=== PATIENT | female | born 1930 | race Caucasian/White ===

== ENCOUNTER → 2021-01-01 | Outpatient (REF) | payer MEDICARE, OTHER | LOC: M SHH 16:14 | PROVIDERS: ATTEND Family Medicine | DX: R30.0 Dysuria (principal); R35.0 Frequency of micturition ==

== ENCOUNTER 2021-02-01 09:44 | Inpatient (IN) | payer MEDICARE, OTHER ==
[~2021-02-01] VITALS: Ht 165.1 cm; Wt 72.4 kg
--- NOTE | 2021-02-01 11:06 | REP ---
INDICATION: fall/trauma. COMPARISON: 02/18/2018. TECHNIQUE: AP view pelvis, AP and frogleg left hip. FINDINGS: There is a mildly displaced fracture of the left femoral neck. There is no other evidence of acute fracture or dislocation. Moderate degenerative changes are seen at each hip joint, with moderate bilateral joint space narrowing and subchondral sclerosis. There is mild acetabular spurring. There are degenerative changes of the visualized lower lumbar spine. IMPRESSION: Mildly displaced fracture left femoral neck. <Electronically signed by Patrick Levy > 02/01/21 110
--- NOTE | 2021-02-01 11:07 | REP ---
INDICATION: fall COMPARISON: None. TECHNIQUE: AP and lateral. FINDINGS: There is a mildly displaced left femoral neck fracture. There is no dislocation. IMPRESSION: Mildly displaced left femoral neck fracture. <Electronically signed by Patrick Levy > 02/01/21 1108
--- NOTE | 2021-02-01 11:11 | REP ---
INDICATION: fall. COMPARISON: 05/17/2020 the latest prior TECHNIQUE: Portable FINDINGS: The technique utilized in obtaining the radiograph has magnified the cardiac silhouette and accentuated the interstitial markings. The right CP angle has not been included on the radiograph. Without exception lung briggs are unchanged. Once again, there is a 1 cm size nodule in the right upper lobe status quo. No acute patchy parenchymal opacities or pleural effusions have developed. The cardiomediastinal silhouette is stable. There is persistent right hilar fullness. The heart is not enlarged. There is no significant change in appearance of the osseous structures. IMPRESSION: 1. Persistent right middle lobe nodule as described above concerning for neoplasm. Contrast-enhanced CT examination of the chest is recommended. 2. Possible right hilar adenopathy as described above. 3. Other findings and limitations as described above. <Electronically signed by Jeff Alexandra > 02/01/21 1109
--- NOTE | 2021-02-01 11:12 | REP ---
INDICATION: fall COMPARISON: None. TECHNIQUE: Four views right elbow. FINDINGS: There is no evidence of acute fracture, dislocation, or intrinsic bone disease.There is significant soft tissue swelling over the olecranon. IMPRESSION: No fracture or dislocation. Significant soft tissue swelling over the olecranon. <Electronically signed by Patrick Levy > 02/01/21 2404
--- OUTSIDE RECORDS SUMMARY | 2021-02-01 11:40 | CCD | Continuity of Care Document ---
Author Author Lorena HERNANDEZ D.O. Organization Unknown Address [address] [address] Phone [phone] Problems Active Problems Provider Date Hypothyroidism Onset: 04/19/2001 Hyperlipidemia Onset: 04/19/2001 Female climacteric state Orlando Hernandez D.O., FAAFP Onset: 04/19/2001 Allergic rhinitis Orlando Hernandez D.O., FAAFP Onset: 05/2002 Diverticula Colon Orlando Hernandez D.O., FORTUNATOFP Onset: 05/2002 Benign essential hypertension Orlando Hernandez D.O., FAAFP O nset: 07/10/2008 Gastroesophageal reflux disease Orlando Hernandez D.O., FAAFP Onset: 07/10/2008 Depressive disorder Orlando Hernandez D.O., FAAFP Onset: 06/13 Allergic rhinitis Orlando Hernandez D.O., FAAFP Onset: 08/11 Chronic obstructive lung disease Perez Bonner RPA Onse t: 06/22/2018 Paroxysmal atrial fibrillation Orlando Hernandez D.O., FAAFP Onset: 01/18/2019 Social History Type Date Description Comments Sex Unknown Cigarette Use Current cigarette smoker: 1/2 pa ck a day since age 21, quit and restarted often. Tobacco Use Start: Unknown Current Cigarette Smoker 4 Cigar ettes per day Smoking Status Reviewed: 10/22/20 Current Cigarette Smoker 4 Ci garettes per day ETOH Use Consumes 2 glasses of wine per w [facility] Tobacco Use Start: Unknown Patient is a current smoker, smo kes some days Recreational Drug Use Never Used Drugs Exercise Type/Frequency Does aerobics daily Seat Belt/Car Seat always Allergies and adverse reactions Active Allergies Criticality Reaction | Severity Comments Date Flagyl Unable to assess criticality 11/01/1998 Cefdinir Unable to assess criticality fidencio st discomort /gi no problem with amox 12/28/2012 Medications Active Medications SIG Qnty Indications Ordering Provide r Date Bactrim DS 800-160mg Tablets 1 by mouth twice a day for 10 days 20tabs Orlando Hernandez D.O., F AAFP 01/21/2021 Cyclobenzaprine HCL 5mg Tablets 1 tab by mouth at bedtime 30tabs Orlando Hernandez D.O., FAAFP Albuterol Sulfate (2 .5mg/3ML) 0.083% Nebulizer 1 vial via nebulizer every 4 hours as needed 75ml J44 .1 Orlando Hernandez D.O., FAAFP 09/03/2020 R06.2 Nebulizer Device medication compressor use as directed j 44.9 1units Orlando Hernandez D.O., FA [facility] 09/03/2020 Nebulizer Kit/Tubing/Mouthpiece K it for use with nebulizer as directed J44.1 1units J44.1 Orlando Hernandez D.O., FAAFP 09/03/2020 R06.2 Extension Tubing/Connector Misc Spacer- Use With Albuterol Inhaler 1units Orlando Hernandez D.O. , FAAFP 09/03/2020 Leslee Covid-19 Vaccine 0.5ml Vonda pension done Orlando Hernandez D.O., FAAFP Loratadine 10mg Tablets 1 by mouth every night at bedtime 90tabs Orlando Hernandez D.O., FAAFP Prevnar 13 Suspension as directed 1dose Orlando Hernandez D.O., FAAFP 01/18/2019 Azelastine HCL (Nasal) 0.1% Soluti on 2 sprays internasally twice a day 30ml Orlando Hernandez D.O., FAAFP 07/02/2018 Ventolin HFA 108(90Base) mcg/Act A erosol 2 puffs inhaled four times a day as needed 8gm Orlando Hernandez D.O., [facility] 07/16/2017 Montelukast Sodium 10mg Tablets take 1 tablet by mouth daily 90tabs Renetta Yolanda [facility] 07/2016 Levothyroxine Sodium 88mcg Tablets take 1 tablet by mouth daily 90tabs Renetta Yolanda [facility] Pravastatin Sodium 40mg Tablets take 1 tablet by mouth daily 90tabs Yolanda Jackson [facility] Sertraline HCL 25mg Tablets Take 1 Tablet By Mouth Daily 90tabs Orlando Hernandez D.O., [facility] Lisinopril 5mg Tablets take one-half (1/2) tablet daily 45tabs [facility]anda [facility] 9 Multi Vitamin Daily Tablets 1 by mouth every day Unknown Vitamin D3 High Potency 1000Unit C apsules 2 by mouth every day OTC Unknown Calcium Citrate + D3 430-617mb-Vonp Tablets 1 by mouth twice a day Unknown Cardizem CD 180mg Caps ER 24HR 1 by mouth every day 90caps Renetta Yolanda Tirso [facility] 0 Eliquis 5mg Tablets 1 by mouth twice a day 180tabs Yolanda Jackson [facility] 0 Pantoprazole Sodium 40mg Tablets D R 1 by mouth every day 90tabs Renetta Yolanda Tirso [facility] 0 History Medications Amoxicillin 875mg Tablets 1 tab by mouth twice a day for 7 days 14tabs Orlando Hernandez D.O., [facility] 01/03/2021 - 01/21/2021 Prednisone 20mg Tablets 2 tab by mouth daily for 5 days with food then one x 4 days then d/c 14tabs Orlando Hernandez D.O., [facility] 09/03/2020 - 11/09/2020 Prednisone 20mg Tablets 2 tab by mouth daily for 5 days with food 10tabs Yolanda Jackson FNP- C 07/30/2020 - 08/07/2020 Medications Administered in Office Medication SIG Qnty Indications Ordering Provider Date Injection (SC)/(Im) Injection Orlando Hernandez D.O., [facility] 09/03/2020 Injection (SC)/(Im) Injection Rounds, Yolanda Chahal, [facility] 05/18/2020 Injection (SC)/(Im) Injection Rounds, Yolanda Chahal, [facility] 05/18/2020 Injection (SC)/(Im) Injection Rounds, Yolanda Chahal, [facility] 05/17/2020 Injection (SC)/(Im) Injection Rounds, Yolanda Chahal, [facility] 05/17/2020 Injection (SC)/(Im) Injection Orlando Hernandez D.O., [facility] 01/06/2019 Injection (SC)/(Im) Injection Florentin Murphy, RPA 09/08/2014 Injection (SC)/(Im) Injection Orlando Hernandez D.O., [facility] 09/07/2014 Injection (SC)/(Im) Injection Neda Aldana D., [facility] 09/06/2014 Injection (SC)/(Im) Injection [facility] Schedule 02/06/2012 Injection (SC)/(Im) Injection Florentin Murphy, RPA 02/05/2012 Injection (SC)/(Im) Injection Florentin Murphy, RPA 02/04/2012 Injection (SC)/(Im) Injection Orlando Hernandez D.O., [facility] 01/30/2011 Injection (SC)/(Im) Injection Florentin Murphy, RPA 01/29/2011 Injection (SC)/(Im) Injection Orlando Hernandez D.O., [facility] 01/28/2011 Injection Subcutaneous Or Intramuscular Injection Emanuel Camacho M.D. 2007 Injection Subcutaneous Or Intramuscular Injection Orlando Hernandez D.O., [facility] 03/16/2008 Injection Subcutaneous Or Intramuscular Injection Florentin Murphy, RPA 03/15 Injection Subcutaneous Or Intramuscular Injection Florentin Murphy, RPA 02/28 Immunizations CPT Code Status Date Vaccine Lot # 74903 Given 01/04/2020 Influenza Virus Vaccine, Quadrivalent, Slit Virus, Im Use 3Y & Up [id number] 87489 Given 01/06/2019 Influenza Virus Vaccine, Quadrivalent, Slit Virus, Im Use 3Y & Up [id number] 49602 Given 02/18/2018 Influenza Virus Vaccine, Quadrivalent, Slit Virus, Im Use 3Y & Up [id number] 24332 Given 04/23/2017 Influenza Virus Vaccine, Quadrivalent, Slit Virus, Im Use 3Y & Up [id number] 39140 Given 02/29/2016 Influenza Virus Vaccine, Quadrivalent, Slit Virus, Im Use 3Y & Up [id number] 98927 Given 03/26/2015 Influenza Vaccin e (Fluzone) 3Yrs Of Age Or Older Medicare Plans [id number] Q2037 Given 12/30/2013 Influenza Vaccin e (Fluvirin) 3Yrs Of Age Or Older Medicare Plans [id number] 74484 Given 02/04/2013 Pneumococcal Immunization [id number] 38496 Given 12/28/2012 Influenza Vaccin e (Fluzone) 3Yrs Of Age Or Older Medicare Plans 39050 Given 12/28/2012 Influenza Virus Vac. Split Virus Individuals 3 Years And Above [id number] 93041 Given 02/04/2012 Zoster (Shingles) Vaccine 21207 Given 12/29/2011 Influenza Vaccin e (Fluzone) 3Yrs Of Age Or Older Medicare Plans 40501 Given 12/29/2011 Influenza Virus Vac. Split Virus Individuals 3 Years And Above [id number] 60304 Given 02/19/2011 Influenza Vaccin e (Fluzone) 3Yrs Of Age Or Older Medicare Plans 08443 Given 02/19/2011 Influenza Virus Vac. Split Virus Individuals 3 Years And Above [id number] 10358 Given 02/11/2010 Influenza Virus Vac. Split Virus Individuals 3 Years And Above 52755 Given 01/08/2009 Influenza Virus Vac. Split Virus Individuals 3 Years And Above [id number] 77352 Given 02/02/2008 Influenza Virus Vac. Split Virus Individuals 3 Years And Above [id number] 51126 Given 03/03/2007 Pneumococcal Immunization [id number] 64080 Given 02/18/2007 Influenza Virus Vac. Split Virus Individuals 3 Years And Above [id number] 72092 Given 02/25/2006 Influenza Virus Vac. Split Virus Individuals 3 Years And Above [id number] 37549 Given 02/21/2005 Influenza Virus Vac. Split Virus Individuals 3 Years And Above 12976 Given 01/23/2003 Influenza Virus Vac. Split Virus Individuals 3 Years And Above 48734 Given 01/27/2002 Pneumococcal Immunization 55483 Given 01/27/2002 Influenza Virus Vac. Whole V irus 79862 Given 01/27/2002 Influenza Virus Vac. Split Virus Individuals 3 Years And Above 58321 Given 01/21/2001 Influenza Immunization 37852 Given 02/13/2000 Influenza Immunization 97007 Given 02/13/1999 Influenza Immunization 23428 Given 02/21/1998 Influenza Immunization 54834 Given 02/10/1997 Pneumococcal Immunization 22310 Given 02/10/1997 Influenza Immunization Vital Signs Date Vital Result Comment 11/09/2020 1:38pm BP Systolic 128 mmHg BP Diastolic 72 mmHg Body Temperature 97.2 F Heart Rate 80 /min Respiratory Rate 16 /min Height 64.50 inches 5'4.50" Weight 171.00 lb [facility] Body Weight 120 lb BMI (Body Mass Index) 28.9 kg/m2 O2 % BldC Oximetry 96 % 10/22/2020 11:40am BP Systolic 126 mmHg BP Diastolic 86 mmHg Body Temperature 97.2 F Heart Rate 88 /min Respiratory Rate 16 /min Height 64.50 inches 5'4.50" Weight 168.00 lb [facility] Body Weight 120 lb BMI (Body Mass Index) 28.4 kg/m2 O2 % BldC Oximetry 96 % Results Test Acquired Date Facility Test Result H/L Range Note Urine Culture, Routine 01/18/2021 [facility] [place] Urine Culture, Routine Final report Abnormal 1, 2 Result 1 Escherichia coli Abnormal 3 Antimicrobial Susceptibility See Comment: 4 U/A DIP 01/18/2021 [facility] Color yellow QUAL Clarity cloudy QUAL Glucose-Ua Negative g/dL Negative Bilirubin,Urine Negative QUAL Negative Ketone Negative mg/dL Negative Specific [place] 1.025 # 1.000 - 1.030 Blood - Ua Trace-intact QUAL Abnormal Negative pH 6.5 # 5.0 - 8.0 Protein Negative mg/dL Negative Urobilinogen 0.2 NA 0.2 - 1.0 Nitrite Positive QUAL Abnormal Negative Leukocyte Trace QUAL Abnormal Negative RBC-Ua 1-4/HPF # Abnormal 0 - 3 Epithelial Cells - Ua 3-8/HPF QUAL Bacteria - Ua many QUAL Abnormal Negative WBC-Ua 10-20/HPF #/HPF Abnormal 0 - 5 Comment UCS SENT OUT NA High Renal Epithelial Cells RARE QUAL Abnormal Negative Urine Culture 01/01/2021 [facility] (Mariana anaya) [phone] Urine Culture FULL REPORT IN L <SEE NOTE> Normal 5 CBC 11/09/2020 [facility]house WBC 11.4 10E3/uL High 4.1 - 10.9 6 RBC 4.27 10E6/uL 4.20 - 6.30 HGB 13.8 g/dL 12.0 - 18.0 HCT 40.9 % 37.0 - 51.0 MCV 95.8 fL 80.0 - 97.0 MCH 32.3 pg High 26.0 - 32.0 MCHC 33.7 g/dL 31.0 - 36.0 PLT 287 10E3/uL 140 - 440 RDW-CV 14.3 % 11.5 - 14.5 Lym% 18.3 % 10.0 - 58.5 Neut% 73.3 % 37.0 - 92.0 MXD% 8.4 % 0.1 - 24.0 Lym# 2.1 10E3/uL 0.6 - 4.1 Neut# 8.3 % High 2.0 - 7.8 MXD# 1.0 10E3/uL 0.0 - 1.8 MPV 9.4 fL 9.0 - 13.0 CMP 11/09/2020 [facility] Glu 91 mg/dL 70 - 110 BUN 19 mg/dL 8 - 23 Creat 0.9 mg/dL 0.5 - 1.0 BUN/Creatinine Ratio 20.5 CALC Na 138 mmol/L 136 - 145 K 4.6 mmol/L 3.5 - 5.1 CL 100.3 mmol/L 98.0 - 107.0 Co2 21.5 mmol/L Low 22.0 - 29.0 CA 9.8 mg/dL 8.6 - 10.2 TP 6.6 g/dL 6.6 - 8.7 Alb 4.4 g/dL 3.4 - 4.8 A/G Ratio 2.0 CALC Globulin 2.2 CALC Alp 75.8 U/L 35 - 129 Alt (SGPT) 16 U/L 0 - 41 Ast (Sgot) 17 U/L 0 - 40 Tbili 0.40 mg/dL 0.0 - 1.2 Osmolality-Calculated 277.3 CALC Anion Gap 21 mmol/L eGFR 66 # Calc 7 eGFR Non-Afr. Australian 57 # Calc 8 Lipid Panel 11/09/2020 [facility] Chol 198 mg/dL 0 - 200 Trig 222 mg/dL High 40 - 200 HDL 62 mg/dL 45 - 65 LDL_C 92 Calc 75 - 129 Cho/HDL Ratio 3.2 CALC Laboratory test finding 11/09/2020 [facility] CK 43 U/L 26 - 192 Laboratory test finding 11/09/2020 [facility] T4, Free 1.58 ng/dL High 0.75 - 1.54 TSH 1.136 ulU/mL 0.60 - 4.8 CBC 09/03/2020 [facility]house WBC 8.0 10E3/uL 4.1 - 10.9 9 RBC 4.29 10E6/uL 4.20 - 6.30 HGB 13.7 g/dL 12.0 - 18.0 HCT 41.6 % 37.0 - 51.0 MCV 97.0 fL 80.0 - 97.0 MCH 31.9 pg 26.0 - 32.0 MCHC 32.9 g/dL 31.0 - 36.0 PLT 418 10E3/uL 140 - 440 RDW-CV 12.7 % 11.5 - 14.5 Lym% 20.6 % 10.0 - 58.5 Neut% 69.6 % 37.0 - 92.0 MXD% 9.8 % 0.1 - 24.0 Lym# 1.6 10E3/uL 0.6 - 4.1 Neut# 5.6 % 2.0 - 7.8 MXD# 0.8 10E3/uL 0.0 - 1.8 MPV 9.1 fL 9.0 - 13.0 1 SRC:<Blank> 2 Source of Specimen: <Blank> 3 Escherichia coli Source of Specimen: <Blank> Cefazolin <=4 ug/mL Cefazolin with an TANYA <=16 predicts susceptibility to the oral agents cefaclor, cefdinir, cefpodoxime, cefprozil, cefuroxime, cephalexin, and loracarbef when used for therapy of uncomplicated urinary tract infections due to E. coli, Klebsiella pneumoniae, and Proteus mirabilis. Greater than 100,000 colony forming units per mL 4 Source of Specimen: <Blank> S = Susceptible; I = Intermediate; R = Resistant P = Positive; N = Negative MICS are expressed in micrograms per mL Antibiotic RSLT#1 RSLT#2 RSLT#3 RSLT#4 Amoxicillin/Clavulanic Acid S Ampicillin R Cefepime S Ceftriaxone S Cefuroxime S Ciprofloxacin S Ertapenem S Gentamicin S Imipenem S Levofloxacin S Meropenem S Nitrofurantoin S Piperacillin/Tazobactam S Tetracycline S Tobramycin S Trimethoprim/Sulfa R 5 FULL REPORT IN LAB NOTES (eC W and [facility]). ORGANISM 1: STAPHYLOCOCCUS EPIDERMIDIS COLONY COUNT >100,000 ORGANISM 1: STAPHYLOCOCCUS EPIDERMIDIS STAPHYLOCOCCUS EPIDERMIDIS: REACTION ICR (INDUCIBLE CC RESISTANCE) IV ICR TEST RESULT TETRACYCLINE PO 250 mg qid <=1 S PENICILLIN G IV 1 mu q6H >=0.5 R PENICILLIN G IV 1 mu q6h >=0.5 R PENICILLIN G PO 250mg q6h fasting >=0.5 R TRIMETHOPRIM/SULFAMETHOXAZOLE IV 160mg TMP & 800mg SMXq6h >=320 R TRIMETHOPRIM/SULFAMETHOXAZOLE PO Bactrim DS Bid >=320 R ERYTHROMYCIN IV 500mg q6h >=8 R ERYTHROMYCIN PO 500mg q6h >=8 R GENTAMICIN IV 80mg q8h <=0.5 S CLINDAMYCIN IV 600mg q6h 0.25 R CLINDAMYCIN PO 150mg q6h 0.25 R NITROFURANTOIN PO 100mg BID <=16 S OXACILLIN IV 500mg q6h <=0.25 S VANCOMYCIN IV 500mg q8h 2 S LINEZOLID (ZYVOX) IV 600MG Q12HR 1 S LINEZOLID (ZYVOX) PO 600MG Q12HR 1 S An isolate with a (+) POSITIVE ICR test is considered CLINDAMYCIN RESISTANT; however, clindamycin may still be effective in some patients. An isolate with a (-) NEGATIVE ICR test is considered CLIDAMYCIN SENSITIVE. Oxacillin result predicts susceptibility to all penicillinase-stable penicillins (Nafcillin, Dicloxacilin), Cephalosporins, Carbapenems, Amoxicillin/Clavulanate & Ampicillin/Sulbactam per CSLI standards. 6 NORMAL RANGES Age WBC RBC HGB HCT MCV PLT Adult M 4.1-10.9 4.20-6.30 12.0-18.0 37.0-51.0 80-97 140-440 Adult F 4.1-10.9 4.04-5.48 12.0-18.0 37.0-51.0 80-97 140-440 0 -1 Yr 5.0-20.0 3.9-5.9 15-18 MV: 44 MV: 91 MV: 277 2-9 Yr. 6.0-17.0 3.8-5.4 11-13 MV: 37 MV: 78 MV: 300 10 Yrs. 5.0-13.0 3.8-5.4 12-15 MV: 39 MV: 80 MV: 250 NOTE: * FOR ADULT BLACK MALES AND FEMALES, NORMAL WBC IS 2.9-7.7 K/ML * FOR ADULT BLACK MALES AND FEMALES, NORMAL RBC,HGB, AND HCT IS 5% LESS SOURCE FOR DATA: [employer] 1800 OPERATION MANUAL( AUTOMATED BLOOD COUNTS AND DIFF.) APPENDIX B-3 CHRONIC KIDNEY DISEASE STAGING PER NKF: MALE GFR INTERPRETATION: 20-49 YRS: >60 mL/min Normal 50-59 YRS: >56 mL/min Normal 60-69 YRS: >49 mL/min Normal 70-79 YRS: >42 mL/min Normal 80 and above >35 mL/min Normal FEMALE GRF INTERPRETATION: 20-39 YRS: >60 mL/min Normal 40-49 YRS: >58 mL/min Normal 50-59 YRS: >51 mL/min Normal 60-69 YRS: >45 mL/min Normal 70-79 YRS: >39 mL/min Normal 80 and above >32 mL/min NormalCLASSIFICATION CHOLESTEROL FOR ADULTS CHILDREN/ADOLESCENTS* DESIRABLE: <200 MG/DL <170 MG/DL BORDER-LINE HIGH RISK: 200-239 MG/DL 170-199 MG/DL HIGH RISK: >240 MG/DL >200 MG/DL CLASS. FOR PRIMARY LDL CHOL PREVENTION: LDL CHOL-CHILD/ADOLESCENTS* DESIRABLE: <130 MG/DL <110 MG/DL BORDERLINE-HIGH RISK: 130-159 MG/DL 110-129 MG/DL HIGH RISK: >160 MG/DL >130 MG/DL *CHILDREN AND ADOLESCENTS REPRESENTS INDIVIDUALA AGED 2-19 YEARS EXCLUSIVE. 7 CKD-EPI 8 CKD-EPI 9 NORMAL RANGES Age WBC RBC HGB HCT MCV PLT Adult M 4.1-10.9 4.20-6.30 12.0-18.0 37.0-51.0 80-97 140-440 Adult F 4.1-10.9 4.04-5.48 12.0-18.0 37.0-51.0 80-97 140-440 0 -1 Yr 5.0-20.0 3.9-5.9 15-18 MV: 44 MV: 91 MV: 277 2-9 Yr. 6.0-17.0 3.8-5.4 11-13 MV: 37 MV: 78 MV: 300 10 Yrs. 5.0-13.0 3.8-5.4 12-15 MV: 39 MV: 80 MV: 250 NOTE: * FOR ADULT BLACK MALES AND FEMALES, NORMAL WBC IS 2.9-7.7 K/ML * FOR ADULT BLACK MALES AND FEMALES, NORMAL RBC,HGB, AND HCT IS 5% LESS SOURCE FOR DATA: [employer] 1800 OPERATION MANUAL( AUTOMATED BLOOD COUNTS AND DIFF.) APPENDIX B-3 Procedures Date Code Description Status 11/09/2020 08651 Office/Outpatient Established Mo d MDM 30-39 Min Completed 10/22/2020 53666 Office/Outpatient Established Lo w MDM 20-29 Min Completed 09/03/2020 46612 Office/Outpatient Established Mo d MDM 30-39 Min Completed 09/03/2020 55983 Injection (SC)/(Im) Completed 09/03/2020 60285 Aerosol Treatment Airway Inhalat ion Treatment Completed 08/07/2020 59751 Office/Outpatient Established Mo d MDM 30-39 Min Completed 07/30/2020 37922 Office/Outpatient Established Mo d MDM 30-39 Min Completed Medical Devices Description No Information Available Encounters Type Date Location Provider Dx Diagnosis Office Visit 11/09/2020 1:40p [place] [facility] Rounds, [facility] Jade I48.0 Paroxysmal atrial fibrillation J30.9 Allergic rhinitis, unspecifi ed K21.9 Gastro-esophageal reflux dis ease without esophagitis E03.9 Hypothyroidism, unspecified M54.32 Sciatica, left side J44.1 Chronic obstructive pulmonar y disease w (acute) exacerbation Office Visit 10/22/2020 11:30a [place] [facility] Orlando Hernandez D.O ., FAAFP M54.32 Sciatica, left side M54.32 Sciatica, left side Office Visit 09/03/2020 10:30a [place] [facility] Orlando Hernandez D.O ., FAAFP J44.1 Chronic obstructive pulmonary disease w (acute) exacerbation R06.2 Wheezing Office Visit 08/07/2020 1:15p [place] [facility] Orlando Hernandez D.O ., FAAFP I48.0 Paroxysmal atrial fibrillation J44.1 Chronic obstructive pulmonar y disease w (acute) exacerbation J30.9 Allergic rhinitis, unspecifi ed K21.9 Gastro-esophageal reflux dis ease without esophagitis E03.9 Hypothyroidism, unspecified Office Visit 07/30/2020 1:40p [place] [facility] RoundsYolanda FNP-BC J44.1 Chronic obstructive pulmonary disease w (acute) exacerbation J30.9 Allergic rhinitis, unspecifi ed Assessments Date Code Description Provider 01/18/2021 R35.0 Frequency of micturition Orlando Hernandez D.O., [facility] 11/09/2020 I48.0 Paroxysmal atrial fibrillation R Yolanda garcia, [facility] 11/09/2020 J30.9 Allergic rhinitis, unspecified R Yolanda garcia, [facility] 11/09/2020 K21.9 Gastro-esophageal reflux disease without esophagitis Yolanda Jackson, [facility] 11/09/2020 E03.9 Hypothyroidism, unspecified Roun bethYolanda, [facility] 11/09/2020 M54.32 Sciatica, left side Yolanda Jackson, [facility] 11/09/2020 J44.1 Chronic obstructive pulmonary disease with (acute) exacerbation Yolanda Jackson, [facility] 10/22/2020 M54.32 Sciatica, left side Orlando gill D.O., [facility] 10/22/2020 M54.32 Sciatica Orlando Hernandez D.O., [facility] 09/03/2020 J44.1 Chronic obstructive pulmonary disease with (acute) exacerbation Orlando Hernandez D.O., [facility] 09/03/2020 R06.2 Wheezing Orlando Hernandez D.O., [facility] 08/07/2020 I48.0 Paroxysmal atrial fibrillation K alisha Hernandez D.O., [facility] 08/07/2020 J44.1 Chronic obstructive pulmonary disease with (acute) exacerbation Orlando Hernandez D.O., [facility] 08/07/2020 J30.9 Allergic rhinitis, unspecified K alisha Hernandez D.O., [facility] 08/07/2020 K21.9 Gastro-esophageal reflux disease without esophagitis Orlando Hernandez D.O., [facility] 08/07/2020 E03.9 Hypothyroidism, unspecified Isai Hernandez D.O., [facility] 07/30/2020 J44.1 Chronic obstructive pulmonary disease with (acute) exacerbation Yolanda Jackson [facility] 07/30/2020 J30.9 Allergic rhinitis, unspecified R Yolanda garcia, [employer]- Plan of Treatment Future Appointment(s):* 02/27/2021 1:45 pm - Orlando Hernandez D.O., FAAFP at [facility] Functional Status Description No Information Available Mental Status Description No Information Available Referrals Refer to Reason for Referral Status Appt Date Bandar Farrell M.D. low back pain with radiculo nikita x several weeks please eval and tx Sent [facility] [place] [address] [phone]
--- OUTSIDE RECORDS SUMMARY | 2021-02-01 11:41 | CCD | Continuity of Care Document ---
Author Author Lorena HERNANDEZ D.O. Organization Unknown Address [address] [address] Phone [phone] Problems Active Problems Provider Date Hypothyroidism Onset: [...] Consumes 2 glasses of wine per w emmonak Tobacco Use Start: Unknown Patient is a current smoker, smo kes some days Recreational Drug Use Never Used Drugs Exercise Type/Frequency Does aerobics daily Seat Belt/Car Seat always Allergies, Adverse Reactions, Alerts Active Allergies Criticality Reaction | Severity Comments Date Flagyl Unable to assess criticality 11/01/1998 Cefdinir Unable to assess criticality fidencio st discomort /gi no problem with amox 12/28/2012 Medications Active Medications SIG Qnty Indications Ordering Provide r Date Cyclobenzaprine HCL 5mg Tablets 1 tab by mouth at bedtime 30tabs Orlando Hernandez D.O., FAAFP Albuterol Sulfate (2 .5mg/3ML) 0.083% Nebulizer 1 vial via nebulizer every 4 hours as needed 75ml J44 .1 Orlando Hernandez D.O., FAAFP 09/03/2020 R06.2 Nebulizer Device medication compressor use as directed j 44.9 1units Orlando Hernandez D.O., FA [facility] 09/03/2020 Nebulizer Kit/Tubing/Mouthpiece K it for use [...] day as needed 8gm Orlando Hernandez D.O., FAAFP 07/16/2017 Montelukast Sodium 10mg Tablets take 1 tablet by mouth daily 90tabs Yolanda Jackson [facility] 07/2016 Levothyroxine Sodium 88mcg Tablets take 1 tablet by mouth daily 90tabs Renetta Yolanda Chahal [facility] Pravastatin Sodium 40mg Tablets take 1 tablet by mouth daily 90tabs Renetta Yolanda Chahal [facility] Sertraline HCL 25mg Tablets Take 1 Tablet By Mouth Daily 90tabs Orlando Hernandez D.O., [facility] Lisinopril 5mg Tablets take one-half (1/2) tablet daily 45tabs Renetta Yolanda Chahal [facility] 9 Multi Vitamin Daily Tablets 1 by mouth every day Unknown Vitamin D3 High Potency 1000Unit C apsules 2 by mouth every day OTC Unknown Calcium Citrate + D3 [id number] Tablets 1 by mouth twice a day Unknown Cardizem CD 180mg Caps ER 24HR 1 by mouth every day 90caps Renetta Yolanda Tirso [facility] 0 Eliquis 5mg Tablets 1 by mouth twice a day 180tabs Renetta Yolanda Chahal [facility] 0 Pantoprazole Sodium 40mg Tablets D R 1 by mouth every day 90tabs Renetta Yolanda Chahal [facility] 0 History Medications Prednisone 20mg Tablets 2 tab by mouth daily for 5 days with food then one x 4 days then d/c 14tabs Orlando Hernandez D.O., [facility] 09/03/2020 - 11/09/2020 Prednisone 20mg Tablets 2 tab by mouth daily for 5 days with food 10tabs Renetta Yolanda CHAO Chahal C 07/30/2020 - 08/07/2020 Medications Administered in Office Medication SIG Qnty Indications Ordering Provider Date Injection (SC)/(Im) Injection Orlando Hernandez D.O., [facility] 09/03/2020 Injection (SC)/(Im) Injection Yolanda Jackson [facility] 05/18/2020 Injection (SC)/(Im) Injection Yolanda Jackson [facility] 05/18/2020 Injection (SC)/(Im) Injection Ferny Jacksone Tirso [facility] 05/17/2020 Injection (SC)/(Im) Injection Renetta Yolanda Tirso [facility] 05/17/2020 Injection (SC)/(Im) Injection Orlando Hernandez D.O., [facility] 01/06/2019 Injection (SC)/(Im) Injection Florentin Murphy, RPA 09/08/2014 Injection (SC)/(Im) [facility] 09/07/[facility] Injection (SC)/(Im) Injection Neda Aldana D., [facility] 09/06/2014 Injection (SC)/(Im) Injection Nurses Schedule 02/06/2012 Injection (SC)/(Im) Injection Florentin Murphy, RPA 02/05/2012 Injection (SC)/(Im) Injection Florentin Mruphy, RPA 02/04/2012 Injection (SC)/(Im) Injection Orlando Hernandez D.O., FAAFP 01/30/2011 Injection (SC)/(Im) Injection Florentin Murphy, RPA 01/29/2011 Injection (SC)/(Im) Injection Orlando Hernandez D.O., FAAFP 01/28/2011 Injection Subcutaneous Or Intramuscular Injection Emanuel Camacho M.D. 2007 Injection Subcutaneous Or Intramuscular Injection [facility] 03/16/2008 Injection Subcutaneous Or Intramuscular Injection Florentin Murphy, RPA 03/15 Injection Subcutaneous Or Intramuscular Injection Florentin Murphy, RPA 02/28 Immunizations CPT Code Status Date Vaccine Lot # [id number] Given 01/04/2020 Influenza Virus Vaccine, Quadrivalent, Slit Virus, Im Use 3Y & Up [id number] 22302 Given 01/06/2019 Influenza Virus Vaccine, Quadrivalent, Slit Virus, Im Use 3Y & Up [id number] 58412 Given 02/18/2018 Influenza Virus Vaccine, Quadrivalent, Slit Virus, Im Use 3Y & Up [id number] 50923 Given 04/23/2017 Influenza Virus Vaccine, Quadrivalent, Slit Virus, Im Use 3Y & Up [id number] 69339 Given 02/29/2016 Influenza Virus Vaccine, Quadrivalent, Slit Virus, Im Use 3Y & Up [id number] 44373 Given 03/26/2015 Influenza Vaccin e (Fluzone) 3Yrs Of Age Or Older Medicare Plans [id number] Q2037 Given 12/30/2013 Influenza Vaccin e (Fluvirin) 3Yrs Of Age Or Older Medicare Plans [id number] 64382 Given 02/04/2013 Pneumococcal Immunization J0 00101 61986 Given 12/28/2012 Influenza Vaccin e (Fluzone) 3Yrs Of Age Or Older Medicare Plans 01669 Given 12/28/2012 Influenza Virus Vac. Split Virus Individuals 3 Years And Above [id number] 55602 Given 02/04/2012 Zoster (Shingles) Vaccine 07584 Given 12/29/2011 Influenza Vaccin e (Fluzone) 3Yrs Of Age Or Older Medicare Plans 25578 Given 12/29/2011 Influenza Virus Vac. Split Virus Individuals 3 Years And Above [id number] 39042 Given 02/19/2011 Influenza Vaccin e (Fluzone) 3Yrs Of Age Or Older Medicare Plans 31326 Given 02/19/2011 Influenza Virus Vac. Split Virus Individuals 3 Years And Above [id number] 40169 Given 02/11/2010 Influenza Virus Vac. Split Virus Individuals 3 Years And Above 07514 Given 01/08/2009 Influenza Virus Vac. Split Virus Individuals 3 Years And Above [id number] 54656 Given 02/02/2008 Influenza Virus Vac. Split Virus Individuals 3 Years And Above [id number] 87275 Given 03/03/2007 Pneumococcal Immunization 09 [id number] 92716 Given 02/18/2007 Influenza Virus Vac. Split Virus Individuals 3 Years And Above [id number] 75822 Given 02/25/2006 Influenza Virus Vac. Split Virus Individuals 3 Years And Above [id number] 01610 Given 02/21/2005 Influenza Virus Vac. Split Virus Individuals 3 Years And Above 74680 Given 01/23/2003 Influenza Virus Vac. Split Virus Individuals 3 Years And Above 55709 Given 01/27/2002 Pneumococcal Immunization 29265 Given 01/27/2002 Influenza Virus Vac. Whole V irus 98609 Given 01/27/2002 Influenza Virus Vac. Split Virus Individuals 3 Years And Above 02024 Given 01/21/2001 Influenza Immunization 35346 Given 02/13/2000 Influenza Immunization 54081 Given 02/13/1999 Influenza Immunization 27502 Given 02/21/1998 Influenza Immunization 77389 Given 02/10/1997 Pneumococcal Immunization 06561 Given 02/10/1997 Influenza Immunization Vital Signs Date Vital Result Comment 11/09/2020 1:38pm BP Systolic 128 mmHg BP Diastolic 72 mmHg Body Temperature 97.2 F Heart Rate 80 /min Respiratory Rate 16 /min Height 64.50 inches 5'4.50" Weight 171.00 lb [place] Body Weight 120 lb BMI (Body Mass Index) 28.9 kg/m2 O2 % BldC Oximetry 96 % 10/22/2020 11:40am BP Systolic 126 mmHg BP Diastolic 86 mmHg Body Temperature 97.2 F Heart Rate 88 /min Respiratory Rate 16 /min Height 64.50 inches 5'4.50" Weight 168.00 lb [place] Body Weight 120 lb BMI (Body Mass Index) 28.4 kg/m2 O2 % BldC Oximetry 96 % Results Test Acquired Date Facility Test Result H/L Range Note Urine Culture 01/01/2021 [facility]) [phone] Urine Culture FULL REPORT IN L <SEE NOTE> Normal 1 CBC 11/09/2020 [facility]/Inhouse WBC 11.4 10E3/uL High 4.1 - 10.9 2 RBC 4.27 10E6/uL 4.20 - 6.30 HGB [...] Gap 21 mmol/L eGFR 66 # Calc 3 eGFR Non-Afr. Pakistani 57 # Calc 4 Lipid Panel 11/09/2020 [facility]Inhouse Chol 198 mg/dL [...] FPA/Inhouse WBC 8.0 10E3/uL 4.1 - 10.9 5 RBC 4.29 10E6/uL 4.20 - 6.30 HGB [...] MPV 9.1 fL 9.0 - 13.0 1 FULL REPORT IN LAB NOTES (eC W [...] Carbapenems, Amoxicillin/Clavulanate & Ampicillin/Sulbactam per [facility] standards. 2 NORMAL RANGES Age WBC RBC HGB HCT [...] HCT IS 5% LESS SOURCE FOR DATA: [employer] 1800 OPERATION MANUAL( AUTOMATED BLOOD COUNTS AND [...] ADOLESCENTS REPRESENTS INDIVIDUALA AGED 2-19 YEARS EXCLUSIVE. 3 CKD-EPI 4 CKD-EPI 5 NORMAL RANGES Age WBC RBC HGB HCT [...] HCT IS 5% LESS SOURCE FOR DATA: [employer] 1800 OPERATION MANUAL( AUTOMATED BLOOD COUNTS AND DIFF.) APPENDIX B-3 Procedures Date Code Description Status 11/09/2020 95886 Office/Outpatient Established Mo d MDM 30-39 Min Completed 10/22/2020 15213 Office/Outpatient Established Lo w MDM 20-29 Min Completed 09/03/2020 26049 Office/Outpatient Established Mo d MDM 30-39 Min Completed 09/03/2020 73865 Injection (SC)/(Im) Completed 09/03/2020 21469 Aerosol Treatment Airway Inhalat ion Treatment Completed 08/07/2020 66253 Office/Outpatient Established Mo d MDM 30-39 Min Completed 07/30/2020 73431 Office/Outpatient Established Mo d MDM 30-39 Min Completed 07/09/2020 16375 Office/Outpatient Established Mo d MDM 30-39 Min Completed Medical Devices Description No Information Available Encounters Type Date Location Provider Dx Diagnosis Office Visit 11/09/2020 1:40p [place] [facility] RoundsYolanda FNP-BC I48.0 Paroxysmal atrial fibrillation J30.9 Allergic rhinitis, unspecifi ed K21.9 Gastro-esophageal reflux dis ease without esophagitis E03.9 Hypothyroidism, unspecified M54.32 Sciatica, left side J44.1 Chronic obstructive pulmonar y disease w (acute) exacerbation Office Visit 10/22/2020 11:30a [place] [facility] Nickolas Perez.Rajendra ., FAAFP M54.32 Sciatica, left side M54.32 Sciatica, left side Office Visit 09/03/2020 10:30a [place] [facility] Orlando Hernandez D.O ., FAAFP J44.1 Chronic obstructive pulmonary disease w (acute) exacerbation R06.2 Wheezing Office Visit 08/07/2020 1:15p [place] [facility] Orlando Hernandez D.O ., FAAFP I48.0 Paroxysmal atrial fibrillation J44.1 Chronic obstructive pulmonar y disease w (acute) exacerbation J30.9 Allergic rhinitis, unspecifi ed K21.9 Gastro-esophageal reflux dis ease without esophagitis E03.9 Hypothyroidism, unspecified Office Visit 07/30/2020 1:40p [place] [facility] RoundsYolanda FNP-BC J44.1 Chronic obstructive pulmonary disease w (acute) exacerbation J30.9 Allergic rhinitis, unspecifi ed Office Visit 07/09/2020 3:45p [facility] [facility] Perfecto Perez[facility] J44.1 Chronic obstructive pulmonary disease w (acute) exacerbation J30.9 Allergic rhinitis, unspecifi ed I48.0 Paroxysmal atrial fibrillati on K21.9 Gastro-esophageal reflux dis ease without esophagitis Assessments Date Code Description Provider 11/09/2020 I48.0 Paroxysmal atrial fibrillation Yolanda Jara, [facility] 11/09/2020 J30.9 Allergic rhinitis, unspecified R Yolanda garcia, [facility] 11/09/2020 K21.9 Gastro-esophageal reflux disease without esophagitis Yolanda Jackson, [facility] 11/09/2020 E03.9 Hypothyroidism, unspecified Pia camposoYlanda, [facility] 11/09/2020 M54.32 Sciatica, left side Yolanda Jackson [facility] 11/09/2020 J44.1 Chronic obstructive pulmonary disease with (acute) exacerbation Yolanda Jackson [facility] 10/22/2020 M54.32 Sciatica, left side Orlando gill D.O., [facility] 10/22/2020 M54.32 Sciatica Orlando Hernandez D.O., [facility] 09/03/2020 J44.1 Chronic obstructive pulmonary disease with (acute) exacerbation Orlando Hernandez D.O., [facility] 09/03/2020 R06.2 Wheezing Orlando Hernandez D.O., FAA 08/07/2020 I48.0 Paroxysmal atrial fibrillation K alisha Hernandez D.O., FAAFP 08/07/2020 J44.1 Chronic obstructive pulmonary disease with (acute) exacerbation Orlando Hernandez D.O., [facility] 08/07/2020 J30.9 Allergic rhinitis, unspecified K alisha Hernandez D.O., FAAFP 08/07/2020 K21.9 Gastro-esophageal reflux disease without esophagitis Orlando Hernandez D.O., FAAFP 08/07/2020 E03.9 Hypothyroidism, unspecified Isai Hernandez D.O., FAAFP 07/30/2020 J44.1 Chronic obstructive pulmonary disease with (acute) exacerbation Yolanda Jackson, [facility] 07/30/2020 J30.9 Allergic rhinitis, unspecified R Yolanda garcia, [facility] 07/09/2020 J44.1 Chronic obstructive pulmonary disease with (acute) exacerbation Orlando Hernandez D.O., [facility] 07/09/2020 J30.9 Allergic rhinitis, unspecified K alisha Hernandez D.O., [facility] 07/09/2020 I48.0 Paroxysmal atrial fibrillation K alisha Hernandez D.O., [facility] 07/09/2020 K21.9 Gastro-esophageal reflux disease without esophagitis Orlando Hernandez D.O., FAAFP Plan of Treatment Future Appointment(s):* 02/27/2021 1:45 pm - Orlando Hernandez D.O., FAAFP at [facility] Functional Status Description No Information Available Mental Status Description No Information Available Referrals Refer to Reason for Referral Status Appt Date Bandar Farrell M.D. low back pain with radiculo nikita x several weeks please benjamin and clay Sent [facility] [address] [place] [address] [phone]
--- OUTSIDE RECORDS SUMMARY | 2021-02-01 11:41 | CCD | Continuity of Care Document ---
Author Author Lorena FRIEDMAN P.T. Organization Unknown Address [address] [place] [address] Phone [phone] Care Team Providers Care Cmo & President Name Role Phone BraydenMoisesOrlando DO AUTM [phone] Problems Description No Information Available Social History Type Date Description Comments Sex Unknown ETOH Use Denies alcohol use Tobacco Use Start: Unknown Patient is a current smoker, smo kes every day Allergies, Adverse Reactions, Alerts Description No Known Drug Allergies Medications Active Medications SIG Qnty Indications Ordering Provide r Date Medrol 4mg Tablets dose malcom, take as directed on sheet 1tabs M51.36 Michoacano Owen MD 11/26/2020 Cyclobenzaprine HCL 5mg Tablets Orlando Owen, Doxycycline Monohydrate 100mg Caps ules Take 1 Capsule By Mouth Twice Daily For 10 Days Unknown Doxycycline Hyclate 100mg Capsules Tiffany Han PA-C Doxycycline Hyclate 100mg Tablets Orlando Owen, Prednisone 10mg Tablets Orlando Owen, Azelastine HCL (Nasal) 0.1% Solution Orlando Owen, DO Amoxicillin 875mg Tablets Yolanda Jackson FNP-BC Benzonatate 100mg Capsules Unknown Azithromycin 250mg Tablets Unknown Methylprednisolone 4mg TBPK Take as Directed Unknown Leslee Covid-19 Vaccine 0.5ml Vonda Anson Ellsworth MD Loratadine 10mg Tablets Orlando Owen, Albuterol Sulfate (2 .5mg/3ML) 0.083% Nebulizer [facility], Pravastatin Sodium 40mg Tablets [facility], Prednisone 20mg Tablets [facility], Pantoprazole Sodium 40mg Tablets DR Renetta Yolanda Chahal, [facility] Montelukast Sodium 10mg Tablets Renetta Yolanda Chahal, [facility] Lisinopril 5mg Tablets Renetta Yolanda Chahal, [facility] Levothyroxine Sodium 88mcg Tablets Yolanda Jackson, [facility] Eliquis 5mg Tablets Renetta Yolanda Chahal, [facility] Cartia XT 180mg Caps ER 24HR [facility] Sertraline HCL 25mg Tablets [facility], Albuterol Sulfate HFA 108(90Base) mcg/Act Aerosol [facility], History Medications Gabapentin 100mg Capsules 1 po at bedtime for 1 week, then increase to 1 tab po bid for 2nd week, then increase to 1 tab po tid for 3rd week 90caps M51.36 Michoacano Owen MD - 12/25/2020 Immunizations Description No Information Available Vital Signs Description No Information Available Results Description No Information Available Procedures Date Code Description Status 12/19/2020 90297 Manual Therapy Each 15 Minutes C ompleted 12/19/2020 32786 Therapeutic Procedure, Each 15 M inutes Completed 12/14/2020 22270 Therapeutic Procedure, Each 15 M inutes Completed 12/11/2020 03077 Therapeutic Procedure, Each 15 M inutes Completed 12/05/2020 72320 Physical Therapy Eval - Low Comp lexity Completed 11/26/2020 88616 Office/Outpatient New Moderate M DM 45-59 Minutes Completed 11/26/2020 74116 X-Ray Spine Lumbosacral Complete Inc Bending Views Min Of 6 Completed Medical Devices Description No Information Available Encounters Type Date Location Provider Dx Diagnosis Office Visit 11/26/2020 9:30a Danilo Quijano, P.A. M54.31 Sciatica, right side M51.36 Other intervertebral disc de generation, lumbar region M16.11 Unilateral primary osteoarth ritis, right hip Assessments Date Code Description Provider 12/19/2020 M54.31 Sciatica, right side Neeraj Joe letciia P.T. 12/19/2020 M51.36 Other intervertebral disc degene ration, lumbar region Neeraj Jerry Friedman P.T. 12/19/2020 M16.11 Unilateral primary osteoarthriti s, right hip Neeraj MejiaAdeel Friedman P.T. 12/14/2020 M54.31 Sciatica, right side Mayi Shayleeclaudy Thapa, [employer] 12/14/2020 M51.36 Other intervertebral disc degene ration, lumbar region Mayi Shayleeclaudy Thapa, [employer] 12/14/2020 M16.11 Unilateral primary osteoarthriti s, right hip Mayi Shayleeclaudy Thapa, [employer] 12/11/2020 M54.31 Sciatica, right side Danamarie O rtolano, [employer] 12/11/2020 M51.36 Other intervertebral disc degene ration, lumbar region Danamarie Ortolano, [employer] 12/11/2020 M16.11 Unilateral primary osteoarthriti s, right hip Danamarie Ortolano, [employer] 12/05/2020 M54.31 Sciatica, right side Neeraj Joe leticia P.T. 12/05/2020 M51.36 Other intervertebral disc degene ration, lumbar region Neerajbrian Friedman P.T. 12/05/2020 M16.11 Unilateral primary osteoarthriti s, right hip Neeraj Friedman P.T. 11/26/2020 M54.31 Sciatica, right side Florentin Quijano, P.A. 11/26/2020 M51.36 Other intervertebral disc degene ration, lumbar region Florentin Quijano, Nicole.A. 11/26/2020 M16.11 Unilateral primary osteoarthriti s, right hip Florentin Quijano, P.A. Plan of Treatment No Information Available Functional Status Description No Information Available Mental Status Description No Information Available Referrals Refer to Dr Reason for Referral Status Appt Date Florentin Quijano, PA Physical Therapy Back/R Hip per medicare no auth req based on medical necessity, [facility] and unlimited visits, ref 9875, patient is going to [facility] passed to pt dept Created [address] [place] [address] [phone] Florentin Quijano PA Physical Therapy Back/R Hip per medicare no auth req based on medical necessity, [facility] no [facility] req and unlimited visits, ref 9875, patient is going to [facility] passed to pt dept sw Created [address] [place] [id number] [phone]
--- OUTSIDE RECORDS SUMMARY | 2021-02-01 11:41 | CCD | Continuity of Care Document ---
Author Author Lorena FRIEDMAN P.T. Organization Unknown Address [address] [place] [address] Phone [phone] Care Team Providers Care Marine Photographer Name Role Phone BraydenMoisesOrlando DO AUTM [phone] Problems Description No Information Available Social History [...] Owen, Albuterol Sulfate (2 .5mg/3ML) 0.083% Nebulizer [facility], Pravastatin Sodium 40mg Tablets [facility], Prednisone 20mg Tablets [facility], Pantoprazole Sodium 40mg Tablets DR Renetta Yolanda Chahal, [facility] Montelukast Sodium 10mg Tablets Renetta Yolanda Chahal, [facility] Lisinopril 5mg Tablets Renetta Yolanda Chahal, [facility] Levothyroxine Sodium 88mcg Tablets Yolanda Jackson, [facility] Eliquis 5mg Tablets Renetta Yolanda Chahal, [facility] Cartia XT 180mg Caps ER 24HR [facility] Sertraline HCL 25mg Tablets [facility] Center[facility], Albuterol Sulfate HFA 108(90Base) mcg/Act Aerosol [facility] Center[facility], History Medications Gabapentin 100mg Capsules 1 po at bedtime for 1 week, then increase to 1 tab po bid for 2nd week, then increase to 1 tab po tid for 3rd week 90caps M51.36 Michoacano Owen MD - 12/25/2020 Immunizations Description No Information Available Vital Signs Description No Information Available Results Description No Information Available Procedures Date Code Description Status 12/19/2020 02640 Manual Therapy Each 15 Minutes C ompleted 12/19/2020 39616 Therapeutic Procedure, Each 15 M inutes Completed 12/14/2020 80264 Therapeutic Procedure, Each 15 M inutes Completed 12/11/2020 04832 Therapeutic Procedure, Each 15 M inutes Completed 12/05/2020 15354 Physical Therapy Eval - Low Comp lexity Completed 11/26/2020 63076 Office/Outpatient New Moderate M DM 45-59 Minutes Completed 11/26/2020 96808 X-Ray Spine Lumbosacral Complete Inc Bending Views Min Of 6 Completed Medical Devices Description No Information Available Encounters Type Date Location Provider Dx Diagnosis Office Visit 11/26/2020 9:30a Danilo Quijano, P.A. M54.31 Sciatica, right side M51.36 Other intervertebral disc de generation, lumbar region M16.11 Unilateral primary osteoarth ritis, right hip Assessments Date Code Description Provider 12/19/2020 M54.31 Sciatica, right side Neeraj Joe leticia P.T. 12/19/2020 M51.36 Other intervertebral disc degene ration, lumbar region Neeraj Jerry Friedman P.T. 12/19/2020 M16.11 Unilateral primary osteoarthriti s, right hip Neeraj MejiaAdeel Friedman P.T. 12/14/2020 M54.31 Sciatica, right side Mayi Shayleeclaudy Thapa, [employer] 12/14/2020 M51.36 Other intervertebral disc degene ration, lumbar region Mayi Shayleeclaudy Thapa, [employer] 12/14/2020 M16.11 Unilateral primary osteoarthriti s, right hip Mayi Shayleeclaudy Thapa, [employer] 12/11/2020 M54.31 Sciatica, right side Danamarie O rtolano, [employer] 12/11/2020 M51.36 Other intervertebral disc degene ration, lumbar region Danamarie Ortolano, [employer] 12/11/2020 M16.11 Unilateral primary osteoarthriti s, right hip Danamarie Ortolano, [employer] 12/05/2020 M54.31 Sciatica, right side Neeraj Joe [...] on medical necessity, per catalina dong at [facility] no auth req and unlimited visits, ref [id number], patient is going to [facility] passed to pt dept Created [address] [place] [address] [phone] Florentin Quijano PA Physical Therapy Back/R Hip per medicare no auth req based on medical necessity, per catalina dong at [facility] no auth req and unlimited visits, ref [id number], patient is going to [facility] passed to pt dept sw Created [address] [place] [address] [phone]
--- OUTSIDE RECORDS SUMMARY | 2021-02-01 11:41 | CCD | Continuity of Care Document ---
Author Author Lorena LOPEZ [facility] Organization Unknown Address [address] [place] [address] Phone [phone] Care Team Providers Care Front Office Secretary Name Role Phone Orlando Owen DO AUTM [phone] Problems Description No Information Available Social History Type Date Description Comments Sex Unknown ETOH Use Denies alcohol use Tobacco Use Start: Unknown Patient is a current smoker, smo kes every day Allergies, Adverse Reactions, Alerts Description No Known Drug Allergies Medications Active Medications SIG Qnty Indications Ordering Provide r Date Gabapentin 100mg Capsules 1 po at bedtime for 1 week, then increase to 1 tab po bid for 2nd week, then increase to 1 tab po tid for 3rd week 90caps M51.36 [place] Owen MD Medrol 4mg Tablets dose malcom, take as directed on sheet 1tabs M51.36 [place] Owen MD 11/26/2020 Doxycycline Monohydrate 100mg Caps ules Take 1 Capsule By Mouth Twice Daily For 10 Days Unknown Doxycycline Hyclate 100mg Capsules Tiffany Han PA-C Doxycycline Hyclate 100mg Tablets Orlando Owen, Prednisone 10mg Tablets Orlando Owen, DO Azelastine HCL (Nasal) 0.1% Solution Orlando Owen, DO Amoxicillin 875mg Tablets Yolanda Jackson FNP-BC Benzonatate 100mg Capsules Unknown Azithromycin 250mg Tablets Unknown Methylprednisolone 4mg TBPK Take as Directed Unknown Leslee Covid-19 Vaccine 0.5ml Anson Batista MD Loratadine 10mg Tablets [facility], [facility], Albuterol Sulfate (2 .5mg/3ML) 0.083% Nebulizer [facility], Pravastatin Sodium 40mg Tablets [facility], [facility], Prednisone 20mg Tablets [facility], [facility], Pantoprazole Sodium 40mg Tablets DR Yolanda Jackson, [facility] Montelukast Sodium 10mg Tablets Yolanda Jackson, [facility] Lisinopril 5mg Tablets Yolanda Jackson, [facility] Levothyroxine Sodium 88mcg Tablets Yolanda Jackson, [facility] Eliquis 5mg Tablets Yolanda Jackson, [facility] Cartia XT 180mg Caps ER 24HR Yolanda Jackson, [facility] Sertraline HCL 25mg Tablets [facility], Albuterol Sulfate HFA 108(90Base) mcg/Act Aerosol [facility], Cyclobenzaprine HCL 5mg Tablets [facility], [facility], Immunizations Description No Information Available Vital Signs Description No Information Available Results Description No Information Available Procedures Date Code Description Status 12/11/2020 43158 Therapeutic Procedure, Each 15 M inutes Completed 12/05/2020 38075 Physical Therapy Eval - Low Comp lexity Completed 11/26/2020 31680 Office/Outpatient New Moderate M DM 45-59 Minutes Completed 11/26/2020 63956 X-Ray Spine Lumbosacral Complete Inc Bending Views Min Of 6 Completed Medical Devices Description No Information Available Encounters Type Date Location Provider Dx Diagnosis Office Visit 11/26/2020 9:30a Danilo Quijano, P.A. M54.31 Sciatica, right side M51.36 Other intervertebral disc de generation, lumbar region M16.11 Unilateral primary osteoarth ritis, right hip Assessments Date Code Description Provider 12/11/2020 M54.31 Sciatica, right side Danamarie O rtolano, FULL TIME STAFF INTERPRETER 12/11/2020 M51.36 Other intervertebral disc degene ration, lumbar region Danamarie Ortolano, FULL TIME STAFF INTERPRETER 12/11/2020 M16.11 Unilateral primary osteoarthriti s, right hip Danamarie Ortolano, F[employer] TIME STAFF INTERPRETER 12/05/2020 M54.31 Sciatica, right side Neeraj kelly P.T. 12/05/2020 M51.36 Other intervertebral disc degene ration, lumbar region Neeraj Friedman P.T. 12/05/2020 M16.11 Unilateral primary osteoarthriti s, right hip Neeraj Friedman P.T. 11/26/2020 M54.31 Sciatica, right side Florentin Quijano, P.A. 11/26/2020 M51.36 Other intervertebral disc degene ration, lumbar region Florentin Quijano, P.A. 11/26/2020 M16.11 Unilateral primary osteoarthriti s, right hip Florentin Quijano, P.A. Plan of Treatment Future Appointment(s):* 12/19/2020 1:30 pm - Neeraj Friedman P.T. at Physical Therapy Functional Status Description No Information Available Mental Status Description No Information Available Referrals Refer to Dr Reason for Referral Status Appt Date Florentin Quijano, PA Physical Therapy Back/R Hip per medicare no auth req based on medical necessity, per catalina dong at [facility] no auth req and unlimited visits, ref 9875, patient is going to [facility] passed to pt dept Created [facility] [place] [address] [phone] Florentin Quijano, PA Physical Therapy Back/R Hip per medicare no auth req based on medical necessity, per catalina dong at [facility] no auth req and unlimited visits, ref 9875, patient is going to [facility] passed to pt dept Created [facility] [address] [address] [phone]
--- OUTSIDE RECORDS SUMMARY | 2021-02-01 11:41 | CCD | Continuity of Care Document ---
Author Author Lorena QUIJANO P.A. Organization Unknown Address [address] [place] [address] Phone [phone] Care Team Providers Care [employer] Flatbed Driver Name Role Phone BraydenMoisesOrlando DO AUTM [phone] Problems Description No Information Available Social History [...] Owen, DO Amoxicillin 875mg Tablets Yolanda Jackson FNP-RICKY Benzonatate 100mg Capsules Unknown Azithromycin 250mg Tablets Unknown Methylprednisolone 4mg TBPK Take as Directed Unknown Leslee Covid-19 Vaccine 0.5ml Vonda Anson Ellsworth MD Loratadine 10mg Tablets [facility] [place], Albuterol Sulfate (2 .5mg/3ML) 0.083% Nebulizer [facility] [place], Pravastatin Sodium 40mg Tablets [facility], Prednisone 20mg Tablets [facility], Pantoprazole Sodium 40mg Tablets DR Yolanda Jackson, [facility] Montelukast Sodium 10mg Tablets Yolanda Jackson, [facility] Lisinopril 5mg Tablets Yolanda Jackson, [facility] Levothyroxine Sodium 88mcg Tablets Yolanda Jackson, [facility] Eliquis 5mg Tablets Yolanda Jackson [facility] Cartia XT 180mg Caps ER 24HR Yolanda Jackson [facility] Sertraline HCL 25mg Tablets [facility], Albuterol Sulfate HFA 108(90Base) mcg/Act Aerosol [facility] [place], Cyclobenzaprine HCL 5mg Tablets [facility], Immunizations Description No Information Available Vital Signs Description No Information Available Results Description No Information Available Procedures Date Code Description Status 11/26/2020 15624 Office/Outpatient New Moderate M DM 45-59 Minutes Completed 11/26/2020 61242 X-Ray Spine Lumbosacral Complete Inc Bending Views Min Of 6 Completed Medical Devices Description No Information Available Encounters Type Date Location Provider Dx Diagnosis Office Visit 11/26/2020 9:30a [place] Florentin Quijano, P.A. M54.31 Sciatica, right side M51.36 Other intervertebral disc de generation, lumbar region M16.11 Unilateral primary osteoarth ritis, right hip Assessments Date Code Description Provider 11/26/2020 M54.31 Sciatica, right side Florentin Quijano, P.A. 11/26/2020 M51.36 Other intervertebral disc degene ration, lumbar region Cuate Lozada 11/26/2020 M16.11 Unilateral primary osteoarthriti s, right hip Cuate Lozada Plan of Treatment Future Appointment(s):* 12/05/2020 2:00 pm - Neeraj Friedman P.T. at Physical Therapy 11/26/2020 - Cuate Lozada* M54.31 Sciatica, right side * M51.36 Other intervertebral disc degeneration, lumbar region* New Medication: * Medrol 4 mg - dose malcom, take as directed on sheet * Gabapentin 100 mg - 1 po at bedtime for 1 week, then increase to 1 tab po bid for 2nd week, then increase to 1 tab po tid for 3rd week * Follow up:* 4-6 week back/rt hip recheck w/MKM * M16.11 Unilateral primary osteoarthritis, right hip Functional Status Description No Information Available Mental Status Description No Information Available Referrals Description No Information Available
--- OUTSIDE RECORDS SUMMARY | 2021-02-01 11:41 | CCD | Continuity of Care Document ---
Author Author Lorena VAZ P.T. Organization Unknown Address [address] [place] [address] Phone [phone] Care Team Providers Care Radiation Protection Engineer Name Role Phone BraydenMoisesOrlando DO AUTM [phone] Problems Description No Information Available Social History [...] Tablets Orlando Owen, Prednisone 10mg Tablets Orlando Owen DO Azelastine HCL (Nasal) 0.1% Solution Orlando Owen, DO Amoxicillin 875mg Tablets Yolanda Jackson FNP-RICKY Benzonatate 100mg Capsules Unknown Azithromycin 250mg Tablets Unknown Methylprednisolone 4mg TBPK Take as Directed Unknown Leslee Covid-19 Vaccine 0.5ml Anson Batista MD Loratadine 10mg Tablets [facility], Albuterol Sulfate (2 .5mg/3ML) 0.083% Nebulizer [facility] [place], Pravastatin Sodium 40mg Tablets [facility], Prednisone 20mg Tablets [facility], Pantoprazole Sodium 40mg Tablets DR Yolanda Jackson, [facility] Montelukast Sodium 10mg Tablets Yolanda Jackson, [facility] Lisinopril 5mg Tablets Yolanda Jackson, [facility] Levothyroxine Sodium 88mcg Tablets Yolanda Jackson, [facility] Eliquis 5mg Tablets Yolanda Jackson, [facility] Cartia XT 180mg Caps ER 24HR Yolanda Jackson, [facility] Sertraline HCL 25mg Tablets [facility], Albuterol Sulfate HFA 108(90Base) mcg/Act Aerosol [facility], Cyclobenzaprine HCL 5mg Tablets [facility], Immunizations Description No Information Available Vital Signs Description No Information Available Results Description No Information Available Procedures Date Code Description Status 11/26/2020 29711 Office/Outpatient New Moderate M DM 45-59 Minutes Completed 11/26/2020 81927 X-Ray Spine Lumbosacral Complete Inc Bending Views Min Of 6 Completed Medical Devices Description No Information Available Encounters Type Date Location Provider Dx Diagnosis Office Visit 11/26/2020 9:30a [place] Florentin Quijano, P.A. M54.31 Sciatica, right side M51.36 Other intervertebral disc de generation, lumbar region M16.11 Unilateral primary osteoarth ritis, right hip Assessments Date Code Description Provider 11/26/2020 M54.31 Sciatica, right side Florentin Quijano, P.AAdeel 11/26/2020 M51.36 Other intervertebral disc degene ration, lumbar region Florentin Quijano, P.A. 11/26/2020 M16.11 Unilateral primary osteoarthriti s, right hip Cuate Lozada Plan of Treatment Future Appointment(s):* 12/14/2020 2:30 pm - Mayi Thapa, PROFESSOR OF PHYSICS at Physical Therapy * 12/11/2020 2:00 pm - Sheri Landa PTA at Physical Therapy Functional Status Description No Information Available Mental Status Description No Information Available Referrals Refer to Dr Reason for Referral Status Appt Date Florentin Quijano PA Physical Therapy Back/R Hip per medicare no auth req based on medical necessity, per catalina dong at [facility] no auth req and unlimited visits, ref 9875, patient is going to [facility] passed to pt dept sw Created [address] [place] [address] [phone] Florentin Quijano PA Physical Therapy Back/R Hip per medicare no auth req based on medical necessity, per catalina dong at [facility] no auth req and unlimited visits, ref 9875, patient is going to [facility] passed to pt dept sw Created [address] [place] [address] [phone]
--- OUTSIDE RECORDS SUMMARY | 2021-02-01 11:41 | CCD | Continuity of Care Document ---
Author Author Lorena VAZ P.T. Organization Unknown Address [address] [place] [address] Phone [phone] Care Team Providers Care Plastic Surgery Nurse Name Role Phone BraydenMoisesOrlando DO AUTM [phone] Problems Description No Information Available Social History [...] 0.5ml Anson Batista MD Loratadine 10mg Tablets [facility], Albuterol Sulfate (2 .5mg/3ML) 0.083% Nebulizer Replaced By [facility], Pravastatin Sodium 40mg Tablets [facility], Prednisone 20mg Tablets [facility], Pantoprazole Sodium 40mg Tablets DR Yolanda Jackson, [facility] Montelukast Sodium 10mg Tablets Yolanda Jackson, [facility] Lisinopril 5mg Tablets Yolanda Jackson, [facility] Levothyroxine Sodium 88mcg Tablets Yolanda Jackson, [facility] Eliquis 5mg Tablets Yolanda Jackson, [facility] Cartia XT 180mg Caps ER 24HR Yolanda Jackson, [facility] Sertraline HCL 25mg Tablets [facility], Albuterol Sulfate HFA 108(90Base) mcg/Act Aerosol [facility], Cyclobenzaprine HCL 5mg Tablets [facility], Immunizations Description No Information Available Vital Signs Description No Information Available Results Description No Information Available Procedures Date Code Description Status 11/26/2020 51745 Office/Outpatient New Moderate M DM 45-59 Minutes Completed 11/26/2020 44682 X-Ray Spine Lumbosacral Complete Inc Bending Views Min Of 6 Completed Medical Devices Description No Information Available Encounters Type Date Location Provider Dx Diagnosis Office Visit 11/26/2020 9:30a [employer] Florentin Quijano, P.A. M54.31 Sciatica, right side [...] Appointment(s):* 12/14/2020 2:30 pm - Mayi Thapa, [employer]ACH[employer] at Physical Therapy * 12/11/2020 2:00 pm - Sheri Landa PTA at Physical Therapy Functional Status Description No Information Available Mental Status Description No Information Available Referrals Refer to Dr Reason for Referral Status Appt Date Florentin Quijano PA Physical Therapy Back/R Hip per medicare no auth req based on medical necessity, per catalina dong at [facility] no auth req and unlimited visits, ref 9875, patient is going to [facility] passed to pt dept sw Created [address] [place] [phone] Florentin Quijano PA Physical Therapy Back/R Hip per medicare no auth req based on medical necessity, per catalina dong at [facility] no auth req and unlimited visits, ref 9875, patient is going to [facility] passed to pt dept sw Created [address] [place] [address] [phone]
--- OUTSIDE RECORDS SUMMARY | 2021-02-01 11:41 | CCD | Continuity of Care Document ---
Author Lorena Amos [facility] Organization Unknown Address [address] [place] [address] Phone [phone] Problems Active Problems Provider Date Hypothyroidism Onset: 04/19/2001 Hyperlipidemia Onset: 04/19/2001 Female climacteric state Orlando Owen D.O., FAAFP Onset: 04/19/2001 Allergic rhinitis Orlando Owen D.O., FAAFP Onset: 05/2002 Diverticula Colon Orlando Owen D.O., FAAFP Onset: 05/2002 Benign essential hypertension Orlando Owen D.O. FAAFP O nset: 07/10/2008 Gastroesophageal reflux disease Orlando Owen D.O., FAAFP Onset: 07/10/2008 Depressive disorder Orlando Owen D.O., FAAFP Onset: 06/13 Allergic rhinitis Orlando Owen D.O., FAAFP Onset: 08/11 Chronic obstructive lung disease Perez Bonenr RPA Onse t: 06/22/2018 Paroxysmal atrial fibrillation Orlando Owen D.O., FAAFP Onset: 01/18/2019 Social History Type Date Description Comments Sex Unknown Cigarette Use Current cigarette smoker: 1/2 pa ck a day since age 21, quit and restarted often. Tobacco Use Start: Unknown Current Cigarette Smoker 4 Cigar ettes per day Smoking Status Reviewed: 10/22/20 Current Cigarette Smoker 4 Ci garettes per day ETOH Use Consumes 2 glasses of wine per w seminole Tobacco Use Start: Unknown Patient is a current smoker, smo kes some days Recreational Drug Use Never Used Drugs Exercise Type/Frequency Does aerobics daily Seat Belt/Car Seat always Allergies, Adverse Reactions, Alerts Active Allergies Reaction Severity Comments Date Flagyl 11/01/1998 Cefdinir chest discomort /gi no pro blem with amox 12/28/2012 Medications Active Medications SIG Qnty Indications Ordering Provide r Date Cyclobenzaprine HCL 5mg Tablets 1 tab by mouth at bedtime 30tabs Orlando Owen D.O., FAAFP Albuterol Sulfate (2 .5mg/3ML) 0.083% Nebulizer 1 vial via nebulizer every 4 hours as needed 75ml J44 .1 Orlando Owen D.O., FAAFP 09/03/2020 R06.2 Nebulizer Device medication compressor use as directed j 44.9 1units Orlando Owen D.O., FA [facility] 09/03/2020 Nebulizer Kit/Tubing/Mouthpiece K it for use with nebulizer as directed J44.1 1units J44.1 Orlando Owen D.O., [facility] 09/03/2020 R06.2 Extension Tubing/Connector Misc Spacer- Use With Albuterol Inhaler 1units Orlando Owen D.O. , FAAFP 09/03/2020 Leslee Covid-19 Vaccine 0.5ml Vonda pension done Orlando Owen D.O., FAAFP Loratadine 10mg Tablets 1 by mouth every night at bedtime 90tabs Orlando Owen D.O., FAAFP Prevnar 13 Suspension as directed 1dose Orlando Owen D.O., FAAFP 01/18/2019 Azelastine HCL (Nasal) 0.1% Soluti on 2 sprays internasally twice a day 30ml Orlando Owen D.O., FAAFP 07/02/2018 Ventolin HFA 108(90Base) mcg/Act A erosol 2 puffs inhaled four times a day as needed 8gm Orlando Owen D.O., FAAFP 07/16/2017 Montelukast Sodium 10mg Tablets take 1 tablet by mouth daily 90tabs Yolanda Jackson FNP-RICKY 07/2016 Levothyroxine Sodium 88mcg Tablets take 1 tablet by mouth daily 90tabs Renetta Yolanda Chahal [facility] Pravastatin Sodium 40mg Tablets take 1 tablet by mouth daily 90tabs Yolanda Jackson [facility] Sertraline HCL 25mg Tablets Take 1 Tablet By Mouth Daily 90tabs Orlando Owen D.O., [facility] Lisinopril 5mg Tablets take one-half (1/2) tablet daily 45tabs Yolanda Jackson [facility] 9 Multi Vitamin Daily Tablets 1 by mouth every day Unknown Vitamin D3 High Potency 1000Unit C apsules 2 by mouth every day OTC Unknown Calcium Citrate + D3 [id number] Tablets 1 by mouth twice a day Unknown Cardizem CD 180mg Caps ER 24HR 1 by mouth every day 90caps Yolanda Jackson [facility] 0 Eliquis 5mg Tablets 1 by mouth twice a day 180tabs Yolanda Jackson [facility] 0 Pantoprazole Sodium 40mg Tablets D R 1 by mouth every day 90tabs Yolanda Jackson [facility] 0 History Medications Prednisone 20mg Tablets 2 tab by mouth daily for 5 days with food then one x 4 days then d/c 14tabs Orlando Owen D.O., [facility] 09/03/2020 - 11/09/2020 Prednisone 20mg Tablets 2 tab by mouth daily for 5 days with food 10tabs Yolanda Jackson FNP- C 07/30/2020 - 08/07/2020 Medications Administered in Office Medication SIG Qnty Indications Ordering Provider Date Injection (SC)/(Im) Injection Orlando Owen D.O., [facility] 09/03/2020 Injection (SC)/(Im) Injection Yolanda Jackson [facility] 05/18/2020 Injection (SC)/(Im) Injection Yolanda Jackson [facility] 05/18/2020 Injection (SC)/(Im) Injection Yolanda Jackson [facility] 05/17/2020 Injection (SC)/(Im) Injection Renetta Yolanda Tirso, [facility] 05/17/2020 Injection (SC)/(Im) Injection Orlando Owen D.O., [facility] 01/06/2019 Injection (SC)/(Im) Injection Florentin Murphy, MARGUERITE 09/08/2014 Injection (SC)/(Im) Injection Orlando Owen D.O., FAAFP 09/07/2014 Injection (SC)/(Im) Injection Neda Aldana D., [facility] 09/06/2014 Injection (SC)/(Im) Injection Nurses Colt 02/06/2012 Injection (SC)/(Im) Injection Florentin Murphy, RPA 02/05/2012 Injection (SC)/(Im) Injection Florentin Murphy, RPA 02/04/2012 Injection (SC)/(Im) Injection Orlando Owen D.O., FAAFP 01/30/2011 Injection (SC)/(Im) Injection Florentin Murphy, RPA 01/29/2011 Injection (SC)/(Im) Injection Orlando Owen D.O., FAAFP 01/28/2011 Injection Subcutaneous Or Intramuscular Injection Emanuel Camacho M.D. 2007 Injection Subcutaneous Or Intramuscular Injection Orlando Owen D.O., FAAFP 03/16/2008 Injection Subcutaneous Or Intramuscular Injection Florentin Murphy, RPA 03/15 Injection Subcutaneous Or Intramuscular Injection Florentin Murphy, RPA 02/28 Immunizations CPT Code Status Date Vaccine Lot # 46613 Given 01/04/2020 Influenza Virus Vaccine, Quadrivalent, Slit Virus, Im Use 3Y & Up [id number] 41796 Given 01/06/2019 Influenza Virus Vaccine, Quadrivalent, Slit Virus, Im Use 3Y & Up [id number] 58754 Given 02/18/2018 Influenza Virus Vaccine, Quadrivalent, Slit Virus, Im Use 3Y & Up [id number] 56639 Given 04/23/2017 Influenza Virus Vaccine, Quadrivalent, Slit Virus, Im Use 3Y & Up [id number] 97416 Given 02/29/2016 Influenza Virus Vaccine, Quadrivalent, Slit Virus, Im Use 3Y & Up [id number] 34145 Given 03/26/2015 Influenza Vaccin e (Fluzone) 3Yrs Of Age Or Older Medicare Plans [id number] Q2037 Given 12/30/2013 Influenza Vaccin e (Fluvirin) 3Yrs Of Age Or Older Medicare Plans [id number] 35443 Given 02/04/2013 Pneumococcal Immunization [id number] 00418 Given 12/28/2012 Influenza Vaccin e (Fluzone) 3Yrs Of Age Or Older Medicare Plans 67868 Given 12/28/2012 Influenza Virus Vac. Split Virus Individuals 3 Years And Above [id number] 80045 Given 02/04/2012 Zoster (Shingles) Vaccine 37746 Given 12/29/2011 Influenza Vaccin e (Fluzone) 3Yrs Of Age Or Older Medicare Plans 76178 Given 12/29/2011 Influenza Virus Vac. Split Virus Individuals 3 Years And Above [id number] 52117 Given 02/19/2011 Influenza Vaccin e (Fluzone) 3Yrs Of Age Or Older Medicare Plans 08527 Given 02/19/2011 Influenza Virus Vac. Split Virus Individuals 3 Years And Above [id number] 55240 Given 02/11/2010 Influenza Virus Vac. Split Virus Individuals 3 Years And Above 64436 Given 01/08/2009 Influenza Virus Vac. Split Virus Individuals 3 Years And Above [id number] 24661 Given 02/02/2008 Influenza Virus Vac. Split Virus Individuals 3 Years And Above [id number] 91136 Given 03/03/2007 Pneumococcal Immunization [id number] 55079 Given 02/18/2007 Influenza Virus Vac. Split Virus Individuals 3 Years And Above [id number] 57508 Given 02/25/2006 Influenza Virus Vac. Split Virus Individuals 3 Years And Above 62786 26667 Given 02/21/2005 Influenza Virus Vac. Split Virus Individuals 3 Years And Above 96028 Given 01/23/2003 Influenza Virus Vac. Split Virus Individuals 3 Years And Above 61068 Given 01/27/2002 Pneumococcal Immunization 00177 Given 01/27/2002 Influenza Virus Vac. Whole V irus 14997 Given 01/27/2002 Influenza Virus Vac. Split Virus Individuals 3 Years And Above 92357 Given 01/21/2001 Influenza Immunization 07878 Given 02/13/2000 Influenza Immunization 12209 Given 02/13/1999 Influenza Immunization 42418 Given 02/21/1998 Influenza Immunization 44437 Given 02/10/1997 Pneumococcal Immunization 11358 Given 02/10/1997 Influenza Immunization Vital Signs Date Vital Result Comment 11/09/2020 1:38pm BP Systolic 128 mmHg BP Diastolic 72 mmHg Body Temperature 97.2 F Heart Rate 80 /min Respiratory Rate 16 /min Height 64.50 inches 5'4.50" Weight 171.00 lb [place] Body Weight 120 lb BMI (Body Mass Index) 28.9 kg/m2 O2 % BldC Oximetry 96 % 10/22/2020 11:40am BP Systolic 126 mmHg BP Diastolic 86 mmHg Body Temperature 97.2 F Heart Rate 88 /min Respiratory Rate 16 /min Height 64.50 inches 5'4.50" Weight 168.00 lb [place] Body Weight 120 lb BMI (Body Mass Index) 28.4 kg/m2 O2 % BldC Oximetry 96 % Results Test Acquired Date Facility Test Result H/L Range Note CBC 11/09/2020 [facility] WBC 11.4 10E3/uL High 4.1 - 10.9 1 RBC 4.27 10E6/uL 4.20 - 6.30 HGB [...] Gap 21 mmol/L eGFR 66 # Calc 2 eGFR Non-Afr. Filipino 57 # Calc 3 Lipid Panel 11/09/2020 [facility] Chol 198 mg/dL [...] [facility] WBC 8.0 10E3/uL 4.1 - 10.9 4 RBC 4.29 10E6/uL 4.20 - 6.30 HGB [...] 1.8 MPV 9.1 fL 9.0 - 13.0 [facility] [place] [address] [phone] Protime 15.3 seconds 11.0 - 15.5 Inr 1.15 0.93 - 1.23 PTT 35.4 seconds 24.8 - 36.7 5 Laboratory test finding 06/25/2020 [facility] [place] [address] [phone] Lipase Serum 42 U/L 13 - 60 CBC W/Automated Diff 06/25/2020 [facility] [place] [address] [phone] CBC W/Automated Diff (SEE NOTE) 6 WBC 10.7 10^3/uL 4.2 - 11.0 RBC 4.47 10^6/uL 4.20 - 5.40 Hemoglobin 14.6 g/dL 12.0 - 16.0 Hematocrit 43.6 % 37.0 - 47.0 MCV 97.5 fL 81.0 - 101 MCH 32.7 pg 27.0 - 34.0 MCHC 33.5 g/dL 31.0 - 36.0 RDW 13.7 % 11.5 - 14.5 Platelets 347 10^3/uL 150 - 450 MPV 10.2 fL 7.4 - 10.4 Neut 62.7 % 37.0 - 80.0 Lymph 26.1 % 25.0 - 40.0 [place] 9.4 % High 3.0 - 8.0 Eos 0.8 % 0.0 - 7.0 Baso 0.7 % 0.0 - 2.5 %Ig 0.3 % High 0.0 - 0.0 %NRBC 0.0 % 0.0 - 0.0 #Neut 6.71 10^3/uL 2.00 - 6.90 #Lymph 2.80 10^3/uL 0.60 - 3.40 #Bartow 1.01 10^3/uL High 0.00 - 0.90 #Eos 0.09 10^3/uL 0.00 - 0.70 #Baso 0.08 10^3/uL 0.00 - 0.20 #Ig 0.03 10^3/uL 0.00 - 0.10 #NRBC 0.00 10^3/uL 0.00 - 0.00 Manual Diff SEE BELOW Segs 61 % 37 - 80 %Lymph 29 % 25 - 40 %Bartow 10 % High 3 - 8 RBC Morph NOT INDICATED Laboratory test finding 06/25/2020 [place] [address] [phone] Troponin T <0.01 NG/ML 0.00 - 0.10 7 Comprehensive Metabolic Panel 06/25/2020 [place] [address] [phone] Comprehensive Metabo (SEE NOTE) 8 Sodium 140 mEq/L 134 - 153 Potassium 4.4 mEq/L 3.6 - 5.0 Chloride 101 mEq/L 98 - 107 Co2 30 mEq/L 22 - 30 Glucose 97 mg/dL 70 - 99 BUN 19 mg/dL 7 - 21 Creatinine 1.0 mg/dL 0.7 - 1.5 BUN/Creat 19 8 - 27 Total Protein 6.9 g/dL 6.3 - 8.2 Albumin 4.6 g/dL 3.9 - 5.0 Globulin 2.3 GM/DL Low 2.4 - 3.2 A/G Ratio 2.0 0.8 - 2.0 Calcium 10.0 mg/dL 8.4 - 10.2 Total Bili <0.7 mg/dL 0.2 - 1.3 Alkaline Phos 70 U/L 38 - 126 Sgot/Ast 19 U/L 5 - 40 SGPT/Alt 12 U/L 7 - 56 Anion Gap 9.0 mmol/L 8.0 - 16.0 Age 89 yrs Non-Aa GFR 56 mL/min Afr Amer GFR >60 9 Laboratory test finding 06/25/2020 [place] [address] [phone] TSH Highly Sensitive 1.63 uIU/mL 0.47 - 5.0 1 Pro-BNP 416 pg/mL 0 - 450 1 NORMAL RANGES Age WBC RBC HGB HCT [...] HCT IS 5% LESS SOURCE FOR DATA: Verimed 1800 OPERATION MANUAL( AUTOMATED BLOOD COUNTS AND [...] ADOLESCENTS REPRESENTS INDIVIDUALA AGED 2-19 YEARS EXCLUSIVE. 2 CKD-EPI 3 CKD-EPI 4 NORMAL RANGES Age WBC RBC HGB HCT [...] AUTOMATED BLOOD COUNTS AND DIFF.) APPENDIX B-3 5 \\BLDo\\INR INTERPRETATION\\BLD x\\ Therapeutic range for Coumadin and related oral anticoagulants. -International Normalized Ratio (INR): 2 .0 - 3.0 for Venous Thrombosis, Pulmonary Embolus, Tissue heart valves, Acute WI Atrial Fibrillation, Valvular heart disease and recurrent Systemic Embolism. -International Normalized Ratio (INR): 2 .5 - 3.5 for Mechanical Prosthetic valve. 6 COMPLETE BLOOD COUNT 7 TROPONIN T 0.1 ng/ml Recommended as the clinical th reshold value for Troponin T. 8 COMPREHENSIVE METABOLIC PANE L 9 Male GFR Interprentation 20-49 yrs >60 mL/min Normal 50-59 yrs >56 mL/min Normal 60-69 yrs >49 mL/min Normal 70-79yrs >42 mL/min Normal 80 and above >35 mL/min Normal Female GFR Interpretation 20-39 yrs >60 mL/min Normal 40-49 yrs >58 mL/min Normal 50-59 yrs >51 mL/min Normal 60-69 yrs >45 mL/min Normal 70-79 yrs >39 mL/min Normal 80 and above >32 mL/min Normal Procedures Date Code Description Status 11/09/2020 27796 Office/Outpatient Established Mo d MDM 30-39 Min Completed 10/22/2020 75142 Office/Outpatient Established Lo w MDM 20-29 Min Completed 09/03/2020 65972 Office/Outpatient Established Mo d MDM 30-39 Min Completed 09/03/2020 14980 Injection (SC)/(Im) Completed 09/03/2020 38566 Aerosol Treatment Airway Inhalat ion Treatment Completed 08/07/2020 06239 Office/Outpatient Established Mo d MDM 30-39 Min Completed 07/30/2020 67930 Office/Outpatient Established Mo d MDM 30-39 Min Completed 07/09/2020 68054 Office/Outpatient Established Mo d MDM 30-39 Min Completed 06/25/2020 15217 Office/Outpatient Established Mo d MDM 30-39 Min Completed 06/25/2020 51358 Electrocardiogram Complete Compl eted 06/01/2020 54750 Office/Outpatient Established Mo d MDM 30-39 Min Completed Medical Devices Description No Information Available Encounters Type Date Location Provider Dx Diagnosis Office Visit 11/09/2020 1:40p [place] [facility], Yolanda Chahal, TRAFFIC OPERATOR-BC I48.0 Paroxysmal atrial fibrillation J30.9 Allergic rhinitis, unspecifi ed K21.9 Gastro-esophageal reflux dis ease without esophagitis E03.9 Hypothyroidism, unspecified M54.32 Sciatica, left side J44.1 Chronic obstructive pulmonar y disease w (acute) exacerbation Office Visit 10/22/2020 11:30a [place] [facility] Nickolas Perez.Rajendra ., FAAFP M54.32 Sciatica, left side M54.32 Sciatica, left side Office Visit 09/03/2020 10:30a [place] [facility] Orlando Owen D.O ., FAAFP J44.1 Chronic obstructive pulmonary disease w (acute) exacerbation R06.2 Wheezing Office Visit 08/07/2020 1:15p [place] [facility] Orlando Owen D.O ., FAAFP I48.0 Paroxysmal atrial fibrillation J44.1 Chronic obstructive pulmonar y disease w (acute) exacerbation J30.9 Allergic rhinitis, unspecifi ed K21.9 Gastro-esophageal reflux dis ease without esophagitis E03.9 Hypothyroidism, unspecified Office Visit 07/30/2020 1:40p [place] [facility] Rounds, MOSES Jade J44.1 Chronic obstructive pulmonary disease w (acute) exacerbation J30.9 Allergic rhinitis, unspecifi ed Office Visit 07/09/2020 3:45p [place] [facility] Orlando Owen D.O ., FAAFP J44.1 Chronic obstructive pulmonary disease w (acute) exacerbation J30.9 Allergic rhinitis, unspecifi ed I48.0 Paroxysmal atrial fibrillati on K21.9 Gastro-esophageal reflux dis ease without esophagitis Office Visit 06/25/2020 1:30p [place] [facility] RoundsYolanda FNP-BC I48.92 Unspecified atrial flutter R05 Cough R06.02 Shortness of breath K21.9 Gastro-esophageal reflux dis ease without esophagitis Office Visit 06/01/2020 12:15p [place] [facility] RoundsYolanda FNP-B C J44.1 Chronic obstructive pulmonary disease w (acute) exacerbation R06.02 Shortness of breath R05 Cough Assessments Date Code Description Provider 11/09/2020 I48.0 Paroxysmal atrial fibrillation Yolanda Jara FNP-BC 11/09/2020 J30.9 Allergic rhinitis, unspecified R oundYolanda contreras, [facility] 11/09/2020 K21.9 Gastro-esophageal reflux disease without esophagitis Yolanda Jackson, [facility] 11/09/2020 E03.9 Hypothyroidism, unspecified Roun bethYolanda, [facility] 11/09/2020 M54.32 Sciatica, left side Yolanda Jackson, [facility] 11/09/2020 J44.1 Chronic obstructive pulmonary disease with (acute) exacerbation Yolanda Jackson, [facility] 10/22/2020 M54.32 Sciatica, left side Orlando gill D.O., [facility] 10/22/2020 M54.32 Sciatica Orlando Owen D.O., [facility] 09/03/2020 J44.1 Chronic obstructive pulmonary disease with (acute) exacerbation Orlando Owen D.O., [facility] 09/03/2020 R06.2 Wheezing Orlando Owen D.O., [facility] 08/07/2020 I48.0 Paroxysmal atrial fibrillation K alisha Owen D.O., [facility] 08/07/2020 J44.1 Chronic obstructive pulmonary disease with (acute) exacerbation Orlando Owen D.O., [facility] 08/07/2020 J30.9 Allergic rhinitis, unspecified K alisha Owen D.O., [facility] 08/07/2020 K21.9 Gastro-esophageal reflux disease without esophagitis Orlando Owen D.O., [facility] 08/07/2020 E03.9 Hypothyroidism, unspecified Nickolas Bedolla.OAdeel, [facility] 07/30/2020 J44.1 Chronic obstructive pulmonary disease with (acute) exacerbation Yolanda Jackson, [facility] 07/30/2020 J30.9 Allergic rhinitis, unspecified R oundYolanda contreras, [facility] 07/09/2020 J44.1 Chronic obstructive pulmonary disease with (acute) exacerbation Orlando Owen D.O., [facility] 07/09/2020 J30.9 Allergic rhinitis, unspecified K alisha Owen D.O., [facility] 07/09/2020 I48.0 Paroxysmal atrial fibrillation Jovi Owen D.O., [facility] 07/09/2020 K21.9 Gastro-esophageal reflux disease without esophagitis Orlando Owen D.O., [facility] 06/25/2020 I48.92 Unspecified atrial flutter Round ben Yolanda M, [facility] 06/25/2020 R05 Cough Rounds Yolanda M, [facility] 06/25/2020 R06.02 Shortness of breath Renetta Yolanda M, [facility] 06/25/2020 K21.9 Gastro-esophageal reflux disease without esophagitis Renetta Yolanda M, [facility] 06/01/2020 J44.1 Chronic obstructive pulmonary disease with (acute) exacerbation Renetta Yolanda M, [facility] 06/01/2020 R06.02 Shortness of breath Renetta Yolanda M, [facility] 06/01/2020 R05 Cough Rounds Yolanda M, [facility] Plan of Treatment No Information Available Functional Status Description No Information Available Mental Status Description No Information Available Referrals Refer to Reason for Referral Status Appt Date Bandar Farrell M.D. low back pain with radiculo nikita x several weeks please benjamin and clay Sent [facility] [place] [address] [phone]
--- OUTSIDE RECORDS SUMMARY | 2021-02-01 11:41 | CCD | Continuity of Care Document ---
Author Author Lorena FRIEDMAN P.T. Organization Unknown Address [address] [place] [address] Phone [phone] Care Team Providers Care Slip Cover Seamstress Name Role Phone BraydenMoisesOrlando DO AUTM [phone] Problems Description No Information Available Social History [...] as directed on sheet 1tabs M51.36 [place]ano Oewn MD 11/26/2020 Doxycycline Monohydrate 100mg Caps ules [...] 0.5ml Anson Batista MD Loratadine 10mg Tablets [facility] Albuterol Sulfate (2 .5mg/3ML) 0.083% Nebulizer [facility], Pravastatin Sodium 40mg Tablets [facility] [place], Prednisone 20mg Tablets [facility], Pantoprazole Sodium 40mg Tablets DR Yolanda Jackson, [facility] Montelukast Sodium 10mg Tablets Yolanda Jackson, [facility] Lisinopril 5mg Tablets Yolanda Jackson, [facility] Levothyroxine Sodium 88mcg Tablets Yolanda Jackson, [facility] Eliquis 5mg Tablets Yolanda Jackson, [facility] Cartia XT 180mg Caps ER 24HR Yolanda Jackson , [facility] Sertraline HCL 25mg Tablets [facility] [place], Albuterol Sulfate HFA 108(90Base) mcg/Act Aerosol [facility] [place], Cyclobenzaprine HCL 5mg Tablets [facility], Immunizations Description No Information Available Vital Signs Description No Information Available Results Description No Information Available Procedures Date Code Description Status 12/19/2020 23652 Manual Therapy Each 15 Minutes C ompleted 12/19/2020 36053 Therapeutic Procedure, Each 15 M inutes Completed 12/14/2020 15263 Therapeutic Procedure, Each 15 M inutes Completed 12/11/2020 87268 Therapeutic Procedure, Each 15 M inutes Completed 12/05/2020 70684 Physical Therapy Eval - Low Comp lexity Completed 11/26/2020 79809 Office/Outpatient New Moderate M DM 45-59 Minutes Completed 11/26/2020 92368 X-Ray Spine Lumbosacral Complete Inc Bending Views Min Of 6 Completed Medical Devices Description No Information Available Encounters Type Date Location Provider Dx Diagnosis Office Visit 11/26/2020 9:30a [place] Quijano, P.AAdeel M54.31 Sciatica, right side M51.36 Other intervertebral disc de generation, lumbar region M16.11 Unilateral primary osteoarth ritis, right hip Assessments Date Code Description Provider 12/14/2020 M54.31 Sciatica, right side Mayi Thapa, [employer] 12/14/2020 M51.36 Other intervertebral disc degene ration, lumbar region Mayi Thapa, [employer] CLERK 12/14/2020 M16.11 Unilateral primary osteoarthriti s, right hip Mayi Thapa, [employer] 12/11/2020 M54.31 Sciatica, right side Danamarie O rtolano, [employer] CLERK 12/11/2020 M51.36 Other intervertebral disc degene ration, lumbar region Danamarie Ortolano, [employer] CLERK 12/11/2020 M16.11 Unilateral primary osteoarthriti s, right hip Danamarie Ortolano, [employer] CLERK 12/05/2020 M54.31 Sciatica, right side Neeraj kelly P.T. 12/05/2020 M51.36 Other intervertebral disc degene ration, lumbar region Neeraj Friedman P.T. 12/05/2020 M16.11 Unilateral primary osteoarthriti s, right hip Neeraj Friedman P.T. 11/26/2020 M54.31 Sciatica, right side Verena Lozada. 11/26/2020 M51.36 Other intervertebral disc degene ration, lumbar region Cuate Lozada 11/26/2020 M16.11 Unilateral primary osteoarthriti s, right hip Florentin Quijano, P.A. Plan of Treatment Future Appointment(s):* 12/28/2020 2:00 pm - Danamarie Ortolano, [employer] GOODS CLERK at Physical Therapy * 12/26/2020 2:00 pm - Danamarie Ortolano, [employer] CLERK at Physical Therapy Functional Status Description No Information Available Mental Status Description No Information Available Referrals Refer to Dr Reason for Referral Status Appt Date Florentin Quijano PA Physical Therapy Back/R Hip per medicare no auth req based on medical necessity, per catalina dong at [facility] no auth req and unlimited visits, ref [id number], patient is going to [facility] passed to pt dept sw Created [address] [place] [address] [address] [place] [id number] [phone] Florentin Quijnao PA Physical Therapy Back/R Hip per medicare no auth req based on medical necessity, per catalina dong at [facility] no auth req and unlimited visits, ref [id number], patient is going to [facility] passed to pt dept sw Created [address] [place] [address] [address] [place] [id number] [phone]
--- OUTSIDE RECORDS SUMMARY | 2021-02-01 11:41 | CCD | Continuity of Care Document ---
Author Author Lorena THAPA [facility] Organization Unknown Address [address] [place] [id number] Phone [phone] Care Team Providers Care J2Ee Application Developer Name Role Phone BraydenMoisesOrlando DO AUTM [phone] Problems Description No Information Available Social History [...] 0.5ml Anson Batista MD Loratadine 10mg Tablets Orlando Owen DO Albuterol Sulfate (2 .5mg/3ML) 0.083% Nebulizer [facility] Pravastatin Sodium 40mg Tablets [facility], Prednisone 20mg Tablets [facility] Center[facility]ises[facility], Pantoprazole Sodium 40mg Tablets DR Yolanda Jackson [facility] Montelukast Sodium 10mg Tablets Yolanda Jackson, [facility] Lisinopril 5mg Tablets Yolanda Jackson, [facility] Levothyroxine Sodium 88mcg Tablets Yolanda Jackson, [facility] Eliquis 5mg Tablets Yolanda Jackson, [facility] Cartia XT 180mg Caps ER 24HR Yolanda Jackson, [facility] Sertraline HCL 25mg Tablets [facility] Center[facility], Albuterol Sulfate HFA 108(90Base) mcg/Act Aerosol [facility], History Medications Gabapentin 100mg Capsules 1 po at bedtime for 1 week, then increase to 1 tab po bid for 2nd week, then increase to 1 tab po tid for 3rd week 90caps M51.36 [place]oacano Owen MD - 12/25/2020 Immunizations Description No Information Available Vital Signs Description No Information Available Results Description No Information Available Procedures Date Code Description Status 12/19/2020 39054 Manual Therapy Each 15 Minutes C ompleted 12/19/2020 35098 Therapeutic Procedure, Each 15 M inutes Completed 12/14/2020 78452 Therapeutic Procedure, Each 15 M inutes Completed 12/11/2020 49472 Therapeutic Procedure, Each 15 M inutes Completed 12/05/2020 44070 Physical Therapy Eval - Low Comp lexity Completed 11/26/2020 79239 Office/Outpatient New Moderate M DM 45-59 Minutes Completed 11/26/2020 67487 X-Ray Spine Lumbosacral Complete Inc Bending Views Min Of 6 Completed Medical Devices Description No Information Available Encounters Type Date Location Provider Dx Diagnosis Office Visit 11/26/2020 9:30a Danilo Quijano, P.A. M54.31 Sciatica, right side M51.36 Other intervertebral disc de generation, lumbar region M16.11 Unilateral primary osteoarth ritis, right hip Assessments Date Code Description Provider 12/19/2020 M54.31 Sciatica, right side Neeraj Jerry kelly P.T. 12/19/2020 M51.36 Other intervertebral disc degene ration, lumbar region Neeraj Jerry Friedman P.T. 12/19/2020 M16.11 Unilateral primary osteoarthriti s, right hip Neeraj Jerry Friedman P.T. 12/14/2020 M54.31 Sciatica, right side Mayi Shayleeclaudy Thapa, COMPRESSOR OPERATOR ADJUSTER 12/14/2020 M51.36 Other intervertebral disc degene ration, lumbar region Mayi Shayleeclaudy Thapa, COMPRESSOR OPERATOR ADJUSTER 12/14/2020 M16.11 Unilateral primary osteoarthriti s, right hip Mayi Shayleeclaudy Thapa, COMPRESSOR OPERATOR ADJUSTER 12/11/2020 M54.31 Sciatica, right side Danamarie O rtolano, COMPRESSOR OPERATOR ADJUSTER 12/11/2020 M51.36 Other intervertebral disc degene ration, lumbar region Danamarie Ortolano, COMPRESSOR OPERATOR ADJUSTER 12/11/2020 M16.11 Unilateral primary osteoarthriti s, right hip Danamarie Ortolano, COMPRESSOR OPERATOR ADJUSTER 12/05/2020 M54.31 Sciatica, right side Neeraj Jerry kelly P.T. 12/05/2020 M51.36 Other intervertebral disc degene ration, lumbar region Neeraj Friedman P.T. 12/05/2020 M16.11 Unilateral primary osteoarthriti s, right hip Neeraj Friedman P.T. 11/26/2020 M54.31 Sciatica, right side Florentin Quijano, Nicole.A. 11/26/2020 M51.36 Other intervertebral disc degene ration, lumbar region Cuate Lozada 11/26/2020 M16.11 Unilateral primary osteoarthriti s, right hip Nicole Lozada.Nuha Plan of Treatment No Information Available Functional Status Description No Information Available Mental Status Description No Information Available Referrals Refer to Dr Reason for Referral Status Appt Date Mcelheran, Florentin K, PA Physical Therapy Back/R Hip per medicare no auth req based on medical necessity, per catalina dong at [facility] no auth req and unlimited visits, ref [id number], patient is going to [facility] passed to pt dept Created [address] [place] [phone] Florentin Quijano PA Physical Therapy Back/R Hip per medicare no auth req based on medical necessity, per catalina dong at [facility] no auth req and unlimited visits, ref [id number], patient is going to [facility] passed to pt dept Created [address] [place] [phone]
--- OUTSIDE RECORDS SUMMARY | 2021-02-01 11:41 | CCD | Continuity of Care Document ---
Author Author Lorena PEDRAZA [facility] Organization Unknown Address [address] [address] Phone [phone] Care Team Providers Care Freight And Passenger Agent Name Role Phone BraydenMoisesOrlando DO AUTM [phone] Problems Description No Information Available Social History [...] Orlando Owen, Azelastine HCL (Nasal) 0.1% Solution Orlanod Owen, DO Amoxicillin 875mg Tablets Yolanda Jackson FNP-BC Benzonatate 100mg Capsules Unknown Azithromycin 250mg Tablets Unknown Methylprednisolone 4mg TBPK Take as Directed Unknown Leslee Covid-19 Vaccine 0.5ml Vonda Anson Ellsworth MD Loratadine 10mg Tablets Orlando Owen, Albuterol Sulfate (2 .5mg/3ML) 0.083% Nebulizer [facility], Pravastatin Sodium 40mg Tablets [facility], Prednisone 20mg Tablets [facility], Pantoprazole Sodium 40mg Tablets DR Renetta Yolanda Chahal, [facility] Montelukast Sodium 10mg Tablets Renetta Yolanda Chahal, [facility] Lisinopril 5mg Tablets Renetta Yolanda Chahal, [facility] Levothyroxine Sodium 88mcg Tablets Yolanda Jackson, [facility] Eliquis 5mg Tablets Renetta Yolanda Chahal, [facility] Cartia XT 180mg Caps ER 24HR [facility] Sertraline HCL 25mg Tablets [facility], Albuterol Sulfate HFA 108(90Base) mcg/Act Aerosol [facility], History Medications Gabapentin 100mg Capsules 1 po at bedtime for 1 week, then increase to 1 tab po bid for 2nd week, then increase to 1 tab po tid for 3rd week 90caps M51.36 [place]oacano Owen MD - 12/25/2020 Immunizations Description No Information Available Vital Signs Description No Information Available Results Description No Information Available Procedures Date Code Description Status 12/19/2020 83330 Manual Therapy Each 15 Minutes C ompleted 12/19/2020 68785 Therapeutic Procedure, Each 15 M inutes Completed 12/14/2020 72765 Therapeutic Procedure, Each 15 M inutes Completed 12/11/2020 49099 Therapeutic Procedure, Each 15 M inutes Completed 12/05/2020 60221 Physical Therapy Eval - Low Comp lexity Completed 11/26/2020 34222 Office/Outpatient New Moderate M DM 45-59 Minutes Completed 11/26/2020 39456 X-Ray Spine Lumbosacral Complete Inc Bending Views [...] M54.31 Sciatica, right side Mayi Shayleeclaudy Thapa, MIXING PLANT OPERATOR 12/14/2020 M51.36 Other intervertebral disc degene ration, lumbar region Mayi Shayleeclaudy Thapa, MIXING PLANT OPERATOR 12/14/2020 M16.11 Unilateral primary osteoarthriti s, right hip Mayi Shayleeclaudy Thapa, MIXING PLANT OPERATOR 12/11/2020 M54.31 Sciatica, right side Danamarie O rtolano, MIXING PLANT OPERATOR 12/11/2020 M51.36 Other intervertebral disc degene ration, lumbar region Danamarie Ortolano, MIXING PLANT OPERATOR 12/11/2020 M16.11 Unilateral primary osteoarthriti s, right hip Danamarie Ortolano, MIXING PLANT OPERATOR 12/05/2020 M54.31 Sciatica, right side Neeraj Joe [...] necessity, per catalina dong at [facility] no auth req and unlimited visits, ref 9875, patient is going to [facility] passed to pt dept Created [address] [place] [phone] Florentin Quijano PA Physical Therapy Back/R Hip per medicare no auth req based on medical necessity, per catalina dong at [facility] no auth req and unlimited visits, ref [id number], patient is going to [facility] passed to pt dept sw Created [address] [place] [phone]
--- OUTSIDE RECORDS SUMMARY | 2021-02-01 11:42 | CCD | Continuity of Care Document ---
Author Lorena Amos [facility] Organization Unknown Address [address] [facility] [place] [address] Phone [phone] Problems Active Problems Provider Date Hypothyroidism Onset: 04/19/2001 Hyperlipidemia Onset: 04/19/2001 Female climacteric state Orlando Owen D.O., FAAFP Onset: 04/19/2001 Allergic rhinitis Orlando Owen D.O., FAAFP Onset: 05/2002 Diverticula Colon Orlando Owen D.O., FAAFP Onset: 05/2002 Benign essential hypertension Orlando Owen D.O., FAAFP O nset: 07/10/2008 Gastroesophageal reflux [...] Consumes 2 glasses of wine per w [id number] Tobacco Use Start: Unknown Patient is a [...] Tablets 1 tab by mouth at bedtime 14tabs Orlando Owen D.O., FAAFP Albuterol Sulfate (2 .5mg/3ML) 0.083% Nebulizer 1 vial via nebulizer every 4 hours as needed 75ml J44 .1 Orlando Owen D.O., FAAFP 09/03/2020 R06.2 Nebulizer Device medication compressor use as directed j 44.9 1units Orlando Owen D.O., FA [facility] 09/03/2020 Nebulizer Kit/Tubing/Mouthpiece K it for use with nebulizer as directed J44.1 1units J44.1 Orlando Owen D.O., [facility] 09/03/2020 R06.2 Extension Tubing/Connector Misc Spacer- Use [...] by mouth daily 90tabs Renetta Yolanda Chahal [facility] Pravastatin Sodium 40mg Tablets take 1 tablet by mouth daily 90tabs Renetta Yolanda Chahal [facility] Sertraline HCL 25mg Tablets Take 1 Tablet By Mouth Daily 90tabs Orlando Owen D.O., [facility] Lisinopril 5mg Tablets take one-half (1/2) tablet daily 45tabs Renetta Yolanda Chahal [facility] 9 Multi Vitamin Daily Tablets 1 by mouth every day Unknown Vitamin D3 High Potency 1000Unit C apsules 2 by mouth every day OTC Unknown Calcium Citrate + D3 [id number] Tablets 1 by mouth twice a day Unknown Cardizem CD 180mg Caps ER 24HR 1 by mouth every day 90caps Renetta Yolanda Tirso [facility] 0 Eliquis 5mg Tablets 1 by mouth twice a day 180tabs Renetta Yolanda Chahal [facility] 0 Pantoprazole Sodium 40mg Tablets D R 1 by mouth every day 90tabs Renetta Yolanda Chahal [facility] 0 History Medications Prednisone 20mg Tablets 2 tab by mouth daily for 5 days with food then one x 4 days then d/c 14tabs Orlando Owen D.O., [facility] 09/03/2020 - 11/09/2020 Prednisone 20mg Tablets 2 tab by mouth daily for 5 days with food 10tabs Renetta Yolanda SOLOMON Chahal 07/30/2020 - 08/07/2020 Prednisone 20mg Tablets 2 tab by mouth daily for 5 days with food 10tabs Yolanda Jackson FNP-B C 05/18/2020 - 05/23/2020 Amoxicillin 875mg Tablets 1 tab by mouth twice a day for 10 days (has taken with no problems) 20tabs Renetta Yolanda Tirso [facility] 05/18/2020 - 05/28/2020 Medications Administered in Office Medication SIG Qnty Indications Ordering Provider Date Injection (SC)/(Im) Injection Orlando Owen D.O., [facility] 09/03/2020 Injection (SC)/(Im) Injection Rounds, Yolanda Chahal, [facility] 05/18/2020 Injection (SC)/(Im) Injection Rounds, Yolanda Chahal, [facility] 05/18/2020 Injection (SC)/(Im) Injection Rounds, Yolanda Chahal, [facility] 05/17/2020 Injection (SC)/(Im) Injection Rounds, Yolanda Chahal, [facility] 05/17/2020 Injection (SC)/(Im) Injection Orlando Owen D.O., [facility] 01/06/2019 Injection (SC)/(Im) Injection Florentin Murphy, RPA 09/08/2014 Injection (SC)/(Im) Injection Orlando Owen D.O., [facility] 09/07/2014 Injection (SC)/(Im) Injection Neda Aldana D., [facility] 09/06/2014 Injection (SC)/(Im) Injection [facility] Schedule 02/06/2012 Injection (SC)/(Im) Injection Florentin Murphy, RPA 02/05/2012 Injection (SC)/(Im) Injection Florentin Murphy, RPA 02/04/2012 Injection (SC)/(Im) [facility] 01/30/2011 Injection (SC)/(Im) Injection Florentin Murphy, RPA 01/29/2011 Injection (SC)/(Im) Injection Orlando Owen D.O., [facility] 01/28/2011 Injection Subcutaneous Or Intramuscular Injection Emanuel Camacho M.D. 2007 Injection Subcutaneous Or Intramuscular Injection [facility] 03/16/2008 Injection Subcutaneous Or Intramuscular Injection Florentin Murphy, RPA 03/15 Injection Subcutaneous Or Intramuscular Injection Florentin Murphy, RPA 02/28 Immunizations CPT Code Status Date Vaccine Lot # 75019 Given 01/04/2020 Influenza Virus Vaccine, Quadrivalent, Slit Virus, Im Use 3Y & Up [id number] 23755 Given 01/06/2019 Influenza Virus Vaccine, Quadrivalent, Slit Virus, Im Use 3Y & Up [id number] 09012 Given 02/18/2018 Influenza Virus Vaccine, Quadrivalent, Slit Virus, Im Use 3Y & Up [id number] 77070 Given 04/23/2017 Influenza Virus Vaccine, Quadrivalent, Slit Virus, Im Use 3Y & Up [id number] 72778 Given 02/29/2016 Influenza Virus Vaccine, Quadrivalent, Slit Virus, Im Use 3Y & Up [id number] 63864 Given 03/26/2015 Influenza Vaccin e (Fluzone) 3Yrs Of Age Or Older Medicare Plans [id number] Q2037 Given 12/30/2013 Influenza Vaccin e (Fluvirin) 3Yrs Of Age Or Older Medicare Plans [id number] 76695 Given 02/04/2013 Pneumococcal Immunization [id number] 54207 Given 12/28/2012 Influenza Vaccin e (Fluzone) 3Yrs Of Age Or Older Medicare Plans 24721 Given 12/28/2012 Influenza Virus Vac. Split Virus Individuals 3 Years And Above [id number] 37024 Given 02/04/2012 Zoster (Shingles) Vaccine 68706 Given 12/29/2011 Influenza Vaccin e (Fluzone) 3Yrs Of Age Or Older Medicare Plans 45443 Given 12/29/2011 Influenza Virus Vac. Split Virus Individuals 3 Years And Above [id number] 61671 Given 02/19/2011 Influenza Vaccin e (Fluzone) 3Yrs Of Age Or Older Medicare Plans 08265 Given 02/19/2011 Influenza Virus Vac. Split Virus Individuals 3 Years And Above [id number] 31196 Given 02/11/2010 Influenza Virus Vac. Split Virus Individuals 3 Years And Above 76857 Given 01/08/2009 Influenza Virus Vac. Split Virus Individuals 3 Years And Above [id number] 87901 Given 02/02/2008 Influenza Virus Vac. Split Virus Individuals 3 Years And Above [id number] 17820 Given 03/03/2007 Pneumococcal Immunization [id number] 72885 Given 02/18/2007 Influenza Virus Vac. Split Virus Individuals 3 Years And Above [id number] 34651 Given 02/25/2006 Influenza Virus Vac. Split Virus Individuals 3 Years And Above [id number] 63365 Given 02/21/2005 Influenza Virus Vac. Split Virus Individuals 3 Years And Above 48070 Given 01/23/2003 Influenza Virus Vac. Split Virus Individuals 3 Years And Above 77963 Given 01/27/2002 Pneumococcal Immunization 19877 Given 01/27/2002 Influenza Virus Vac. Whole V irus 52478 Given 01/27/2002 Influenza Virus Vac. Split Virus Individuals 3 Years And Above 25190 Given 01/21/2001 Influenza Immunization 90050 Given 02/13/2000 Influenza Immunization 08616 Given 02/13/1999 Influenza Immunization 94443 Given 02/21/1998 Influenza Immunization 34324 Given 02/10/1997 Pneumococcal Immunization 11420 Given 02/10/1997 Influenza Immunization Vital Signs Date Vital Result Comment 11/09/2020 1:38pm BP Systolic 128 mmHg BP Diastolic 72 mmHg Body Temperature 97.2 F Heart Rate 80 /min Respiratory Rate 16 /min Height 64.50 inches 5'4.50" Weight 171.00 lb [place] Body Weight 120 lb BMI (Body Mass Index) 28.9 kg/m2 O2 % BldC Oximetry 96 % 10/22/2020 11:40am BP Systolic 126 mmHg BP Diastolic 86 mmHg Body Temperature 97.2 F Heart Rate 88 /min Respiratory Rate 16 /min Height 64.50 inches 5'4.50" Weight 168.00 lb [place] Body Weight 120 lb BMI (Body Mass Index) 28.4 kg/m2 O2 % BldC Oximetry 96 % Results Test Acquired Date Facility Test Result H/L Range Note CBC 09/03/2020 [facility] WBC 8.0 10E3/uL 4.1 - 10.9 1 RBC 4.29 10E6/uL 4.20 - 6.30 HGB [...] 9.1 fL 9.0 - 13.0 [facility] [place] [address] [phone] Protime 15.3 seconds 11.0 - 15.5 Inr 1.15 0.93 - 1.23 PTT 35.4 seconds 24.8 - 36.7 2 Laboratory test finding 06/25/2020 [facility] [place] [id number] [phone] Lipase Serum 42 U/L 13 - 60 CBC W/Automated Diff 06/25/2020 [facility] [place] [address] [phone] CBC W/Automated Diff (SEE NOTE) 3 WBC 10.7 10^3/uL 4.2 - 11.0 RBC [...] 80.0 Lymph 26.1 % 25.0 - 40.0 [place] 9.4 % High 3.0 - 8.0 Eos 0.8 % 0.0 - 7.0 Baso 0.7 % 0.0 - 2.5 %Ig 0.3 % High 0.0 - 0.0 %NRBC 0.0 % 0.0 - 0.0 #Neut 6.71 10^3/uL 2.00 - 6.90 #Lymph 2.80 10^3/uL 0.60 - 3.40 #[place] 1.01 10^3/uL High 0.00 - 0.90 #Eos 0.09 10^3/uL 0.00 - 0.70 #Baso 0.08 10^3/uL 0.00 - 0.20 #Ig 0.03 10^3/uL 0.00 - 0.10 #NRBC 0.00 10^3/uL 0.00 - 0.00 Manual Diff SEE BELOW Segs 61 % 37 - 80 %Lymph 29 % 25 - 40 %[place] 10 % High 3 - 8 RBC Morph NOT INDICATED Laboratory test finding 06/25/2020 [place] [address] [phone] Troponin T <0.01 NG/ML 0.00 - 0.10 4 Comprehensive Metabolic Panel 06/25/2020 [place] [address] [phone] Comprehensive Metabo (SEE NOTE) 5 Sodium 140 mEq/L 134 - 153 Potassium [...] GFR 56 mL/min Afr Amer GFR >60 6 Laboratory test finding 06/25/2020 [place] [address] [phone] TSH Highly Sensitive 1.63 uIU/mL 0.47 - 5.0 1 Pro-BNP 416 pg/mL 0 - 450 CBC 05/17/2020 [facility] WBC 10.6 10E3/uL 4.1 - 10.9 7 RBC 4.44 10E6/uL 4.20 - 6.30 HGB 14.4 g/dL 12.0 - 18.0 HCT 42.9 % 37.0 - 51.0 MCV 96.6 fL 80.0 - 97.0 MCH 32.4 pg High 26.0 - 32.0 MCHC 33.6 g/dL 31.0 - 36.0 PLT 279 10E3/uL 140 - 440 RDW-CV 13.9 % 11.5 - 14.5 Lym% 22.8 % 10.0 - 58.5 Neut% 69.7 % 37.0 - 92.0 MXD% 7.5 % 0.1 - 24.0 Lym# 2.4 10E3/uL 0.6 - 4.1 Neut# 7.4 % 2.0 - 7.8 MXD# 0.8 10E3/uL 0.0 - 1.8 MPV 10.4 fL 9.0 - 13.0 CMP 05/17/2020 [facility] Glu 110 mg/dL 70 - 110 BUN 18 mg/dL 8 - 23 Creat 1.1 mg/dL High 0.5 - 1.0 BUN/Creatinine Ratio 16.9 Calc Na 137 mmol/L 136 - 145 K 4.7 mmol/L 3.5 - 5.1 CL 99.9 mmol/L 98.0 - 107.0 Co2 24.6 mmol/L 22.0 - 29.0 CA 9.5 mg/dL 8.6 - 10.2 TP 6.7 g/dL 6.6 - 8.7 Alb 4.5 g/dL 3.4 - 4.8 A/G Ratio 2.1 Calc Globulin 2.2 Calc Alp 70.3 U/L 35 - 129 Alt (SGPT) 14 U/L 0 - 41 Ast (Sgot) 18 U/L 0 - 40 Tbili 0.75 mg/dL 0.0 - 1.2 Osmolality-Calculated 276.9 Calc Anion Gap 17 mmol/L eGFR 52 # Calc 8 eGFR Non-Afr. Dominican 44 # Calc 9 1 NORMAL RANGES Age WBC RBC HGB [...] HCT IS 5% LESS SOURCE FOR DATA: [employer] DYN 1800 OPERATION MANUAL( AUTOMATED BLOOD COUNTS AND DIFF.) APPENDIX B-3 2 \\BLDo\\INR INTERPRETATION\\BLD x\\ Therapeutic range for Coumadin and related oral anticoagulants. -International Normalized Ratio (INR): 2 .0 - 3.0 for Venous Thrombosis, Pulmonary Embolus, Tissue heart valves, Acute ID Atrial Fibrillation, Valvular heart disease and recurrent Systemic Embolism. -International Normalized Ratio (INR): 2 .5 - 3.5 for Mechanical Prosthetic valve. 3 COMPLETE BLOOD COUNT 4 TROPONIN T 0.1 ng/ml Recommended as the clinical th reshold value for Troponin T. 5 COMPREHENSIVE METABOLIC PANE L 6 Male GFR Interprentation 20-49 yrs >60 mL/min Normal 50-59 yrs >56 mL/min Normal 60-69 yrs >49 mL/min Normal 70-79yrs >42 mL/min Normal 80 and above >35 mL/min Normal Female GFR Interpretation 20-39 yrs >60 mL/min Normal 40-49 yrs >58 mL/min Normal 50-59 yrs >51 mL/min Normal 60-69 yrs >45 mL/min Normal 70-79 yrs >39 mL/min Normal 80 and above >32 mL/min Normal 7 NORMAL RANGES Age WBC RBC HGB HCT [...] HCT IS 5% LESS SOURCE FOR DATA: [email or web address] 1800 OPERATION MANUAL( AUTOMATED BLOOD COUNTS AND [...] Normal 80 and above >32 mL/min Normal 8 CKD-EPI 9 CKD-EPI Procedures Date Code Description Status 11/09/2020 94663 Office/Outpatient Established Mo d MDM 30-39 Min Completed 10/22/2020 95462 Office/Outpatient Established Lo w MDM 20-29 Min Completed 09/03/2020 14067 Office/Outpatient Established Mo d MDM 30-39 Min Completed 09/03/2020 69067 Injection (SC)/(Im) Completed 09/03/2020 45076 Aerosol Treatment Airway Inhalat ion Treatment Completed 08/07/2020 59441 Office/Outpatient Established Mo d MDM 30-39 Min Completed 07/30/2020 12785 Office/Outpatient Established Mo d MDM 30-39 Min Completed 07/09/2020 96320 Office/Outpatient Established Mo d MDM 30-39 Min Completed 06/25/2020 77787 Office/Outpatient Established Mo d MDM 30-39 Min Completed 06/25/2020 70935 Electrocardiogram Complete Compl eted 06/01/2020 22745 Office/Outpatient Established Mo d MDM 30-39 Min Completed 05/18/2020 29314 Office/Outpatient Established Mo d MDM 30-39 Min Completed 05/18/2020 73405 Injection (SC)/(Im) Completed 05/18/2020 49857 Injection (SC)/(Im) Completed 05/17/2020 47552 Office/Outpatient Established Mo d MDM 30-39 Min Completed 05/17/2020 00729 Injection (SC)/(Im) Completed 05/17/2020 32835 Injection (SC)/(Im) Completed Medical Devices Description No Information Available Encounters Type Date Location Provider Dx Diagnosis Office Visit 11/09/2020 1:40p [place] [facility] Rounds, Yolanda Chahal [employer] ANALYST CONSULTANT-BC I48.0 Paroxysmal atrial fibrillation J30.9 Allergic rhinitis, unspecifi ed K21.9 Gastro-esophageal reflux dis ease without esophagitis E03.9 Hypothyroidism, unspecified M54.32 Sciatica, left side J44.1 Chronic obstructive pulmonar y disease w (acute) exacerbation Office Visit 10/22/2020 11:30a [place] [facility] Orlando Owen D.O ., FAAFP M54.32 Sciatica, left side M54.32 Sciatica, left side Office Visit 09/03/2020 10:30a [place] [facility] Nickolas Perez.Rajendra ., FAAFP J44.1 Chronic obstructive pulmonary disease w (acute) exacerbation R06.2 Wheezing Office Visit 08/07/2020 1:15p [place] [facility] Nickolas Perez.Rajendra ., FAAFP I48.0 Paroxysmal atrial fibrillation J44.1 Chronic obstructive pulmonar y disease w (acute) exacerbation J30.9 Allergic rhinitis, unspecifi ed K21.9 Gastro-esophageal reflux dis ease without esophagitis E03.9 Hypothyroidism, unspecified Office Visit 07/30/2020 1:40p [place] [facility] RoundsYolanda FNP-BC J44.1 Chronic obstructive pulmonary disease w (acute) exacerbation J30.9 Allergic rhinitis, unspecifi ed Office Visit 07/09/2020 3:45p [place] [facility] Orlando Owen D.O ., FAAFP J44.1 Chronic obstructive pulmonary disease w (acute) exacerbation J30.9 Allergic rhinitis, unspecifi ed I48.0 Paroxysmal atrial fibrillati on K21.9 Gastro-esophageal reflux dis ease without esophagitis Office Visit 06/25/2020 1:30p [place] [facility] RoundsYolanda FNP-BC I48.92 Unspecified atrial flutter R05 Cough R06.02 Shortness of breath K21.9 Gastro-esophageal reflux dis ease without esophagitis Office Visit 06/01/2020 12:15p [place] [facility] RoundsYolanda FNP-B C J44.1 Chronic obstructive pulmonary disease w (acute) exacerbation R06.02 Shortness of breath R05 Cough Office Visit 05/18/2020 11:30a [place] [facility] RoundsYolanda FNP-B C R05 Cough R06.02 Shortness of breath J44.1 Chronic obstructive pulmonar y disease w (acute) exacerbation Office Visit 05/17/2020 11:30a [place] [facility] RoundsYolanda [facility] C R05 Cough R06.02 Shortness of breath J44.1 Chronic obstructive pulmonar y disease w (acute) exacerbation Assessments Date Code Description Provider 11/09/2020 I48.0 Paroxysmal atrial fibrillation Yolanda Jara, [facility] 11/09/2020 J30.9 Allergic rhinitis, unspecified R Yolanda garcia, [facility] 11/09/2020 K21.9 Gastro-esophageal reflux disease without esophagitis Yolanda Jackson, [facility] 11/09/2020 E03.9 Hypothyroidism, unspecified Pia camposYolanda, [facility] 11/09/2020 M54.32 Sciatica, left side Yolanda Jackson [facility] 11/09/2020 J44.1 Chronic obstructive pulmonary disease with (acute) exacerbation Yolanda Jackson [facility] 10/22/2020 M54.32 Sciatica, left side Orlando gill D.O., [facility] 10/22/2020 M54.32 Sciatica Orlando Owen D.O., [facility] 09/03/2020 J44.1 Chronic obstructive pulmonary disease with (acute) exacerbation Orlando Owen D.O., [facility] 09/03/2020 R06.2 Wheezing Orlando Owen D.O., [facility] 08/07/2020 I48.0 Paroxysmal atrial fibrillation K alisha Owen D.O., [facility] 08/07/2020 J44.1 Chronic obstructive pulmonary disease with (acute) exacerbation Orlando Owen D.O., [facility] 08/07/2020 J30.9 Allergic rhinitis, unspecified K alisha Owen D.O., [facility] 08/07/2020 K21.9 Gastro-esophageal reflux disease without esophagitis Orlando Owen D.O., [facility] 08/07/2020 E03.9 Hypothyroidism, unspecified Isai Owen D.O., [facility] 07/30/2020 J44.1 Chronic obstructive pulmonary disease with (acute) exacerbation Yolanda Jackson [facility] 07/30/2020 J30.9 Allergic rhinitis, unspecified R ounds, Yolanda Chahal, [facility] 07/09/2020 J44.1 Chronic obstructive pulmonary disease with (acute) exacerbation Orlando Owen D.O., [facility] 07/09/2020 J30.9 Allergic rhinitis, unspecified K alisha Owen D.O., [facility] 07/09/2020 I48.0 Paroxysmal atrial fibrillation K alisha Owen D.O., [facility] 07/09/2020 K21.9 Gastro-esophageal reflux disease without esophagitis Orlando Owen D.O., [facility] 06/25/2020 I48.92 Unspecified atrial flutter Round s Yolanda Chahal, [facility] 06/25/2020 R05 Cough Rounds, Yolanda Chahal [facility] 06/25/2020 R06.02 Shortness of breath Rounds Yolanda Chahal [facility] 06/25/2020 K21.9 Gastro-esophageal reflux disease without esophagitis RenettaYolanda [facility] 06/01/2020 J44.1 Chronic obstructive pulmonary disease with (acute) exacerbation Rounds, Yolanda Chahal [facility] 06/01/2020 R06.02 Shortness of breath Rounds, Yolanda Chahal [facility] 06/01/2020 R05 Cough Rounds, Yolanda Chahal [facility] 05/18/2020 R05 Cough Rounds, Yolanda Chahal [facility] 05/18/2020 R06.02 Shortness of breath Rounds, Yolanda Chahal [facility] 05/18/2020 J44.1 Chronic obstructive pulmonary disease with (acute) exacerbation Rounds, Yolanda Chahal [facility] 05/17/2020 R05 Cough Rounds, Yolanda Chahal [facility] 05/17/2020 R06.02 Shortness of breath Rounds, Yolanda Chahal [facility] 05/17/2020 J44.1 Chronic obstructive pulmonary disease with (acute) exacerbation Rounds, Yolanda Chahal [facility] Plan of Treatment No Information Available Functional Status Description No Information Available Mental Status Description No Information Available Referrals Refer to Dr Reason for Referral Status Appt Date [place] [facility] [place] pulmonary nodule ?increa sed in size previous patient Sent [facility] [place], [place] [address] [phone]
--- OUTSIDE RECORDS SUMMARY | 2021-02-01 11:42 | CCD | Continuity of Care Document ---
Author Lorena Amos [facility] Organization Unknown Address [address] [facility] [place] [address] Phone [phone] Problems Active Problems Provider Date Hypothyroidism Onset: [...] Consumes 2 glasses of wine per w [place] Tobacco Use Start: Unknown Patient is a [...] j 44.9 1units Orlando Owen D.O., FA [facility] 09/03/2020 Nebulizer Kit/Tubing/Mouthpiece K it for use with nebulizer as directed J44.1 1units J44.1 Orlando Owen D.O., [facility] 09/03/2020 R06.2 Extension Tubing/Connector Misc Spacer- Use [...] by mouth daily 90tabs Renetta Yolanda Chahal [facility] Pravastatin Sodium 40mg Tablets take 1 tablet by mouth daily 90tabs Yolanda Jackson [facility] Sertraline HCL 25mg Tablets Take 1 Tablet By Mouth Daily 90tabs Orlando Owen D.O., [facility] Lisinopril 5mg Tablets take one-half (1/2) tablet daily 45tabs Yolanda Jackson [facility] 9 Multi Vitamin Daily Tablets 1 by mouth every day Unknown Vitamin D3 High Potency 1000Unit C apsules 2 by mouth every day OTC Unknown Calcium Citrate + D3 [id number]-[id number] Tablets 1 by mouth twice a day Unknown Cardizem CD 180mg Caps ER 24HR 1 by mouth every day 90caps Yolanda Jcakson [facility] 0 Eliquis 5mg Tablets 1 by mouth twice a day 180tabs Yolanda Jackson [facility] 0 Pantoprazole Sodium 40mg Tablets D R 1 by mouth every day 90tabs Yolanda Jackson [facility] 0 History Medications Prednisone 20mg Tablets 2 tab by mouth daily for 5 days with food then one x 4 days then d/c 14tabs Orlando Owen D.O., [facility] 09/03/2020 - 11/09/2020 Prednisone 20mg Tablets 2 tab by mouth daily for 5 days with food 10tabs Yolanda Jackson FNP- C 07/30/2020 - 08/07/2020 Medications Administered in Office Medication SIG Qnty Indications Ordering Provider Date Injection (SC)/(Im) Injection Orlando Owen D.O., [facility] 09/03/2020 Injection (SC)/(Im) Injection Yolanda Jackson [facility] 05/18/2020 Injection (SC)/(Im) Injection Yolanda Jackson [facility] 05/18/2020 Injection (SC)/(Im) Injection Yolanda Jackson [facility] 05/17/2020 Injection (SC)/(Im) Injection Renetta Yolanda Tirso, [facility] 05/17/2020 Injection (SC)/(Im) Injection Orlando Owen D.O., [facility] 01/06/2019 Injection (SC)/(Im) Injection Florentin Murphy, [facility] 09/08/2014 Injection (SC)/(Im) Injection Orlando Owen D.O., [facility] 09/07/2014 Injection (SC)/(Im) Injection Neda Aldana D., [facility] 09/06/2014 Injection (SC)/(Im) Injection Nurses Colt [...] CPT Code Status Date Vaccine Lot # [id number] Given 01/04/2020 Influenza Virus Vaccine, Quadrivalent, Slit Virus, Im Use 3Y & Up [id number] 06722 Given 01/06/2019 Influenza Virus Vaccine, Quadrivalent, Slit Virus, Im Use 3Y & Up [id number] 77984 Given 02/18/2018 Influenza Virus Vaccine, Quadrivalent, Slit Virus, Im Use 3Y & Up [id number] 39906 Given 04/23/2017 Influenza Virus Vaccine, Quadrivalent, Slit Virus, Im Use 3Y & Up [id number] 17488 Given 02/29/2016 Influenza Virus Vaccine, Quadrivalent, Slit Virus, Im Use 3Y & Up [id number] 85744 Given 03/26/2015 Influenza Vaccin e (Fluzone) 3Yrs Of Age Or Older Medicare Plans [id number] Q2037 Given 12/30/2013 Influenza Vaccin e (Fluvirin) 3Yrs Of Age Or Older Medicare Plans [id number] 65351 Given 02/04/2013 Pneumococcal Immunization [id number] 40862 Given 12/28/2012 Influenza Vaccin e (Fluzone) 3Yrs Of Age Or Older Medicare Plans 56666 Given 12/28/2012 Influenza Virus Vac. Split Virus Individuals 3 Years And Above [id number] 47466 Given 02/04/2012 Zoster (Shingles) Vaccine 13323 Given 12/29/2011 Influenza Vaccin e (Fluzone) 3Yrs Of Age Or Older Medicare Plans 62126 Given 12/29/2011 Influenza Virus Vac. Split Virus Individuals 3 Years And Above [id number] 69634 Given 02/19/2011 Influenza Vaccin e (Fluzone) 3Yrs Of Age Or Older Medicare Plans 65114 Given 02/19/2011 Influenza Virus Vac. Split Virus Individuals 3 Years And Above [id number] 00138 Given 02/11/2010 Influenza Virus Vac. Split Virus Individuals 3 Years And Above 53374 Given 01/08/2009 Influenza Virus Vac. Split Virus Individuals 3 Years And Above [id number] 87807 Given 02/02/2008 Influenza Virus Vac. Split Virus Individuals 3 Years And Above [id number] 83782 Given 03/03/2007 Pneumococcal Immunization [id number] 46478 Given 02/18/2007 Influenza Virus Vac. Split Virus Individuals 3 Years And Above [id number] 02972 Given 02/25/2006 Influenza Virus Vac. Split Virus Individuals 3 Years And Above [id number] 56863 Given 02/21/2005 Influenza Virus Vac. Split Virus Individuals 3 Years And Above 69732 Given 01/23/2003 Influenza Virus Vac. Split Virus Individuals 3 Years And Above 11452 Given 01/27/2002 Pneumococcal Immunization 19122 Given 01/27/2002 Influenza Virus Vac. Whole V irus 68255 Given 01/27/2002 Influenza Virus Vac. Split Virus Individuals 3 Years And Above 35654 Given 01/21/2001 Influenza Immunization 14388 Given 02/13/2000 Influenza Immunization 42870 Given 02/13/1999 Influenza Immunization 26208 Given 02/21/1998 Influenza Immunization 71537 Given 02/10/1997 Pneumococcal Immunization 79959 Given 02/10/1997 Influenza Immunization Vital Signs Date Vital Result Comment 11/09/2020 1:38pm BP Systolic 128 mmHg BP Diastolic 72 mmHg Body Temperature 97.2 F Heart Rate 80 /min Respiratory Rate 16 /min Height 64.50 inches 5'4.50" Weight 171.00 lb [address] Body Weight 120 lb BMI (Body Mass Index) 28.9 kg/m2 O2 % BldC Oximetry 96 % 10/22/2020 11:40am BP Systolic 126 mmHg BP Diastolic 86 mmHg Body Temperature 97.2 F Heart Rate 88 /min Respiratory Rate 16 /min Height 64.50 inches 5'4.50" Weight 168.[address] Body Weight 120 lb BMI (Body Mass [...] eGFR 66 # Calc 2 eGFR Non-Afr. Tajik 57 # Calc 3 Lipid Panel 11/09/2020 [...] 9.1 fL 9.0 - 13.0 [facility]PTT [facility] [place] [address] [phone] Protime 15.3 seconds 11.0 - 15.5 Inr 1.15 0.93 - 1.23 PTT 35.4 seconds 24.8 - 36.7 5 Laboratory test finding 06/25/2020 [facility] [place] [address] [phone] Lipase Serum 42 U/L 13 - 60 CBC W/Automated Diff 06/25/2020 [facility] [place] [address] [phone] CBC W/Automated Diff (SEE NOTE) 6 WBC [...] 80.0 Lymph 26.1 % 25.0 - 40.0 [place] 9.4 % High 3.0 - 8.0 Eos 0.8 % 0.0 - 7.0 Baso 0.7 % 0.0 - 2.5 %Ig 0.3 % High 0.0 - 0.0 %NRBC 0.0 % 0.0 - 0.0 #Neut 6.71 10^3/uL 2.00 - 6.90 #Lymph 2.80 10^3/uL 0.60 - 3.40 #[place] 1.01 10^3/uL High 0.00 - 0.90 #Eos 0.09 10^3/uL 0.00 - 0.70 #Baso 0.08 10^3/uL 0.00 - 0.20 #Ig 0.03 10^3/uL 0.00 - 0.10 #NRBC 0.00 10^3/uL 0.00 - 0.00 Manual Diff SEE BELOW Segs 61 % 37 - 80 %Lymph 29 % 25 - 40 %[place] 10 % High 3 - 8 RBC Morph NOT INDICATED Laboratory test finding 06/25/2020 [place] [address] [phone] Troponin T <0.01 NG/ML 0.00 - 0.10 7 Comprehensive Metabolic Panel 06/25/2020 [place] [address] [phone] Comprehensive Metabo (SEE NOTE) 8 Sodium 140 [...] GFR >60 9 Laboratory test finding 06/25/2020 [place] [address] [phone] TSH Highly Sensitive 1.63 uIU/mL 0.47 - [...] HCT IS 5% LESS SOURCE FOR DATA: [employer] 1800 OPERATION MANUAL( AUTOMATED BLOOD COUNTS AND [...] Thrombosis, Pulmonary Embolus, Tissue heart valves, Acute ME Atrial Fibrillation, Valvular heart disease and recurrent [...] Normal Procedures Date Code Description Status 11/09/2020 61300 Office/Outpatient Established Mo d MDM 30-39 Min Completed 10/22/2020 77680 Office/Outpatient Established Lo w MDM 20-29 Min Completed 09/03/2020 16858 Office/Outpatient Established Mo d MDM 30-39 Min Completed 09/03/2020 43762 Injection (SC)/(Im) Completed 09/03/2020 63414 Aerosol Treatment Airway Inhalat ion Treatment Completed 08/07/2020 40033 Office/Outpatient Established Mo d MDM 30-39 Min Completed 07/30/2020 43723 Office/Outpatient Established Mo d MDM 30-39 Min Completed 07/09/2020 40915 Office/Outpatient Established Mo d MDM 30-39 Min Completed 06/25/2020 51952 Office/Outpatient Established Mo d MDM 30-39 Min Completed 06/25/2020 41576 Electrocardiogram Complete Compl eted 06/01/2020 43390 Office/Outpatient Established Mo d MDM 30-39 Min Completed Medical Devices Description No Information Available Encounters Type Date Location Provider Dx Diagnosis Office Visit 11/09/2020 1:40p [facility], Yolanda Chahal, [employer] MANAGER-BC I48.0 Paroxysmal atrial fibrillation J30.9 Allergic rhinitis, unspecifi ed K21.9 Gastro-esophageal reflux dis ease without esophagitis E03.9 Hypothyroidism, unspecified M54.32 Sciatica, left side J44.1 Chronic obstructive pulmonar y disease w (acute) exacerbation Office Visit 10/22/2020 11:30a [facility] Nickolas Perez.Rajendra ., FAAFP M54.32 Sciatica, left side M54.32 Sciatica, left side Office Visit 09/03/2020 10:30a [facility] Orlando Owen D.O ., FAAFP J44.1 Chronic obstructive pulmonary disease w (acute) exacerbation R06.2 Wheezing Office Visit 08/07/2020 1:15p [facility] Orlando Owen D.O ., FAAFP I48.0 Paroxysmal atrial fibrillation J44.1 Chronic obstructive pulmonar y disease w (acute) exacerbation J30.9 Allergic rhinitis, unspecifi ed K21.9 Gastro-esophageal reflux dis ease without esophagitis E03.9 Hypothyroidism, unspecified Office Visit 07/30/2020 1:40p [facility] Rounds, MOSES Jade J44.1 Chronic obstructive pulmonary disease w (acute) exacerbation J30.9 Allergic rhinitis, unspecifi ed Office Visit 07/09/2020 3:45p [facility] Orlando Owen D.O ., FAAFP J44.1 Chronic obstructive pulmonary disease w (acute) exacerbation J30.9 Allergic rhinitis, unspecifi ed I48.0 Paroxysmal atrial fibrillati on K21.9 Gastro-esophageal reflux dis ease without esophagitis Office Visit 06/25/2020 1:30p [facility] RoundsYolanda FNP-BC I48.92 Unspecified atrial flutter R05 Cough R06.02 Shortness of breath K21.9 Gastro-esophageal reflux dis ease without esophagitis Office Visit 06/01/2020 12:15p [place] [facility] RoundsYolanda FNP-B C J44.1 Chronic obstructive pulmonary disease w (acute) exacerbation R06.02 Shortness of breath R05 Cough Assessments Date Code Description Provider 11/09/2020 I48.0 Paroxysmal atrial fibrillation Yolanda Jara FNP-BC 11/09/2020 J30.9 Allergic rhinitis, unspecified R oundYolanda contreras, [facility] 11/09/2020 K21.9 Gastro-esophageal reflux disease without esophagitis Yolanda Jackson, [facility] 11/09/2020 E03.9 Hypothyroidism, unspecified Roun bethYolanda, [facility] 11/09/2020 M54.32 Sciatica, left side Yolanda Jackson, [facility] 11/09/2020 J44.1 Chronic obstructive pulmonary disease with (acute) exacerbation Yolanda Jackson, [facility] 10/22/2020 M54.32 Sciatica, left side Orlando gill D.O., [facility] 10/22/2020 M54.32 Sciatica Orlando Owen D.O., [facility] 09/03/2020 J44.1 Chronic obstructive pulmonary disease with (acute) exacerbation Orlando Owen D.O., [facility] 09/03/2020 R06.2 Wheezing Orlando Owen D.O., [facility] 08/07/2020 I48.0 Paroxysmal atrial fibrillation K alisha Owen D.O., [facility] 08/07/2020 J44.1 Chronic obstructive pulmonary disease with (acute) exacerbation Orlando Owen D.O., [facility] 08/07/2020 J30.9 Allergic rhinitis, unspecified K alisha Owen D.O., [facility] 08/07/2020 K21.9 Gastro-esophageal reflux disease without esophagitis Orlando Owen D.O., [facility] 08/07/2020 E03.9 Hypothyroidism, unspecified Nickolas Bedolla.OAdeel, [facility] 07/30/2020 J44.1 Chronic obstructive pulmonary disease with (acute) exacerbation Yolanda Jackson, [facility] 07/30/2020 J30.9 Allergic rhinitis, unspecified R oundYolanda contreras, [facility] 07/09/2020 J44.1 Chronic obstructive pulmonary disease with (acute) exacerbation Orlando Owen D.O., [facility] 07/09/2020 J30.9 Allergic rhinitis, unspecified K alisha Owen D.O., [facility] 07/09/2020 I48.0 Paroxysmal atrial fibrillation Jovi Owen D.O., [facility] 07/09/2020 K21.9 Gastro-esophageal reflux disease without esophagitis Orlando Owen D.O., [facility] 06/25/2020 I48.92 Unspecified atrial flutter Yolanda Munoz [facility] 06/25/2020 R05 Cough Yolanda Jackson [facility] 06/25/2020 R06.02 Shortness of breath Yolanda Jackson [facility] 06/25/2020 K21.9 Gastro-esophageal reflux disease without esophagitis Yolanda Jackson [facility] 06/01/2020 J44.1 Chronic obstructive pulmonary disease with (acute) exacerbation Yolanda Jackson [facility] 06/01/2020 R06.02 Shortness of breath Yolanda Jackson [facility] 06/01/2020 R05 Cough Yolanda Jackson [facility] Plan of Treatment No Information Available Functional Status Description No Information Available Mental Status Description No Information Available Referrals Description No Information Available
--- OUTSIDE RECORDS SUMMARY | 2021-02-01 11:43 | CCD ---
Author Author [facility] Organization [facility] Address Unknown Phone Unavailable Care Team Providers Care Inbound Call Center Representative Name Role Phone MCELHERAN, NUPUR PA Unavailable Unavailable MCELHERAN, NUPUR PA Unavailable Unavailable MCELHERAN, NUPUR PA Unavailable Unavailable MCELHERAN, NUPUR PA Unavailable Unavailable MCELHERAN, NUPUR PA Unavailable Unavailable MCELHERAN, NUPUR PA Unavailable Unavailable MCELHERAN, NUPUR PA Unavailable Unavailable MCELHERAN, NUPUR PA Unavailable Unavailable MCELHERAN, NUPUR PA Unavailable Unavailable MCELHERAN, NUPUR PA Unavailable Unavailable MCELHERAN, NUPUR PA Unavailable Unavailable MCELHERAN, NUPUR PA Unavailable Unavailable MCELHERAN, NUPUR PA Unavailable Unavailable MCELHERAN, NUPUR PA Unavailable Unavailable MCELHERAN, NUPUR PA Unavailable Unavailable MCELHERAN, NUPUR PA Unavailable Unavailable MCELHERAN, NUPUR PA Unavailable Unavailable MCELHERAN, NUPUR PA Unavailable Unavailable MCELHERAN, NUPUR PA Unavailable Unavailable MCELHERAN, NUPUR PA Unavailable Unavailable MCELHERAN, NUPUR PA Unavailable Unavailable MCELHERAN, NUPUR PA Unavailable Unavailable MCELHERAN, NUPUR PA Unavailable Unavailable MCELHERAN, NUPUR PA Unavailable Unavailable MCELHERAN, NUPUR PA Unavailable Unavailable MCELHERAN, NUPUR PA Unavailable Unavailable MCELHERAN, NUPUR PA Unavailable Unavailable MCELHERAN, NUPUR PA Unavailable Unavailable MCELHERAN, NUPUR PA Unavailable Unavailable Romeo Huerta MD Unavailable Unavailable Romeo Huerta MD Unavailable Unavailable Romeo Huerta MD Unavailable Unavailable Romeo Huerta MD Unavailable Unavailable Huerta, Romeo DIAZ Unavailable Unavailable Huerta, Romeo DIAZ Unavailable Unavailable Rounds, M AUGUSTINE DIRECTOR OF ACCOUNTS RECEIVABLE Unavailable Unavailable Rounds, M AUGUSTINE DIRECTOR OF ACCOUNTS RECEIVABLE Unavailable Unavailable Rounds, M AUGUSTINE DIRECTOR OF ACCOUNTS RECEIVABLE Unavailable Unavailable Rounds, M AUGUSTINE DIRECTOR OF ACCOUNTS RECEIVABLE Unavailable Unavailable Rounds, M AUGUSTINE DIRECTOR OF ACCOUNTS RECEIVABLE Unavailable Unavailable Rounds, M AUGUSTINE DIRECTOR OF ACCOUNTS RECEIVABLE Unavailable Unavailable Rounds, M AUGUSTINE DIRECTOR OF ACCOUNTS RECEIVABLE Unavailable Unavailable Rounds, M AUGUSTINE DIRECTOR OF ACCOUNTS RECEIVABLE Unavailable Unavailable Rounds, M AUGUSTINE DIRECTOR OF ACCOUNTS RECEIVABLE Unavailable Unavailable Rounds, M AUGUSTINE DIRECTOR OF ACCOUNTS RECEIVABLE Unavailable Unavailable Rounds, M AUGUSTINE DIRECTOR OF ACCOUNTS RECEIVABLE Unavailable Unavailable Rounds, M AUGUSTINE DIRECTOR OF ACCOUNTS RECEIVABLE Unavailable Unavailable Rounds, M AUGUSTINE DIRECTOR OF ACCOUNTS RECEIVABLE Unavailable Unavailable Rounds, M AUGUSTINE DIRECTOR OF ACCOUNTS RECEIVABLE Unavailable Unavailable Rounds, M AUGUSTINE DIRECTOR OF ACCOUNTS RECEIVABLE Unavailable Unavailable Rounds, M AUGUSTINE DIRECTOR OF ACCOUNTS RECEIVABLE Unavailable Unavailable Rounds, M AUGUSTINE DIRECTOR OF ACCOUNTS RECEIVABLE Unavailable Unavailable Rounds, M AUGUSTINE DIRECTOR OF ACCOUNTS RECEIVABLE Unavailable Unavailable Rounds, M AUGUSTINE DIRECTOR OF ACCOUNTS RECEIVABLE Unavailable Unavailable Rounds, M AUGUSTINE DIRECTOR OF ACCOUNTS RECEIVABLE Unavailable Unavailable Rounds, M AUGUSTINE DIRECTOR OF ACCOUNTS RECEIVABLE Unavailable Unavailable Rounds, M AUGUSTINE DIRECTOR OF ACCOUNTS RECEIVABLE Unavailable Unavailable Rounds, M AUGUSTINE DIRECTOR OF ACCOUNTS RECEIVABLE Unavailable Unavailable Rounds, M AUGUSTINE DIRECTOR OF ACCOUNTS RECEIVABLE Unavailable Unavailable Rounds, M AUGUSTINE DIRECTOR OF ACCOUNTS RECEIVABLE Unavailable Unavailable Rounds, M AUGUSTINE DIRECTOR OF ACCOUNTS RECEIVABLE Unavailable Unavailable Rounds, M AUGUSTINE DIRECTOR OF ACCOUNTS RECEIVABLE Unavailable Unavailable Rounds, M AUGUSTINE DIRECTOR OF ACCOUNTS RECEIVABLE Unavailable Unavailable Rounds, M AUGUSTINE DIRECTOR OF ACCOUNTS RECEIVABLE Unavailable Unavailable Rounds, M AUGUSTINE DIRECTOR OF ACCOUNTS RECEIVABLE Unavailable Unavailable Rounds, M AUGUSTINE DIRECTOR OF ACCOUNTS RECEIVABLE Unavailable Unavailable Rounds, M AUGUSTINE DIRECTOR OF ACCOUNTS RECEIVABLE Unavailable Unavailable Rounds, M AUGUSTINE DIRECTOR OF ACCOUNTS RECEIVABLE Unavailable Unavailable Rounds, M AUGUSTINE DIRECTOR OF ACCOUNTS RECEIVABLE Unavailable Unavailable Rounds, M AUGUSTINE DIRECTOR OF ACCOUNTS RECEIVABLE Unavailable Unavailable Rounds, M AUGUSTINE DIRECTOR OF ACCOUNTS RECEIVABLE Unavailable Unavailable Rounds, M AUGUSTINE DIRECTOR OF ACCOUNTS RECEIVABLE Unavailable Unavailable Rounds, M AUGUSTINE DIRECTOR OF ACCOUNTS RECEIVABLE Unavailable Unavailable Rounds, M AUGUSTINE DIRECTOR OF ACCOUNTS RECEIVABLE Unavailable Unavailable Rounds, M AUGUSTINE DIRECTOR OF ACCOUNTS RECEIVABLE Unavailable Unavailable Rounds, M AUGUSTINE DIRECTOR OF ACCOUNTS RECEIVABLE Unavailable Unavailable Rounds, M AUGUSTINE DIRECTOR OF ACCOUNTS RECEIVABLE Unavailable Unavailable Rounds, M AUGUSTINE DIRECTOR OF ACCOUNTS RECEIVABLE Unavailable Unavailable Rounds, M AUGUSTINE DIRECTOR OF ACCOUNTS RECEIVABLE Unavailable Unavailable Rounds, M AUGUSTINE DIRECTOR OF ACCOUNTS RECEIVABLE Unavailable Unavailable Rounds, M AUGUSTINE DIRECTOR OF ACCOUNTS RECEIVABLE Unavailable Unavailable Rounds, M AUGUSTINE DIRECTOR OF ACCOUNTS RECEIVABLE Unavailable Unavailable Rounds, M AUGUSTINE DIRECTOR OF ACCOUNTS RECEIVABLE Unavailable Unavailable Rounds, M AUGUSTINE DIRECTOR OF ACCOUNTS RECEIVABLE Unavailable Unavailable Rounds, M AUGUSTINE DIRECTOR OF ACCOUNTS RECEIVABLE Unavailable Unavailable Rounds, M AUGUSTINE DIRECTOR OF ACCOUNTS RECEIVABLE Unavailable Unavailable Rounds, M AUGUSTINE DIRECTOR OF ACCOUNTS RECEIVABLE Unavailable Unavailable Rounds, M AUGUSTINE DIRECTOR OF ACCOUNTS RECEIVABLE Unavailable Unavailable Rounds, M AUGUSTINE DIRECTOR OF ACCOUNTS RECEIVABLE Unavailable Unavailable Rounds, M AUGUSTINE DIRECTOR OF ACCOUNTS RECEIVABLE Unavailable Unavailable Rounds, M AUGUSTINE DIRECTOR OF ACCOUNTS RECEIVABLE Unavailable Unavailable Rounds, M AUGUSTINE DIRECTOR OF ACCOUNTS RECEIVABLE Unavailable Unavailable Rounds, M AUGUSTINE DIRECTOR OF ACCOUNTS RECEIVABLE Unavailable Unavailable Rounds, M AUGUSTINE DIRECTOR OF ACCOUNTS RECEIVABLE Unavailable Unavailable Rounds, M AUGUSTINE DIRECTOR OF ACCOUNTS RECEIVABLE Unavailable Unavailable Rounds, M AUGUSTINE DIRECTOR OF ACCOUNTS RECEIVABLE Unavailable Unavailable Rounds, M AUGUSTINE DIRECTOR OF ACCOUNTS RECEIVABLE Unavailable Unavailable Rounds, M AUGUSTINE DIRECTOR OF ACCOUNTS RECEIVABLE Unavailable Unavailable TURRIN, CHAPINCITO Unavailable Unavailable TURRIN, CHAPINCITO Unavailable Unavailable TURRIN, CHAPINCITO Unavailable Unavailable TURRIN, CHAPINCITO Unavailable Unavailable Fish, J Orlando Unavailable Unavailable Fish, J Orlando Unavailable Unavailable Fish, J [place] Unavailable Unavailable Fish, J [place] Unavailable Unavailable Fish, J [place] Unavailable Unavailable Fish, J [place] Unavailable Unavailable Fish, J [place] Unavailable Unavailable Fish, J [place] Unavailable Unavailable Fish, J [place] Unavailable Unavailable Fish, J [place] Unavailable Unavailable Fish, J [place] Unavailable Unavailable Fish, J [place] Unavailable Unavailable Fish, J [place] Unavailable Unavailable Fish, J [place] Unavailable Unavailable Fish, J [place] Unavailable Unavailable Fish, J [place] Unavailable Unavailable Fish, J [place] Unavailable Unavailable Fish, J [place] Unavailable Unavailable Fish, J [place] Unavailable Unavailable Fish, J [place] Unavailable Unavailable Fish, J [place] Unavailable Unavailable Fish, J [place] Unavailable Unavailable Fish, J [place] Unavailable Unavailable Fish, J [place] Unavailable Unavailable Fish, J Orlando Unavailable Unavailable Fish, J Orlando Unavailable Unavailable Fish, J [place] Unavailable Unavailable Fish, J Orlando Unavailable Unavailable Fish, J [place] Unavailable Unavailable Fish, J Orlando Unavailable Unavailable Fish, J Orlando Unavailable Unavailable Fish, J Orlando Unavailable Unavailable Fish, J Orlando Unavailable Unavailable Fish, J Orlando Unavailable Unavailable Fish, J Orlando Unavailable Unavailable Fish, J Orlando Unavailable Unavailable Fish, J [place] Unavailable Unavailable Fish, J [place] Unavailable Unavailable Fish, J [place] Unavailable Unavailable Fish, J [place] Unavailable Unavailable Fish, J Orlando Unavailable Unavailable Fish, J [place] Unavailable Unavailable Fish, J [place] Unavailable Unavailable Fish, J [place] Unavailable Unavailable Fish, J Orlando Unavailable Unavailable Fish, J Orlando Unavailable Unavailable Fish, J Orlando Unavailable Unavailable Fish, J Orlando Unavailable Unavailable Fish, J Orlando Unavailable Unavailable Fish, J Orlando Unavailable Unavailable Fish, J Orlando Unavailable Unavailable Fish, J Orlando Unavailable Unavailable Fish, J Orlando Unavailable Unavailable Fish, J Orlando Unavailable Unavailable Fish, J Orlando Unavailable Unavailable Fish, J Orlando Unavailable Unavailable Fish, J Orlando Unavailable Unavailable Fish, J Orlando Unavailable Unavailable Fish, J Orlando Unavailable Unavailable Fish, J Orlando Unavailable Unavailable Fish, J Orlando Unavailable Unavailable Fish, J Orlando Unavailable Unavailable Fish, J Orlando Unavailable Unavailable Fish, J Orlando Unavailable Unavailable Fish, J Orlando Unavailable Unavailable Fish, J Orlando Unavailable Unavailable Fish, J Orlando Unavailable Unavailable Fish, J Orlando Unavailable Unavailable Fish, J Orlando Unavailable Unavailable Fish, J Orlando Unavailable Unavailable Fish, J Orlando Unavailable Unavailable Fish, J Orlando Unavailable Unavailable Fish, J Orlando Unavailable Unavailable Fish, J Orlando Unavailable Unavailable Fish, J Orlando Unavailable Unavailable Fish, J Orlando Unavailable Unavailable Fish, J Orlando Unavailable Unavailable Fish, J Orlando Unavailable Unavailable Fish, J Orlando Unavailable Unavailable Fish, J Orlando Unavailable Unavailable Fish, J Orlando Unavailable Unavailable Fish, J Orlando Unavailable Unavailable Fish, J Orlando Unavailable Unavailable Fish, J Orlando Unavailable Unavailable Fish, J Orlando Unavailable Unavailable Fish, J Orlando Unavailable Unavailable Fish, J Orlando Unavailable Unavailable Fish, J Orlando Unavailable Unavailable Fish, J Orlnado Unavailable Unavailable Fish, J Orlando Unavailable Unavailable Fish, J Orlando Unavailable Unavailable Fish, J Orlando Unavailable Unavailable Fish, J Orlando Unavailable Unavailable Fish, J [place] Unavailable Unavailable Fish, J Orlando Unavailable Unavailable Fish, J Orlando Unavailable Unavailable Fish, J Orlando Unavailable Unavailable Fish, J Orlando Unavailable Unavailable Fish, J Orlando Unavailable Unavailable Fish, J Orlando Unavailable Unavailable Fish, J Orlando Unavailable Unavailable Fish, J Orlando Unavailable Unavailable Fish, J Orlando Unavailable Unavailable Fish, J Orlando Unavailable Unavailable Fish, J Orlando Unavailable Unavailable Fish, J Orlando Unavailable Unavailable Fish, J Orlando Unavailable Unavailable Fish, J Orlando Unavailable Unavailable Fish, J Orlando Unavailable Unavailable Fish, J [place] Unavailable Unavailable Fish, J Orlando Unavailable Unavailable Fish, J Orlando Unavailable Unavailable Fish, J Orlando Unavailable Unavailable Fish, J Orlando Unavailable Unavailable Fish, J Orlando Unavailable Unavailable Fish, J Orlando Unavailable Unavailable Fish, J Orlando Unavailable Unavailable Fish, J Orlando Unavailable Unavailable Fish, J Orlando Unavailable Unavailable Fish, J Orlando Unavailable Unavailable Fish, J Orlando Unavailable Unavailable Fish, J Orlando Unavailable Unavailable Fish, J Orlando Unavailable Unavailable Fish, J Orlando Unavailable Unavailable Fish, J Orlando Unavailable Unavailable Fish, J Orlando Unavailable Unavailable Fish, J Orlando Unavailable Unavailable Fish, J Orlando Unavailable Unavailable Fish, J Orlando Unavailable Unavailable Fish, J Orlando Unavailable Unavailable Fish, J Orlando Unavailable Unavailable Fish, J Orlando Unavailable Unavailable Fish, J Orlando Unavailable Unavailable Fish, J Orlando Unavailable Unavailable Fish, J Orlando Unavailable Unavailable Fish, J Orlando Unavailable Unavailable Fish, J Orlando Unavailable Unavailable Fish, J Orlando Unavailable Unavailable Fish, J Orlando Unavailable Unavailable Fish, J Orlando Unavailable Unavailable Fish, J Orlando Unavailable Unavailable Fish, J Orlando Unavailable Unavailable Fish, J Orlando Unavailable Unavailable Fish, J Orlando Unavailable Unavailable Fish, J Orlando Unavailable Unavailable Fish, J Orlando Unavailable Unavailable Fish, J Orlando Unavailable Unavailable Fish, J Orlando Unavailable Unavailable Fish, J Orlando Unavailable Unavailable Fish, J Orlando Unavailable Unavailable Fish, J Orlando Unavailable Unavailable Fish, J Orlando Unavailable Unavailable Fish, J Orlando Unavailable Unavailable Fish, J Orlando Unavailable Unavailable Fish, J Orlando Unavailable Unavailable Fish, J Orlando Unavailable Unavailable Fish, J Orlando Unavailable Unavailable Fish, J Orlando Unavailable Unavailable Fish, J Orlando Unavailable Unavailable Fish, J Orlando Unavailable Unavailable Fish, J Orlando Unavailable Unavailable Fish, J Orlando Unavailable Unavailable Fish, J Orlando Unavailable Unavailable Fish, J Orlando Unavailable Unavailable Fish, J Orlando Unavailable Unavailable Fish, J Orlando Unavailable Unavailable Fish, J Orlando Unavailable Unavailable Fish, J Orlando Unavailable Unavailable Re-disclosure Warning The records that you are about to access may contain information from federally-assisted alcohol or drug abuse programs. If such information is present, then the following federally mandated warning applies: This information has been disclosed to you from records protected by federal confidentiality rules (42 CFR part 2). The federal rules prohibit you from making any further disclosure of this information unless further disclosure is expressly permitted by the written consent of the person to whom it pertains or as otherwise permitted by 42 CFR part 2. A general authorization for the release of medical or other information is NOT sufficient for this purpose. The Federal rules restrict any use of the information to criminally investigate or prosecute any alcohol or drug abuse patient.The records that you are about to access may contain highly sensitive health information, the redisclosure of which is protected by Article 27-F of the [facility] Public Health law. If you continue you may have access to information: Regarding HIV / AIDS; Provided by facilities licensed or operated by the [facility] Office of Mental Health; or Provided by the [facility] Office for People With Developmental Disabilities. If such information is present, then the following [facility] mandated warning applies: This information has been disclosed to you from confidential records which are protected by state law. State law prohibits you from making any further disclosure of this information without the specific written consent of the person to whom it pertains, or as otherwise permitted by law. Any unauthorized further disclosure in violation of state law may result in a fine or longterm sentence or both. A general authorization for the release of medical or other information is NOT sufficient authorization for further disc losure. Allergies and Adverse Reactions Type Description Substance Reaction Status Data Source(s ) Drug allergy unknow antibiotic unknow antibiotic [facility] Encounters Encounter Providers Location Date Indications Data Source(s ) Emergency Attender: Romeo Huerta MDConsultant: Orlando Owen 11/27/2020 11:58:00 AM EDT - 11/27/2020 01:15:00 PM EDT [facility] Patient discharged. Outpatient Attender: NUPUR YANES Physical Therapy 11/26/2020 09:30:00 AM EDT [facility] Attender: AUGUSTINE Jackson NP [place] [facility] 11/09/2020 0 1:40:00 PM EDT [facility] ([facility] Outpatient Attender: Orlando Owen [place] [facility] 10/22/2020 11:30:0 0 AM EDT [facility] ([facility] Outpatient Attender: Orlando Owen [place] [facility] 09/03/2020 10:30:0 0 AM EDT [facility] ([facility] Outpatient Attender: Orlando [facility] 08/07/2020 01:15:0 0 PM EDT [facility] ([facility] Outpatient Attender: AUGUSTINE Jackson NP [place] [facility] 07/30/2020 0 1:40:00 PM EDT [facility] ([facility] Outpatient Attender: Orlando Owen [place] [facility] 07/09/2020 03:45:0 0 PM EDT [facility] ([facility] Emergency Attender: CHAPINCITO POLOConsultant: Orlando [facility] 06/25/2020 02:39:00 PM EDT - 06/25/2020 04:21:[address] [facility] Patient discharged. Outpatient Attender: AUGUSTINE Jackson NP [place] [facility] 06/25/2020 0 1:30:00 PM EDT [facility] ([facility] Outpatient Attender: AUGUSTINE Jackson [facility] 06/01/2020 1 1:15:00 AM EST [facility] ([facility] Outpatient Attender: AUGUSTINE Jackson NP [place] [facility] 05/18/2020 1 0:30:00 AM EST [facility] ([facility] ) Outpatient Attender: AUGUSTINE Jackson NP [place] [facility] 05/17/2020 1 0:30:00 AM EST [facility] ([facility] ) Outpatient Attender: Orlando Owen [place] [facility] 05/02/2020 12:15:0 0 PM EST [facility] ([facility] Outpatient Attender: AUGUSTINE Jackson NP [place] [facility] 01/23/2020 0 4:00:00 PM EDT [facility] ([facility] ) Outpatient Attender: Orlando Owen [place] [facility] 01/04/2020 01:15:0 0 PM EDT [facility] ([facility] Immunizations Vaccine Date Status Description Data Source(s) COVID-19 VACCINE Leslee 07/12/2020 12:00:00 AM EDT completed [facility] Vaccine Series Complete: YESThis Data wa s Submitted to [facility] [employer]. New in 2012. IIV4 01/04/2020 01:41:00 PM EDT completed [facility] ([facility] Medications Medication Brand Name Start Date Product Form Dose Route Admi nistrative Instructions Pharmacy Instructions Status Indications Reaction Description Data Source(s) Sulfamethoxazole 800 MG / Trimethoprim 160 MG Oral Tablet [B actrim] Bactrim DS 01/21/2021 12:00:00 AM EDT ORAL active [facility] ([facility] Amoxicillin 875 MG Oral Tablet Amoxicillin 01/03/2021 12:00:00 AM EDT ORAL completed [facility] ([facility] gabapentin 100 MG Oral Capsule Gabapentin 11/26/2020 12:00:00 AM EDT ORAL completed [facility] ([facility]) Methylprednisolone 4 MG Oral Tablet [Medrol] Medrol 12:00:00 AM EDT active [facility] ( [facility]) Cyclobenzaprine hydrochloride 5 MG Oral Tablet Cyclobenzapri ne HCL 10/22/2020 12:00:00 AM EDT ORAL active M [facility] ([facility] Prednisone 20 MG Oral Tablet Prednisone 09/03/2020 12:00:00 AM EDT ORAL completed [facility] ([facility] Albuterol 0.83 MG/ML Inhalant Solution Albuterol Sulfate 0 09/03/2020 12:00:00 AM EDT active [facility] ([facility] Nebulizer Kit/Tubing/Mouthpiece 09/03/2020 12:00:00 AM EDT active [facility] ([facility] Nebulizer 09/03/2020 12:00:00 AM EDT active [facility] ([facility] Extension Tubing/Connector 09/03/2020 12:00:00 AM EDT active [facility] ([facility] Injection (SC)/(Im) 09/03/2020 12:00:00 AM EDT completed [facility] ([facility] Medication administered onsite Leslee Covid-19 Vaccine Leslee Covid-19 Vaccine 08/07/2020 12:00: 00 AM EDT active [facility] ([facility] Prednisone 20 MG Oral Tablet Prednisone 07/30/2020 12:00:00 AM EDT ORAL completed [facility] ([facility] Loratadine 10 MG Oral Tablet Loratadine 07/30/2020 12:00:00 AM EDT ORAL active [facility] ([facility] Injection (SC)/(Im) 05/18/2020 12:00:00 AM EST completed [facility] ([facility] Medication administered onsite Injection (SC)/(Im) 05/18/2020 12:00:00 AM EST completed [facility] ([facility] Medication administered onsite Prednisone 20 MG Oral Tablet Prednisone 05/18/2020 12:00:00 AM EST ORAL completed [facility] ([facility] Amoxicillin 875 MG Oral Tablet Amoxicillin 05/18/2020 12:00:00 AM EST ORAL completed [facility] ([facility] Injection (SC)/(Im) 05/17/2020 12:00:00 AM EST completed [facility] ([facility] Medication administered onsite Injection (SC)/(Im) 05/17/2020 12:00:00 AM EST completed [facility] ([facility] Medication administered onsite Prednisone 10 MG Oral Tablet Prednisone 05/02/2020 12:00:00 AM EST ORAL completed [facility] ([facility] doxycycline hyclate 100 MG Oral Tablet Doxycycline Hyclate 0 05/02/2020 12:00:00 AM EST ORAL completed [facility] ([facility] Doxycycline Monohydrate 100 MG Oral Capsule Doxycycline Grimes hydrate 01/23/2020 12:00:00 AM EDT completed [facility] ([facility] Prednisone 20 MG Oral Tablet Prednisone 01/23/2020 12:00:00 AM EDT ORAL completed [facility] ([facility] Insurance Providers Payer name Policy type / Coverage type Policy ID Covered democrat ID Covered democrat's relationship to nunez Policy N[place]z Plan Information MEDICARE [id number] MEDICARE A [id number] Self [id number] AETNA H [id number] Spouse [id number] AETNA U [id number] Self [id number] AETNA U [id number] Self [id number] [employer] U [id number] Self [id number] AETNA -O/P [id number] 01 [id number] MEDICARE PART A -I/P [id number] 18 [id number] MEDICARE PART A -I/P [id number] 18 [id number] AETNA -O [id number] 01 [id number] AETNA [place] HEALTHCARE O [id number] P [id number] MEDICARE C [id number] S [id number] B MEDICARE -O/P [id number] 18 [id number] MEDICARE PART B-O/P [id number] 18 [id number] [employer] HE[employer] [id number] SP [id number] MEDICARE P [id number] S [id number] [employer] HE[employer] -O/P [id number] 18 [id number] MEDICARE PART A -O/P [id number] 18 [id number] C[employer] O [id number] S [id number] MEDICARE C [id number] S [id number] [employer] -O/P [id number] Problems, Conditions, and Diagnoses Code Display Name Description Problem Type Effective Dates Data Source(s) [id number] Bathroom of unspecified non- institutional (private) residence as the place of occurrence of the external cause Bathroom of unspecified non- institutional (private) residence as the place of occurrence of the external cause Diagnosis 11/27/2020 11:58:00 AM [facility] [id number] Fall on same level from slip ping, tripping and stumbling with subsequent striking against other object, initial encounter Fall on same level from slipping, tripping and stumbling with subsequent striking against other object, initial encounter Diagnosis 11/27/2020 11:58:00 AM [facility] 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 E039 Hypothyroidism, unspecified Hypothyroidism, unspecifie d Diagnosis [facility] Chronic obstructive pulmonary disease, u nspecified Chronic obstructive pulmonary disease, unspecified Diagnosis 11/27/2020 11:58:00 AM EDT [facility] I10 Essential (primary) hypertension Essential (primary) h ypertension Diagnosis 11/27/2020 11:58:[address] [facility] [id number] Contusion of scalp, initial encounter Co ntusion of scalp, initial encounter Diagnosis 11/27/2020 [facility]:58[facility] [id number] Unspecified injury of head, initial enco unter Unspecified injury of head, initial encounter Diagnosis 11/27/2020 11:58:00 AM [place] [facility] [id number] Other termite treater helper (current) drug therapy O ther termite treater helper (current) drug therapy Diagnosis 06/25/2020 02:39:00 PM [facility] [id number] Nicotine dependence, unspecified, uncomp licated Nicotine dependence, unspecified, uncomplicated Diagnosis 06/[facility] Pure hypercholesterolemia, unspecified P ure hypercholesterolemia, unspecified Diagnosis 06/25/2020 02:39:00 PM [facility] J209 Acute bronchitis, unspecified Acute bronchitis, unspec ified Diagnosis 06/25/2020 02:39:00 PM [facility] J440 Chronic obstructive pulmonar y disease with (acute) lower respiratory infection Chronic obstructive pulmonary disease wi th (acute) lower respiratory infection Diagnosis 06/25/2020 02:39:00 PM [facility] I4820 Chronic atrial fibrillation, unspecified Chronic atrial fibrillation, unspecified Diagnosis 06/25/2020 02:39:00 PM [facility] R002 Palpitations Palpitations Diagnosis 06/25/2020 02:39:00 P M [facility] Surgeries/Procedures Procedure Description Date Indications Data Source(s) THERAPEUTIC PX 1/> AREAS EACH 15 MIN EXERCISES 12:00:00 AM EDT [facility] ([facility]) MANUAL THERAPY TQS 1/> REGIONS EACH 15 MINUTES 12:00:00 AM EDT [facility] ([facility]) THERAPEUTIC PX 1/> AREAS EACH 15 MIN EXERCISES 12:00:00 AM EDT [facility] ([facility] THERAPEUTIC PX 1/> AREAS EACH 15 MIN EXERCISES 12:00:00 AM EDT [facility] ([facility] Physical Therapy Eval - Low Complexity 12/05/2020 12:0 0:00 AM EDT [facility] ([facility] X-Ray Spine Lumbosacral Complete Inc Bending Views Min Of 6 11/26/2020 12:00:00 AM EDT [facility] ([facility]) OFFICE OUTPATIENT NEW 45 MINUTES 11/26/2020 12:00:00 A M EDT [facility] ([facility]) OFFICE OUTPATIENT VISIT 25 MINUTES 11/09/2020 12:00:00 AM EDT [facility] ([facility] OFFICE OUTPATIENT VISIT 15 MINUTES 10/22/2020 12:00:00 AM EDT [facility] ([facility] OFFICE OUTPATIENT VISIT 25 MINUTES 10/22/2020 12:00:00 AM EDT [facility] ([facility] Aerosol Treatment Airway Inhalation Treatment 09/04/19 12:00:00 AM EDT [facility] ([facility] Injection (SC)/(Im) 09/03/2020 12:00:00 AM EDT [facility] ([facility] OFFICE OUTPATIENT VISIT 25 MINUTES 09/03/2020 12:00:00 AM EDT [facility] ([facility] OFFICE OUTPATIENT VISIT 25 MINUTES 08/07/2020 12:00:00 AM EDT [facility] ([facility] OFFICE OUTPATIENT VISIT 25 MINUTES 07/30/2020 12:00:00 AM EDT [facility] ([facility] OFFICE OUTPATIENT VISIT 25 MINUTES 07/09/2020 12:00:00 AM EDT [facility] ([facility] Electrocardiogram Complete 06/25/2020 12:00:00 AM EDT [facility] ([facility] OFFICE OUTPATIENT VISIT 25 MINUTES 06/25/2020 12:00:00 AM EDT [facility] OFFICE OUTPATIENT VISIT 25 MINUTES 06/01/2020 12:00:00 AM EST [facility] ( [facility] Injection (SC)/(Im) 05/18/2020 12:00:00 AM EST [facility] ( [facility] Injection (SC)/(Im) 05/18/2020 12:00:00 AM EST [facility] ( [facility] OFFICE OUTPATIENT VISIT 25 MINUTES 05/18/2020 12:00:00 AM EST [facility] ( [facility] Injection (SC)/(Im) 05/17/2020 12:00:00 AM EST [facility] ( [facility] Injection (SC)/(Im) 05/17/2020 12:00:00 AM EST [facility] ([facility] OFFICE OUTPATIENT VISIT 25 MINUTES 05/17/2020 12:00:00 AM EST [facility] ( [facility] OFFICE OUTPATIENT VISIT 25 MINUTES 05/02/2020 12:00:00 AM EST [facility] ([facility] Results ID Date Data Source [id number] 01/18/2021 11:21:00 AM EDT [facility] ([facility] Name Value Range Interpretation Code Description Data Susan rce(s) Supporting Document(s) Urine Culture, Routine Laboratory test result Ab normal (applies to non-numeric results) [facility] ([facility] ) SRC:<Blank> Antimicrobial Susceptibility Laboratory test result [facility] ([facility] SRC:<Blank> Bacteria identified in Urine by Culture Laboratory test result Abnormal (applies to non-numeric results) [facility] SRC:<Blank> ID Date Data Source [id number] 01/18/2021 11:08:00 AM EDT [facility] Name Value Range Interpretation Code Description Data Susan rce(s) Supporting Document(s) Clarity Laboratory test result [facility] ([facility] Color Laboratory test result [facility] ([facility] Glucose-Ua Laboratory test result ME D[facility] ([facility] Bilirubin,Urine Laboratory test result [facility] ([facility] Ketone Laboratory test result [facility] ([facility] Creatine kinase [Enzymatic activity/volume] in Serum or Plas ma 1.025 # 1.000-1.030 [facility] Blood - Ua Laboratory test result Abnormal (applies to non -numeric results) [facility] ([facility] pH 6.5 # 5.0-8.0 [facility] Protein Laboratory test result [facility] ([facility] Urobilinogen 0.2 NA 0.2-1.0 [facility] Nitrite Laboratory test result Abnormal (applies to non -numeric results) [facility] ([facility] Leukocyte Laboratory test result Abnormal (applies to non -numeric results) [facility] ([facility] RBC-Ua Laboratory test result 0-3 Abnormal (applies to non -numeric results) [facility] ([facility] Epithelial Cells - Ua Laboratory test result [facility] ([facility] Bacteria - Ua Laboratory test result Abnormal (applies to non-numeric results) [facility] ([facility] ) Comment Laboratory test result Above high normal [facility] ([facility] WBC-Ua Laboratory test result 0-5 Abnormal (applies to non -numeric results) [facility] ([facility] Renal Epithelial Cells Laboratory test result Ab normal (applies to non-numeric results) [facility] ([facility] ) ID Date Data Source [id number] 01/01/2021 02:06:00 PM EDT [facility] Name Value Range Interpretation Code Description Data Susan rce(s) Supporting Document(s) Urine Culture Laboratory test result Normal (applies t o non-numeric results) [facility] ([facility] <content>FULL REPORT IN LAB NOTES ([facility] a nd [facility]).</content>
<content></content>
<content>ORGANISM 1: STAPHYLOCOCCUS EPIDERMIDIS</content>
<content></content>
<content>COLONY COUNT >100,000</content>
<content></content>
<content></content>
<content> ORGANISM 1: STAPHYLOCOCCUS EPIDERMIDIS</content>
<content></content>
<content>STAPHYLOCOCCUS EPIDERMIDIS: REACTION</content>
<content>ICR (INDUCIBLE CC RESISTANCE) IV ICR TEST RESULT</content>
<content>TETRACYCLINE PO 250 mg qid <=1 S</content>
<content>PENICILLIN G IV 1 mu q6H >=0.5 R</content>
<content>PENICILLIN G IV 1 mu q6h >=0.5 R</content>
<content>PENICILLIN G PO 250mg q6h fasting >=0.5 R</content>
<content>TRIMETHOPRIM/SULFAMETHOXAZOLE IV 160mg TMP & 800mg SMXq6h >=320 R</content>
<content>TRIMETHOPRIM/SULFAMETHOXAZOLE PO Bactrim DS Bid >=320 R</content>
<content>ERYTHROMYCIN IV 500mg q6h >=8 R</content>
<content>ERYTHROMYCIN PO 500mg q6h >=8 R</content>
<content>GENTAMICIN IV 80mg q8h <=0.5 S</content>
<content>CLINDAMYCIN IV 600mg q6h 0.25 R</content>
<content>CLINDAMYCIN PO 150mg q6h 0.25 R</content>
<content>NITROFURANTOIN PO 100mg BID <=16 S</content>
<content> OXACILLIN IV 500mg q6h <=0.25 S</content>
<content>VANCOMYCIN IV 500mg q8h 2 S</content>
<content>LINEZOLID (ZYVOX) IV 600MG Q12HR 1 S</content>
<content>LINEZOLID (ZYVOX) PO 600MG Q12HR 1 S</content>
<content>An isolate with a (+) POSITIVE ICR test is considered</content>
<content>CLINDAMYCIN RESISTANT; however, clindamycin may still</content>
<content>be effective in some patients.</content>
<content>An isolate with a (-) NEGATIVE ICR test is considered</content>
<content>CLIDAMYCIN SENSITIVE.</content>
<content>Oxacillin result predicts susceptibility to all penicillinase-stable</content>
<content>penicillins (Nafcillin, Dicloxacilin), Cephalosporins, Carbapenems,</content>
<content>Amoxicillin/Clavulanate & Ampicillin/Sulbactam per [employer]I standards.</content>
<content></content> ID Date Data Source [id number] 11/27/2020 11:58:[address] [facility] [address] [facility] Emergency Department [address] [place] [address] Phone #: ext- [phone] 11/27/2020 11:58 Patient: KILO FUENTES Sex: F : 1930 Age: 89yWEIGHT:75.6 kg HEIGHT:65 inches BMI:27.8ALLERGIES: Grass Mix Pollens Allergen ExtCHIEF COMPLAINT: headDIAGNOSIS: Contusion, Injury of headLAB ORDERSOrder Description Priority Entered Acknowledged InitialedDIAGNOSTIC STUDY ORDERSOrder Description Priority Entered Acknowledged InitialedCT Head W/O Cont STAT 12:24 11/27/2020 12:30 Hardy(Oxygen?(No)) Romeo Huerta ; Marci ABRAHAM Reason for Study: Head InjuryCT Spine Cervical STAT 12:24 11/27/2020 12:30 TerryW/O Cont Romeo Huerta RN(Oxygen?(No)) Reason for Study: Trauma/InjuryMEDICATION/IV/DRIP/FLUID ORDERSOrder Description Priority Entered Acknowledged InitialedGENERAL ORDERSOrder Description Priority Entered Acknowledged Initialed[Electronically signed by Romeo Huerta (14:14 11/27/2020)][Electronically signed by Hardy Covarrubias RN (19:11/27/2020)][Electronically locked by Hardy Covarrubias RN (:11/27/2020)] Name Value Range Interpretation Code Description Data Susan rce(s) Supporting Document(s) ID Date Data Source [id number] 11/27/2020 11:58:[address] [facility] [address] [facility] Emergency Department [address] [place] [address] Phone #: ext- [phone] 11/27/2020 11:58 [id number] : 1930 Age: 89yWeight: 75.6 kgHeight/Length: 65 in.BMI: 27.8ALLERGIES: Grass Mix Pollens Allergen ExtThe patient's Home Medications are listed below:CONTINUE TAKING THE FOLLOWING MEDICATIONS: Azelastine HCl Nasal, 2x a day Calcium Citrate Oral, 2x a day Cyclobenzaprine HCl Oral dilTIAZem HCl Oral 180 mg, daily Eliquis Oral (5 mg), 2x a day Gabapentin Oral Levothyroxine Sodium Oral 88 mcg, daily Lisinopril Oral (2.5 mg), daily Loratadine Oral 10 mg, daily methylPREDNISolone Oral Montelukast Sodium Oral Pantoprazole Sodium Oral 40 mg, daily Pravastatin Sodium Oral (40 mg), daily Sertraline HCl Oral 25 mg, daily Ventolin HFA Inhalation [address] [facility] Emergency Department [address] [place] [address] Phone #: ext- [phone] 11/27/2020 11:58 Patient: KILO FUENTES Sex: F : 1930 Age: 89y Vitamin D Oral 1000mg, daily Womens 50+ Multi Vitamin/Min OralThe source(s) of the original Home Medication information:Not obtained.The following Medications were given to the patient in the Emergency Department:None.The following Medications were prescribed to the patient:None. Name Value Range Interpretation Code Description Data Susan rce(s) Supporting Document(s) ID Date Data Source [id number] 11/27/2020 11:58:00 AM EDT [place] [address] [facility] Emergency Department [address] [place] [address] Phone #: ext- [phone] 11/27/2020 11:58 Patient: KILO FUENTES Sex: F : 1930 Age: 89yWeight: 75.6 kgHeight/Length: 65 inBMI: 27.8ALLERGIES: Grass Mix Pollens Allergen ExtDate/Time Medication Administered Medication Ordered Name Value Range Interpretation Code Description Data Susan rce(s) Supporting Document(s) ID Date Data Source [id number] 11/27/2020 11:58:[address] [facility] [address] [facility] Emergency Department [address] [place] [address] Phone #: ext- [phone] 11/27/2020 11:58 Patient: KILO FUENTES Sex: F : 1930 Age: 89yMinor closed head injury. No loss of consciousness. No cerebellar contusion. No brainstem contusion.Single contusion to the scalp.INSTRUCTIONSWarnings: HEAD INJURY PRECAUTIONS: An observer must check on the patient frequently for the next24 hours to confirm that the patient responds as expected, is not confused, has no new weakness ornumbness, and has no other problems.GENERAL WARNINGS: Return or contact your physician immediately if your condition worsens orchanges unexpectedly, if not improving as expected, or if other problems arise.Your Current Medications: Your current home medications have been reviewed.CONTINUE TAKING THE FOLLOWING MEDICATIONS:Azelastine HCl Nasal : 2x a day.Calcium Citrate Oral : 2x a day.Cyclobenzaprine HCl Oral.dilTIAZem HCl Oral : 180 mg daily.Eliquis Oral : Tablet 5 mg, 2x a day.Gabapentin Oral.Levothyroxine Sodium Oral : 88 mcg daily.Lisinopril Oral : T ablet 2.5 mg, daily.Loratadine Oral : 10 mg daily.methylPREDNISolone Oral.Montelukast Sodium Oral.Pantoprazole Sodium Oral : 40 mg daily.Pravastatin Sodium Oral : Tablet 40 mg, daily.Sertraline HCl Oral : 25 mg daily.Ventolin HFA Inhalation.Vitamin D Oral : 1000mg daily.Womens 50+ Multi Vitamin/Min Oral.Understanding of the discharge instructions verbalized by patient.Follow-up with: Orlando Owen, , , [address] [place], [address] Follow up in three days as needed. Call for an appointment. ADDITIONAL INFORMATION [address] [facility] Emergency Department [address] [place] [address] Phone #: ext- [phone] 11/27/2020 11:58 [id number] Sex[facility] : 1930 Age: 89yHead Injury (Adult)You have a head injury. It does not appear serious at this time. But symptoms of a more seriousproblem, such as a mild brain injury (concussion) or bruising or bleeding in the brain, may appearlater. For this reason, you or someone caring for you will need to watch for the symptoms listedbelow. Once you're home, also be sure to follow any care instructions you're given.Home careWatch for the following symptomsSeek emergency medical care if you have any of these symptoms over the next hours to days: Headache Nausea or vomiting Dizziness Sensitivity to light or noise Unusual sleepiness or grogginess Trouble falling asleep Personality changes Vision changes [address] [facility] Emergency Department [address] [place] [address] Phone #: ext [phone] 11/27/2020 11:58 Patient: KILO FUENTES Sex: F : 1930 Age: 89y Memory loss Confusion Trouble walking or clumsiness Loss of consciousness (even for a short time) Inability to be awakened Stiff neck Weakness or numbness in any part of the body SeizuresGeneral care If you were prescribed medicines for pain, use them as directed. Note: Don't take other medicines for pain without talking to your provider first. To help reduce swelling and pain, apply a cold source to the injured area for up to 20 minutes at a time. Do this as often as directed. Use a cold pack or bag of ice wrapped in a thin towel. Never apply a cold source directly to the skin. If you have cuts or scrapes as a result of your head injury, care for them as directed. For the next 24 hours (or longer, if instructed): o Don't drink alcohol or use sedatives or other medicines that make you sleepy. o Don't drive or operate machinery. o Don't do anything strenuous, such as heavy lifting or straining. o Limit tasks that require concentration. This includes reading, using a smartphone or computer, watching TV, and playing video games. o Don't return to sports or other activities that could result in another head injury.Follow-up careFollow up with your healthcare provider, or as directed. If imaging tests were done, they will bereviewed by a doctor. You will be told the results and any new findings that may affect your care.When to seek medical advice [address] [facility] Emergency Department [address] [place] [address] Phone #: ext- [phone] 11/27/2020 11:58 [id number] Sex: F : 1930 Age: 89yCall your healthcare provider right away if any of these occur: Pain doesn't get better or worsens New or increased swelling or bruising Fever of 100.4F (38C) or higher, or as directed by your provider Increased redness, warmth, drainage, or bleeding from the injured area Fluid drainage or bleeding from the nose or ears Any depression or bony abnormality in the injured area Persistent confusion or lethargy Bruising behind the ears or bruising around the eyes [employer] [address] [place] [address]. All rights reserved. This information is not intended as asubstitute for professional medical care. Always follow your healthcare professional's instructions. You have been given the following additional information: Head Injury (Adult)(Electronically signed by Romeo Huerta 11/27/2020 14:14) Name Value Range Interpretation Code Description Data Susan rce(s) Supporting Document(s) ID Date Data Source [id number] 11/27/2020 11:58:[address] [facility] 1 Clinical Report - Nurses [facility] Emergency Department [address] [place] [address] Phone #: ext- [phone] 11/27/2020 11:58 Patient: KILO FUENTES Sex: F : 1930 Age: 89yTRIAGEArrived by private vehicle. Historian: patient and family. Accompanied by family.Triage time: 12:10 11/27/2020. Acuity: LEVEL 2.Chief Complaint: INJURY TO HEAD and (Pt was backing up in tub when she slipped and hit back of headon tub. Denies LOC, currently taking eliquis. No obvious wound to area. Pt denies anydizziness/lightheadedness. Daughter reports pt fell asleep in WR and had a jerking motion.).Alert. No acute distress.Occurred 10:00 11/27/2020. No loss of consciousness. No headache or neck pain. Fell:Pre- hospital notification of patient arrival was not received.Treatment AUTOMATION MECHANIC:None. --12:29 11/27/20 Sabiha Cota R.N.12:10 11/27/20. BP: 129/65. MAP: 86. HR: 92. R R: 18. O2 saturation: 97% on room air. Temp: 97.1 F.Pain level now: 0/10. --12:29 11/27/20 Sabiha Cota R.N.Weight: 75.6 kg. Height/Length: 65 inches. BMI: 27.8. --12:27 11/27/20 Sabiha Coat R.N.MedicationsEliquis Oral (Tablet 5 mg), 2x a day. --12:14 8/July, R.N. Pantoprazole Sodium Oral 40 mg, daily. --12:14 11/27/20July, R.N. Cyclobenzaprine HCl Oral. dilTIAZem HCl Oral 180 mg, daily. --12:15 11/27/20July, R.N. Ventolin HFA Inhalation. --12:16 11/27/20July, R.N. Womens 50+ Multi Vitamin/Min Oral. --12:16 11/27/20July, R.N. Calcium Citrate Oral, 2x a day. --12:16 11/27/20July, R.N. Vitamin D Oral 1000mg, daily. --12:17 11/27/20July, R.N. Azelastine HCl Nasal, 2x a day. --12:18 11/27/20July, R.N. Loratadine Oral 10 mg, daily. --12:18 11/27/20July, R.N. Montelukast Sodium Oral. --12:18 11/27/20July, R.N. Lisinopril Oral (Tablet 2.5 mg), daily. --12:18 11/27/20July, R.N. Sertraline HCl Oral 25 mg, daily. --12:19 11/11, R.N. Levothyroxine Sodium Oral 88 mcg, daily. --12:11/27/20July, R.N. Pravastatin Sodium Oral (Tablet 40 mg), daily. --12:19 11/27/20July, R.N. methylPREDNISolone Oral. --12:21 11/27/20July, R.N. Gabapentin Oral. --12:22 11/27/20July, R.N. 2 Clinical Report - Nurses [facility] Emergency Department [address] [place] [address] Phone #: ext- [phone] 11/27/2020 11:58 Patient: KILO FUENTES Sex: F : 1930 Age: 89y Allergies Grass Mix Pollens Allergen Ext. --12:14 11/27/20 Sabiha Cota R.N. ADDITIONAL SURGERIES: Bladder Suspension. --12:22 11/27/20 Sabiha Cota R.N. History PAST MEDICAL HX: Hypertension. SOCIAL HX: Light tobacco smoker (cigarette)- less than 1/2 a pack per day. No alcohol use or drug use. She was offered HIV testing but declined and hepatitis C testing but declin ed. She has not traveled outside the [place] Infectious disease exposure: No infectious disease exposure. SELF HARM ASSESSMENT: Self harm assessment was performed. The patient answered "no" to the question(s) "Have you recently felt down, depressed, or hopeless?" and "Have you recently had thoughts about harming or killing others?". ABUSE ASSESSMENT: Abuse assessment. No suspicion of abuse. No report of abuse. NUTRITIONAL RISK ASSESSMENT: The nutritional risk assessment revealed no deficiencies. LEARNING NEEDS ASSESSMENT: The learning needs assessment revealed no barriers. FALL RISK ASSESSMENT: Fall risk assessment completed. Risk factors identified include patient age greater than 65 years. Fall interventions initiated. Side rails up x2. Family at bedside. Call light in reach of patient. FUNCTIONAL ASSESSMENT: Functional assessment performed: uses walker and cane; wears glasses. SKIN INTEGRITY ASSESSMENT: Skin integrity risk assessment was performed. Risk factors identified include restricted mobility. --12:29 11/27/20 Sabiha Cota R.N. FAMILY HX: (non-contributory). --12:33 11/27/20 Romeo Huerta. Interventions Identification band on patient. Advanced care plan discussed with patient and family. Patient has advanced directive. Provided by patient and patient's family. --12:29 11/27/20 Sabiha Cota R.N.PHYSICAL [id number] 11/27/20. Ambulatory to room.GENERAL / NEURO / PSYCH: Alert. Oriented X 4. Appears in no acute distress.HEENT: Head non-tender. Pupils equal, round and reactive to light. Mouth within normal limits uponinspection. Voice within normal limits. No swelling of head.RESPIRATORY: Respirations not labored. 3 Clinical Report - Nurses [facility] Emergency Department [address] [place] [address] Phone #: ext- [phone] 11/27/2020 11:58 Patient: KILO FUENTES Sex: F : 1930 Age: 89y CVS: Capillary refill less than 2 seconds. BACK: No neck or back tenderness. ROM normal to the neck and back. SKIN: Skin is warm and dry. --12:35 11/27/20 Hardy Covarrubias RN.NURSING PROGRESS NOTESPatient gowned. Two pat ient identifiers checked. Call light placed in reach. Side rails up x 2. Bedplaced in lowest position. Brakes of bed on. Patient ready for evaluation- ED physician notified. --12: Hardy Covarrubias RN Patient transported to CT by stretcher with mask and geotechnical laboratory technician. (1235). --12:35 11/27/20 Hardy Covarrubias RN Patient transported to CT by wheelchair with mask and geotechnical laboratory technician. (1235). --12:37 11/27/20 Hardy Covarrubias RN Correction --12:37 11/27/20 Hardy Covarrubias RN Patient transported to CT by stretcher with mask and geotechnical laboratory technician. (1235). --12:37 11/27/20 Hardy Covarrubias RN Patient returned from CT by stretcher with mask and geotechnical laboratory technician. (1250). --13:21 11/27/20 Hardy Covarrubias RN.DISPOSITION / DISCHARGE 13:11/27/20. Departure time: 13:11/27/2020. Condition at departure: unchanged. No learning barriers present. Discharge instructions provided and reviewed with the patient and family. Reviewed medication(s) (no changes). Reviewed rest instructions. Reviewed referrals. Provided to follow-up provider. Patient and family verbalized understanding. Written instructions provided in Guamanian. The patient was discharged by the physician. She was discharged home and accompanied by family. She left in a wheelchair and via private vehicle. Family member driving. --13:22 11/27/20 Hardy Covarrubias RN 13:10 11/27/20. BP: 152/74. MAP: 100. HR: 96. RR: 18. O2 saturation: 96% on room air. Pain level now: 0/10. --13:22 11/27/20 Hardy Covarrubias RN.Locked/Released at 11/27/2020 19:22 by Hardy Covarrubias RN Name Value Range Interpretation Code Description Data Susan rce(s) Supporting Document(s) ID Date Data Source [id number] 11/27/2020 11:58:[address] [facility] 1 Clinical Report - Physicians/Mid Levels [facility] Emergency Department [address] [place] [address] Phone #: ext- [phone] 11/27/2020 11:58 Patient: KILO FUENTES Sex: F : 1930 Age: 89y Time Seen: 12:20 11/27/2020. Arrived- By private vehicle. Historian- patient.HISTORY OF PRESENT ILLNESS Chief Complaint: FALL: Location of injuries- head. The injury occurred just prior to arrival. Occurred at home. ( Slipped in shower on wet floor in [facility]. struck back of head). Fell: No fainting episodes. The patient denies pain. The patient sustained a blow to the head. No loss of consciousness. Not dazed. (No headache or neck pain or numbness. However she is on Eliquis so her daughter wanted her evaluated).REVIEW OF SYSTEMSNo numbness, dizziness, loss of vision, hearing loss or chest pain. No difficulty breathing, nausea,abdominal pain, laceration or fever. No vomiting. She has no pain on weight bearing. All other systemsreviewed and are negative.PAST HISTORYSee nurses notes. Hypertension. Tetanus immunization status is up-to-date. Problems: COPD - Chronic Obstructive Pulmonary Disease. Depression. Degenerative Joint Disease. Atrial Fibrillation. Hypothyroidism. Gastroesophageal Reflux Disease. Hypercholesterolemia. Hypertension. Additional Surgeries: Bladder Suspension. Thyroidectomy. Medications: Gabapentin Oral. methylPREDNISolone Oral. 2 Clinical Report - Physicians/Mid Levels [facility] Emergency Department [address] [place] [address] Phone #: ext- [phone] 11/27/2020 11:58 ----- Patient: KILO FUENTES Sex: F : 1930 Age: 89y Pravastatin Sodium Oral (Tablet 40 mg), daily. Levothyroxine Sodium Oral 88 mcg, daily. Sertraline HCl Oral 25 mg, daily. Lisinopril Oral (Tablet 2.5 mg), daily. Montelukast Sodium Oral. Loratadine Oral 10 mg, daily. Azelastine HCl Nasal, 2x a day. Vitamin D Oral 1000mg, daily. Calcium Citrate Oral, 2x a day. Womens 50+ Multi Vitamin/Min Oral. Ventolin HFA Inhalation. Cyclobenzaprine HCl Oral. dilTIAZem HCl Oral 180 mg, daily. Pantoprazole Sodium Oral 40 mg, daily. Eliquis Oral (Tablet 5 mg), 2x a day. Allergies: Grass Mix Pollens Allergen Ext.SOCIAL HISTORYCurrent every day smoker.FAMILY HISTORY(non- contributory).ADDITIONAL NOTESThe nursing notes have been reviewed.PHYSICAL EXAMVital Signs: 11/27/2020 12:10 BP: 129/65. MAP: 86. HR: 92. RR: 18. O2 satur ation: 97% on room air.Temp: 97.1 F. Pain level now: 0/10.Appearance: Alert. Oriented X3. No acute distress.Head: Head non-tender. No swelling of head.Eyes: Pupils equal, round and reactive to light. EOM intact.ENT: No dental injury. Pharynx normal.Neck: Painless ROM. Non-tender.CVS: Heart sounds normal. Pulses normal.Respiratory: Decreased breath sounds. Painless inspiration. Chest nontender.Abdomen: No visible injury. Soft and nontender. Bowel sounds normal. No organomegaly.Back: No tenderness. ROM normal.Skin: Skin intact. Skin warm and dry. Normal skin color.Extremities: Normal inspection. Pelvis stable. Extremities atraumatic.Neuro: Oriented X 3. No motor deficit. No sensory deficit. Reflexes normal. Reflex exam: right biceps2+, left biceps 2+, right brachioradialis 2+ and left brachioradialis 2+. 3 Clinical Report - Physicians/Mid Levels [facility] Emergency Department [address] [place] [address] Phone #: ext- [phone] 11/27/2020 11:58 Patient: KILO FUENTES Sex: F : 1930 Age: 89yLABS, X-RAYS, AND EKGCT Head: No hemorrhage and no intracranial mass. The study was independently viewed by me.Laboratory Tests: CT Head W/O Cont: (JOVI: 11/27/2020 12:24) ( MsgRcvd 11/27/2020 13:04) In Progress Exam [place] HEAD [place] [address] PHONE: [phone] FAX: [phone] Name .................. : GINA Mejia Acct Number.................. : [id number] ROOM. ................. : MR Number ................... : [id number] Stay type ............. : E/R Discharge Date......... ... : Admit Date ......... : 11/27/20 Admit Phys .................... : RENEA Joe Date of ....... : 1930 Family Phys ................... : MARY GILLESPIE Phone .................. : [phone] Age ................................ : 89 Film# .................. .:[id number] Sex ................................. : F Unsigned transcriptions are preliminary reports and do not represent a medical or legal document CT HEAD W/O CONTRAST [id number] COMPLETE:11/27/20 12:24 [id number] Reason(s): Head Injury CT BRAIN WITHOUT IV CONTRAST INDICATION: Head injury COMPARISON: 01/06/2019 CONTRAST: None One or more of the [facility] dose reduction techniques were utilized in effectively lowering the radiation dose for this examination: Automated Exposure Control, Adjustment of the mA and/or kV according to patient size, or Iterative Reconstruction. FINDINGS: Ventricles and sulci moderately enlarged similar to previous. Moderate to severe white matter hypoattenuation is again noted slightly more pronounced than prior most likely progressive chronic ischemic small vessel change. No extra-axial collection or intracranial hemorrhage. No indication of acute or prior ischemic CVA. No mass or mass effect. Calvarium and skull base are within normal limits. To the extent included sinuses are clear. No orbital traumatic abnormality is identified. IMPRESSION: Age compatible atrophy and chronic ischemic small vessel change. No acute intracranial traumatic abnormality. Electronically Reviewed and Signed By Page 1 of 2 4 Clinical Report - Physicians/Mid Levels [facility] Emergency Department [address] [place] [address] Phone #: ext- [phone] 11/27/2020 11:58 Patient: KILO FUENTES Sex: F : 1930 Age: 89[place] [address] PHONE: [phone] FAX: [phone] Name .................. : GINA Mejia Acct Number.................. : [id number] ROOM. ................. : MR Number ................... : [id number] Stay type ............. : E/R Discharge Date......... ... : Admit Date ......... : 11/27/20 Admit Phys .................... : RENEA Joe Date of ....... : 1930 Family Phys ................... : MARY GILLESPIE Phone .................. : [phone] Age ................................ : 89 Film# .................. .:[id number] Sex ................................. : F Unsigned tra nscriptions are preliminary reports and do not represent a medical or legal document CT HEAD W/O CONTRAST 54050 COMPLETE:11/27/20 12:24 [id number] Reason(s): Head Injury DCTNAME , SIGNDATE, SCB Transcribe Initials: SSR, Transcribe Date: 11/27/20 13:01, Dictation Date: <<REPDIST>> Page2 of 2CT Spine Cervical W/O Cont: (JOVI: 11/27/2020 12:24) ( MsgRcvd 11/27/2020 13:07) In Progress Exam CT CERV SPINE W/O [facility] [address] [place] [address] PHONE: [phone] FAX: [phone] Name .................. : GINA BOATENG Roberto Acct Number.................. : [id number] ROOM. ................. : VT- 08 MR Number ................... : [id number] Stay type ............. : E/R Discharge Date......... ... : Admit Date ......... : 11/27/20 Admit Phys .................... : RENEA Joe Date of ....... : 1930 Family Phys ................... : MARY GILLESPIE Phone .................. : [phone] Age ................................ : 89 Film# .................. .:[id number] Sex ........... ...................... : F Unsigned transcriptions are preliminary reports and do not represent a medical or legal document CT CERV SPINE W/O GEMINI 00245 COMPLETE:11/27/20 12:24 [id number] Reason(s): Trauma/Injury CT CERVICAL SPINE WITHOUT IV CONTRAST INDICATION: Trauma/injury COMPARISON: None. Correlation with CT neck 09/07/2015 CONTRAST: None PROCEDURE: The patient is scanned axially from C1 to the upper thoracic spine. 5 Clinical Report - Physicians/Mid Levels [facility] Emergency Department [address] [place] [address] Phone #: ext- [phone] 11/27/2020 11:58 Patient: KILO FUENTES Sex: F : 1930 Age: 89y Multiplanar reconstructions are performed. One or more of the following dose reduction techniques were utilized in effectively lowering the radiation dose for this examination: Automated Exposure Control, Adjustment of the mA and/or kV according to patient size, or Iterative reconstruction. FINDINGS: Dens intact. C1-C2 relationship is maintained. Mild disc space narrowing C2-3 slightly worse than prior. There is minimal new calcification along the posterior spinous process intraligamentous space. Moderate to severe disc space narrowing C3-4, C4-5, C5-6, C6-7. Slight progression at C3-4 otherwise similar. Multilevel aguz-he-bsqngavg neural foraminal narrowing. Bilateral degenerative facet arthropathy more pronounced on the left than right particularly through the mid cervical spine. No acute fracture. IMPRESSION: The level degenerative change with some interval progression. No acute bony traumatic abnormality. Electronically Reviewed and Signed By Page 1 of [address] [place] [address] PHONE: [phone] FAX: [phone] Name .................. : GINA Mejia Acct Number.................. : [id number] ROOM. ................. : VT- MR Number ................... : [id number] Stay type ............. : E/R Discharge Date......... ... : Admit Date ......... : 11/27/20 Admit Phys .................... : RENEA Joe Date of ....... : 1930 Family Phys ................... : MARY GILLESPIE Phone .................. : [phone] Age ............. ................... : 89 Film# .................. .:[id number] Sex ................................. : F Unsigned transcriptions are preliminary reports and do not represent a medical or legal document CT CERV SPINE W/O CONTRAS [id number] COMPLETE:11/27/20 12:24 [id number] Reason(s): Trauma/Injury DCTNAME , SIGNDATE, SCB Transcribe Initials: SSR, Transcribe Date: 11/27/20 13:06, Dictation Date: <<REPDIST>> Page 2 of 2. 6 Clinical Report - Physicians/Mid Levels [facility] Emergency Department [address] [place] [address] Phone #: ext- [phone] 11/27/2020 11:58 Patient: KILO FUENTES [facility]#: [id number] Sex: F : 1930 Age: 89yPROGRESS AND PROCEDURESCourse of Care: 12:34 11/27/20. GCS of 15. No radicular pain. Denies any headache. No reproduciblethoracic or lumbar bony tenderness. Disposition: Discharged. Condition: stable.CLINICAL IMPRESSION Minor closed head injury. No loss of consciousness. No cerebellar contusion. No brainstem contusion. Single contusion to the scalp.INSTRUCTIONS Warnings: HEAD INJURY PRECAUTIONS: An observer must check on the patient frequently for the next 24 hours to confirm that the patient responds as expected, is not confused, has no new weakness or numbness, and has no other problems. GENERAL WARNINGS: Return or contact your physician immediately if your condition worsens or changes unexpectedly, if not improving as expected, or if other problems arise. Your Current Medications: Your current home medications have been reviewed. CONTINUE TAKING THE FOLLOWING MEDICATIONS: Azelastine HCl Nasal : 2x a day. Calcium Citrate Oral : 2x a day. Cyclobenzaprine HCl Oral. dilTIAZem HCl Oral : 180 mg daily. Eliquis Oral : Tablet 5 mg, 2x a day. Gabapentin Oral. Levothyroxine Sodium Oral : 88 mcg daily. Lisinopril Oral : Tablet 2.5 mg, daily. Loratadine Oral : 10 mg daily. methylPREDNISolone Oral. Montelukast Sodium Oral. Pantoprazole Sodium Oral : 40 mg daily. Pravastatin Sodium Oral : Tablet 40 mg, daily. Sertraline HCl Oral : 25 mg daily. Ventolin HFA Inhalation. Vitamin D Oral : 1000mg daily. Womens 50+ Multi Vitamin/Min Oral. Understanding of the discharge instructions verbalized by patient. Follow-up with: Orlando Owen, , , [address] [place], [address] 7 Clinical Report - Physicians/Mid Levels [facility] Emergency Department [address] [place] [address] Phone #: ext- [phone] 11/27/2020 11:58 Patient: KILO FUENTES Sex: F : 1930 Age: 89y Follow up in three days as needed. Call for an appointment.(Electronically signed by Romeo Huerta 11/27/2020 14:14) Name Value Range Interpretation Code Description Data Susan rce(s) Supporting Document(s) ID Date Data Source [id number] 11/27/2020 07:20:00 [place] [address] PHONE: [phone] FAX: [phone] Name .................. : GINA Mejia Acct Number.................. : [id number] ROOM. ................. : VT-08 MR Number ................... : [id number] Stay type ............. : E/R Discharge Date......... ... : Admit Date ......... : 11/11 10/[birth year] Admit Phys .................... : RENEA Joe Date of ....... : 1930 Family Phys ................... : MARY GILLESPIE Phone .................. : [phone] Age ................................ : 89 Film# .................. .:[id number] Sex ................................. : F Unsigned transcriptions are preliminary reports and do not represent a medical or legal document CT CERV SPINE W/O GEMINI 21947 COMPLETE:11/27/20 12:24 [id number] Reason(s): Trauma/Injury CT CERVICAL SPINE WITHOUT IV CONTRAST INDICATION: Trauma/injury COMPARISON: None. Correlation with CT neck 09/07/2015 CONTRAST: None PROCEDURE: The patient is scanned axially from C1 to the upper thoracic spine. Multiplanar reconstructions are performed. One or more of the following dose reduction techniques were utilized in effectively lowering the radiation dose for this examination: Autom ated Exposure Control, Adjustment of the mA and/or kV according to patient size, or Iterative reconstruction. FINDINGS: Dens intact. C1-C2 relationship is maintained. Mild disc space narrowing C2-3 slightly worse than prior. There is minimal new calcification along the posterior spinous process intraligamentous space. Moderate to severe disc space narrowing C3-4, C4-5, C5-6, C6-7. Slight progression at C3-4 otherwise similar. Multilevel kjwa-hq-aqyyzkyw neural foraminal narrowing. Bilateral degenerative facet arthropathy more pronounced on the left than right particularly through the mid cervical spine. No acute fracture. IMPRESSION: Multi level degenerative change with some interval progression. No acute bony traumatic abnormality. Electronically Reviewed and Signed By Page 1 of 2 [place] [address] PHONE: [phone] FAX: [phone] Name .................. : GINA Mejia Acct Number.................. : [id number] ROOM. ................. : VT-08 Number ................... : [id number] Stay type ............. : E/R Discharge Date......... ... : Admit Date ......... : 11/27/20 Admit Phys .................... : RENEA Joe Date of ....... : 1930 Family Phys ................... : MARY GILLESPIE Phone .................. : [phone] Age ................................ : 89 Film# .................. .:[id number] Sex ................................. : F Unsigned transcriptions are preliminary reports and do not represent a medical or legal document CT CERV SPINE W/O CONTRAS [id number] COMPLETE:11/27/20 12:24 [id number] Reason(s): Trauma/Injury Shadi Guzman MD , 11/27/20 19:20, SCB Transcribe Initials: SSR, Transcribe Date: 11/27/20 13:06, Dictation Date: Copy for: MARY DOWNEY via fax Copy for: EMERGENCY DEPT via modem Copy for: 710 MED REC DISCHARGED Page 2 of 2 Name Value Range Interpretation Code Description Data Susan rce(s) Supporting Document(s) ID Date Data Source [id number] 11/27/2020 07:17:00 PM EDT [facility] [address] [place] [address] PHONE: [phone] FAX: [phone] Name .................. : GINA Mejia Acct Number.................. : [id number] ROOM. ................. : VT-08 MR Number ................... : [id number] Stay type ............. : E/R Discharge Date......... ... : Admit Date ......... : 0 11/27/20 Admit Phys .................... : RENEA Joe Date of ....... : 1930 Family Phys ................... : MARY GILLESPIE Phone .................. : [phone] Age ................................ : 89 Film# .................. .:[id number] Sex ................................. : F Unsigned transcriptions are preliminary reports and do not represent a medical or legal document CT HEAD W/O CONTRAST 73196 COMPLETE:11/27/20 12:24 [id number] Reason(s): Head Injury CT BRAIN WITHOUT IV CONTRAST INDICATION: Head injury COMPARISON: 01/06/2019 CONTRAST: None One or more of the following dose reduction techniques were utilized in effectively lowering the radiation dose for this examination: Automated Exposure Control, Adjustment of the mA and/or kV according to patient size, or Iterative Reconstruction. FINDINGS: Ventricles and sulci moderately enlarged similar to previous. Moderate to severe white matter hypoattenuation is again noted slightly more pronounced than prior most likely progressive chronic ischemic small vessel change. No extra-axial collection or intracranial hemorrhage. No indication of acute or prior ischemic CVA. No mass or mass effect. Calvarium and skull base are within normal limits. To the extent included sinuses are clear. No orbital traumatic abnormality is identified. IMPRESSION: Age compatible atrophy and chronic ischemic small vessel change. No acute intracranial traumatic abnormality. Electronically Reviewed and Signed By Page 1 of 2 [facility] [address] [place] [address] PHONE: [phone] FAX: [phone] Name .................. : GINA Mejia Acct Number.................. : [id number] ROOM. ................. : VT-08 MR Number ................... : [id number] Stay type ............. : E/R Discharge Date......... ... : Admit Date ......... : 11/27/20 Adm it Phys .................... : RENEA Joe Date of ....... : 1930 Family Phys ................... : MARY VICKRADHA Phone .................. : [phone] Age ................................ : 89 Film# .................. .:[id number] Sex ................................. : F Unsigned transcriptions are preliminary reports and do not represent a medical or legal document CT HEAD W/O CONTRAST [id number] COMPLETE:11/27/20 12:24 [id number] Reason(s): Head Injury Shadi moore MD , 11/27/20 19:17, SCB Transcribe Initials: SSR, Transcribe Date: 11/27/20 13:01, Dictation Date: Copy for: MARY DOWNEY via fax Copy for: EMERGENCY DEPT via modem Copy for: 710 MED REC DISCHARGED Page 2 of 2 Name Value Range Interpretation Code Description Data Susan rce(s) Supporting Document(s) ID Date Data Source [id number] 11/09/2020 02:21:00 PM EDT [facility] ([facility] Name Value Range Interpretation Code Description Data Susan rce(s) Supporting Document(s) Thyroxine (T4) free [Mass/volume] in Serum or Plasma 1.58 ng/dL 0.75-1.54 Above high normal [facility] ([facility] ) Thyrotropin [Units/volume] in Serum or Plasma 1.136 ulU/mL 0.60-4.8 [facility] ([facility] ID Date Data Source [id number] 11/09/2020 02:21:00 PM EDT [facility] ([facility] Name Value Range Interpretation Code Description Data Susan rce(s) Supporting Document(s) Creatine kinase [Enzymatic activity/volume] in Serum or Plasma 43 U /L 26-192 [facility] ([facility] NORMAL RANGES Age WBC RBC HGB HCT [...] HCT IS 5% LESS SOURCE FOR DATA: [employer] 1800 OPERATION MANUAL( AUTOMATED BLOOD COUNTS AND [...] ADOLESCENTS REPRESENTS INDIVIDUALA AGED 2-19 YEARS EXCLUSIVE. ID Date Data Source [id number] 11/09/2020 02:21:00 PM EDT [facility] ([facility] Name Value Range Interpretation Code Description Data Susan rce(s) Supporting Document(s) Cholesterol in HDL [Mass/volume] in Serum or Plasma 62 mg/dL 45-65 [facility] ([facility] NORMAL RANGES Age WBC RBC HGB HCT [...] HCT IS 5% LESS SOURCE FOR DATA: [employer] 1800 OPERATION MANUAL( AUTOMATED BLOOD COUNTS AND [...] DESIRABLE: <130 MG/DL <110 MG/DL BORDERLINE-HIGH RISK: 130- 159 MG/DL 110-129 MG/DL HIGH RISK: >160 MG/DL >130 MG/DL *CHILDREN AND ADOLESCENTS REPRESENTS INDIVIDUALA AGED 2-19 YEARS EXCLUSIVE. Chol 198 mg/dL 0-200 [facility] NORMAL RANGES Age WBC RBC HGB HCT [...] HCT IS 5% LESS SOURCE FOR DATA: [employer] DYN 1800 OPERATION MANUAL( AUTOMATED BLOOD COUNTS [...] DESIRABLE: <130 MG/DL <110 MG/DL BORDERLINE-HIGH RISK: 130- 159 MG/DL 110-129 MG/DL HIGH RISK: >160 MG/DL >130 MG/DL *CHILDREN AND ADOLESCENTS REPRESENTS INDIVIDUALA AGED 2-19 YEARS EXCLUSIVE. Trig 222 mg/dL 40-200 Above high normal [facility] ([facility] NORMAL RANGES Age WBC RBC HGB HCT [...] HCT IS 5% LESS SOURCE FOR DATA: [employer] 1800 OPERATION MANUAL( AUTOMATED BLOOD COUNTS AND [...] DESIRABLE: <130 MG/DL <110 MG/DL BORDERLINE-HIGH RISK: 130- 159 MG/DL 110-129 MG/DL HIGH RISK: >160 MG/DL >130 MG/DL *CHILDREN AND ADOLESCENTS REPRESENTS INDIVIDUALA AGED 2-19 YEARS EXCLUSIVE. LDL_C 92 Calc 75-129 [facility] ([facility] NORMAL RANGES Age WBC RBC HGB HCT [...] HCT IS 5% LESS SOURCE FOR DATA: [employer] 1800 OPERATION MANUAL( AUTOMATED BLOOD COUNTS AND [...] DESIRABLE: <130 MG/DL <110 MG/DL BORDERLINE-HIGH RISK: 130- 159 MG/DL 110-129 MG/DL HIGH RISK: >160 MG/DL >130 MG/DL *CHILDREN AND ADOLESCENTS REPRESENTS INDIVIDUALA AGED 2-19 YEARS EXCLUSIVE. Cho/HDL Ratio 3.2 CALC [employer] ([facility] NORMAL RANGES Age WBC RBC HGB HCT [...] HCT IS 5% LESS SOURCE FOR DATA: [employer] 1800 OPERATION MANUAL( AUTOMATED BLOOD COUNTS AND [...] DESIRABLE: <130 MG/DL <110 MG/DL BORDERLINE-HIGH RISK: 130- 159 MG/DL 110-129 MG/DL HIGH RISK: >160 MG/DL >130 MG/DL *CHILDREN AND ADOLESCENTS REPRESENTS INDIVIDUALA AGED 2-19 YEARS EXCLUSIVE. ID Date Data Source [id number] 11/09/2020 02:21:00 PM EDT [facility] ([facility] Name Value Range Interpretation Code Description Data Susan rce(s) Supporting Document(s) BUN 19 mg/dL 8-23 [facility] ([facility] NORMAL RANGES Age WBC RBC HGB HCT [...] HCT IS 5% LESS SOURCE FOR DATA: [employer] 1800 OPERATION MANUAL( AUTOMATED BLOOD COUNTS AND [...] DESIRABLE: <130 MG/DL <110 MG/DL BORDERLINE-HIGH RISK: 130- 159 MG/DL 110-129 MG/DL HIGH RISK: >160 MG/DL >130 MG/DL *CHILDREN AND ADOLESCENTS REPRESENTS INDIVIDUALA AGED 2-19 YEARS EXCLUSIVE. Glu 91 mg/dL 70-110 [facility] NORMAL RANGES Age WBC RBC HGB HCT [...] HCT IS 5% LESS SOURCE FOR DATA: [employer] 1800 OPERATION MANUAL( AUTOMATED BLOOD COUNTS AND [...] DESIRABLE: <130 MG/DL <110 MG/DL BORDERLINE-HIGH RISK: 130- 159 MG/DL 110-129 MG/DL HIGH RISK: >160 MG/DL >130 MG/DL *CHILDREN AND ADOLESCENTS REPRESENTS INDIVIDUALA AGED 2-19 YEARS EXCLUSIVE. Na 138 mmol/L 136-145 [facility] ([facility] NORMAL RANGES Age WBC RBC HGB HCT [...] HCT IS 5% LESS SOURCE FOR DATA: [employer] 1800 OPERATION MANUAL( AUTOMATED BLOOD COUNTS AND [...] DESIRABLE: <130 MG/DL <110 MG/DL BORDERLINE-HIGH RISK: 130- 159 MG/DL 110-129 MG/DL HIGH RISK: >160 MG/DL >130 MG/DL *CHILDREN AND ADOLESCENTS REPRESENTS INDIVIDUALA AGED 2-19 YEARS EXCLUSIVE. BUN/Creatinine Ratio 20.5 CALC [facility] ([facility] NORMAL RANGES Age WBC RBC HGB HCT [...] HCT IS 5% LESS SOURCE FOR DATA: [employer] 1800 OPERATION MANUAL( AUTOMATED BLOOD COUNTS AND [...] DESIRABLE: <130 MG/DL <110 MG/DL BORDERLINE-HIGH RISK: 130- 159 MG/DL 110-129 MG/DL HIGH RISK: >160 MG/DL >130 MG/DL *CHILDREN AND ADOLESCENTS REPRESENTS INDIVIDUALA AGED 2-19 YEARS EXCLUSIVE. Creat 0.9 mg/dL 0.5-1.0 [facility] ([facility] NORMAL RANGES Age WBC RBC HGB HCT [...] HCT IS 5% LESS SOURCE FOR DATA: [employer] 1800 OPERATION MANUAL( AUTOMATED BLOOD COUNTS AND [...] DESIRABLE: <130 MG/DL <110 MG/DL BORDERLINE-HIGH RISK: 130- 159 MG/DL 110-129 MG/DL HIGH RISK: >160 MG/DL >130 MG/DL *CHILDREN AND ADOLESCENTS REPRESENTS INDIVIDUALA AGED 2-19 YEARS EXCLUSIVE. K 4.6 mmol/L 3.5-5.1 [facility] ([facility] NORMAL RANGES Age WBC RBC HGB HCT [...] HCT IS 5% LESS SOURCE FOR DATA: [employer] 1800 OPERATION MANUAL( AUTOMATED BLOOD COUNTS AND [...] DESIRABLE: <130 MG/DL <110 MG/DL BORDERLINE-HIGH RISK: 130- 159 MG/DL 110-129 MG/DL HIGH RISK: >160 MG/DL >130 MG/DL *CHILDREN AND ADOLESCENTS REPRESENTS INDIVIDUALA AGED 2-19 YEARS EXCLUSIVE. CL 100.3 mmol/L 98.0-107.0 [facility] ([facility] NORMAL RANGES Age WBC RBC HGB HCT [...] HCT IS 5% LESS SOURCE FOR DATA: [employer] 1800 OPERATION MANUAL( AUTOMATED BLOOD COUNTS AND [...] DESIRABLE: <130 MG/DL <110 MG/DL BORDERLINE-HIGH RISK: 130- 159 MG/DL 110-129 MG/DL HIGH RISK: >160 MG/DL >130 MG/DL *CHILDREN AND ADOLESCENTS REPRESENTS INDIVIDUALA AGED 2-19 YEARS EXCLUSIVE. Co2 21.5 mmol/L 22.0-29.0 Below low normal [facility] ([facility] NORMAL RANGES Age WBC RBC HGB HCT [...] DESIRABLE: <130 MG/DL <110 MG/DL BORDERLINE-HIGH RISK: 130- 159 MG/DL 110-129 MG/DL HIGH RISK: >160 MG/DL >130 MG/DL *CHILDREN AND ADOLESCENTS REPRESENTS INDIVIDUALA AGED 2-19 YEARS EXCLUSIVE. TP 6.6 g/dL 6.6-8.7 [facility] ([facility] NORMAL RANGES Age WBC RBC HGB HCT [...] HCT IS 5% LESS SOURCE FOR DATA: [employer] 1800 OPERATION MANUAL( AUTOMATED BLOOD COUNTS AND [...] DESIRABLE: <130 MG/DL <110 MG/DL BORDERLINE-HIGH RISK: 130- 159 MG/DL 110-129 MG/DL HIGH RISK: >160 MG/DL >130 MG/DL *CHILDREN AND ADOLESCENTS REPRESENTS INDIVIDUALA AGED 2-19 YEARS EXCLUSIVE. CA 9.8 mg/dL 8.6-10.2 [facility] ([facility] NORMAL RANGES Age WBC RBC HGB HCT [...] HCT IS 5% LESS SOURCE FOR DATA: [employer] 1800 OPERATION MANUAL( AUTOMATED BLOOD COUNTS AND [...] DESIRABLE: <130 MG/DL <110 MG/DL BORDERLINE-HIGH RISK: 130- 159 MG/DL 110-129 MG/DL HIGH RISK: >160 MG/DL >130 MG/DL *CHILDREN AND ADOLESCENTS REPRESENTS INDIVIDUALA AGED 2-19 YEARS EXCLUSIVE. Alb 4.4 g/dL 3.4-4.8 [facility] ([facility] NORMAL RANGES Age WBC RBC HGB HCT [...] HCT IS 5% LESS SOURCE FOR DATA: [employer] DYN 1800 OPERATION MANUAL( AUTOMATED BLOOD COUNTS [...] DESIRABLE: <130 MG/DL <110 MG/DL BORDERLINE-HIGH RISK: 130- 159 MG/DL 110-129 MG/DL HIGH RISK: >160 MG/DL >130 MG/DL *CHILDREN AND ADOLESCENTS REPRESENTS INDIVIDUALA AGED 2-19 YEARS EXCLUSIVE. Globulin 2.2 CALC [facility] ([facility] NORMAL RANGES Age WBC RBC HGB HCT [...] HCT IS 5% LESS SOURCE FOR DATA: [employer] 1800 OPERATION MANUAL( AUTOMATED BLOOD COUNTS AND [...] DESIRABLE: <130 MG/DL <110 MG/DL BORDERLINE-HIGH RISK: 130- 159 MG/DL 110-129 MG/DL HIGH RISK: >160 MG/DL >130 MG/DL *CHILDREN AND ADOLESCENTS REPRESENTS INDIVIDUALA AGED 2-19 YEARS EXCLUSIVE. A/G Ratio 2.0 CALC [facility] ([facility] NORMAL RANGES Age WBC RBC HGB HCT [...] HCT IS 5% LESS SOURCE FOR DATA: [employer] 1800 OPERATION MANUAL( AUTOMATED BLOOD COUNTS AND [...] DESIRABLE: <130 MG/DL <110 MG/DL BORDERLINE-HIGH RISK: 130- 159 MG/DL 110-129 MG/DL HIGH RISK: >160 MG/DL >130 MG/DL *CHILDREN AND ADOLESCENTS REPRESENTS INDIVIDUALA AGED 2-19 YEARS EXCLUSIVE. Alt (SGPT) 16 U/L 0-41 [facility] NORMAL RANGES Age WBC RBC HGB HCT [...] HCT IS 5% LESS SOURCE FOR DATA: [employer] 1800 OPERATION MANUAL( AUTOMATED BLOOD COUNTS AND [...] DESIRABLE: <130 MG/DL <110 MG/DL BORDERLINE-HIGH RISK: 130- 159 MG/DL 110-129 MG/DL HIGH RISK: >160 MG/DL >130 MG/DL *CHILDREN AND ADOLESCENTS REPRESENTS INDIVIDUALA AGED 2-19 YEARS EXCLUSIVE. Alp 75.8 U/L 35-129 [facility] ([facility] NORMAL RANGES Age WBC RBC HGB HCT [...] HCT IS 5% LESS SOURCE FOR DATA: [employer] 1800 OPERATION MANUAL( AUTOMATED BLOOD COUNTS AND [...] DESIRABLE: <130 MG/DL <110 MG/DL BORDERLINE-HIGH RISK: 130- 159 MG/DL 110-129 MG/DL HIGH RISK: >160 MG/DL >130 MG/DL *CHILDREN AND ADOLESCENTS REPRESENTS INDIVIDUALA AGED 2-19 YEARS EXCLUSIVE. Ast (Sgot) 17 U/L 0-40 [facility] ([facility] NORMAL RANGES Age WBC RBC HGB HCT [...] HCT IS 5% LESS SOURCE FOR DATA: [employer] 1800 OPERATION MANUAL( AUTOMATED BLOOD COUNTS AND [...] DESIRABLE: <130 MG/DL <110 MG/DL BORDERLINE-HIGH RISK: 130- 159 MG/DL 110-129 MG/DL HIGH RISK: >160 MG/DL >130 MG/DL *CHILDREN AND ADOLESCENTS REPRESENTS INDIVIDUALA AGED 2-19 YEARS EXCLUSIVE. Anion Gap 21 mmol/L [facility] NORMAL RANGES Age WBC RBC HGB HCT [...] HCT IS 5% LESS SOURCE FOR DATA: [employer] 1800 OPERATION MANUAL( AUTOMATED BLOOD COUNTS AND [...] DESIRABLE: <130 MG/DL <110 MG/DL BORDERLINE-HIGH RISK: 130- 159 MG/DL 110-129 MG/DL HIGH RISK: >160 MG/DL >130 MG/DL *CHILDREN AND ADOLESCENTS REPRESENTS INDIVIDUALA AGED 2-19 YEARS EXCLUSIVE. Tbili 0.40 mg/dL 0.0-1.2 [facility] ([facility] NORMAL RANGES Age WBC RBC HGB HCT [...] HCT IS 5% LESS SOURCE FOR DATA: [employer] 1800 OPERATION MANUAL( AUTOMATED BLOOD COUNTS AND [...] DESIRABLE: <130 MG/DL <110 MG/DL BORDERLINE-HIGH RISK: 130- 159 MG/DL 110-129 MG/DL HIGH RISK: >160 MG/DL >130 MG/DL *CHILDREN AND ADOLESCENTS REPRESENTS INDIVIDUALA AGED 2-19 YEARS EXCLUSIVE. Osmolality-Calculated 277.3 [facility]C [facility] ([facility] NORMAL RANGES Age WBC RBC HGB HCT [...] HCT IS 5% LESS SOURCE FOR DATA: [employer] 1800 OPERATION MANUAL( AUTOMATED BLOOD COUNTS AND [...] DESIRABLE: <130 MG/DL <110 MG/DL BORDERLINE-HIGH RISK: 130- 159 MG/DL 110-129 MG/DL HIGH RISK: >160 MG/DL >130 MG/DL *CHILDREN AND ADOLESCENTS REPRESENTS INDIVIDUALA AGED 2-19 YEARS EXCLUSIVE. eGFR 66 # [facility] ( [facility] NORMAL RANGES Age WBC RBC HGB HCT [...] HCT IS 5% LESS SOURCE FOR DATA: [employer] 1800 OPERATION MANUAL( AUTOMATED BLOOD COUNTS AND [...] DESIRABLE: <130 MG/DL <110 MG/DL BORDERLINE-HIGH RISK: 130- 159 MG/DL 110-129 MG/DL HIGH RISK: >160 MG/DL >130 MG/DL *CHILDREN AND ADOLESCENTS REPRESENTS INDIVIDUALA AGED 2-19 YEARS EXCLUSIVE. eGFR Non-Afr. Tongan 57 # [facility] ([facility] NORMAL RANGES Age WBC RBC HGB HCT [...] HCT IS 5% LESS SOURCE FOR DATA: [employer] DYN 1800 OPERATION MANUAL( AUTOMATED BLOOD COUNTS [...] DESIRABLE: <130 MG/DL <110 MG/DL BORDERLINE-HIGH RISK: 130- 159 MG/DL 110-129 MG/DL HIGH RISK: >160 MG/DL >130 MG/DL *CHILDREN AND ADOLESCENTS REPRESENTS INDIVIDUALA AGED 2-19 YEARS EXCLUSIVE. ID Date Data Source [id number] 11/09/2020 02:21:00 PM EDT [facility] ([facility] Name Value Range Interpretation Code Description Data Susan rce(s) Supporting Document(s) WBC 11.4 10E3/uL 4.1-10.9 Above high normal KAYLA Castillo ([facility] NORMAL RANGES Age WBC RBC HGB HCT [...] HCT IS 5% LESS SOURCE FOR DATA: [employer] 1800 OPERATION MANUAL( AUTOMATED BLOOD COUNTS AND [...] DESIRABLE: <130 MG/DL <110 MG/DL BORDERLINE-HIGH RISK: 130- 159 MG/DL 110-129 MG/DL HIGH RISK: >160 MG/DL >130 MG/DL *CHILDREN AND ADOLESCENTS REPRESENTS INDIVIDUALA AGED 2-19 YEARS EXCLUSIVE. HGB 13.8 g/dL 12.0-18.0 [facility] ([facility] NORMAL RANGES Age WBC RBC HGB HCT [...] HCT IS 5% LESS SOURCE FOR DATA: [employer] 1800 OPERATION MANUAL( AUTOMATED BLOOD COUNTS AND [...] DESIRABLE: <130 MG/DL <110 MG/DL BORDERLINE-HIGH RISK: 130- 159 MG/DL 110-129 MG/DL HIGH RISK: >160 MG/DL >130 MG/DL *CHILDREN AND ADOLESCENTS REPRESENTS INDIVIDUALA AGED 2-19 YEARS EXCLUSIVE. RBC 4.27 10E6/uL 4.20-6.30 [facility] ([facility] NORMAL RANGES Age WBC RBC HGB HCT [...] HCT IS 5% LESS SOURCE FOR DATA: [employer] 1800 OPERATION MANUAL( AUTOMATED BLOOD COUNTS AND [...] DESIRABLE: <130 MG/DL <110 MG/DL BORDERLINE-HIGH RISK: 130- 159 MG/DL 110-129 MG/DL HIGH RISK: >160 MG/DL >130 MG/DL *CHILDREN AND ADOLESCENTS REPRESENTS INDIVIDUALA AGED 2-19 YEARS EXCLUSIVE. HCT 40.9 % 37.0-51.0 [facility] ([facility] NORMAL RANGES Age WBC RBC HGB HCT [...] HCT IS 5% LESS SOURCE FOR DATA: [employer] DYN 1800 OPERATION MANUAL( AUTOMATED BLOOD COUNTS [...] DESIRABLE: <130 MG/DL <110 MG/DL BORDERLINE-HIGH RISK: 130- 159 MG/DL 110-129 MG/DL HIGH RISK: >160 MG/DL >130 MG/DL *CHILDREN AND ADOLESCENTS REPRESENTS INDIVIDUALA AGED 2-19 YEARS EXCLUSIVE. MCV 95.8 fL 80.0-97.0 [facility] ([facility] NORMAL RANGES Age WBC RBC HGB HCT [...] HCT IS 5% LESS SOURCE FOR DATA: [employer] 1800 OPERATION MANUAL( AUTOMATED BLOOD COUNTS AND [...] DESIRABLE: <130 MG/DL <110 MG/DL BORDERLINE-HIGH RISK: 130- 159 MG/DL 110-129 MG/DL HIGH RISK: >160 MG/DL >130 MG/DL *CHILDREN AND ADOLESCENTS REPRESENTS INDIVIDUALA AGED 2-19 YEARS EXCLUSIVE. MCHC 33.7 g/dL 31.0-36.0 [facility] ([facility] NORMAL RANGES Age WBC RBC HGB HCT [...] HCT IS 5% LESS SOURCE FOR DATA: [employer] 1800 OPERATION MANUAL( AUTOMATED BLOOD COUNTS AND [...] DESIRABLE: <130 MG/DL <110 MG/DL BORDERLINE-HIGH RISK: 130- 159 MG/DL 110-129 MG/DL HIGH RISK: >160 MG/DL >130 MG/DL *CHILDREN AND ADOLESCENTS REPRESENTS INDIVIDUALA AGED 2-19 YEARS EXCLUSIVE. MCH 32.3 pg 26.0-32.0 Above high normal [facility] ([facility] NORMAL RANGES Age WBC RBC HGB HCT [...] HCT IS 5% LESS SOURCE FOR DATA: [employer] DYN 1800 OPERATION MANUAL( AUTOMATED BLOOD COUNTS [...] DESIRABLE: <130 MG/DL <110 MG/DL BORDERLINE-HIGH RISK: 130- 159 MG/DL 110-129 MG/DL HIGH RISK: >160 MG/DL >130 MG/DL *CHILDREN AND ADOLESCENTS REPRESENTS INDIVIDUALA AGED 2-19 YEARS EXCLUSIVE. Lym% 18.3 % 10.0-58.5 [facility] ([facility] NORMAL RANGES Age WBC RBC HGB HCT [...] HCT IS 5% LESS SOURCE FOR DATA: [employer] 1800 OPERATION MANUAL( AUTOMATED BLOOD COUNTS AND [...] DESIRABLE: <130 MG/DL <110 MG/DL BORDERLINE-HIGH RISK: 130- 159 MG/DL 110-129 MG/DL HIGH RISK: >160 MG/DL >130 MG/DL *CHILDREN AND ADOLESCENTS REPRESENTS INDIVIDUALA AGED 2-19 YEARS EXCLUSIVE. RDW-CV 14.3 % 11.5-14.5 [facility] NORMAL RANGES Age WBC RBC HGB HCT [...] HCT IS 5% LESS SOURCE FOR DATA: [employer] 1800 OPERATION MANUAL( AUTOMATED BLOOD COUNTS AND [...] DESIRABLE: <130 MG/DL <110 MG/DL BORDERLINE-HIGH RISK: 130- 159 MG/DL 110-129 MG/DL HIGH RISK: >160 MG/DL >130 MG/DL *CHILDREN AND ADOLESCENTS REPRESENTS INDIVIDUALA AGED 2-19 YEARS EXCLUSIVE. PLT 287 10E3/uL 140-440 [facility] ([facility] NORMAL RANGES Age WBC RBC HGB HCT [...] HCT IS 5% LESS SOURCE FOR DATA: [employer] 1800 OPERATION MANUAL( AUTOMATED BLOOD COUNTS AND [...] DESIRABLE: <130 MG/DL <110 MG/DL BORDERLINE-HIGH RISK: 130- 159 MG/DL 110-129 MG/DL HIGH RISK: >160 MG/DL >130 MG/DL *CHILDREN AND ADOLESCENTS REPRESENTS INDIVIDUALA AGED 2-19 YEARS EXCLUSIVE. MXD% 8.4 % 0.1-24.0 [facility] ([facility] NORMAL RANGES Age WBC RBC HGB HCT [...] HCT IS 5% LESS SOURCE FOR DATA: [employer] 1800 OPERATION MANUAL( AUTOMATED BLOOD COUNTS AND [...] DESIRABLE: <130 MG/DL <110 MG/DL BORDERLINE-HIGH RISK: 130- 159 MG/DL 110-129 MG/DL HIGH RISK: >160 MG/DL >130 MG/DL *CHILDREN AND ADOLESCENTS REPRESENTS INDIVIDUALA AGED 2-19 YEARS EXCLUSIVE. Neut% 73.3 % 37.0-92.0 [facility] ([facility] NORMAL RANGES Age WBC RBC HGB HCT [...] HCT IS 5% LESS SOURCE FOR DATA: [employer] 1800 OPERATION MANUAL( AUTOMATED BLOOD COUNTS AND [...] DESIRABLE: <130 MG/DL <110 MG/DL BORDERLINE-HIGH RISK: 130- 159 MG/DL 110-129 MG/DL HIGH RISK: >160 MG/DL >130 MG/DL *CHILDREN AND ADOLESCENTS REPRESENTS INDIVIDUALA AGED 2-19 YEARS EXCLUSIVE. Lym# 2.1 10E3/uL 0.6-4.1 [facility] ([facility] NORMAL RANGES Age WBC RBC HGB HCT [...] HCT IS 5% LESS SOURCE FOR DATA: [employer] 1800 OPERATION MANUAL( AUTOMATED BLOOD COUNTS AND [...] DESIRABLE: <130 MG/DL <110 MG/DL BORDERLINE-HIGH RISK: 130- 159 MG/DL 110-129 MG/DL HIGH RISK: >160 MG/DL >130 MG/DL *CHILDREN AND ADOLESCENTS REPRESENTS INDIVIDUALA AGED 2-19 YEARS EXCLUSIVE. Neut# 8.3 % 2.0-7.8 Above high normal [facility] ([facility] NORMAL RANGES Age WBC RBC HGB HCT [...] HCT IS 5% LESS SOURCE FOR DATA: [employer] 1800 OPERATION MANUAL( AUTOMATED BLOOD COUNTS AND [...] DESIRABLE: <130 MG/DL <110 MG/DL BORDERLINE-HIGH RISK: 130- 159 MG/DL 110-129 MG/DL HIGH RISK: >160 MG/DL >130 MG/DL *CHILDREN AND ADOLESCENTS REPRESENTS INDIVIDUALA AGED 2-19 YEARS EXCLUSIVE. MXD# 1.0 10E3/uL 0.0-1.8 [facility] ([facility] NORMAL RANGES Age WBC RBC HGB HCT [...] HCT IS 5% LESS SOURCE FOR DATA: [employer] 1800 OPERATION MANUAL( AUTOMATED BLOOD COUNTS AND [...] DESIRABLE: <130 MG/DL <110 MG/DL BORDERLINE-HIGH RISK: 130- 159 MG/DL 110-129 MG/DL HIGH RISK: >160 MG/DL >130 MG/DL *CHILDREN AND ADOLESCENTS REPRESENTS INDIVIDUALA AGED 2-19 YEARS EXCLUSIVE. MPV 9.4 fL 9.0-13.0 [facility] ([facility] NORMAL RANGES Age WBC RBC HGB HCT [...] HCT IS 5% LESS SOURCE FOR DATA: [employer] 1800 OPERATION MANUAL( AUTOMATED BLOOD COUNTS AND [...] DESIRABLE: <130 MG/DL <110 MG/DL BORDERLINE-HIGH RISK: 130- 159 MG/DL 110-129 MG/DL HIGH RISK: >160 MG/DL >130 MG/DL *CHILDREN AND ADOLESCENTS REPRESENTS INDIVIDUALA AGED 2-19 YEARS EXCLUSIVE. ID Date Data Source [id number] 09/03/2020 10:35:00 AM EDT [facility] ([facility] Name Value Range Interpretation Code Description Data Susan rce(s) Supporting Document(s) RBC 4.29 10E6/uL 4.20-6.30 [facility] ([facility] NORMAL RANGES Age WBC RBC HGB HCT [...] HCT IS 5% LESS SOURCE FOR DATA: [employer] 1800 OPERATION MANUAL( AUTOMATED BLOOD COUNTS AND DIFF.) APPENDIX B-3 WBC 8.0 10E3/uL 4.1-10.9 [facility] ([facility] NORMAL RANGES Age WBC RBC HGB HCT [...] AUTOMATED BLOOD COUNTS AND DIFF.) APPENDIX B-3 HGB 13.7 g/dL 12.0-18.0 [facility] ([facility] NORMAL RANGES Age WBC RBC HGB HCT MCV PLT Adult M 4.1-10.9 4.20-6.30 12.0-18.0 37.0-51.0 80 140-440 Adult F 4.1-10.9 4.04-5.48 12.0-18.0 37.0-51.0 80 140-440 0 -1 Yr 5.0-20.0 3.9-5.9 15-18 [...] HCT IS 5% LESS SOURCE FOR DATA: [employer] 1800 OPERATION MANUAL( AUTOMATED BLOOD COUNTS AND DIFF.) APPENDIX B-3 MCV 97.0 fL 80.0-97.0 [facility] NORMAL RANGES Age WBC RBC HGB HCT MCV PLT Adult M 4.1-10.9 4.20-6.30 12.0-18.0 37.0-51.0 80 140-440 Adult F 4.1-10.9 4.04-5.48 12.0-18.0 37.0-51.0 80 140-440 0 -1 Yr 5.0-20.0 3.9-5.9 15-18 [...] HCT IS 5% LESS SOURCE FOR DATA: [employer] 1800 OPERATION MANUAL( AUTOMATED BLOOD COUNTS AND DIFF.) APPENDIX B-3 HCT 41.6 % 37.0-51.0 [facility] NORMAL RANGES Age WBC RBC HGB HCT [...] AUTOMATED BLOOD COUNTS AND DIFF.) APPENDIX B-3 MCH 31.9 pg 26.0-32.0 [facility] ([facility] NORMAL RANGES Age WBC RBC HGB HCT [...] AUTOMATED BLOOD COUNTS AND DIFF.) APPENDIX B-3 PLT 418 10E3/uL 140-440 [facility] ([facility] NORMAL RANGES Age WBC RBC HGB HCT [...] HCT IS 5% LESS SOURCE FOR DATA: [employer] 1800 OPERATION MANUAL( AUTOMATED BLOOD COUNTS AND DIFF.) APPENDIX B-3 MCHC 32.9 g/dL 31.0-36.0 [facility] NORMAL RANGES Age WBC RBC HGB HCT [...] HCT IS 5% LESS SOURCE FOR DATA: [employer] 1800 OPERATION MANUAL( AUTOMATED BLOOD COUNTS AND DIFF.) APPENDIX B-3 RDW-CV 12.7 % 11.5-14.5 [facility] NORMAL RANGES Age WBC RBC HGB HCT MCV PLT Adult M 4.1-10.9 4.20-6.30 12.0-18.0 37.0-51.0 80- 140-440 Adult F 4.1-10.9 4.04-5.48 12.0-18.0 37.0-51.0 [...] HCT IS 5% LESS SOURCE FOR DATA: [employer] 1800 OPERATION MANUAL( AUTOMATED BLOOD COUNTS AND DIFF.) APPENDIX B-3 Neut% 69.6 % 37.0-92.0 [facility] NORMAL RANGES Age WBC RBC HGB HCT MCV PLT Adult M 4.1-10.9 4.20-6.30 12.0-18.0 37.0-51.0 80-97 140-440 Adult F 4.1-10.9 4.04-5.48 12.0-18.0 37.0-51.0 80 140-440 0 -1 Yr 5.0-20.0 3.9-5.9 15-18 [...] HCT IS 5% LESS SOURCE FOR DATA: [employer] 1800 OPERATION MANUAL( AUTOMATED BLOOD COUNTS AND DIFF.) APPENDIX B-3 Lym% 20.6 % 10.0-58.5 [facility] NORMAL RANGES Age WBC RBC HGB HCT MCV PLT Adult M 4.1-10.9 4.20-6.30 12.0-18.0 37.0-51.0 80- 140-440 Adult F 4.1-10.9 4.04-5.48 12.0-18.0 37.0-51.0 80- 140-440 0 -1 Yr 5.0-20.0 3.9-5.9 15-18 [...] HCT IS 5% LESS SOURCE FOR DATA: [employer]YN 1800 OPERATION MANUAL( AUTOMATED BLOOD COUNTS AND DIFF.) APPENDIX B-3 MXD% 9.8 % 0.1-24.0 [facility] ([facility] NORMAL RANGES Age WBC RBC HGB HCT [...] HCT IS 5% LESS SOURCE FOR DATA: [employer] 1800 OPERATION MANUAL( AUTOMATED BLOOD COUNTS AND DIFF.) APPENDIX B-3 Lym# 1.6 10E3/uL 0.6-4.1 [facility] ([facility] NORMAL RANGES Age WBC RBC HGB HCT [...] HCT IS 5% LESS SOURCE FOR DATA: [employer] 1800 OPERATION MANUAL( AUTOMATED BLOOD COUNTS AND DIFF.) APPENDIX B-3 MPV 9.1 fL 9.0-13.0 [facility] ([facility] NORMAL RANGES Age WBC RBC HGB HCT [...] HCT IS 5% LESS SOURCE FOR DATA: [employer] 1800 OPERATION MANUAL( AUTOMATED BLOOD COUNTS AND DIFF.) APPENDIX B-3 Neut# 5.6 % 2.0-7.8 [facility] ([facility] NORMAL RANGES Age WBC RBC HGB HCT MCV PLT Adult M 4.1-10.9 4.20-6.30 12.0-18.0 37.0-51.0 80-97 140-440 Adult F 4.1-10.9 4.04-5.48 12.0-18.0 37.0-51.0 80 140-440 0 -1 Yr 5.0-20.0 3.9-5.9 15-18 [...] HCT IS 5% LESS SOURCE FOR DATA: [employer] 1800 OPERATION MANUAL( AUTOMATED BLOOD COUNTS AND DIFF.) APPENDIX B-3 MXD# 0.8 10E3/uL 0.0-1.8 [facility] ([facility] NORMAL RANGES Age WBC RBC HGB HCT MCV PLT Adult M 4.1-10.9 4.20-6.30 12.0-18.0 37.0-51.0 8097 140-440 Adult F 4.1-10.9 4.04-5.48 12.0-18.0 37.0-51.0 [...] HCT IS 5% LESS SOURCE FOR DATA: [employer] 1800 OPERATION MANUAL( AUTOMATED BLOOD COUNTS AND DIFF.) APPENDIX B-3 ID Date Data Source [id number] 06/26/2020 10:02:00 [place] [address] RESPIRATORY CARE REPORT ==== ---------NAME------- NUMBER SEX AGE ADMIT DISC. XRAY# F/C TYPELACLAIR KILO J [id number] F 89 06/25/20 06/25/20 [id number] E/R DATE OF : 1930 M/R# [id number] #: [id number] TR-07 LOCATION: EKG [id number] COMPLETE:06/25/20 2 3:07 AJP [id number] PHYSICIAN: CHRIST JAY Name Value Range Interpretation Code Description Data Susan rce(s) Supporting Document(s) ID Date Data Source [id number] 06/26/2020 10:12:00 AM EDT [place] [id number] PHONE: [phone] FAX: [phone] Name .................. : GINA Mejia Acct Number.................. : [id number] ROOM. ................. : TR-07 MR Number ................... : [id number] Stay type ............. : E/R Discharge Date......... ... : 06/25/20 Admit Date ......... : 06/25/20 Admit Phys .................... : CHRIST JAY Date of ....... : 1930 Family Phys ................... : Fuze Phone .................. : [phone] Age ................................ : 89 Film# .................. .:[id number] Sex ................................. : F Unsigned transcriptions are preliminary reports and do not represent a medical or legal document CHEST PORTABLE [id number] COMPLETE:06/25/20 15:06 [facility] [place] Reason(s): palpitations, COPD, SOB PORTABLE CHEST X- RAY: INDICATION: Palpitations, COPD and shortness of breath. FINDINGS: The lungs are well-expanded with mild to moderate chronic interstitial changes. No focal infiltrate. The cardiac silhouette is normal in size and contour. No acute osseous abnormality. IMPRESSION: No acute pulmonary process. Electronically Reviewed and Signed By Vega Middleton M.D. , 06/26/20 10:12, [facility] Transcribe Initials: ALVINA , Transcribe Date: 06/26/20 01:55, Dictation Date: Copy for: MARY DOWNEY via fax Copy for: Luca MED REC DISCHARGED Page 1 of 1 Name Value Range Interpretation Code Description Data Susan rce(s) Supporting Document(s) ID Date Data Source [id number] 06/25/2020 02:39:[address] [facility] [address] [facility] Emergency Department [address] [place] [address] Phone #: ext- [phone] 06/25/2020 14:24 Patient: KILO FUENTES Sex: F : 1930 Age: 89yWEIGHT:74.8 kg (M) HEIGHT:65 inches (S) BMI:27.5ALLERGIES: Cefidnir, FlagylCHIEF COMPLAINT: palpitationsDIAGNOSIS: Chronic obstructive lung disease, Bronchitis, Atrial fibrillationLAB ORDERSOrder Description Priority Entered Acknowledged InitialedCBC w Diff STAT 14:51 06/25/2020 14:54 Chapincito Sanchez RN, M.D.;CMP STAT 14:51 06/25/2020 14:54 Chapincito Sanchez RN, M.D.;Lipase STAT 14:51 06/25/2020 14:54 Chapnicito Sanchez RN, M.D.;PT/PTT STAT 14:51 06/25/2020 14:54 Chapincito Sanchez RN, M.D.;Troponin-T STAT 14:51 06/25/2020 14:54 Chapincito Sanchez RN, M.D.;TSH STAT 14:51 06/25/2020 14:54 Chapincito Sanchez RN, M.D.;B DIRECTOR OF ACCOUNTS RECEIVABLE STAT 14:51 06/25/2020 14:54 Chapincito Sanchez RN, M.D.;DIAGNOSTIC STUDY ORDERSOrder Description Priority Entered Acknowledged InitialedChest Portable 1 STAT 14:51 06/25/2020 14:54 Chapincito Lucia RN(Oxygen?(No)) Darby; Reason for Study: pa lpitations, COPD, SOBMEDICATION/IV/DRIP/FLUID ORDERSOrder Description Priority Entered Acknowledged Initialed [address] [facility] Emergency Department [address] [place] [address] Phone #: ext- [phone] 06/25/2020 14:24 [id number] Sex[facility] F : 1930 Age: 89yTessalon Perles PO 14:51 06/25/2020 15:20 Fegyn713 mg Chapincito Polo RN, M.D.;Cardizem IVP 10 14:51 06/25/2020 15:21 Terrymg Chapincito Polo RN, M.D.;Atrovent Neb Tx 2.5 14:51 06/25/2020 15:21 IngeymL Chapincito Polo RN, M.D.;SOLU-Medrol 125 14:51 06/25/2020 15:20 Terrymg IV X1 Dose: 125 Chapincito Polo (X1) M.DAdeel;Zithromax PO 500 16:00 06/25/2020 16:08 Terrymg X1 Dose: 500 Chapincito Polo (NOW x1) MAdeelDAdeel;GENERAL ORDERSOrder Description Priority Entered Acknowledged InitialedBlood Pressure 14:51 06/25/2020 14:54 IngeyMonitor Chapincito Polo RN, M.D.;Lunchroom Attendant 14:51 06/25/2020 14:54 Hardy(continuous) Chapincito Polo RN, M.D.;EKG 14:51 06/25/2020 14:54 Chapincito Sanchez RN, M.D.;NPO 14:51 06/25/2020 14:54 Chapincito Sanchez RN, M.D.;Obtain Old EKG 14:51 06/25/2020 14:54 Chapincito Sanchez RN, M.D.;Obtain Old Records 14:51 06/25/2020 14:54 Chapincito Sanchez RN, M.D.;Oxygen titrate to 14:51 06/25/2020 14:54 Hardy92% Chapincito Polo RN, M.D.;Pulse oximeter 14:51 06/25/2020 14:54 Hardy(Continuous) Chapincito Polo RN, M.D.;Saline Lock 14:51 06/25/2020 15:[address] [facility] Emergency Department [address] [place] [address] Phone #: ext- [phone] 06/25/2020 14:24 Patient: KILO FUENTES Sex: F : 1930 Age: 89y Chapincito Polo RN, M.D.;Vitals 14:51 06/25/2020 14:54 Chapincito Sanchez RN, M.D.;[Electronically signed by Chapinicto Polo M.D. (17:37 06/25/2020)][Electronically signed by Hardy Covarrubias RN (17:40 )][Electronically locked by Hardy Covarrubias RN (17:40 06/25/2020)] Name Value Range Interpretation Code Description Data Susan rce(s) Supporting Document(s) ID Date Data Source [id number] 06/25/2020 02:39:[address] [facility] [address] [facility] Emergency Department [address] [place] [address] Phone #: ext- [phone] 06/25/2020 14:24 Patient: KILO FUENTES Sex: F : 1930 Age: 89yWeight: 74.8 kgHeight/Length: 65 in.BMI: 27.5ALLERGIES: Cefidnir, FlagylThe patient's Home Medications are listed below:CONTINUE TAKING THE FOLLOWING MEDICATIONS: Azelastine HCl Nasal, 2x a day Calcium Citrate Oral 500 mg, 2x a day dilTIAZem HCl Oral 180 mg, daily Eliquis Oral (5 mg), 2x a day Fluticasone Furoate Inhalation (50 mcg/act), prn Levothyroxine Sodium Oral (88 mcg), daily Lisinopril Oral 2.5 mg, daily Montelukast Sodium Oral (10 mg), daily Multivitamins Oral, daily Pantoprazole Sodium Oral (40 mg), daily Pravastatin Sodium Oral (40 mg), daily Sertraline HCl Oral (25 mg), daily Ventolin HFA InhalationThe source(s) of the original Home Medication information:Not obtained. [address] [facility] Emergency Department [address] [place] [address] Phone #: ext- [phone] 06/25/2020 14:24 Patient: KILO FUENTES Sex: F : 1930 Age: 89yThe following Medications were given to the patient in the Emergency Depart ment:Tessalon Perles [PO] PO 200 mg, administered: 15:05 06/25/2020olu-Medrol [IVP] IVP 125 mg, administered: 15:11 06/25/2020ardizem [IVP] IVP 10 mg, administered: 15:12 06/25/2020trovent [Neb Tx] Neb TX 1 unit dose, administered: 15:20 06/25/2020Zithromax [PO] PO 500 mg, administered: 16:08 06/25/2020The following Medications were prescribed to the patient:Medrol (Manoj) 4 mg tablets in a dose pack Take 1 tablet once a day for 7 days -- PLEASE TAKEMEDROL DOSE PACK DIRECTED ON PACKAGING. Dispense 21 tablet. Refills: 1. Substitutionpermitted.[place] [id number] ; [place] [address]. .Tessalon Perles 100 mg capsule Take 1 capsule three times a day for 5 days -- Dispense 15 capsule.Refills: 1. Substitution permitted.[place] [id number] ; [place] [address]. .Zithromax 250 mg tablet Take 1 tablet once a day for 4 days -- Dispense 4 tablet. Refills: 0.Substitution permitted. Note to Pharmacy - start tomorrow; 500 mg po given in ER today.[id number] ; [place] [address]. FaxNumber: . -- Chapincito Polo M.D. Name Value Range Interpretation Code Description Data Susan rce(s) Supporting Document(s) ID Date Data Source [id number] 06/25/2020 02:39:[address] [facility] [address] [facility] Emergency Department [address] [place] [address] Phone #: ext- [phone] 06/25/2020 14:24 [id number] 1930 Age: 89yWeight: 74.8 kgHeight/Length: 65 inBMI: 27.5ALLERGIES: Cefidnir, Flagyl Date/Time Medication Administered Medication OrderedGiven TESSALON PERLES [PO] Tessalon Perles PO 200 mg15:05 06/25/2020 (BENZONATATE)Hardy Covarrubias RN Dose: 200 mg Capsules POGiven CARDIZEM [IVP] (DILTIAZEM HCL) Cardizem IVP 10 mg15:12 06/25/2020 Dose: 10 mg IVPTisidoro Covarrubias RN Site: #1 left wristGiven ATROVENT [NEB TX] (IPRATROPIUM Atrovent Neb Tx 2.5 mL15:20 06/25/2020 BROMIDE)Hardy Covarrubias RN Dose: 1 unit dose Nebulizer Neb TX----Stop15:30 06/25/2020Hardy Covarrubias RNGiven SOLU-MEDROL [IVP] SOLU-Medrol 125 mg IV X1 Dose:15:11 06/25/2020 (METHYLPREDNISOLONE SODIUM 125 mg (X1)Hardy Covarrubias RN SUCC) Dose: 125 mg IVP Site: #1 left wristGiven ZITHROMAX [PO] (AZITHROMYCIN) Zithromax PO 500 mg X1 Dose:16:08 06/25/2020 Dose: 500 mg Tablets PO 500 mg (NOW x1)Hardy Covarrubias RN Name Value Range Interpretation Code Description Data Susan rce(s) Supporting Document(s) ID Date Data Source [id number] 06/25/2020 02:39:[address] [facility] [address] [facility] Emergency Department [address] [place] [address] Phone #: ext- [phone] 06/25/2020 14:24 Patient: KILO FUENTES [facility]#: [id number] Sex: F : 1930 Age: 89y Chronic atrial fibrillation with uncontrolled rate. Acute mucopurulent bronchitis associated with chronic obstructive pulmonary disease. Stable COPD. No acute COPD.INSTRUCTIONS Avoid stimulants (such as cigarettes, coffee, cold medicines, sinus medicines, street drugs). Follow a low salt diet and low cholesterol diet. Do not smoke. No alcohol. Warnings: Further evaluation is necessary. It is very important to follow up with a healthcare provider. GENERAL WARNINGS: Return or contact your physician immediately if your condition worsens or changes unexpectedly, if not improving as expected, or if other problems arise. SPECIFICALLY, return if you develop chest, neck, jaw, shoulder, arm, or back pain, difficulty breathing, a fluttering sensation in your chest, lightheadedness, fainting, excessive fatigue, or sudden sweating. Your Current Medications: Your current home medications have been reviewed. CONTINUE TAKING THE FOLLOWING MEDICATIONS: Azelastine HCl Nasal : 2x a day. Calcium Citrate Oral : 500 mg 2x a day. dilTIAZem HCl Oral : 180 mg daily. Eliquis Oral : Tablet 5 mg, 2x a day. Fluticasone Furoate Inhalation : Aerosol Powder Breath Activated 50 mcg/act, prn. Levothyroxine Sodium Oral : Tablet 88 mcg, daily. Lisinopril Oral : 2.5 mg daily. Montelukast Sodium Oral : Tablet 10 mg, daily. Multivitamins Oral : daily. Pantoprazole Sodium Oral : Tablet Delayed Release 40 mg, daily. Pravastatin Sodium Oral : Tablet 40 mg, daily. Sertraline HCl Oral : Tablet 25 mg, daily. Ventolin HFA Inhalation. Prescription Medications: Medrol (Manoj) 4 mg tablets in a dose pack Take 1 tablet once a day for 7 days -- PLEASE TAKE MEDROL DOSE PACK DIRECTED ON PACKAGING. Dispense 21 tablet. Refills: 1. Substitution permitted. Pharmacy - [facility] [id number] ; [place] [address]. . [address] [facility] Emergency Department [address] [place] [address] Phone #: ext- [phone] 06/25/2020 14:24 [id number] Sex[facility] F : 1930 Age: 89yTessalon Perles 100 mg capsule Take 1 capsule three times a day for 5 days -- Dispense 15 capsule.Refills: 1. Substitution permitted.Pharmacy - [facility] [id number] ; [place] [address]. .Zithromax 250 mg tablet Take 1 tablet once a day for 4 days -- Dispense 4 tablet. Refills: 0.Substitution permitted. Note to Pharmacy - start tomorrow; 500 mg po given in ER today.Pharmacy - [facility] [id number] ; [place] [address]. .Follow-up:Return to the emergency department as needed. Follow up with your healthcare provider in two dayseven if well. Call for an appointment. Reason for referral: evaluation and treatment. Summary of careprovided to patient via paper.Understanding of the discharge instructions verbalized by patient. Expected course of illness, dischargeinstructions, activity level, diet, prescriptions x3, follow-up appointment and risks and benefits of treatmentreviewed with patient and understanding verbalized. Agrees to plan of care. ADDITIONAL INFORMATIONAtrial Fibrillation [address] [facility] Emergency Department [address] [place] [address] Phone #: ext- [phone] 06/25/2020 14:24 Patient: KILO FUENTES Sex: F : 1930 Age: 89yAtrial fibrillation is a condition in which the heart beats in an irregular pattern. It is the most commonabnormal heart rhythm. It is caused by a problem in the heart's electrical pathways within the muscleof the upper chambers of the heart (atria). It can be a sign of heart disease or other health problemsthat affect the heart.Heart palpitations are a common symptom of atrial fibrillation. This is the feeling that your heart isfluttering, or beating fast, hard, or irregular. When the heart beats too fast, it doesn't pump blood verywell. This can cause other symptoms such as anxiety, fatigue, shortness of breath, chest pain,dizziness, or fainting. Atrial fibrillation may come and go. It can last from a few hours to a couple ofdays. Or it may become senior living (chronic), lasting for months at a time or even become permanent.Some symptoms of atrial fibrillation are hard to notice. They include feeling less able to exercise.Some people have no symptoms.Atrial fibrillation is more common in older adults. It may be caused by heart disease or otherconditions in the body that affect the heart. They include: Coronary artery disease (atherosclerosis) . It is sometimes called blocked arteries. High blood pressure Disease of the heart valves Enlarged heart [address] [facility] Emergency Department [address] [place] [address] Phone #: ext- [phone] 06/25/2020 14:24 Patient: KILO FUENTES Sex: F : 1930 Age: 89y Heart failureAtrial fibrillation can also occur without heart disease because of: Overactive thyroid (hyperthyroid) Chronic lung disease (COPD, emphysema, or bronchitis) Heavy alcohol use Heart stimulants such as cocaine, amphetamines, diet pills, certain decongestant cold medicines, caffeine, or nicotine Infection Blood clot in the lung (pulmonary embolus) Diabetes Chronic kidney disease Obesity Extreme and continued athletic conditioning Certain genetic diseasesTreating or removing these causes will help your treatment for atrial fibrillation. It will also make it lesslikely for it to come back.Atrial fibrillation can alternate back and forth with another abnormal rhythm called atrial flutter. Atrialflutter is a more regular heart rhythm. It also linked to an increased risk for stroke. Proper treatmentcan lower your risk for stroke.Home careFollow these guidelines when caring for yourself at home: Go back to your usual activities as soon as you are feeling back to normal. If you smoke, stop smoking. Contact your healthcare provider or a local stop-smoking program for help. Don't use stimulants like alcohol, cocaine, amphetamines, diet pills, certain decongestant cold medicines, caffeine, or nicotine. If your provider prescribed medicine to stop atrial fibrillation from coming back, take it exactly as d irected. Some medicines must be taken every day, not just when you have symptoms. This will help them work as they should. [address] [facility] Emergency Department [address] [place] [address] Phone #: ext- [phone] 06/25/2020 14:24 Patient: KILO FUENTES [facility]#: [id number] Sex: F : 1930 Age: 89y If you were prescribed a blood-thinning medicine called warfarin to lower your risk for stroke, have your blood tested regularly as advised by your provider. This will make sure you are getting the dose that is right for you. It also lowers your risk for side effects. You may have been prescribed other blood-thinning medicines that don't need regular testing.Follow-up careFollow up with your [facility] provider, or as advised.When to seek medical adviceCall your healthcare provider right away if any of these following occur: Swelling in the legs that gets worse Unexpected weight gain Bleeding easier than normal Pain, redness, or swelling in one legCall 911Calling 911 is the fastest and safest way to get the emergency department. The paramedics can alsostart treatment on the way to the hospital, if needed.Call 911 or seek medical help right away if any of the following occur: Weakness of an arm or leg or one side of the face Chest pain Shortness of breath, or feeling that you can't get enough air Feeling lightheaded, faint, or dizzy Your heartbeat is very rapid, slow, or irregular compared with your regular heartbeat Bleeding that is not easily controlled Trouble with speech or vision Extreme drowsiness, confusion, dizziness, or fainting [id number] [employer] [place] [address]. All rights reserved. This information is not intended as asubstitute for professional medical care. Always follow your healthcare professional's instructions.Bronchitis, Antibiotic Treatment (Adult) [address] [facility] Emergency Department [address] [place] [address] Phone #: ext- [phone] 06/25/2020 14:24 Patient: KILO FUENTES Sex: F : 1930 Age: 89yBronchitis is an infection of the air passages (bronchial tubes) in your lungs. It often occurs when youhave a cold. This illness is contagious during the first few days and is spread through the air bycoughing and sneezing, or by direct contact (touching the sick person and then touching your owneyes, nose, or mouth).Symptoms of bronchitis include cough with mucus (phlegm) and low-grade fever. Bronchitis usuallylasts 7 to 14 days. Mild cases can be treated with simple home remedies. More severe infection istreated with an antibiotic.Home careFollow these guidelines when caring for yourself at home: If your symptoms are severe, rest at home for the first 2 to 3 days. When you go back to your usual activities, don't let yourself get too tired. Don't smoke. Also stay away from secondhand smoke. [address] [facility] Emergency De partment [address] [place] [address] Phone #: ext- [phone] 06/25/2020 14:24 Patient: KILO FUENTES Sex: F : 1930 Age: 89y You may use avpi-ico-yaqkqrx medicines to control fever or pain, unless another medicine was prescribed. If you have chronic liver or kidney disease or have ever had a stomach ulcer or gastrointestinal bleeding, talk with your healthcare provider before using these medicines. Also talk to your provider if you are taking medicine to prevent blood clots. Aspirin should never be given to anyone younger than 18 who is ill with a viral infection or fever. It may cause severe liver or brain damage. Your appetite may be low, so a light diet is fine. Stay well hydrated by drinking 6 to 8 glasses of fluids per day. This includes water, soft drinks, sports drinks, juices, tea, or soup. Extra fluids will help loosen mucus in your nose and lungs. Ejzs-hbp-fhbyusu cough, cold, and sore-throat medicines will not shorten the length of the illness, but they may be helpful to reduce your symptoms. Don't use decongestants if you have high blood pressure. Finish all antibiotic medicine. Do this even if you are feeling better after only a few days.Follow-up careFollow up with your healthcare provider, or as advised. If you had an X-ray or ECG(electrocardiogram), a specialist will review it. You will be told of any new test results that may affectyour care.If you are age 65 or older, if you smoke, or if you have a chronic lung disease or condition that affectsyour immune system, ask your healthcare provider about getting a pneumococcal vaccine and ayearly flu shot (influenza vaccine).When to seek medic al adviceCall your healthcare provider right away if any of these occur: Fever of 100.4F (38C) or higher, or as directed by your healthcare provider Coughing up more sputum Weakness, drowsiness, headache, facial pain, ear pain, or a stiff neckCall 911Call 911 if any of these occur. Coughing up blood Weakness, drowsiness, headache, or stiff neck that get worse Trouble breathing, wheezing, or pain with breathing [address] [facility] Emergency Department [address] [place] [address] Phone #: ext- [phone] 06/25/2020 14:24 Patient: KILO FUENTES Sex: F : 1930 Age: 89y [phone] [employer] [place] [address]. All rights reserved. This infor mation is not intended as asubstitute for professional medical care. Always follow your healthcare professional's instructions.Bronchitis, Antibiotic Treatment (Adult)Bronchitis is an infection of the air passages (bronchial tubes) in your lungs. It often occurs when youhave a cold. This illness is contagious during the first few days and is spread through the air bycoughing and sneezing, or by direct contact (touching the sick person and then touching your owneyes, nose, or mouth).Symptoms of bronchitis include cough with mucus (phlegm) and low-grade fever. Bronchitis usuallylasts 7 to 14 days. Mild cases can be treated with simple home remedies. More severe infection istreated with an antibiotic.Home care [address] [facility] Emergency Department [address] [place] [address] Phone #: ext- [phone] 06/25/2020 14:24 [id number] Sex[facility] : 1930 Age: 89yFollow these guidelines when caring for yourself at home: If your symptoms are severe, rest at home for the first 2 to 3 days. When you go back to your usual activities, don't let yourself get too tired. Don't smoke. Also stay away from secondhand smoke. You may use chwa-sob-wfcwstp medicines to control fever or pain, unless another medicine was prescribed. If you have chronic liver or kidney disease or have ever had a stomach ulcer or gastrointestinal bleeding, talk with your healthcare provider before using these medicines. Also talk to your provider if you are taking medicine to prevent blood clots. Aspirin should never be given to anyone younger than 18 who is ill with a viral infection or fever. It may cause severe liver or brain damage. Your appetite may be low, so a light diet is fine. Stay well hydrated by drinking 6 to 8 glasses of fluids per day. This includes water, soft drinks, sports drinks, juices, tea, or soup. Extra fluids will help loosen mucus in your nose and lungs. Chwm-yim-gcpaavx cough, cold, and sore-throat medicines will not shorten the length of the illness, but they may be helpful to reduce your symptoms. Don't use decongestants if you have high blood pressure. Finish all antibiotic medicine. Do this even if you are feeling better after only a few days.Follow-up careFollow up with your healthcare provider, or as advised. If you had an X-ray or ECG(electrocardiogram), a specialist will review it. You will be told of any new test results that may affectyour care.If you are age 65 or older, if you smoke, or if you have a chronic lung disease or condition that affectsyour immune system, ask your healthcare provider about getting a pneumococcal vaccine and ayearly flu shot (influenza vaccine).When to seek medical adviceCall your healthcare provider right away if any of these occur: Fever of 100.4F (38C) or higher, or as directed by your healthcare provider Coughing up more sputum Weakness, drowsiness, headache, facial pain, ear pain, or a stiff neckCall [address] [facility] Emergency Department [address] [place] [address] Phone #: ext- [phone] 06/25/2020 14:24 Patient: KILO FUENTES Sex: F : 1930 Age: 89yCall 911 if any of these occur. Coughing up blood Weakness, drowsiness, headache, or stiff neck that get worse Trouble breathing, wheezing, or pain with breathing [phone] [place] [address]. All rights reserved. This information is not intended as asubstitute for professional medical care. Always follow your healthcare professional's instructions. You have been given the following additional information: Atrial Fibrillation Bronchitis, Antibiotic Treatment (Adult) Bronchitis, Antibiotic Treatment (Adult)(Electronically signed by Chapincito Polo M.D. 06/25/2020 17:37) Name Value Range Interpretation Code Description Data Susan rce(s) Supporting Document(s) ID Date Data Source [id number] 06/25/2020 02:39:[address] [facility] 1 Clinical Report - Nurses [facility] Emergency Department [address] [place] [address] Phone #: ext- [phone] 06/25/2020 14:24 Patient: KILO FUENTES Sex: F : 1930 Age: 89yTRIAGE Arrived by private vehicle. Historian: patient. Accompanied by family. Acuity: LEVEL 3. Chief Complaint: COUGH (Irregular Heart Rhythm, SOB). Alert. No acute distress. Onset. (4 days). ( PT was sent over From Dr. Benavides office after having an appointment for SOB and possible bronchitis. While at the office, she had an EKG done that showed atrial flutter with HR 133. She was instructed to come to the ER and was taken by her son. PT denies any heart palpitations or chest pain. Her only complaint is SOB when walking and an intermittent productive cough for the past 4-5 days.). Treatment AUTOMATION MECHANIC: Seen within the last 24 hours in a clinic; seen for similar symptoms; EKG done. SEPSIS SCREEN: SIRS SCREEN NEGATIVE: heart rate greater than 90. SEPSIS SCREEN NEGATIVE. No suspected or confirmed signs of infection present. BRENDON COMA SCORE: 15- eyes open- spontaneous (4); best verbal response- oriented (5); best motor response- obeys commands (6). --14:37 06/25/20 Amrita Boucher R.N. 14:25 06/25/20. BP: 162/72. MAP: 102. HR: 104. RR: 20. O2 saturation: 97%. Temp: 97 F. Pain level now: 0/10. --14:37 06/25/20 Amrita Boucher R.N. Weight: 74.8 kg measured. Height/Length: 65 inches Per Patient. BMI: 27.5. --14:35 06/25/20 Amrita Boucher R.N. Medications Calcium Citrate Oral 500 mg, 2x a day. --14:40 06/25/20 Amrita Boucher R.N. Lisinopril Oral 2.5 mg, daily. --14:41 06/25/20 Amrita Boucher R.N. Sertraline HCl Oral (Tablet 25 mg), daily. --14:41 06/25/20 Amrita Boucher R.N. Levothyroxine Sodium Oral (Tablet 88 mcg), daily. --14:41 06/25/20 Amrita Boucher R.N. Montelukast Sodium Oral (Tablet 10 mg), daily. --14:41 06/25/20 Amrita Boucher R.N. Fluticasone Furoate Inhalation (Aerosol Powder Breath Activated 50 mcg/act), as needed. --14:43 06/25/20 Amrita Boucher R.N. Pravastatin Sodium Oral (Tablet 40 mg), daily. --14:43 06/25/20 Amrita Boucher R.N. Eliquis Oral (Tablet 5 mg), 2x a day. --14:43 06/25/20 Amrita Boucher R.N. Pantoprazole Sodium Oral (Tablet Delayed Release 40 mg), daily. --14:44 06/25/20 Amrita Boucher R.N. dilTIAZem HCl Oral 180 mg, daily. --14:44 06/25/20 Amrita Boucher R.N. 2 Clinical Report - Nurses [facility] Emergency Department [address] [place] [address] Phone #: ext- [phone] 06/25/2020 14:24 Patient: KILO FUENTES Sex: F : 1930 Age: 89yAzelastine HCl Nasal, 2x a day. --14:44 06/25/20 Amrita Boucher R.N.Multivitamins Oral, daily. --14:45 06/25/20 Amrita Boucher R.N.Ventolin HFA Inhalation. --14:46 06/25/20 Amrita Boucher R.N.AllergiesCefidnir. --14:38 06/25/20 Amrita Boucher R.N.Flagyl. --14:46 06/25/20 Amrita Boucher R.N.PROBLEMS:Atrial Fibrillation. --14:38 06/25/20 Amrita Boucher R.N.COPD - Chronic Obstructive Pulmonary Disease. --14:47 06/25/20 Amrita Boucher R.N.ADDITIONAL SURGERIES:Thyroidectomy. --14:47 06/25/20 Amrita Boucher R.N.HistoryPAST MEDICAL HX: Immunizations: up-to-date.SOCIAL HX: Current every day light tobacco smoker. No alcohol use or drug use. She was offered HIVtesting but declined and hepatitis C testing but declined. She has not traveled outside the [place]Infectious disease exposure: The patient was not exposed to C-diff, MRSA, VRE, CRE or Coronavirus.SELF HARM ASSESSMENT: Self harm assessment was performed. The patient answered "no" to thequestion(s) "Have you recently felt down, depressed, or hopeless?", "Do you have thoughts of harming orkilling yourself?", "Do you have a plan for harming or killing yourself?", "Have you recently had thoughtsabout harming or killing others?", "Do you have any dangerous items in your possession?", "Have younoticed less interest or pleasure in doing things?", "Are you here because you tried to hurt yourself?" and"Have you ever tried to hurt yourself before today?".ABUSE ASSESSMENT: No report of abuse.NUTRITIONAL RISK ASSESSMENT: The nutritional risk assessment revealed no deficiencies.FUNCTIONAL ASSESSMENT: Functional assessment: no impairments noted.LEARNING NEEDS ASSESSMENT: The learning needs assessment revealed no barriers.FALL RISK ASSESSMENT: Fall risk assessment completed. Risk factors identified include patient agegreater than 65 years. Fall interventions initiated. Patient placed on stretcher. Side rails up x2. Call light inreach of patient. Instructed not to get up without assistance. Instructions given to patient including fallprevention information.SKIN INTEGRITY ASSESSMENT: Skin integrity risk assessment completed. No skin integrity riskidentified. --14:37 06/25/20 Amrita Boucher R.N. 3 Clinical Report - Nurses [facility] Emergency Department [address] [place] [address] Phone #: ext- [phone] 06/25/2020 14:24 Patient: KILO FUENTES [facility]#: [id number] Sex: F : 1930 Age: 89y Interventions Identification band on patient. To treatment room. --14:37 06/25/20 Amrita Boucher R.N.PHYSICAL ASSESSMENT 14:53 06/25/20. Ambulatory to room. GENERAL / NEURO / PSYCH: Alert. Oriented X 4. RESPIRATORY: Respirations not labored. Chest nontender. Breath sounds within normal limits. CVS: Cardiac rhythm: atrial fibrillation; (1435). GI / : Abdomen soft and nontender and normal bowel sounds. SKIN: Skin is warm and dry. --14:53 06/25/20 Hardy Covarrubias RN.NURSING PROGRESS NOTES Monitoring of patient in place. Patient gowned. Reassurance given. Two patient identifiers checked. Call light placed in reach. Side rails up. Patient ready for evaluation- ED physician notified. --14:37 06/25/20 Amrita Boucher R.N. EKG time: (14:35 06/25/2020). EKG was performed by a nurse and shown to the ED physician. --14:48 06/25/20 Amrita Boucher R.N. Cardiac rhythm: atrial fibrillation; (1442). youth nutritional monitor, NIBP monitor and pulse oximeter placed on patient; playground monitor- Lead II; monitor alarms on; monitor strip added to paper chart. --14:54 06/25/20 Hardy Covarrubias RN 15:05 06/25/2020 Tessalon Perles (Benzonatate) PO Capsules 200 mg given. Allergies verified and confirmed 5 rights. Information reviewed with patient. --15:20 06/25/20 Hardy Covarrubias RN 15:10 06/25/2020 Site #1 started via IV in the left wrist with an 20g angiocath; one attempt. Saline lock flushed with 10 mL saline. --15:20 06/25/20 Hardy Covarrubias RN 15:11 06/25/2020 Solu-Medrol (methylPREDNISolone Sodium Succ) IVP 125 mg given over 30 second(s) via site #1. Allergies verified and confirmed 5 rights. IV patency established. IV site checked: no pain, redness, or swelling. IV flushed thoroughly pre- and post-medication administration. IVP given by RN. Information reviewed with patient. --15:20 06/25/20 Hardy Covarrubias RN 15:12 06/25/2020 Cardizem (dilTIAZem HCl) IVP 10 mg given over 2 minute(s) via site #1. Allergies verified and confirmed 5 rights. IV patency established. IV site checked: no pain, redness, or swelling. IV flushed thoroughly pre- and post- medication administration. IVP given by RN. Information reviewed with patient. --15:06/25/20 Hardy Covarrubias RN 15:20 06/25/2020 Atrovent (Ipratropium [place]) Neb TX Nebulizer 1 unit dose given. Given by the nurse. Allergies verified and confirmed 5 rights. Information reviewed with patient. --15:06/25/20 Hardy Covarrubias RN Checked patient name and birthdate. Blood samples drawn by tech. (2856). Portable chest x-ray 4 Clinical Report - Nurses [facility] Emergency Department [address] [place] [address] Phone #: ext- [phone] 06/25/2020 14:24 Patient: KILO FUENTES Sex: F : 1930 Age: 89y completed. Shown to the ED physician ([id number]). --15:06/25/20 Hardy Covarrubias RN 16:08 06/25/2020 Zithromax (Azithromycin) PO Tablets 500 mg given. Allergies verified and confirmed 5 rights. Information reviewed with patient. --16:08 06/25/20 Hardy Covarrubias RN 16:08 06/25/20. BP: 143/75. MAP: 97. HR: 78. RR: 16. O2 saturation: 97%. --16:08 06/25/20 Rose Copeland ED, ER Tech1 15:30 06/25/2020 Atrovent Neb TX discontinued upon: receiving physician order. --16:09 06/25/20 Hardy Covarrubias RN 15:53 06/25/2020 Cardizem IVP Response: symptoms have improved the patient feels better. ED physician notified. --16:08 06/25/20 Hardy Covarrubias RN 15:59 06/25/2020 Nhan Hayward PO Response: symptoms have improved the patient feels better. (decreased cough). --16:09 06/25/20 Hardy Covarrubias RN 15:59 06/25/2020 Solu-Medrol IVP Response: no adverse reaction. -- 16:09 06/25/20 Hardy Covarrubias RN.DISPOSITION / DISCHARGE 16:06/25/20. BP: 143/75. MAP: 97. HR: 78. RR: 16. O2 saturation: 97%. --16:09 06/25/20 Stepan recycling attendantRose ER Tech1 16:13 06/25/20. Temp: 97.9 F. --16:13 06/25/20 Humaira Paz R.N. 16:18 06/25/2020 Site #1 removed upon discharge. Catheter intact. Bandaid applied. --16:31 06/25/20 Hardy Covarrubias RN 16:06/25/20. Departure time: 16:06/25/2020. Condition at departure: improved. No learning barriers present. Discharge instructions provided and reviewed with the patient and family. Reviewed warnings (avoid stimulant). Reviewed medication(s) side effects, precautions, dosing and course information. Prescription(s) sent electronically to pharmacy. Reviewed referrals. Provided to follow-up provider. Patient verbalized understanding. Written instructions provided in Guamanian. The patient was discharged by the physician. She was discharged home and accompanied by family. She left in a wheelchair and via private vehicle. Family member driving. --16:30 06/25/20 Hardy Covarrubias RN 16:18 06/25/20. Pain level now: 0/10. --16:32 06/25/20 Hardy Covarrubias RN.Locked/Released at 06/25/2020 17:40 by Hardy Covarrubias RN 5 Clinical Report - Nurses [facility] Emergency Department [address] [place] [address] Phone #: ext- [phone] 06/25/2020 14:24 Patient: KILO FUENTES Sex : F : 1930 Age: 89y Name Value Range Interpretation Code Description Data Susan rce(s) Supporting Document(s) ID Date Data Source [id number] 0001 06/25/2020 02:39:[address] [facility] 1 Clinical Report - Physicians/Mid Levels [facility] Emergency Department [address] [place] [address] Phone #: ext- [phone] 06/25/2020 14:24 Patient: KILO FUENTES Sex: F : 1930 Age: 89y Time Seen: 14:25 06/25/2020; initial patient contact. Arrived- By private vehicle. Historian- patient. Disposition decision: 16:08 06/25/2020.HISTORY OF PRESENT ILLNESS Chief Complaint: PALPITATIONS. It is described as a fast heart beat. This started today 5 days ago and is still present. Onset during exertion. It has been intermittent. Modifying factors- worsened by walking. Relieved by rest. No chest pain or discomfort, sweating episodes, fainting episodes or dizziness. No tingling or muscle spasms. She has had mild difficulty breathing on exertion. ( pt has COPD, has been coughing yellow phlegm x 5-7 days w mild exertional SOB, went to [facility]'s office today, was found to be in rapid A. Fib., told to come to ER; pt known w A. Fib. since 09- 2019, on Diltiazem and Eliquis). Similar symptoms previously. Patient has had similar symptoms occasionally. Recent medical care: The patient was seen recently in the office.REVIEW OF SYSTEMSNo fever, chills, orthopnea, calf pain or enlarged lymph nodes. No headache, sore throat, blurred vision,nausea or a bdominal pain. No black stools, difficulty with urination, skin rash, depression or troublesleeping. No vomiting, diarrhea or bloody stools. The patient has had a mild cough productive of yellowsputum. She has not had a poor appetite. All other systems reviewed and are negative.PAST HISTORYSee nurses notes. Problems: Gastroesophageal Reflux Disease. Depression. Degenerative Joint Disease. Hypothyroidism. Hypercholesterolemia. Hypertension. COPD - Chronic Obstructive Pulmonary Disease. Atrial Fibrillation. Additional Surgeries: Thyroidectomy. Medications: Ventolin HFA Inhalation. Multivitamins Oral, daily. Azelastine HCl Nasal, 2x a day. 2 Clinical Report - Physicians/Mid Levels [facility] Emergency Department [address] [place] [address] Phone #: ext- [phone] 06/25/2020 14:24 Patient: KILO FUENTES Sex: F : 1930 Age: 89y dilTIAZem HCl Oral 180 mg, daily. Pantoprazole Sodium Oral (Tablet Delayed Release 40 mg), daily. Eliquis Oral (Tablet 5 mg), 2x a day. Pravastatin Sodium Oral (Tablet 40 mg), daily. Fluticasone Furoate Inhalation (Aerosol Powder Breath Activated 50 mcg/act), as needed. Montelukast Sodium Oral (Tablet 10 mg), daily. Levothyroxine Sodium Oral (Tablet 88 mcg), daily. Sertraline HCl Oral (Tablet 25 mg), daily. Lisinopril Oral 2.5 mg, daily. Calcium Citrate Oral 500 mg, 2x a day. Allergies: Cefidnir. Flagyl.SOCIAL HISTORYLight tobacco smoker. No alcohol use or drug use.ADDITIONAL NOTESThe nursing notes have been reviewed with agreement regarding the chief complaint, HPI, ROS, PMH andpatient medications and allergies.PHYSICAL EXAMVital Signs: 06/25/2020 14:25 BP: 162/72. MAP: 102. HR: 104. RR: 20. O2 saturation: 97%. Temp: 97 F.Pain level now: 0/10. Have been reviewed. Oxygen saturation normal.Appearance: Alert. Oriented X3. No acute distress.Eyes: Pupils equal, round and reactive to light. Eyes normal inspection.ENT: Nose normal. Pharynx normal.Neck: Normal inspection. Neck supple.CVS: Tachycardia. Abnormal rhythm, which is irregular. Heart sounds normal. Pulses normal.Respiratory: No respiratory distress. Mildly decreased air movement in the bases bilaterally. Painlessinspiration. Chest nontender.Abdomen: Soft and nontender. Bowel sounds normal. No organomegaly. No mass. Femoral pulsesequal.Back: Normal external inspection.Skin: Skin warm and dry. Normal skin color. No rash. Normal skin turgor.Extremities: Extremities exhibit normal ROM. No lower extremity edema.Neuro: Oriented X 3. No motor deficit. No sensory deficit.LABS, X-RAYS, AND EKGEKG: No acute process. No acute ischemia. Atrial fibrillation (narrow-complex) (110/min). Normal STand T waves. EKG unchanged when compared with prior EKG. (01-06-19). The study has beeninterpreted contemporaneously by me. The EKG appears to be a good tracing. Interpretation time: 14:.Chest X-ray: No acute disease. Views: AP (portable). Technique: good. The X-rays were interpreted 3 Clinical Report - Physicians/Mid Levels [facility] Emergency Department [address] [place] [address] Phone #: ext- [phone] 06/25/2020 14:24 Patient: KILO FUENTES Sex: F : 1930 Age: 89yby the radiologist. Interpretation time: 15:09 06/25/2020.Laboratory Tests: Laboratory tests have been ordered, with results reviewed and considered in themedical decision making process.CBC w Diff: (JOVI: 06/25/2020 14:59) ( MsgRcvd 06/25/2020 15:32) Final results Test Result Flag Units (Reference) CBC W/AUTOMATED DIFF COMPLETE BLOOD COUNT WBC 10.7 10/uL (4.2 - 11.0) RBC 4.47 10/uL (4.20 - 5.40) HEMOGLOBIN 14.6 g/dL (12.0 - 16.0) HEMATOCRIT 43.6 % (37.0 - 47.0) MCV 97.5 fL (81.0 - 101) MCH 32.7 pg (27.0 - 34.0) MCHC 33.5 g/dL (31.0 - 36.0) RDW 13.7 % (11.5 - 14.5) PLATELETS 347 10/uL (150 - 450) MPV 10.2 fL (7.4 - 10.4) NEUT 62.7 % (37.0 - 80.0) LYMPH 26.1 % (25.0 - 40.0) MONO 9.4 H % (3.0 - 8.0) EOS 0.8 % (0.0 - 7.0) BASO 0.7 % (0.0 - 2.5) %IG 0.3 H % (0.0 - 0.0) %NRBC 0.0 % (0.0 - 0.0) #NEUT 6.71 10/uL (2.00 - 6.90) #LYMPH 2.80 10/uL (0.60 - 3.40) #MONO 1.01 H 10/uL (0.00 - 0.90) #EOS 0.09 10/uL (0.00 - 0.70) #BASO 0.08 10/uL (0.00 - 0.20) #IG 0.03 10/uL (0.00 - 0.10) #NRBC 0.00 10/uL (0.00 - 0.00) MANUAL DIFF SEE BELOW SEGS 61 % (37 - 80) %LYMPH 29 % (25 - 40) %MONO 10 H % (3 - 8) RBC MORPH NOT INDICATEDCMP: (JOVI: 06/25/2020 14:59) ( MsgRcvd 06/25/2020 15:34) Final results Test Result Flag Units (Reference) COMPREHENSIVE METABOLIC PANEL COMPREHENSIVE METABOLIC PANEL SODIUM 140 mEq/L (134 - 153) POTASSIUM 4.4 mEq/L (3.6 - 5.0) CHLORIDE 101 mEq/L (98 - 107) CO2 30 MEQ/L (22 - 30) GLUCOSE 97 MG/DL (70 - 99) BUN 19 MG/DL (7 - 21) CREATININE 1.0 MG/DL (0.7 - 1.5) BUN/CREAT 19 (8 - 27) TOTAL PROTEIN 6.9 G/DL (6.3 - 8.2) ALBUMIN 4.6 G/DL (3.9 - 5.0) GLOBULIN 2.3 L GM/DL (2.4 - 3.2) A/G RATIO 2.0 (0.8 - 2.0) CALCIUM 10.0 MG/DL (8.4 - 10.2) TOTAL BILI <0.7 MG/DL (0.2 - 1.3) ALKALINE PHOS 70 U/L (38 - 126) SGOT/AST 19 U/L (5 - 40) 4 Clinical Report - Physicians/Mid Levels [facility] Emergency Department [address] [place] [address] Phone #: ext- [phone] 06/25/2020 14:24 [id number] 1930 Age: 89y SGPT/ALT 12 U/L (7 - 56) ANION GAP 9.0 mmol/L (8.0 - 16.0) AGE 89 yrs NON-AA GFR 56 mL/min AFR AMER GFR >60 Male GFR Interprentation 20-49 yrs >60 mL/min Normal 50-59 yrs >56 mL/min Normal 60-69 yrs >49 mL/min Normal 70-79yrs >42 mL/min Normal 80 and above >35 mL/min Normal Female GFR Interpretation 20-39 yrs >60 mL/min Normal 40-49 yrs >58 mL/min Normal 50-59 yrs >51 mL/min Normal 60-69 yrs >45 mL/min Normal 70-79 yrs >39 mL/min Normal 80 and above >32 mL/min Normal Lipase: (JOVI: 06/25/2020 14:59) ( [facility] 06/25/2020 15:31) Final results Test Result Flag Uni ts (Reference) LIPASE 42 U/L (13 - 60) PT/PTT: (JOVI: 06/25/2020 14:59) ( [facility] 06/25/2020 15:22) Final results Test Result Flag Units (Reference) PROTIME 15.3 SECONDS (11.0 - 15.5) INR 1.15 (0.93 - 1.23) PTT 35.4 SECONDS (24.8 - 36.7) \\BLDo\\INR INTERPRETATION\\BLDx\\ Therapeutic range for Coumadin and related oral anticoagulants. -International Normalized Ratio (INR): 2.0 - 3.0 for Venous Thrombosis, Pulmonary Embolus, Tissue heart valves, Acute VT Atrial Fibrillation, Valvular heart disease and recurrent Systemic Embolism. -International Normalized Ratio (INR): 2.5 - 3.5 for Mechanical Prosthetic valve. Troponin-T: (JOVI: 06/25/2020 14:59) ( [facility] 06/25/2020 15:34) Final results Test Result Flag Units (Reference) TROPONIN T <0.01 NG/ML (0.00 - 0.10) TROPONIN T0.1 ng/ml Recommended as the clinical threshold value forTroponin T. TSH: (JOVI: 06/25/2020 14:59) ( [facility] 06/25/2020 15:42) Final results Test Result Flag Units (Reference) TSH 1.63 uIU/mL (0.47 - 5.01) BNP: (JOVI: 06/25/2020 14:59) ( MogRcvd 06/25/2020 15:57) Final results Test Result Flag Units (Reference) BNP 416 PG/ML (0 - 450) Chest Portable 1 View: (JOVI: 06/25/2020 14:52) ( MogRcvd 06/25/2020 15:06) In Progress CHEST PORTABLE Reason(s): palpitations, COPD, SOB TRANSPORTATION: P IV? O2? Oxygen?(No) Room: ED.PROGRESS AND PROCEDURESCourse of Car e: 16:02 06/25/20. workup all in and reviewed and nml, incl. troponin, TSH, BNP, CXR; ptdoing much better, no cough, stable slow A. Fib., pt on Eliquis Diltiazem, pt wants to go home, will d/c w 5 Clinical Report - Physicians/Mid Levels [facility] Emergency Department [address] [place] [address] Phone #: ext- [phone] 06/25/2020 14:24 [id number] Sex[facility] F : 1930 Age: 89y instructions of returning if palpitations, tachycardia, SOB. etc.; will d/c w medrol pack, tessalon, zithromax; pt understands and agrees. Patient counseled in person regarding the patient's stable condition, test results, diagnosis and need for follow-up. Patient agrees with plan of care. Disposition: Condition: good and stable. Discharge decision based on the following: patient's condition is stable; patient's condition is improved; patient is ambulatory; patient is active; patient drinking fluids; patient eating; patient's pain is controlled; patient's exam is improved; no abnormal test results; improving condition on multiple repeat evaluations; social support is good; transportation is available; follow-up is available; clinical impression is consistent with outpatient treatment.CLINICAL IMPRESSION Chronic atrial fibrillation with uncontrolled rate. Acute mucopurulent bronchitis associated with chronic obstructive pulmonary disease. Stable COPD. No acute COPD.INSTRUCTIONS Avoid stimulants (such as cigarettes, coffee, cold medicines, sinus medicines, street drugs). Follow a low salt diet and low cholesterol diet. Do not smoke. No alcohol. Warnings: Further evaluation is necessary. It is very important to follow up with a healthcare provider. GENERAL WARNINGS: Return or contact your physician immediately if your condition worsens or changes unexpectedly, if not improving as expected, or if other problems arise. SPECIFICALLY, return if you develop chest, neck, jaw, shoulder, arm, or back pain, difficulty breathing, a fluttering sensation in your chest, lightheadedness, fainting, excessive fatigue, or sudden sweating. Your Current Medications: Your current home medications have been reviewed. CONTINUE TAKING THE FOLLOWING MEDICATIONS: Azelastine HCl Nasal : 2x a day. Calcium Citrate Oral : 500 mg 2x a day. dilTIAZem HCl Oral : 180 mg daily. Eliquis Oral : Tablet 5 mg, 2x a day. Fluticasone Furoate Inhalation : Aerosol Powder Breath Activated 50 mcg/act, prn. Levothyroxine Sodium Oral : Tablet 88 mcg, daily. Lisinopril Oral : 2.5 mg daily. Montelukast Sodium Oral : Tablet 10 mg, daily. Multivitamins Oral : daily. Pantoprazole Sodium Oral : Tablet Delayed Release 40 mg, daily. 6 Clinical Report - Physicians/Mid Levels [facility] Emergency Department [address] [place] [address] Phone #: ext- [phone] 06/25/2020 14:24 [id number] Sex[facility] F : 1930 Age: 89y Pravastatin Sodium Oral : Tablet 40 mg, daily. Sertraline HCl Oral : Tablet 25 mg, daily. Ventolin HFA Inhalation. Prescription Medications: Medrol (Manoj) 4 mg tablets in a dose pack Take 1 tablet once a day for 7 days -- PLEASE TAKE MEDROL DOSE PACK DIRECTED ON PACKAGING. Dispense 21 tablet. Refills: 1. Substitution permitted. [address] ; [place] [address]. . Tessalon Perles 100 mg capsule Take 1 capsule three times a day for 5 days -- Dispense 15 capsule. Refills: 1. Substitution permitted. [address] ; [place] [address]. . Zithromax 250 mg tablet Take 1 tablet once a day for 4 days -- Dispense 4 tablet. Refills: 0. Substitution permitted. Note to Pharmacy - start tomorrow; 500 mg po given in ER today. [address] ; [place] [address]. . Follow-up: Return to the emergency department as needed. Follow up with your healthcare provider in two days even if well. Call for an appointment. Reason for referral: evaluation and treatment. Summary of care provided to patient via paper. Understanding of the discharge instructions verbalized by patient. Expected course of illness, discharge instructions, activity level, diet, prescriptions x3, follow-up appointment and risks and benefits of treatment reviewed with patient and understanding verbalized. Agrees to plan of care.(Electronically signed by Chapincito Polo M.D. 06/25/2020 17:37) Name Value Range Interpretation Code Description Data Susan rce(s) Supporting Document(s) ID Date Data Source [id number] 06/25/2020 02:59:00 PM EDT [facility] ([facility] Name Value Range Interpretation Code Description Data Susan rce(s) Supporting Document(s) Thyrotropin [Units/volume] in Serum or Plasma 1.63 uIU/mL 0.47-5.01 [facility] ([facility] Natriuretic peptide.B prohormone N-Terminal [Mass/volu me] in Serum or Plasma 416 pg/mL 0-450 [facility] ([facility] ID Date Data Source [id number] 06/25/2020 02:59:00 PM EDT [facility] ([facility] Name Value Range Interpretation Code Description Data Susan rce(s) Supporting Document(s) Comprehensive Metabo Laboratory test result [facility] ([facility] COMPREHENSIVE METABOLIC PANEL Sodium 140 meq/L 134-153 [facility] ([facility] Potassium 4.4 meq/L 3.6-5.0 [facility] ([facility] Co2 30 meq/L 22-30 [facility] ([facility] Chloride 101 meq/L 98-107 [facility] Glucose 97 mg/dL 70-99 [facility] BUN 19 mg/dL 7-21 [facility] Creatinine 1.0 mg/dL 0.7-1.5 [facility] BUN/Creat 19 8-27 [facility] ([facility] Total Protein 6.9 g/dL 6.3-8.2 [facility] Albumin 4.6 g/dL 3.9-5.0 [facility] ([facility] Globulin 2.3 GM/DL 2.4-3.2 Below low normal [facility] ( [facility] A/G Ratio 2.0 0.8-2.0 [facility] Calcium 10.0 mg/dL 8.4-10.2 [facility] Alkaline Phos 70 U/L 38-126 [facility] Total Bili Laboratory test result 0.2-1.3 [facility] ([facility] SGPT/Alt 12 U/L 7-56 [facility] ([facility] Sgot/Ast 19 U/L 5-40 [facility] ([facility] Anion Gap 9.0 mmol/L 8.0-16.0 [facility] Age 89 yrs [facility] ([facility] Non-Aa GFR 56 mL/min [facility] ([facility] Afr Amer GFR Laboratory test result [facility] ([facility] Male GFR Interprentation 20-49 yrs >60 mL/min Normal 50-59 yrs >56 mL/min Normal 60-69 yrs >49 mL/min Normal 70-79yrs >42 mL/min Normal 80 and above >35 mL/min Normal Female GFR Interpretation 20-39 yrs >60 mL/min Normal 40-49 yrs >58 mL/min Normal 50-59 yrs >51 mL/min Normal 60-69 yrs >45 mL/min Normal 70-79 yrs >39 mL/min Normal 80 and above >32 mL/min Normal ID Date Data Source [id number] 06/25/2020 02:59:00 PM EDT [facility] Name Value Range Interpretation Code Description Data Susan rce(s) Supporting Document(s) Troponin T.cardiac [Mass/volume] in Serum or Plasma Laborato ry test result 0.00-0.10 [facility] ([facility] TROPONIN T 0.1 ng/ml Recommended as the clinical th reshold value for Troponin T. ID Date Data Source [id number] 06/25/2020 02:59:00 PM EDT [facility] ([facility] Name Value Range Interpretation Code Description Data Susan rce(s) Supporting Document(s) WBC 10.7 10^3/uL 4.2-11.0 [facility] ([facility] CBC W/Automated Diff Laboratory test result [facility] ([facility] COMPLETE BLOOD COUNT RBC 4.47 10^6/uL 4.20-5.40 [facility] Hemoglobin 14.6 g/dL 12.0-16.0 [facility] MCV 97.5 fL 81.0-101 [facility] Hematocrit 43.6 % 37.0-47.0 [facility] MCHC 33.5 g/dL 31.0-36.0 [facility] MCH 32.7 pg 27.0-34.0 [facility] RDW 13.7 % 11.5-14.5 [facility] Platelets 347 10^3/uL 150-450 [facility] MPV 10.2 fL 7.4-10.4 [facility] Lymph 26.1 % 25.0-40.0 [facility] Neut 62.7 % 37.0-80.0 [facility] Grimes 9.4 % 3.0-8.0 Above high normal [facility] ([facility] Baso 0.7 % 0.0-2.5 [facility] %Ig 0.3 % 0.0-0.0 Above high normal [facility] Eos 0.8 % 0.0-7.0 [facility] #Neut 6.71 10^3/uL 2.00-6.90 [facility] %NRBC 0.0 % 0.0-0.0 [facility] #Lymph 2.80 10^3/uL 0.60-3.40 [facility] #Grimes 1.01 10^3/uL 0.00-0.90 Above high normal [facility] ([facility] #Baso 0.08 10^3/uL 0.00-0.20 [facility] #Eos 0.09 10^3/uL 0.00-0.70 [facility] #NRBC 0.00 10^3/uL 0.00-0.00 [facility] #Ig 0.03 10^3/uL 0.00-0.10 [facility] ([facility] Manual Diff Laboratory test result M [facility] ([facility] Segs 61 % 37-80 [facility] ([facility] %Grimes 10 % 3-8 Above high normal [facility] ([facility] %Lymph 29 % 25-40 [facility] RBC Morph Laboratory test result [facility] ([facility] ID Date Data Source [id number] 06/25/2020 02:59:00 PM EDT [facility] ([facility] Name Value Range Interpretation Code Description Data Susan rce(s) Supporting Document(s) Lipoprotein lipase [Enzymatic activity/volume] in Serum or Plasm a 42 U/L 13-60 [facility] ([facility] ) ID Date Data Source [id number] 06/25/2020 02:59:00 PM EDT [facility] ([facility] Name Value Range Interpretation Code Description Data Susan rce(s) Supporting Document(s) Inr 1.15 0.93-1.23 [facility] ([facility] [facility] Protime 15.3 s 11.0-15.5 [facility] ([facility] PTT 35.4 s 24.8-36.7 [facility] ([facility] \\BLDo\\INR INTERPRETATION\\BLDx\\ Therapeutic range for Coumadin and related oral anticoagulants. -International Normalized Ratio (INR): 2 .0 - 3.0 for Venous Thrombosis, Pulmonary Embolus, Tissue heart valves, Acute VT Atrial Fibrillation, Valvular heart disease and recurrent Systemic Embolism. -International Normalized Ratio (INR): 2 .5 - 3.5 for Mechanical Prosthetic valve. ID Date Data Source [id number] 06/25/2020 03:56:[address] [facility] Name Value Range Interpretation Code Description Data Susan rce(s) Supporting Document(s) BNP 416 PG/ML 0 - 450 [facility] ID Date Data Source [id number] 06/25/2020 03:42:[address] [facility] Name Value Range Interpretation Code Description Data Susan rce(s) Supporting Document(s) Thyrotropin [Units/volume] in Serum or Plasma by Detec tion limit <= 0.05 mIU/L 1.63 uIU/mL 0.47 - 5.01 [facility] ID Date Data Source [id number] 06/25/2020 03:34:[address] [facility] Name Value Range Interpretation Code Description Data Susan rce(s) Supporting Document(s) COMPREHENSIVE METABOLIC PANEL [facility] COMPREHENSIVE METABOLIC PANEL Sodium [Moles/volume] in Serum or Plasma 140 mEq/L 134 - 153 [facility] Potassium [Moles/volume] in Serum or Plasma 4.4 mEq/L 3.6 - 5.0 [facility] Chloride [Moles/volume] in Serum or Plasma 101 mEq/L 98 - 107 [facility] Carbon dioxide, total [Moles/volume] in Serum or Plasma 30 MEQ/L 22 - 30 [facility] Glucose [Mass/volume] in Serum or Plasma 97 MG/DL 70 - 99 [facility] BUN 19 MG/DL 7 - 21 [facility] Creatinine [Mass/volume] in Serum or Plasma 1.0 MG/DL 0.7 - 1.5 [facility] BUN/CREAT 19 8 - 27 [facility] Protein [Mass/volume] in Serum or Plasma 6.9 G/DL 6.3 - 8.2 [facility] Albumin [Mass/volume] in Serum or Plasma 4.6 G/DL 3.9 - 5.0 [facility] Globulin [Mass/volume] in Serum by calculation 2.3 GM/DL 2.4 - 3.[address] [facility] A/G RATIO 2.0 0.8 - 2.0 [facility] Calcium [Mass/volume] in Serum or Plasma 10.0 MG/DL 8.4 - 10.2 [facility] Bilirubin.total [Mass/volume] in Serum or Plasma <0.7 MG/DL 0.2 - 1.3 [facility] Alkaline phosphatase [Enzymatic activity/volume] in Serum or Plasma 70 U/L 38 - 126 [facility] Aspartate aminotransferase [Enzymatic activity/volume] in Serum or Plasma 19 U/L 5 - 40 [facility] Alanine aminotransferase [Enzymatic activity/volume] in Seru m or Plasma 12 U/L 7 - 56 [facility] Anion gap 3 in Serum or Plasma 9.0 mmol/L 8.0 - 16.0 [facility] AGE 89 yrs [facility] al NON-AA GFR 56 mL/min [facility] AFR AMER GFR >60 [facility] Male GFR In terprentation 20-49 yrs >60 mL/min Normal 50-59 yrs >56 mL/min Normal 60-69 yrs >49 mL/min Normal 70-79yrs >42 mL/min Normal 80 and above >35 mL/min Normal Female GFR Interpretation 20-39 yrs >60 mL/min Normal 40-49 yrs >58 mL/min Normal 50-59 yrs >51 mL/min Normal 60-69 yrs >45 mL/min Normal 70-79 yrs >39 mL/min Normal 80 and above >32 mL/min Normal ID Date Data Source [id number] 06/25/2020 03:34:[address] [facility] Name Value Range Interpretation Code Description Data Susan rce(s) Supporting Document(s) TROPONIN T <0.01 NG/ML 0.00 - 0.10 [facility] ospital TROPONIN T0.1 ng/ml Recommended as the c linical threshold value forTroponin T. ID Date Data Source [id number] 06/25/2020 03:31:[address] [facility] Name Value Range Interpretation Code Description Data Susan rce(s) Supporting Document(s) CBC W/AUTOMATED DIFF [facility] COMPLETE BLOOD COUNT Leukocytes [#/volume] in Blood by Automated count 10.7 10^3/uL 4.2 - 11.0 [facility] Erythrocytes [#/volume] in Blood by Automated count 4.47 10^6/uL 4. 20 - 5.40 [facility] Hemoglobin [Mass/volume] in Blood 14.6 g/dL 12.0 - 16.0 [facility] Hematocrit [Volume Fraction] of Blood by Automated count 43.6 % 3 7.0 - 47.0 [facility] Erythrocyte mean corpuscular volume [Entitic volume] by Auto mated count 97.5 fL 81.0 - 101 [facility] Erythrocyte mean corpuscular hemoglobin [Entitic mass] by Automated count 32.7 pg 27.0 - 34.0 [facility] Erythrocyte mean corpuscular hemoglobin concentration [Mass/volume] by Automated count 33.5 g/dL 31.0 - 36.0 [facility] Erythrocyte distribution width [Ratio] by Automated count 13.7 % 11.5 - 14.5 [facility] Platelets [#/volume] in Blood by Automated count 347 10^3/uL 150 - [address] [facility] Platelet mean volume [Entitic volume] in Blood by Automated count 10.2 fL 7.4 - 10.4 [facility] Neutrophils/100 leukocytes in Blood by Automated count 62.7 % 37. 0 - 80.0 [facility] Lymphocytes/100 leukocytes in Blood by Manual count 26.1 % 25.0 - 40.0 [facility] Monocytes/100 leukocytes in Blood by Automated count 9.4 % 3.0 - 8.[address] [facility] Eosinophils/100 leukocytes in Blood by Automated count 0.8 % 0.0 - 7.0 [facility] Basophils/100 leukocytes in Blood by Automated count 0.7 % 0.0 - 2.5 [facility] %IG 0.3 % 0.0 - 0.0 [facility] %NRBC 0.0 % 0.0 - 0.0 [facility] al Neutrophils [#/volume] in Blood by Automated count 6.71 10^3/uL 2.00 - 6.90 [facility] Lymphocytes [#/volume] in Blood by Automated count 2.80 10^3/uL 0.60 - 3.40 [facility] Monocytes [#/volume] in Blood by Automated count 1.01 10^3/uL 0.00 - 0.[address] [facility] Eosinophils [#/volume] in Blood by Automated count 0.09 10^3/uL 0.00 - 0.70 [facility] Basophils [#/volume] in Blood by Automated count 0.08 10^3/uL 0.00 - 0.20 [facility] #IG 0.03 10^3/uL 0.00 - 0.10 [facility] #NRBC 0.00 10^3/uL 0.00 - 0.00 [facility] MANUAL DIFF SEE BELOW [facility] Segmented neutrophils/100 leukocytes in Blood by Manual count 61 % 37 - 80 [facility] %LYMPH 29 % 25 - 40 [facility] %MONO 10 % 3 - 8 H [facility] al RBC MORPH NOT INDICATED [facility] spital ID Date Data Source [id number] 06/25/2020 03:31:[address] [facility] Name Value Range Interpretation Code Description Data Susan rce(s) Supporting Document(s) Lipase [Enzymatic activity/volume] in Serum or Plasma 42 U/L 13 - 60 [facility] ID Date Data Source [id number] 06/25/2020 03:22:[address] [facility] Name Value Range Interpretation Code Description Data Susan rce(s) Supporting Document(s) Prothrombin time (PT) 15.3 SECONDS 11.0 - 15.5 [facility] INR in Platelet poor plasma by Coagulation assay 1.15 0.93 - 1. 23 [facility] aPTT in Blood by Coagulation assay 35.4 SECONDS 24.8 - 36.7 [facility] \\BLDo\\INR INTERPRETATION\\BLDx\\ Therapeutic range for Coumadin and related oral anticoagulants. - International Normalized Ratio (INR): 2.0 - 3.0 for Venous Thrombosis, Pulmonary Embolus, Tissue heart valves, Acute VT Atrial Fibrillation, Valvular heart disease and recurrent Systemic Embolism. - International Normalized Ratio (INR): 2.5 - 3.5 for Mechanical Prosthetic valve. ID Date Data Source [id number] 05/17/2020 01:10:00 PM EST [facility]IP[facility] ([facility] Name Value Range Interpretation Code Description Data Susan rce(s) Supporting Document(s) Glu 110 mg/dL 70-110 [facility] ([facility] NORMAL RANGES Age WBC RBC HGB HCT [...] HCT IS 5% LESS SOURCE FOR DATA: [employer] 1800 OPERATION MANUAL( AUTOMATED BLOOD COUNTS AND [...] Normal 80 and above >32 mL/min Normal BUN 18 mg/dL 8- [facility] NORMAL RANGES Age WBC RBC HGB HCT [...] Normal 80 and above >32 mL/min Normal Creat 1.1 mg/dL 0.5-1.0 Above high normal [facility] ([facility] NORMAL RANGES Age WBC RBC HGB HCT [...] HCT IS 5% LESS SOURCE FOR DATA: [employer] 1800 OPERATION MANUAL( AUTOMATED BLOOD COUNTS AND [...] Normal 80 and above >32 mL/min Normal BUN/Creatinine Ratio 16.9 [facility] ([facility] NORMAL RANGES Age WBC RBC HGB HCT [...] HCT IS 5% LESS SOURCE FOR DATA: [employer] 1800 OPERATION MANUAL( AUTOMATED BLOOD COUNTS AND [...] Normal 80 and above >32 mL/min Normal Na 137 mmol/L 136-145 [facility] ([facility] NORMAL RANGES Age WBC RBC HGB HCT [...] HCT IS 5% LESS SOURCE FOR DATA: [employer] 1800 OPERATION MANUAL( AUTOMATED BLOOD COUNTS AND [...] Normal 80 and above >32 mL/min Normal K 4.7 mmol/L 3.5-5.1 [facility] ([facility] NORMAL RANGES Age WBC RBC HGB HCT [...] HCT IS 5% LESS SOURCE FOR DATA: [employer] 1800 OPERATION MANUAL( AUTOMATED BLOOD COUNTS AND [...] Normal 80 and above >32 mL/min Normal CL 99.9 mmol/L 98.0-107.0 [facility] ([facility] NORMAL RANGES Age WBC RBC HGB HCT [...] HCT IS 5% LESS SOURCE FOR DATA: [employer] 1800 OPERATION MANUAL( AUTOMATED BLOOD COUNTS AND [...] Normal 80 and above >32 mL/min Normal Co2 24.6 mmol/L 22.0-29.0 [facility] ([facility] NORMAL RANGES Age WBC RBC HGB HCT [...] HCT IS 5% LESS SOURCE FOR DATA: [employer] 1800 OPERATION MANUAL( AUTOMATED BLOOD COUNTS AND [...] Normal 80 and above >32 mL/min Normal TP 6.7 g/dL 6.6-8.7 [facility] ([facility] NORMAL RANGES Age WBC RBC HGB HCT [...] HCT IS 5% LESS SOURCE FOR DATA: [employer] 1800 OPERATION MANUAL( AUTOMATED BLOOD COUNTS AND [...] Normal 80 and above >32 mL/min Normal CA 9.5 mg/dL 8.6-10.2 [facility] NORMAL RANGES Age WBC RBC HGB HCT [...] HCT IS 5% LESS SOURCE FOR DATA: [employer] 1800 OPERATION MANUAL( AUTOMATED BLOOD COUNTS AND [...] Normal 80 and above >32 mL/min Normal A/G Ratio 2.1 Calc [facility] NORMAL RANGES Age WBC RBC HGB HCT [...] HCT IS 5% LESS SOURCE FOR DATA: [employer] 1800 OPERATION MANUAL( AUTOMATED BLOOD COUNTS AND [...] Normal 80 and above >32 mL/min Normal Globulin 2.2 Calc [facility] ([facility] NORMAL RANGES Age WBC RBC HGB HCT MCV PLT Adult M 4.1-10.9 4.20-6.30 12.0-18.0 37.0-51.0 80- 140-440 Adult F 4.1-10.9 4.04-5.48 12.0-18.0 37.0-51.0 - 140-440 0 -1 Yr 5.0-20.0 3.9-5.9 15-18 [...] Normal 80 and above >32 mL/min Normal Alb 4.5 g/dL 3.4-4.8 [facility] NORMAL RANGES Age WBC RBC HGB HCT [...] HCT IS 5% LESS SOURCE FOR DATA: [employer] 1800 OPERATION MANUAL( AUTOMATED BLOOD COUNTS AND [...] Normal 80 and above >32 mL/min Normal Alt (SGPT) 14 U/L 0-41 [facility] ([facility] NORMAL RANGES Age WBC RBC HGB HCT [...] HCT IS 5% LESS SOURCE FOR DATA: [employer] 1800 OPERATION MANUAL( AUTOMATED BLOOD COUNTS AND [...] Normal 80 and above >32 mL/min Normal Alp 70.3 U/L 35-129 EV[facility] NORMAL RANGES Age WBC RBC HGB HCT [...] HCT IS 5% LESS SOURCE FOR DATA: [employer] 1800 OPERATION MANUAL( AUTOMATED BLOOD COUNTS AND [...] Normal 80 and above >32 mL/min Normal Ast (Sgot) 18 U/L 0-40 [facility] ([facility] NORMAL RANGES Age WBC RBC HGB HCT [...] HCT IS 5% LESS SOURCE FOR DATA: [employer] 1800 OPERATION MANUAL( AUTOMATED BLOOD COUNTS AND [...] Normal 80 and above >32 mL/min Normal Tbili 0.75 mg/dL 0.0-1.2 [facility] ([facility] NORMAL RANGES Age WBC RBC HGB HCT [...] HCT IS 5% LESS SOURCE FOR DATA: [employer] 1800 OPERATION MANUAL( AUTOMATED BLOOD COUNTS AND [...] Normal 80 and above >32 mL/min Normal Osmolality-Calculated 276.9 Calc MED [facility] ([facility] NORMAL RANGES Age WBC RBC HGB HCT [...] HCT IS 5% LESS SOURCE FOR DATA: [employer] 1800 OPERATION MANUAL( AUTOMATED BLOOD COUNTS AND [...] Normal 80 and above >32 mL/min Normal Anion Gap 17 mmol/L [facility] ([facility] NORMAL RANGES Age WBC RBC HGB HCT [...] HCT IS 5% LESS SOURCE FOR DATA: [employer] 1800 OPERATION MANUAL( AUTOMATED BLOOD COUNTS AND [...] Normal 80 and above >32 mL/min Normal eGFR Non-Afr. Tongan 44 # MEDENT ([facility] NORMAL RANGES Age WBC RBC HGB HCT [...] HCT IS 5% LESS SOURCE FOR DATA: [employer] 1800 OPERATION MANUAL( AUTOMATED BLOOD COUNTS AND [...] Normal 80 and above >32 mL/min Normal eGFR 52 # [facility] ( [facility] NORMAL RANGES Age WBC RBC HGB HCT [...] HCT IS 5% LESS SOURCE FOR DATA: [employer] 1800 OPERATION MANUAL( AUTOMATED BLOOD COUNTS AND [...] Normal 80 and above >32 mL/min Normal ID Date Data Source [id number] 05/17/2020 01:10:00 PM EST [facility] ([facility] Name Value Range Interpretation Code Description Data Susan rce(s) Supporting Document(s) WBC 10.6 10E3/uL 4.1-10.9 [facility] ([facility] NORMAL RANGES Age WBC RBC HGB HCT [...] HCT IS 5% LESS SOURCE FOR DATA: [employer] 1800 OPERATION MANUAL( AUTOMATED BLOOD COUNTS AND [...] Normal 80 and above >32 mL/min Normal RBC 4.44 10E6/uL 4.20-6.30 [facility] NORMAL RANGES Age WBC RBC HGB HCT [...] HCT IS 5% LESS SOURCE FOR DATA: [employer] 1800 OPERATION MANUAL( AUTOMATED BLOOD COUNTS AND [...] Normal 80 and above >32 mL/min Normal HCT 42.9 % 37.0-51.0 [facility] ([facility] NORMAL RANGES Age WBC RBC HGB HCT [...] HCT IS 5% LESS SOURCE FOR DATA: [employer] 1800 OPERATION MANUAL( AUTOMATED BLOOD COUNTS AND [...] Normal 80 and above >32 mL/min Normal HGB 14.4 g/dL 12.0-18.0 [facility] ([facility] NORMAL RANGES Age WBC RBC HGB HCT [...] HCT IS 5% LESS SOURCE FOR DATA: [employer] 1800 OPERATION MANUAL( AUTOMATED BLOOD COUNTS AND [...] Normal 80 and above >32 mL/min Normal MCH 32.4 pg 26.0-32.0 Above high normal [facility] ([facility] NORMAL RANGES Age WBC RBC HGB HCT [...] HCT IS 5% LESS SOURCE FOR DATA: [employer] 1800 OPERATION MANUAL( AUTOMATED BLOOD COUNTS AND [...] Normal 80 and above >32 mL/min Normal MCV 96.6 fL 80.0-97.0 [facility] ([facility] NORMAL RANGES Age WBC RBC HGB HCT [...] HCT IS 5% LESS SOURCE FOR DATA: [employer] 1800 OPERATION MANUAL( AUTOMATED BLOOD COUNTS AND [...] Normal 80 and above >32 mL/min Normal PLT 279 10E3/uL 140-440 [facility] ([facility] NORMAL RANGES Age WBC RBC HGB HCT [...] HCT IS 5% LESS SOURCE FOR DATA: [employer] 1800 OPERATION MANUAL( AUTOMATED BLOOD COUNTS AND [...] Normal 80 and above >32 mL/min Normal MCHC 33.6 g/dL 31.0-36.0 [facility] ([facility] NORMAL RANGES Age WBC RBC HGB HCT [...] HCT IS 5% LESS SOURCE FOR DATA: [employer] 1800 OPERATION MANUAL( AUTOMATED BLOOD COUNTS AND [...] Normal 80 and above >32 mL/min Normal RDW-CV 13.9 % 11.5-14.5 [facility] ([facility] NORMAL RANGES Age WBC RBC HGB HCT [...] Normal 80 and above >32 mL/min Normal Lym% 22.8 % 10.0-58.5 [facility] ([facility] NORMAL RANGES Age WBC RBC HGB HCT [...] HCT IS 5% LESS SOURCE FOR DATA: [employer] 1800 OPERATION MANUAL( AUTOMATED BLOOD COUNTS AND [...] Normal 80 and above >32 mL/min Normal Neut% 69.7 % 37.0-92.0 [facility] ([facility] NORMAL RANGES Age WBC RBC HGB HCT [...] HCT IS 5% LESS SOURCE FOR DATA: [employer] 1800 OPERATION MANUAL( AUTOMATED BLOOD COUNTS AND [...] Normal 80 and above >32 mL/min Normal MXD% 7.5 % 0.1-24.0 [facility] ([facility] NORMAL RANGES Age WBC RBC HGB HCT [...] HCT IS 5% LESS SOURCE FOR DATA: [employer] 1800 OPERATION MANUAL( AUTOMATED BLOOD COUNTS AND [...] Normal 80 and above >32 mL/min Normal Lym# 2.4 10E3/uL 0.6-4.1 [facility] ([facility] NORMAL RANGES Age WBC RBC HGB HCT [...] HCT IS 5% LESS SOURCE FOR DATA: [employer] 1800 OPERATION MANUAL( AUTOMATED BLOOD COUNTS AND [...] Normal 80 and above >32 mL/min Normal Neut# 7.4 % 2.0-7.8 [facility] ([facility] NORMAL RANGES Age WBC RBC HGB HCT [...] HCT IS 5% LESS SOURCE FOR DATA: [employer] 1800 OPERATION MANUAL( AUTOMATED BLOOD COUNTS AND [...] Normal 80 and above >32 mL/min Normal MXD# 0.8 10E3/uL 0.0-1.8 [facility] ([facility] NORMAL RANGES Age WBC RBC HGB HCT [...] HCT IS 5% LESS SOURCE FOR DATA: [employer] 1800 OPERATION MANUAL( AUTOMATED BLOOD COUNTS AND [...] Normal 80 and above >32 mL/min Normal MPV 10.4 fL 9.0-13.0 [facility] NORMAL RANGES Age WBC RBC HGB HCT [...] HCT IS 5% LESS SOURCE FOR DATA: [employer] 1800 OPERATION MANUAL( AUTOMATED BLOOD COUNTS AND [...] Normal 80 and above >32 mL/min Normal ID Date Data Source [id number] 05/17/2020 12:00:00 AM [facility] Patient Name: [facility] Date of : [address] [address] [facility]: [id number] Fax: [phone] EXAM: CHEST (2 VIEW) X-RAYCLINICAL INFORMATION: Cough and shortness of breath.No comparison.Two views of the chest are performed. No infiltrate is seen in either lung.However I suspect a 1 cm nodular opacity in the right lung at the level ofthe hilum. Also the right hilar shadow is prominent possibly indicatingright hilar adenopathy. The heart is not significantly enlarged. Themediastinal silhouette is otherwise unremarkable. There are mild tomoderate degenerative changes of the spine without compression deformity.IMPRESSION:No evidence of acute infiltrate. Possible 1 cm nodule right midlung.Possible right hilar adenopathy. Recommend further evaluation with CT chestwith IV contrast.CHONG Ponce/Salima you for referring KILO FUENTES to our office. Electronically Signed - SERGIO GRAVES MD 05/18/20 18:04 Name Value Range Interpretation Code Description Data Susan rce(s) Supporting Document(s) ID Date Data Source [id number] 05/02/2020 01:55:00 PM EST [facility] ([facility] Name Value Range Interpretation Code Description Data Susan rce(s) Supporting Document(s) Color Laboratory test result [facility] ([facility] Glucose-Ua Laboratory test result ME DENT ([facility] Clarity Laboratory test result [facility] ([facility] Ketone Laboratory test result [facility] ([facility] Bilirubin,Urine Laboratory test result [facility] ([facility] Blood - Ua Laboratory test result Abnormal (applies to non -numeric results) [facility] ([facility] Creatine kinase [Enzymatic activity/volume] in Serum or Plas ma 1.025 # 1.000-1.030 [facility] ([facility] pH 5.5 # 5.0-8.0 [facility] ([facility] Urobilinogen 0.2 NA 0.2-1.0 [facility] ([facility] Protein 30 mg/dL Abnormal (applies to non-numeric res ults) [facility] ([facility] Nitrite Laboratory test result [facility] ([facility] Leukocyte Laboratory test result Abnormal (applies to non -numeric results) [facility] ([facility] Comment Laboratory test result Above high normal [facility] ([facility] ID Date Data Source [id number] 05/02/2020 01:51:00 PM EST [facility] ([facility] Name Value Range Interpretation Code Description Data Susan rce(s) Supporting Document(s) Trig 239 mg/dL 40-200 Above high normal [facility] ([facility] NORMAL RANGES Age WBC RBC HGB HCT [...] HCT IS 5% LESS SOURCE FOR DATA: [employer] 1800 OPERATION MANUAL( AUTOMATED BLOOD COUNTS AND [...] ADOLESCENTS REPRESENTS INDIVIDUALA AGED 2-19 YEARS EXCLUSIVE. Chol 190 mg/dL 0-200 [facility] ([facility] NORMAL RANGES Age WBC RBC HGB HCT [...] HCT IS 5% LESS SOURCE FOR DATA: [employer] 1800 OPERATION MANUAL( AUTOMATED BLOOD COUNTS AND [...] ADOLESCENTS REPRESENTS INDIVIDUALA AGED 2-19 YEARS EXCLUSIVE. Cho/HDL Ratio 2.8 Calc [facility] ([facility] NORMAL RANGES Age WBC RBC HGB HCT [...] HCT IS 5% LESS SOURCE FOR DATA: [employer] 1800 OPERATION MANUAL( AUTOMATED BLOOD COUNTS AND [...] ADOLESCENTS REPRESENTS INDIVIDUALA AGED 2-19 YEARS EXCLUSIVE. LDL_C 75 Calc 75-129 [facility] ([facility] NORMAL RANGES Age WBC RBC HGB HCT [...] HCT IS 5% LESS SOURCE FOR DATA: [employer] 1800 OPERATION MANUAL( AUTOMATED BLOOD COUNTS AND [...] ADOLESCENTS REPRESENTS INDIVIDUALA AGED 2-19 YEARS EXCLUSIVE. Cholesterol in HDL [Mass/volume] in Serum or Plasma 67 mg/dL 45-65 Above high normal [facility] ([facility] NORMAL RANGES Age WBC RBC HGB HCT [...] HCT IS 5% LESS SOURCE FOR DATA: [employer] 1800 OPERATION MANUAL( AUTOMATED BLOOD COUNTS [...] DESIRABLE: <130 MG/DL <110 MG/DL BORDERLINE-HIGH RISK: 130- 159 MG/DL 110-129 MG/DL HIGH RISK: >160 MG/DL >130 MG/DL *CHILDREN AND ADOLESCENTS REPRESENTS INDIVIDUALA AGED 2-19 YEARS EXCLUSIVE. ID Date Data Source [id number] 05/02/2020 01:51:00 PM EST [facility] ([facility] Name Value Range Interpretation Code Description Data Susan rce(s) Supporting Document(s) Glu 86 mg/dL 70-110 [facility] ([facility] NORMAL RANGES Age WBC RBC HGB HCT [...] HCT IS 5% LESS SOURCE FOR DATA: [employer] 1800 OPERATION MANUAL( AUTOMATED BLOOD COUNTS AND [...] DESIRABLE: <130 MG/DL <110 MG/DL BORDERLINE-HIGH RISK: 130- 159 MG/DL 110-129 MG/DL HIGH RISK: >160 MG/DL >130 MG/DL *CHILDREN AND ADOLESCENTS REPRESENTS INDIVIDUALA AGED 2-19 YEARS EXCLUSIVE. BUN 25 mg/dL 8-23 Above high normal [facility] ([facility] NORMAL RANGES Age WBC RBC HGB HCT [...] HCT IS 5% LESS SOURCE FOR DATA: [employer] 1800 OPERATION MANUAL( AUTOMATED BLOOD COUNTS AND [...] DESIRABLE: <130 MG/DL <110 MG/DL BORDERLINE-HIGH RISK: 130- 159 MG/DL 110-129 MG/DL HIGH RISK: >160 MG/DL >130 MG/DL *CHILDREN AND ADOLESCENTS REPRESENTS INDIVIDUALA AGED 2-19 YEARS EXCLUSIVE. BUN/Creatinine Ratio 20.7 CALC [facility] ([facility] NORMAL RANGES Age WBC RBC HGB HCT [...] HCT IS 5% LESS SOURCE FOR DATA: [employer] 1800 OPERATION MANUAL( AUTOMATED BLOOD COUNTS AND [...] DESIRABLE: <130 MG/DL <110 MG/DL BORDERLINE-HIGH RISK: 130- 159 MG/DL 110-129 MG/DL HIGH RISK: >160 MG/DL >130 MG/DL *CHILDREN AND ADOLESCENTS REPRESENTS INDIVIDUALA AGED 2-19 YEARS EXCLUSIVE. Creat 1.2 mg/dL 0.5-1.0 Above high normal [facility] ([facility] NORMAL RANGES Age WBC RBC HGB HCT [...] HCT IS 5% LESS SOURCE FOR DATA: [employer] 1800 OPERATION MANUAL( AUTOMATED BLOOD COUNTS AND [...] DESIRABLE: <130 MG/DL <110 MG/DL BORDERLINE-HIGH RISK: 130- 159 MG/DL 110-129 MG/DL HIGH RISK: >160 MG/DL >130 MG/DL *CHILDREN AND ADOLESCENTS REPRESENTS INDIVIDUALA AGED 2-19 YEARS EXCLUSIVE. Na 144 mmol/L 136-145 [facility] ([facility] NORMAL RANGES Age WBC RBC HGB HCT [...] HCT IS 5% LESS SOURCE FOR DATA: [employer] 1800 OPERATION MANUAL( AUTOMATED BLOOD COUNTS AND [...] DESIRABLE: <130 MG/DL <110 MG/DL BORDERLINE-HIGH RISK: 130- 159 MG/DL 110-129 MG/DL HIGH RISK: >160 MG/DL >130 MG/DL *CHILDREN AND ADOLESCENTS REPRESENTS INDIVIDUALA AGED 2-19 YEARS EXCLUSIVE. K 4.3 mmol/L 3.5-5.1 [facility] ([facility] NORMAL RANGES Age WBC RBC HGB HCT [...] HCT IS 5% LESS SOURCE FOR DATA: [employer] 1800 OPERATION MANUAL( AUTOMATED BLOOD COUNTS AND [...] DESIRABLE: <130 MG/DL <110 MG/DL BORDERLINE-HIGH RISK: 130- 159 MG/DL 110-129 MG/DL HIGH RISK: >160 MG/DL >130 MG/DL *CHILDREN AND ADOLESCENTS REPRESENTS INDIVIDUALA AGED 2-19 YEARS EXCLUSIVE. CA 9.4 mg/dL 8.6-10.2 [facility] ([facility] NORMAL RANGES Age WBC RBC HGB HCT [...] HCT IS 5% LESS SOURCE FOR DATA: [employer] 1800 OPERATION MANUAL( AUTOMATED BLOOD COUNTS AND [...] DESIRABLE: <130 MG/DL <110 MG/DL BORDERLINE-HIGH RISK: 130- 159 MG/DL 110-129 MG/DL HIGH RISK: >160 MG/DL >130 MG/DL *CHILDREN AND ADOLESCENTS REPRESENTS INDIVIDUALA AGED 2-19 YEARS EXCLUSIVE. Co2 28.5 mmol/L 22.0-29.0 [facility] NORMAL RANGES Age WBC RBC HGB HCT [...] HCT IS 5% LESS SOURCE FOR DATA: [employer] 1800 OPERATION MANUAL( AUTOMATED BLOOD COUNTS AND [...] DESIRABLE: <130 MG/DL <110 MG/DL BORDERLINE-HIGH RISK: 130- 159 MG/DL 110-129 MG/DL HIGH RISK: >160 MG/DL >130 MG/DL *CHILDREN AND ADOLESCENTS REPRESENTS INDIVIDUALA AGED 2-19 YEARS EXCLUSIVE. CL 104.5 mmol/L 98.0-107.0 [facility] ([facility] NORMAL RANGES Age WBC RBC HGB HCT [...] HCT IS 5% LESS SOURCE FOR DATA: [employer] 1800 OPERATION MANUAL( AUTOMATED BLOOD COUNTS AND [...] DESIRABLE: <130 MG/DL <110 MG/DL BORDERLINE-HIGH RISK: 130- 159 MG/DL 110-129 MG/DL HIGH RISK: >160 MG/DL >130 MG/DL *CHILDREN AND ADOLESCENTS REPRESENTS INDIVIDUALA AGED 2-19 YEARS EXCLUSIVE. TP 6.6 g/dL 6.6-8.7 [facility] ([facility] NORMAL RANGES Age WBC RBC HGB HCT [...] HCT IS 5% LESS SOURCE FOR DATA: [employer] 1800 OPERATION MANUAL( AUTOMATED BLOOD COUNTS AND [...] DESIRABLE: <130 MG/DL <110 MG/DL BORDERLINE-HIGH RISK: 130- 159 MG/DL 110-129 MG/DL HIGH RISK: >160 MG/DL >130 MG/DL *CHILDREN AND ADOLESCENTS REPRESENTS INDIVIDUALA AGED 2-19 YEARS EXCLUSIVE. Alb 4.4 g/dL 3.4-4.8 [facility] ([facility] NORMAL RANGES Age WBC RBC HGB HCT [...] HCT IS 5% LESS SOURCE FOR DATA: [employer] 1800 OPERATION MANUAL( AUTOMATED BLOOD COUNTS AND [...] DESIRABLE: <130 MG/DL <110 MG/DL BORDERLINE-HIGH RISK: 130- 159 MG/DL 110-129 MG/DL HIGH RISK: >160 MG/DL >130 MG/DL *CHILDREN AND ADOLESCENTS REPRESENTS INDIVIDUALA AGED 2-19 YEARS EXCLUSIVE. A/G Ratio 2.0 CALC [facility] ([facility] NORMAL RANGES Age WBC RBC HGB HCT [...] HCT IS 5% LESS SOURCE FOR DATA: [employer] 1800 OPERATION MANUAL( AUTOMATED BLOOD COUNTS AND [...] DESIRABLE: <130 MG/DL <110 MG/DL BORDERLINE-HIGH RISK: 130- 159 MG/DL 110-129 MG/DL HIGH RISK: >160 MG/DL >130 MG/DL *CHILDREN AND ADOLESCENTS REPRESENTS INDIVIDUALA AGED 2-19 YEARS EXCLUSIVE. Alt (SGPT) 13 U/L 0-41 [facility] ([facility] NORMAL RANGES Age WBC RBC HGB HCT [...] HCT IS 5% LESS SOURCE FOR DATA: [employer] 1800 OPERATION MANUAL( AUTOMATED BLOOD COUNTS AND [...] DESIRABLE: <130 MG/DL <110 MG/DL BORDERLINE-HIGH RISK: 130- 159 MG/DL 110-129 MG/DL HIGH RISK: >160 MG/DL >130 MG/DL *CHILDREN AND ADOLESCENTS REPRESENTS INDIVIDUALA AGED 2-19 YEARS EXCLUSIVE. Globulin 2.2 CALC [facility] ([facility] NORMAL RANGES Age WBC RBC HGB HCT [...] DESIRABLE: <130 MG/DL <110 MG/DL BORDERLINE-HIGH RISK: 130- 159 MG/DL 110-129 MG/DL HIGH RISK: >160 MG/DL >130 MG/DL *CHILDREN AND ADOLESCENTS REPRESENTS INDIVIDUALA AGED 2-19 YEARS EXCLUSIVE. Alp 66.1 U/L 35-129 [facility] ([facility] NORMAL RANGES Age WBC RBC HGB HCT [...] HCT IS 5% LESS SOURCE FOR DATA: [employer] 1800 OPERATION MANUAL( AUTOMATED BLOOD COUNTS AND [...] DESIRABLE: <130 MG/DL <110 MG/DL BORDERLINE-HIGH RISK: 130- 159 MG/DL 110-129 MG/DL HIGH RISK: >160 MG/DL >130 MG/DL *CHILDREN AND ADOLESCENTS REPRESENTS INDIVIDUALA AGED 2-19 YEARS EXCLUSIVE. Ast (Sgot) 17 U/L 0-40 [facility] NORMAL RANGES Age WBC RBC HGB HCT [...] HCT IS 5% LESS SOURCE FOR DATA: [employer] 1800 OPERATION MANUAL( AUTOMATED BLOOD COUNTS AND [...] DESIRABLE: <130 MG/DL <110 MG/DL BORDERLINE-HIGH RISK: 130- 159 MG/DL 110-129 MG/DL HIGH RISK: >160 MG/DL >130 MG/DL *CHILDREN AND ADOLESCENTS REPRESENTS INDIVIDUALA AGED 2-19 YEARS EXCLUSIVE. Tbili 0.36 mg/dL 0.0-1.2 [facility] ([facility] NORMAL RANGES Age WBC RBC HGB HCT [...] HCT IS 5% LESS SOURCE FOR DATA: [employer] DYN 1800 OPERATION MANUAL( AUTOMATED BLOOD COUNTS [...] DESIRABLE: <130 MG/DL <110 MG/DL BORDERLINE-HIGH RISK: 130- 159 MG/DL 110-129 MG/DL HIGH RISK: >160 MG/DL >130 MG/DL *CHILDREN AND ADOLESCENTS REPRESENTS INDIVIDUALA AGED 2-19 YEARS EXCLUSIVE. eGFR 46 # [facility] ( [facility] NORMAL RANGES Age WBC RBC HGB HCT [...] HCT IS 5% LESS SOURCE FOR DATA: [employer] 1800 OPERATION MANUAL( AUTOMATED BLOOD COUNTS AND [...] DESIRABLE: <130 MG/DL <110 MG/DL BORDERLINE-HIGH RISK: 130- 159 MG/DL 110-129 MG/DL HIGH RISK: >160 MG/DL >130 MG/DL *CHILDREN AND ADOLESCENTS REPRESENTS INDIVIDUALA AGED 2-19 YEARS EXCLUSIVE. Osmolality-Calculated 290.7 CALC MED [facility] ([facility] NORMAL RANGES Age WBC RBC HGB HCT [...] HCT IS 5% LESS SOURCE FOR DATA: [employer] 1800 OPERATION MANUAL( AUTOMATED BLOOD COUNTS AND [...] DESIRABLE: <130 MG/DL <110 MG/DL BORDERLINE-HIGH RISK: 130- 159 MG/DL 110-129 MG/DL HIGH RISK: >160 MG/DL >130 MG/DL *CHILDREN AND ADOLESCENTS REPRESENTS INDIVIDUALA AGED 2-19 YEARS EXCLUSIVE. Anion Gap 15 mmol/L [facility] ([facility] NORMAL RANGES Age WBC RBC HGB HCT [...] HCT IS 5% LESS SOURCE FOR DATA: [employer] 1800 OPERATION MANUAL( AUTOMATED BLOOD COUNTS AND [...] DESIRABLE: <130 MG/DL <110 MG/DL BORDERLINE-HIGH RISK: 130- 159 MG/DL 110-129 MG/DL HIGH RISK: >160 MG/DL >130 MG/DL *CHILDREN AND ADOLESCENTS REPRESENTS INDIVIDUALA AGED 2-19 YEARS EXCLUSIVE. eGFR Non-Afr. Tongan 40 # [facility] ([facility] NORMAL RANGES Age WBC RBC HGB HCT [...] HCT IS 5% LESS SOURCE FOR DATA: [employer] 1800 OPERATION MANUAL( AUTOMATED BLOOD COUNTS AND [...] DESIRABLE: <130 MG/DL <110 MG/DL BORDERLINE-HIGH RISK: 130- 159 MG/DL 110-129 MG/DL HIGH RISK: >160 MG/DL >130 MG/DL *CHILDREN AND ADOLESCENTS REPRESENTS INDIVIDUALA AGED 2-19 YEARS EXCLUSIVE. ID Date Data Source [id number] 05/02/2020 01:51:00 PM EST [facility] ([facility] Name Value Range Interpretation Code Description Data Susan rce(s) Supporting Document(s) Creatine kinase [Enzymatic activity/volume] in Serum or Plasma 60 U /L 26-192 [facility] NORMAL RANGES Age WBC RBC HGB HCT [...] HCT IS 5% LESS SOURCE FOR DATA: [employer] 1800 OPERATION MANUAL( AUTOMATED BLOOD COUNTS AND [...] ADOLESCENTS REPRESENTS INDIVIDUALA AGED 2-19 YEARS EXCLUSIVE. ID Date Data Source [id number] 05/02/2020 01:51:00 PM EST EVELIN ([facility] Name Value Range Interpretation Code Description Data Susan rce(s) Supporting Document(s) WBC 17.2 10E3/uL 4.1-10.9 Above high normal MEDEN T ([facility] NORMAL RANGES Age WBC RBC HGB HCT [...] HCT IS 5% LESS SOURCE FOR DATA: [employer] 1800 OPERATION MANUAL( AUTOMATED BLOOD COUNTS AND [...] ADOLESCENTS REPRESENTS INDIVIDUALA AGED 2-19 YEARS EXCLUSIVE. RBC 4.23 10E6/uL 4.20-6.30 [facility] ([facility] NORMAL RANGES Age WBC RBC HGB HCT [...] HCT IS 5% LESS SOURCE FOR DATA: [employer] 1800 OPERATION MANUAL( AUTOMATED BLOOD COUNTS AND [...] ADOLESCENTS REPRESENTS INDIVIDUALA AGED 2-19 YEARS EXCLUSIVE. HCT 40.3 % 37.0-51.0 [facility] ([facility] NORMAL RANGES Age WBC RBC HGB HCT [...] HCT IS 5% LESS SOURCE FOR DATA: [employer] DYN 1800 OPERATION MANUAL( AUTOMATED BLOOD COUNTS [...] ADOLESCENTS REPRESENTS INDIVIDUALA AGED 2-19 YEARS EXCLUSIVE. HGB 13.6 g/dL 12.0-18.0 [facility] ([facility] NORMAL RANGES Age WBC RBC HGB HCT [...] HCT IS 5% LESS SOURCE FOR DATA: [employer] 1800 OPERATION MANUAL( AUTOMATED BLOOD COUNTS AND [...] ADOLESCENTS REPRESENTS INDIVIDUALA AGED 2-19 YEARS EXCLUSIVE. MCH 32.2 pg 26.0-32.0 Above high normal [facility] ([facility] NORMAL RANGES Age WBC RBC HGB HCT [...] HCT IS 5% LESS SOURCE FOR DATA: [employer] 1800 OPERATION MANUAL( AUTOMATED BLOOD COUNTS AND [...] ADOLESCENTS REPRESENTS INDIVIDUALA AGED 2-19 YEARS EXCLUSIVE. MCV 95.3 fL 80.0-97.0 [facility] ([facility] NORMAL RANGES Age WBC RBC HGB HCT [...] HCT IS 5% LESS SOURCE FOR DATA: [employer] DYN 1800 OPERATION MANUAL( AUTOMATED BLOOD COUNTS [...] ADOLESCENTS REPRESENTS INDIVIDUALA AGED 2-19 YEARS EXCLUSIVE. MCHC 33.7 g/dL 31.0-36.0 [facility] ([facility] NORMAL RANGES Age WBC RBC HGB HCT [...] HCT IS 5% LESS SOURCE FOR DATA: [employer] 1800 OPERATION MANUAL( AUTOMATED BLOOD COUNTS AND [...] ADOLESCENTS REPRESENTS INDIVIDUALA AGED 2-19 YEARS EXCLUSIVE. RDW-CV 13.6 % 11.5-14.5 [facility] NORMAL RANGES Age WBC RBC HGB HCT [...] HCT IS 5% LESS SOURCE FOR DATA: [employer] 1800 OPERATION MANUAL( AUTOMATED BLOOD COUNTS AND [...] ADOLESCENTS REPRESENTS INDIVIDUALA AGED 2-19 YEARS EXCLUSIVE. PLT 326 10E3/uL 140-440 [facility] ([facility] [facility] NORMAL RANGES Age WBC RBC HGB HCT [...] HCT IS 5% LESS SOURCE FOR DATA: [employer] 1800 OPERATION MANUAL( AUTOMATED BLOOD COUNTS AND [...] ADOLESCENTS REPRESENTS INDIVIDUALA AGED 2-19 YEARS EXCLUSIVE. Lym% 20.5 % 10.0-58.5 [facility] ([facility] NORMAL RANGES Age WBC RBC HGB HCT [...] HCT IS 5% LESS SOURCE FOR DATA: [employer]YN 1800 OPERATION MANUAL( AUTOMATED BLOOD COUNTS [...] ADOLESCENTS REPRESENTS INDIVIDUALA AGED 2-19 YEARS EXCLUSIVE. Neut% 68.5 % 37.0-92.0 [facility] ([facility] NORMAL RANGES Age WBC RBC HGB HCT [...] HCT IS 5% LESS SOURCE FOR DATA: [employer] 1800 OPERATION MANUAL( AUTOMATED BLOOD COUNTS AND [...] ADOLESCENTS REPRESENTS INDIVIDUALA AGED 2-19 YEARS EXCLUSIVE. MXD% 11.0 % 0.1-24.0 [facility] ([facility] NORMAL RANGES Age WBC RBC HGB HCT [...] HCT IS 5% LESS SOURCE FOR DATA: [employer] 1800 OPERATION MANUAL( AUTOMATED BLOOD COUNTS AND [...] ADOLESCENTS REPRESENTS INDIVIDUALA AGED 2-19 YEARS EXCLUSIVE. Lym# 3.5 10E3/uL 0.6-4.1 [facility] ([facility] NORMAL RANGES Age WBC RBC HGB HCT [...] HCT IS 5% LESS SOURCE FOR DATA: [employer] 1800 OPERATION MANUAL( AUTOMATED BLOOD COUNTS AND [...] ADOLESCENTS REPRESENTS INDIVIDUALA AGED 2-19 YEARS EXCLUSIVE. Neut# 11.8 % 2.0-7.8 Above high normal [facility] ([facility] NORMAL RANGES Age WBC RBC HGB HCT [...] HCT IS 5% LESS SOURCE FOR DATA: [employer] 1800 OPERATION MANUAL( AUTOMATED BLOOD COUNTS AND [...] ADOLESCENTS REPRESENTS INDIVIDUALA AGED 2-19 YEARS EXCLUSIVE. MXD# 1.9 10E3/uL 0.0-1.8 Above high normal [facility] ([facility] NORMAL RANGES Age WBC RBC HGB HCT [...] HCT IS 5% LESS SOURCE FOR DATA: [employer] 1800 OPERATION MANUAL( AUTOMATED BLOOD COUNTS AND [...] ADOLESCENTS REPRESENTS INDIVIDUALA AGED 2-19 YEARS EXCLUSIVE. MPV 10.1 fL 9.0-13.0 [facility] ([facility] NORMAL RANGES Age WBC RBC HGB HCT [...] HCT IS 5% LESS SOURCE FOR DATA: [employer] 1800 OPERATION MANUAL( AUTOMATED BLOOD COUNTS AND [...] ADOLESCENTS REPRESENTS INDIVIDUALA AGED 2-19 YEARS EXCLUSIVE. ID Date Data Source [id number] 05/02/2020 01:50:00 PM EST [facility] ([facility] Name Value Range Interpretation Code Description Data Susan rce(s) Supporting Document(s) Thyrotropin [Units/volume] in Serum or Plasma 1.144 ulU/mL 0.60-4.8 [facility] ([facility] ID Date Data Source [id number] 04/29/2020 12:00:00 AM EST [facility] Name Value Range Interpretation Code Description Data Susan rce(s) Supporting Document(s) SARS coronavirus 2 RNA [Presence] in Res piratory specimen by ROGE with probe detection NEGATIVE [facility] This lab was ordered by [facility] [place] and reported by [facility]. ID Date Data Source [id number] 04/29/2020 12:00:00 AM EST [facility] Name Value Range Interpretation Code Description Data Susan rce(s) Supporting Document(s) Carestart Rapid COVID Antigen Test Negative [facility] This lab was [facility] ID Date Data Source [id number] 01/04/2020 01:56:00 PM EDT [facility] ([facility] Name Value Range Interpretation Code Description Data Susan rce(s) Supporting Document(s) Creatine kinase [Enzymatic activity/volume] in Serum or Plasma 93 U /L 26-192 [facility] ([facility] NORMAL RANGES Age WBC RBC HGB HCT [...] HCT IS 5% LESS SOURCE FOR DATA: [employer] 1800 OPERATION MANUAL( AUTOMATED BLOOD COUNTS AND [...] ADOLESCENTS REPRESENTS INDIVIDUALA AGED 2-19 YEARS EXCLUSIVE. ID Date Data Source [id number] 01/04/2020 01:56:00 PM EDT [facility] ([facility] Name Value Range Interpretation Code Description Data Susan rce(s) Supporting Document(s) Trig 169 mg/dL 40-200 [facility] ([facility] NORMAL RANGES Age WBC RBC HGB HCT [...] HCT IS 5% LESS SOURCE FOR DATA: [employer] DYN 1800 OPERATION MANUAL( AUTOMATED BLOOD COUNTS [...] ADOLESCENTS REPRESENTS INDIVIDUALA AGED 2-19 YEARS EXCLUSIVE. Chol 184 mg/dL 0-200 [facility] ([facility] NORMAL RANGES Age WBC RBC HGB HCT [...] HCT IS 5% LESS SOURCE FOR DATA: [employer] 1800 OPERATION MANUAL( AUTOMATED BLOOD COUNTS AND [...] ADOLESCENTS REPRESENTS INDIVIDUALA AGED 2-19 YEARS EXCLUSIVE. LDL_C 88 Calc 75-129 [facility] ([facility] NORMAL RANGES Age WBC RBC HGB HCT [...] HCT IS 5% LESS SOURCE FOR DATA: [employer] 1800 OPERATION MANUAL( AUTOMATED BLOOD COUNTS AND [...] ADOLESCENTS REPRESENTS INDIVIDUALA AGED 2-19 YEARS EXCLUSIVE. Cholesterol in HDL [Mass/volume] in Serum or Plasma 62 mg/dL 45-65 [facility] ([facility] NORMAL RANGES Age WBC RBC HGB HCT [...] HCT IS 5% LESS SOURCE FOR DATA: [employer] 1800 OPERATION MANUAL( AUTOMATED BLOOD COUNTS AND [...] DESIRABLE: <130 MG/DL <110 MG/DL BORDERLINE-HIGH RISK: 130- 159 MG/DL 110-129 MG/DL HIGH RISK: >160 MG/DL >130 MG/DL *CHILDREN AND ADOLESCENTS REPRESENTS INDIVIDUALA AGED 2-19 YEARS EXCLUSIVE. Cho/HDL Ratio 3.0 CALC [facility] ([facility] NORMAL RANGES Age WBC RBC HGB HCT [...] HCT IS 5% LESS SOURCE FOR DATA: [employer] 1800 OPERATION MANUAL( AUTOMATED BLOOD COUNTS AND [...] DESIRABLE: <130 MG/DL <110 MG/DL BORDERLINE-HIGH RISK: 130- 159 MG/DL 110-129 MG/DL HIGH RISK: >160 MG/DL >130 MG/DL *CHILDREN AND ADOLESCENTS REPRESENTS INDIVIDUALA AGED 2-19 YEARS EXCLUSIVE. ID Date Data Source [id number] 01/04/2020 01:56:00 PM EDT [facility] ([facility] Name Value Range Interpretation Code Description Data Susan rce(s) Supporting Document(s) Glu 92 mg/dL 70-110 [facility] ([facility] NORMAL RANGES Age WBC RBC HGB HCT [...] HCT IS 5% LESS SOURCE FOR DATA: [employer] 1800 OPERATION MANUAL( AUTOMATED BLOOD COUNTS AND [...] DESIRABLE: <130 MG/DL <110 MG/DL BORDERLINE-HIGH RISK: 130- 159 MG/DL 110-129 MG/DL HIGH RISK: >160 MG/DL >130 MG/DL *CHILDREN AND ADOLESCENTS REPRESENTS INDIVIDUALA AGED 2-19 YEARS EXCLUSIVE. Creat 1.2 mg/dL 0.5-1.0 Above high normal [facility] ([facility] NORMAL RANGES Age WBC RBC HGB HCT [...] HCT IS 5% LESS SOURCE FOR DATA: [employer] 1800 OPERATION MANUAL( AUTOMATED BLOOD COUNTS AND [...] DESIRABLE: <130 MG/DL <110 MG/DL BORDERLINE-HIGH RISK: 130- 159 MG/DL 110-129 MG/DL HIGH RISK: >160 MG/DL >130 MG/DL *CHILDREN AND ADOLESCENTS REPRESENTS INDIVIDUALA AGED 2-19 YEARS EXCLUSIVE. BUN 18 mg/dL 8-23 [facility] ([facility] NORMAL RANGES Age WBC RBC HGB HCT [...] HCT IS 5% LESS SOURCE FOR DATA: [employer] 1800 OPERATION MANUAL( AUTOMATED BLOOD COUNTS AND [...] DESIRABLE: <130 MG/DL <110 MG/DL BORDERLINE-HIGH RISK: 130- 159 MG/DL 110-129 MG/DL HIGH RISK: >160 MG/DL >130 MG/DL *CHILDREN AND ADOLESCENTS REPRESENTS INDIVIDUALA AGED 2-19 YEARS EXCLUSIVE. Na 141 mmol/L 136-145 [facility] ([facility] NORMAL RANGES Age WBC RBC HGB HCT [...] HCT IS 5% LESS SOURCE FOR DATA: [employer] 1800 OPERATION MANUAL( AUTOMATED BLOOD COUNTS AND [...] DESIRABLE: <130 MG/DL <110 MG/DL BORDERLINE-HIGH RISK: 130- 159 MG/DL 110-129 MG/DL HIGH RISK: >160 MG/DL >130 MG/DL *CHILDREN AND ADOLESCENTS REPRESENTS INDIVIDUALA AGED 2-19 YEARS EXCLUSIVE. BUN/Creatinine Ratio 14.7 CALC [facility] ([facility] NORMAL RANGES Age WBC RBC HGB HCT [...] HCT IS 5% LESS SOURCE FOR DATA: [employer] 1800 OPERATION MANUAL( AUTOMATED BLOOD COUNTS AND [...] DESIRABLE: <130 MG/DL <110 MG/DL BORDERLINE-HIGH RISK: 130- 159 MG/DL 110-129 MG/DL HIGH RISK: >160 MG/DL >130 MG/DL *CHILDREN AND ADOLESCENTS REPRESENTS INDIVIDUALA AGED 2-19 YEARS EXCLUSIVE. K 4.8 mmol/L 3.5-5.1 [facility] ([facility] NORMAL RANGES Age WBC RBC HGB HCT [...] HCT IS 5% LESS SOURCE FOR DATA: [employer] 1800 OPERATION MANUAL( AUTOMATED BLOOD COUNTS AND [...] DESIRABLE: <130 MG/DL <110 MG/DL BORDERLINE-HIGH RISK: 130- 159 MG/DL 110-129 MG/DL HIGH RISK: >160 MG/DL >130 MG/DL *CHILDREN AND ADOLESCENTS REPRESENTS INDIVIDUALA AGED 2-19 YEARS EXCLUSIVE. CL 103.3 mmol/L 98.0-107.0 [facility] ([facility] NORMAL RANGES Age WBC RBC HGB HCT [...] HCT IS 5% LESS SOURCE FOR DATA: [employer] 1800 OPERATION MANUAL( AUTOMATED BLOOD COUNTS AND [...] DESIRABLE: <130 MG/DL <110 MG/DL BORDERLINE-HIGH RISK: 130- 159 MG/DL 110-129 MG/DL HIGH RISK: >160 MG/DL >130 MG/DL *CHILDREN AND ADOLESCENTS REPRESENTS INDIVIDUALA AGED 2-19 YEARS EXCLUSIVE. CA 9.6 mg/dL 8.6-10.2 [facility] ([facility] NORMAL RANGES Age WBC RBC HGB HCT [...] HCT IS 5% LESS SOURCE FOR DATA: [employer] 1800 OPERATION MANUAL( AUTOMATED BLOOD COUNTS AND [...] DESIRABLE: <130 MG/DL <110 MG/DL BORDERLINE-HIGH RISK: 130- 159 MG/DL 110-129 MG/DL HIGH RISK: >160 MG/DL >130 MG/DL *CHILDREN AND ADOLESCENTS REPRESENTS INDIVIDUALA AGED 2-19 YEARS EXCLUSIVE. Co2 30.5 mmol/L 22.0-29.0 Above high normal [facility] ([facility] NORMAL RANGES Age WBC RBC HGB HCT [...] HCT IS 5% LESS SOURCE FOR DATA: [employer] 1800 OPERATION MANUAL( AUTOMATED BLOOD COUNTS AND [...] DESIRABLE: <130 MG/DL <110 MG/DL BORDERLINE-HIGH RISK: 130- 159 MG/DL 110-129 MG/DL HIGH RISK: >160 MG/DL >130 MG/DL *CHILDREN AND ADOLESCENTS REPRESENTS INDIVIDUALA AGED 2-19 YEARS EXCLUSIVE. Alb 4.3 g/dL 3.4-4.8 [facility] ([facility] NORMAL RANGES Age WBC RBC HGB HCT [...] DESIRABLE: <130 MG/DL <110 MG/DL BORDERLINE-HIGH RISK: 130- 159 MG/DL 110-129 MG/DL HIGH RISK: >160 MG/DL >130 MG/DL *CHILDREN AND ADOLESCENTS REPRESENTS INDIVIDUALA AGED 2-19 YEARS EXCLUSIVE. TP 6.4 g/dL 6.6-8.7 Below low normal [facility] ( [facility] NORMAL RANGES Age WBC RBC HGB HCT [...] HCT IS 5% LESS SOURCE FOR DATA: [employer] 1800 OPERATION MANUAL( AUTOMATED BLOOD COUNTS AND [...] DESIRABLE: <130 MG/DL <110 MG/DL BORDERLINE-HIGH RISK: 130- 159 MG/DL 110-129 MG/DL HIGH RISK: >160 MG/DL >130 MG/DL *CHILDREN AND ADOLESCENTS REPRESENTS INDIVIDUALA AGED 2-19 YEARS EXCLUSIVE. A/G Ratio 2.1 CALC [facility] ([facility] NORMAL RANGES Age WBC RBC HGB HCT [...] HCT IS 5% LESS SOURCE FOR DATA: [employer] 1800 OPERATION MANUAL( AUTOMATED BLOOD COUNTS AND [...] DESIRABLE: <130 MG/DL <110 MG/DL BORDERLINE-HIGH RISK: 130- 159 MG/DL 110-129 MG/DL HIGH RISK: >160 MG/DL >130 MG/DL *CHILDREN AND ADOLESCENTS REPRESENTS INDIVIDUALA AGED 2-19 YEARS EXCLUSIVE. Globulin 2.1 CALC [facility] ([facility] NORMAL RANGES Age WBC RBC HGB HCT [...] HCT IS 5% LESS SOURCE FOR DATA: [employer] 1800 OPERATION MANUAL( AUTOMATED BLOOD COUNTS AND [...] DESIRABLE: <130 MG/DL <110 MG/DL BORDERLINE-HIGH RISK: 130- 159 MG/DL 110-129 MG/DL HIGH RISK: >160 MG/DL >130 MG/DL *CHILDREN AND ADOLESCENTS REPRESENTS INDIVIDUALA AGED 2-19 YEARS EXCLUSIVE. Ast (Sgot) 18 U/L 0-40 [facility] NORMAL RANGES Age WBC RBC HGB HCT [...] HCT IS 5% LESS SOURCE FOR DATA: [employer] 1800 OPERATION MANUAL( AUTOMATED BLOOD COUNTS AND [...] DESIRABLE: <130 MG/DL <110 MG/DL BORDERLINE-HIGH RISK: 130- 159 MG/DL 110-129 MG/DL HIGH RISK: >160 MG/DL >130 MG/DL *CHILDREN AND ADOLESCENTS REPRESENTS INDIVIDUALA AGED 2-19 YEARS EXCLUSIVE. Alt (SGPT) 11 U/L 0-41 [facility] ([facility] NORMAL RANGES Age WBC RBC HGB HCT [...] HCT IS 5% LESS SOURCE FOR DATA: [employer] 1800 OPERATION MANUAL( AUTOMATED BLOOD COUNTS AND [...] DESIRABLE: <130 MG/DL <110 MG/DL BORDERLINE-HIGH RISK: 130- 159 MG/DL 110-129 MG/DL HIGH RISK: >160 MG/DL >130 MG/DL *CHILDREN AND ADOLESCENTS REPRESENTS INDIVIDUALA AGED 2-19 YEARS EXCLUSIVE. Alp 62.6 U/L 35-129 [facility] NORMAL RANGES Age WBC RBC HGB HCT [...] HCT IS 5% LESS SOURCE FOR DATA: [employer] 1800 OPERATION MANUAL( AUTOMATED BLOOD COUNTS AND [...] DESIRABLE: <130 MG/DL <110 MG/DL BORDERLINE-HIGH RISK: 130- 159 MG/DL 110-129 MG/DL HIGH RISK: >160 MG/DL >130 MG/DL *CHILDREN AND ADOLESCENTS REPRESENTS INDIVIDUALA AGED 2-19 YEARS EXCLUSIVE. Tbili 0.51 mg/dL 0.0-1.2 [facility] ([facility] NORMAL RANGES Age WBC RBC HGB HCT [...] HCT IS 5% LESS SOURCE FOR DATA: [employer] 1800 OPERATION MANUAL( AUTOMATED BLOOD COUNTS AND [...] DESIRABLE: <130 MG/DL <110 MG/DL BORDERLINE-HIGH RISK: 130- 159 MG/DL 110-129 MG/DL HIGH RISK: >160 MG/DL >130 MG/DL *CHILDREN AND ADOLESCENTS REPRESENTS INDIVIDUALA AGED 2-19 YEARS EXCLUSIVE. Osmolality-Calculated 282.6 [facility] ([facility] NORMAL RANGES Age WBC RBC HGB HCT [...] HCT IS 5% LESS SOURCE FOR DATA: [employer] DYN 1800 OPERATION MANUAL( AUTOMATED BLOOD COUNTS [...] DESIRABLE: <130 MG/DL <110 MG/DL BORDERLINE-HIGH RISK: 130- 159 MG/DL 110-129 MG/DL HIGH RISK: >160 MG/DL >130 MG/DL *CHILDREN AND ADOLESCENTS REPRESENTS INDIVIDUALA AGED 2-19 YEARS EXCLUSIVE. Anion Gap 12 mmol/L [facility] ([facility] NORMAL RANGES Age WBC RBC HGB HCT [...] HCT IS 5% LESS SOURCE FOR DATA: [employer] 1800 OPERATION MANUAL( AUTOMATED BLOOD COUNTS AND [...] DESIRABLE: <130 MG/DL <110 MG/DL BORDERLINE-HIGH RISK: 130- 159 MG/DL 110-129 MG/DL HIGH RISK: >160 MG/DL >130 MG/DL *CHILDREN AND ADOLESCENTS REPRESENTS INDIVIDUALA AGED 2-19 YEARS EXCLUSIVE. eGFR 47 # [facility] ( [facility] CKD-EPI eGFR Non-Afr. Tongan 40 # [facility] ([facility] CKD-EPI ID Date Data Source [id number] 01/04/2020 01:56:00 PM EDT [facility] ([facility] Name Value Range Interpretation Code Description Data Susan rce(s) Supporting Document(s) WBC 8.0 10E3/uL 4.1-10.9 [facility] ([facility] NORMAL RANGES Age WBC RBC HGB HCT [...] HCT IS 5% LESS SOURCE FOR DATA: [employer] 1800 OPERATION MANUAL( AUTOMATED BLOOD COUNTS AND [...] DESIRABLE: <130 MG/DL <110 MG/DL BORDERLINE-HIGH RISK: 130- 159 MG/DL 110-129 MG/DL HIGH RISK: >160 MG/DL >130 MG/DL *CHILDREN AND ADOLESCENTS REPRESENTS INDIVIDUALA AGED 2-19 YEARS EXCLUSIVE. HGB 12.8 g/dL 12.0-18.0 [facility] ([facility] NORMAL RANGES Age WBC RBC HGB HCT [...] HCT IS 5% LESS SOURCE FOR DATA: [employer] DYN 1800 OPERATION MANUAL( AUTOMATED BLOOD COUNTS [...] DESIRABLE: <130 MG/DL <110 MG/DL BORDERLINE-HIGH RISK: 130- 159 MG/DL 110-129 MG/DL HIGH RISK: >160 MG/DL >130 MG/DL *CHILDREN AND ADOLESCENTS REPRESENTS INDIVIDUALA AGED 2-19 YEARS EXCLUSIVE. RBC 4.04 10E6/uL 4.20-6.30 Below low normal [facility] ([facility] NORMAL RANGES Age WBC RBC HGB HCT [...] HCT IS 5% LESS SOURCE FOR DATA: [employer] 1800 OPERATION MANUAL( AUTOMATED BLOOD COUNTS AND [...] DESIRABLE: <130 MG/DL <110 MG/DL BORDERLINE-HIGH RISK: 130- 159 MG/DL 110-129 MG/DL HIGH RISK: >160 MG/DL >130 MG/DL *CHILDREN AND ADOLESCENTS REPRESENTS INDIVIDUALA AGED 2-19 YEARS EXCLUSIVE. MCV 97.0 fL 80.0-97.0 [facility] ([facility] NORMAL RANGES Age WBC RBC HGB HCT [...] HCT IS 5% LESS SOURCE FOR DATA: [employer] 1800 OPERATION MANUAL( AUTOMATED BLOOD COUNTS AND [...] DESIRABLE: <130 MG/DL <110 MG/DL BORDERLINE-HIGH RISK: 130- 159 MG/DL 110-129 MG/DL HIGH RISK: >160 MG/DL >130 MG/DL *CHILDREN AND ADOLESCENTS REPRESENTS INDIVIDUALA AGED 2-19 YEARS EXCLUSIVE. HCT 39.2 % 37.0-51.0 [facility] ([facility] NORMAL RANGES Age WBC RBC HGB HCT [...] HCT IS 5% LESS SOURCE FOR DATA: [employer] DYN 1800 OPERATION MANUAL( AUTOMATED BLOOD COUNTS [...] DESIRABLE: <130 MG/DL <110 MG/DL BORDERLINE-HIGH RISK: 130- 159 MG/DL 110-129 MG/DL HIGH RISK: >160 MG/DL >130 MG/DL *CHILDREN AND ADOLESCENTS REPRESENTS INDIVIDUALA AGED 2-19 YEARS EXCLUSIVE. MCH 31.7 pg 26.0-32.0 [facility] ([facility] NORMAL RANGES Age WBC RBC HGB HCT [...] HCT IS 5% LESS SOURCE FOR DATA: [employer] 1800 OPERATION MANUAL( AUTOMATED BLOOD COUNTS AND [...] DESIRABLE: <130 MG/DL <110 MG/DL BORDERLINE-HIGH RISK: 130- 159 MG/DL 110-129 MG/DL HIGH RISK: >160 MG/DL >130 MG/DL *CHILDREN AND ADOLESCENTS REPRESENTS INDIVIDUALA AGED 2-19 YEARS EXCLUSIVE. MCHC 32.7 g/dL 31.0-36.0 [facility] ([facility] NORMAL RANGES Age WBC RBC HGB HCT [...] HCT IS 5% LESS SOURCE FOR DATA: [employer] 1800 OPERATION MANUAL( AUTOMATED BLOOD COUNTS AND [...] DESIRABLE: <130 MG/DL <110 MG/DL BORDERLINE-HIGH RISK: 130- 159 MG/DL 110-129 MG/DL HIGH RISK: >160 MG/DL >130 MG/DL *CHILDREN AND ADOLESCENTS REPRESENTS INDIVIDUALA AGED 2-19 YEARS EXCLUSIVE. PLT 274 10E3/uL 140-440 [facility] ([facility] NORMAL RANGES Age WBC RBC HGB HCT [...] HCT IS 5% LESS SOURCE FOR DATA: [employer] 1800 OPERATION MANUAL( AUTOMATED BLOOD COUNTS AND [...] DESIRABLE: <130 MG/DL <110 MG/DL BORDERLINE-HIGH RISK: 130- 159 MG/DL 110-129 MG/DL HIGH RISK: >160 MG/DL >130 MG/DL *CHILDREN AND ADOLESCENTS REPRESENTS INDIVIDUALA AGED 2-19 YEARS EXCLUSIVE. RDW-CV 13.8 % 11.5-14.5 [facility] ([facility] NORMAL RANGES Age WBC RBC HGB HCT [...] HCT IS 5% LESS SOURCE FOR DATA: [employer] 1800 OPERATION MANUAL( AUTOMATED BLOOD COUNTS AND [...] DESIRABLE: <130 MG/DL <110 MG/DL BORDERLINE-HIGH RISK: 130- 159 MG/DL 110-129 MG/DL HIGH RISK: >160 MG/DL >130 MG/DL *CHILDREN AND ADOLESCENTS REPRESENTS INDIVIDUALA AGED 2-19 YEARS EXCLUSIVE. Neut% 62.6 % 37.0-92.0 [facility] ([facility] NORMAL RANGES Age WBC RBC HGB HCT [...] HCT IS 5% LESS SOURCE FOR DATA: [employer] 1800 OPERATION MANUAL( AUTOMATED BLOOD COUNTS AND [...] DESIRABLE: <130 MG/DL <110 MG/DL BORDERLINE-HIGH RISK: 130- 159 MG/DL 110-129 MG/DL HIGH RISK: >160 MG/DL >130 MG/DL *CHILDREN AND ADOLESCENTS REPRESENTS INDIVIDUALA AGED 2-19 YEARS EXCLUSIVE. Lym% 28.1 % 10.0-58.5 [facility] ([facility] NORMAL RANGES Age WBC RBC HGB HCT [...] HCT IS 5% LESS SOURCE FOR DATA: [employer] DYN 1800 OPERATION MANUAL( AUTOMATED BLOOD COUNTS [...] DESIRABLE: <130 MG/DL <110 MG/DL BORDERLINE-HIGH RISK: 130- 159 MG/DL 110-129 MG/DL HIGH RISK: >160 MG/DL >130 MG/DL *CHILDREN AND ADOLESCENTS REPRESENTS INDIVIDUALA AGED 2-19 YEARS EXCLUSIVE. Neut# 5.1 % 2.0-7.8 [facility] ([facility] NORMAL RANGES Age WBC RBC HGB HCT [...] HCT IS 5% LESS SOURCE FOR DATA: [employer] 1800 OPERATION MANUAL( AUTOMATED BLOOD COUNTS AND [...] DESIRABLE: <130 MG/DL <110 MG/DL BORDERLINE-HIGH RISK: 130- 159 MG/DL 110-129 MG/DL HIGH RISK: >160 MG/DL >130 MG/DL *CHILDREN AND ADOLESCENTS REPRESENTS INDIVIDUALA AGED 2-19 YEARS EXCLUSIVE. Lym# 2.2 10E3/uL 0.6-4.1 [facility] ([facility] NORMAL RANGES Age WBC RBC HGB HCT [...] HCT IS 5% LESS SOURCE FOR DATA: [employer] 1800 OPERATION MANUAL( AUTOMATED BLOOD COUNTS AND [...] DESIRABLE: <130 MG/DL <110 MG/DL BORDERLINE-HIGH RISK: 130- 159 MG/DL 110-129 MG/DL HIGH RISK: >160 MG/DL >130 MG/DL *CHILDREN AND ADOLESCENTS REPRESENTS INDIVIDUALA AGED 2-19 YEARS EXCLUSIVE. MXD% 9.3 % 0.1-24.0 [facility] ([facility] NORMAL RANGES Age WBC RBC HGB HCT [...] HCT IS 5% LESS SOURCE FOR DATA: [employer] 1800 OPERATION MANUAL( AUTOMATED BLOOD COUNTS AND [...] DESIRABLE: <130 MG/DL <110 MG/DL BORDERLINE-HIGH RISK: 130- 159 MG/DL 110-129 MG/DL HIGH RISK: >160 MG/DL >130 MG/DL *CHILDREN AND ADOLESCENTS REPRESENTS INDIVIDUALA AGED 2-19 YEARS EXCLUSIVE. MPV 9.5 fL 9.0-13.0 [facility] ([facility] NORMAL RANGES Age WBC RBC HGB HCT [...] HCT IS 5% LESS SOURCE FOR DATA: [employer] 1800 OPERATION MANUAL( AUTOMATED BLOOD COUNTS AND [...] DESIRABLE: <130 MG/DL <110 MG/DL BORDERLINE-HIGH RISK: 130- 159 MG/DL 110-129 MG/DL HIGH RISK: >160 MG/DL >130 MG/DL *CHILDREN AND ADOLESCENTS REPRESENTS INDIVIDUALA AGED 2-19 YEARS EXCLUSIVE. MXD# 0.7 10E3/uL 0.0-1.8 [facility] ([facility] NORMAL RANGES Age WBC RBC HGB HCT [...] DESIRABLE: <130 MG/DL <110 MG/DL BORDERLINE-HIGH RISK: 130- 159 MG/DL 110-129 MG/DL HIGH RISK: >160 MG/DL >130 MG/DL *CHILDREN AND ADOLESCENTS REPRESENTS INDIVIDUALA AGED 2-19 YEARS EXCLUSIVE. ID Date Data Source [id number] 01/04/2020 01:56:00 PM EDT [facility] ([facility] Name Value Range Interpretation Code Description Data Susan rce(s) Supporting Document(s) Thyrotropin [Units/volume] in Serum or Plasma 0.708 ulU/mL 0.60-4.8 [facility] ([facility] Procedure Social History No Information Vital Signs ID Date Data Source UNK Name Value Range Interpretation Code Description Data Source(s) Systolic blood pressure 128 mm[Hg] 128 mm[Hg] M [facility] ([facility] Heart rate 80 /min 80 /min [facility] ([facility] Diastolic blood pressure 72 mm[Hg] 72 mm[Hg] [facility] ([facility] Body temperature 97.2 [degF] 97.2 [degF] [facility] ([facility] Respiratory rate 16 /min 16 /min [facility] ( [facility] Body mass index (BMI) [Ratio] 28.9 kg/m2 28.9 k g/m2 [facility] ([facility] Body height 64.50 [in_i] 64.50 [in_i] [facility] ([facility] 5'4.50" Body weight 171.00 [lb_av] 171.00 [lb_av] [facility] T ([facility] [place] body weight 120 [lb_av] 120 [lb_av] [facility] T ([facility] Oxygen saturation in Arterial blood by Pulse oximetry 96 % 96 % [facility] ([facility] Body temperature 97.2 [degF] 97.2 [degF] [facility] ([facility] Heart rate 88 /min 88 /min [facility] ([facility] Respiratory rate 16 /min 16 /min [facility] ( [facility] Body weight 168.00 [lb_av] 168.00 [lb_av] MED[facility] T ([facility] [place] body weight 120 [lb_av] 120 [lb_av] [facility] T ([facility] Oxygen saturation in Arterial blood by Pulse oximetry 96 % 96 % [facility] ([facility] Body mass index (BMI) [Ratio] 28.4 kg/m2 28.4 k g/m2 [facility] ([facility] Body height 64.50 [in_i] 64.50 [in_i] [facility] ([facility] 5'4.50" Systolic blood pressure 126 mm[Hg] 126 mm[Hg] M EDENT ([facility] Diastolic blood pressure 86 mm[Hg] 86 mm[Hg] [facility] ([facility] Oxygen saturation in Arterial blood by Pulse oximetry 94 % 94 % [facility] ([facility] Systolic blood pressure 130 mm[Hg] 130 mm[Hg] M [facility] ([facility] Diastolic blood pressure 74 mm[Hg] 74 mm[Hg] [facility] ([facility] Body temperature 97.5 [degF] 97.5 [degF] [facility] ([facility] Heart rate 95 /min 95 /min [facility] ([facility] Respiratory rate 20 /min 20 /min [facility] ( [facility] Body height 64.50 [in_i] 64.50 [in_i] [facility] ([facility] 5'4.50" Body weight 168.00 [lb_av] 168.00 [lb_av] [facility] T ([facility] [place] body weight 120 [lb_av] 120 [lb_av] [facility] T ([facility] Body mass index (BMI) [Ratio] 28.4 kg/m2 28.4 k g/m2 [facility] ([facility] Systolic blood pressure 118 mm[Hg] 118 mm[Hg] M EDENT ([facility] Diastolic blood pressure 76 mm[Hg] 76 mm[Hg] [facility] ([facility] Body weight 175.00 [lb_av] 175.00 [lb_av] [facility] T ([facility] Body height 64.50 [in_i] 64.50 [in_i] [facility] ([facility] 5'4.50" [place] body weight 120 [lb_av] 120 [lb_av] [facility] T ([facility] Body temperature 97.6 [degF] 97.6 [degF] [facility] ([facility] Heart rate 80 /min 80 /min [facility] ([facility] Respiratory rate 16 /min 16 /min [facility] ( [facility] Body mass index (BMI) [Ratio] 29.6 kg/m2 29.6 k g/m2 [facility] ([facility] Oxygen saturation in Arterial blood by Pulse oximetry 97 % 97 % [facility] ([facility] Systolic blood pressure 126 mm[Hg] 126 mm[Hg] M [facility] ([facility] Diastolic blood pressure 76 mm[Hg] 76 mm[Hg] [facility] ([facility] Body temperature 97.5 [degF] 97.5 [degF] [facility] ([facility] Heart rate 96 /min 96 /min [facility] ([facility] Respiratory rate 18 /min 18 /min [facility] ( [facility] Body height 64.50 [in_i] 64.50 [in_i] [facility] ([facility] 5'4.50" Body weight 172.00 [lb_av] 172.00 [lb_av] [facility] T ([facility] [place] body weight 120 [lb_av] 120 [lb_av] [facility] T ([facility] Body mass index (BMI) [Ratio] 29.1 kg/m2 29.1 k g/m2 [facility] ([facility] Oxygen saturation in Arterial blood by Pulse oximetry 93 % 93 % [facility] ([facility] ([place]), ([place]) Systolic blood pressure 130 mm[Hg] 130 mm[Hg] M [facility] ([facility] Diastolic blood pressure 70 mm[Hg] 70 mm[Hg] [facility] ([facility] Body temperature 96.9 [degF] 96.9 [degF] [facility] ([facility] Heart rate 92 /min 92 /min [facility] ([facility] Respiratory rate 18 /min 18 /min [facility] ( [facility] Body height 64.50 [in_i] 64.50 [in_i] [facility] ([facility] 5'4.50" Body weight 175.00 [lb_av] 175.00 [lb_av] [facility] T ([facility] [place] body weight 120 [lb_av] 120 [lb_av] [facility] T ([facility] Body mass index (BMI) [Ratio] 29.6 kg/m2 29.6 k g/m2 [facility] ([facility] Oxygen saturation in Arterial blood by Pulse oximetry 95 % 95 % [facility] ([facility] Diastolic blood pressure 64 mm[Hg] 64 mm[Hg] [facility] ([facility] Systolic blood pressure 126 mm[Hg] 126 mm[Hg] M [facility] ([facility] Body temperature 96.8 [degF] 96.8 [degF] [facility] ([facility] Heart rate 120 /min 120 /min [facility] ([facility] Respiratory rate 18 /min 18 /min [facility] ( [facility] Body height 64.50 [in_i] 64.50 [in_i] [facility] ([facility] 5'4.50" Body weight 170.00 [lb_av] 170.00 [lb_av] [facility] T ([facility] [place] body weight 120 [lb_av] 120 [lb_av] [facility] T ([facility] Body mass index (BMI) [Ratio] 28.7 kg/m2 28.7 k g/m2 [facility] ([facility] Oxygen saturation in Arterial blood by Pulse oximetry 94 % 94 % [facility] ([facility] Oxygen saturation in Arterial blood by Pulse oximetry 96 % 96 % [facility] ([facility] Body temperature 97.1 [degF] 97.1 [degF] [facility] ([facility] Heart rate 74 /min 74 /min [facility] ([facility] Respiratory rate 18 /min 18 /min [facility] ( [facility] Body height 64.50 [in_i] 64.50 [in_i] [facility] ([facility] 5'4.50" Systolic blood pressure 116 mm[Hg] 116 mm[Hg] M [facility] ([facility] Diastolic blood pressure 84 mm[Hg] 84 mm[Hg] [facility] ([facility] Body weight 174.00 [lb_av] 174.00 [lb_av] [facility] T ([facility] [place] body weight 120 [lb_av] 120 [lb_av] [facility] T ([facility] Body mass index (BMI) [Ratio] 29.4 kg/m2 29.4 k g/m2 [facility] ([facility] Diastolic blood pressure 88 mm[Hg] 88 mm[Hg] [facility] ([facility] Heart rate 92 /min 92 /min [facility] ([facility] Respiratory rate 18 /min 18 /min [facility] ( [facility] [place] body weight 120 [lb_av] 120 [lb_av] MED[facility] T ([facility] Body mass index (BMI) [Ratio] 28.9 kg/m2 28.9 k g/m2 [facility] ([facility] Body temperature 97.5 [degF] 97.5 [degF] [facility] ([facility] Oxygen saturation in Arterial blood by Pulse oximetry 94 % 94 % [facility] ([facility] Systolic blood pressure 140 mm[Hg] 140 mm[Hg] M EDENT ([facility] Body height 64.50 [in_i] 64.50 [in_i] [facility] ([facility] 5'4.50" Body weight 171.00 [lb_av] 171.00 [lb_av] [facility] T ([facility] Heart rate 100 /min 100 /min [facility] ([facility] Respiratory rate 18 /min 18 /min [facility] ( [facility] Body mass index (BMI) [Ratio] 28.9 kg/m2 28.9 k g/m2 [facility] ([facility] Body temperature 97.5 [degF] 97.5 [degF] [facility] ([facility] Body height 64.50 [in_i] 64.50 [in_i] [facility] ([facility] 5'4.50" Systolic blood pressure 106 mm[Hg] 106 mm[Hg] M EDENT ([facility] Diastolic blood pressure 68 mm[Hg] 68 mm[Hg] [facility] ([facility] Body weight 171.00 [lb_av] 171.00 [lb_av] [facility] T ([facility] [place] body weight 120 [lb_av] 120 [lb_av] [facility] T ([facility] Oxygen saturation in Arterial blood by Pulse oximetry 95 % 95 % [facility] ([facility] Systolic blood pressure 140 mm[Hg] 140 mm[Hg] M [facility] ([facility] Diastolic blood pressure 70 mm[Hg] 70 mm[Hg] [facility] ([facility] Body temperature 97.3 [degF] 97.3 [degF] [facility] ([facility] Heart rate 82 /min 82 /min [facility] ([facility] Respiratory rate 18 /min 18 /min [facility] ( [facility] Body height 64.50 [in_i] 64.50 [in_i] [facility] ([facility] 5'4.50" Body weight 177.00 [lb_av] 177.00 [lb_av] [facility] T ([facility] [place] body weight 120 [lb_av] 120 [lb_av] [facility] T ([facility] Body mass index (BMI) [Ratio] 29.9 kg/m2 29.9 k g/m2 [facility] ([facility] Oxygen saturation in Arterial blood by Pulse oximetry 95 % 95 % [facility] ([facility] Diastolic blood pressure 78 mm[Hg] 78 mm[Hg] [facility] ([facility] Body temperature 97.5 [degF] 97.5 [degF] [facility] ([facility] Body height 64.50 [in_i] 64.50 [in_i] [facility] ([facility] 5'4.50" Body weight 172.00 [lb_av] 172.00 [lb_av] [facility] T ([facility] [place] body weight 120 [lb_av] 120 [lb_av] [facility] T ([facility] Body mass index (BMI) [Ratio] 29.1 kg/m2 29.1 k g/m2 [facility] ([facility] Systolic blood pressure 132 mm[Hg] 132 mm[Hg] M [facility] ([facility] Heart rate 98 /min 98 /min [facility] ([facility] Respiratory rate 18 /min 18 /min [facility] ( [facility] Oxygen saturation in Arterial blood by Pulse oximetry 94 % 94 % [facility] ([facility] Oxygen saturation in Arterial blood by Pulse oximetry 96 % 96 % [facility] ([facility] Systolic blood pressure 124 mm[Hg] 124 mm[Hg] M [facility] ([facility] Diastolic blood pressure 78 mm[Hg] 78 mm[Hg] [facility] ([facility] Body temperature 97.8 [degF] 97.8 [degF] [facility] ([facility] Heart rate 90 /min 90 /min [facility] ([facility] Respiratory rate 16 /min 16 /min [facility] ( [facility] Body height 64.50 [in_i] 64.50 [in_i] [facility] ([facility] 5'4.50" Body weight 172.00 [lb_av] 172.00 [lb_av] [facility] T ([facility] [place] body weight 120 [lb_av] 120 [lb_av] [facility] T ([facility] [facility] Body mass index (BMI) [Ratio] 29.1 kg/m2 29.1 k g/m2 [facility] ([facility]
[2021-02-01] MEDS: MORPHINE 2 MG/ML 1ML VIAL (J2270) IV PRN ×2 (11:49→13:49)
[2021-02-01 11:50] LABS: BASO # 0.1 10^3/uL (0.0-0.2); BASO % 0.4 % (0.0-1.0); EOS % 0.2 % (0.0-3.0); HEMATOCRIT 40.6 % (36.0-47.0); HEMOGLOBIN 13.2 g/dl (12.0-15.5); LYMPH # 1.2 10^3/uL (1.5-5.0); LYMPH % 8.9 % (24.0-44.0); MEAN CORPUSCULAR HEMOGLOBIN 31.4 pg (27.0-33.0); MEAN CORPUSCULAR HGB CONC 32.5 g/dl (32.0-36.5); MEAN CORPUSCULAR VOLUME 96.4 fl (80.0-96.0); MONO # 1.1 10^3/uL (0.0-0.8); MONO % 8.3 % (2.0-8.0); NEUTROPHILS % 81.8 % (36.0-66.0); PLATELET COUNT, AUTOMATED 382 10^3/uL (150-450); RED BLOOD COUNT 4.21 10^6/uL (4.00-5.40); WHITE BLOOD COUNT 13.4 10^3/uL (4.0-10.0)
[2021-02-01 11:58] LABS: INR 1.17; PROTHROMBIN TIME 15.3 SECONDS (12.7-14.5)
[2021-02-01 12:20] LABS: ALBUMIN 3.7 GM/DL (3.2-5.2); BILIRUBIN,DIRECT 0.2 MG/DL (0.0-0.2); BILIRUBIN,TOTAL 0.6 MG/DL (0.2-1.0); CALCIUM LEVEL 9.7 MG/DL (8.8-10.2); CREATININE FOR GFR 1.1 MG/DL (0.55-1.30); GLOMERULAR FILTRATION RATE 49.8 (>32); POTASSIUM SERUM 4.4 MEQ/L (3.5-5.1); THYROID STIMULATING HORMONE 0.665 uIU/ML (0.358-3.740); TOTAL PROTEIN 6.8 GM/DL (6.4-8.2)
[2021-02-01 12:35] LABS: RSV AMPLIFICATION NEGATIVE (NEGATIVE)
--- NOTE | 2021-02-01 13:00 | CR.PDOC ---
General Date of Consultation: Feb 01, 2021 Consultation REASON FOR CONSULTATION/CHIEF COMPLAINT: Left hip fracture History from patient and admission history and physical HISTORY OF PRESENT ILLNESS: Patient brought to the emergency room for left groin pain after mechanical fall in her garden on the night of 01/31. Unable to weight-bear and had pain all night so was brought to the emergency room. I was contacted by emergency room for consult regarding left hip oblique type subcapital fracture. Patient reportedly on Eliquis blood thinner which will need to be held prior to surgical intervention. Home Medications Scheduled Apixaban (Eliquis) 5 Mg Tablet, 5 MG PO BID, (Reported) Calcium Citrate (Calcium Citrate) 250 Mg Tablet, 500 MG PO DAILY, (Reported) Cetirizine HCl (Cetirizine HCl) 10 Mg Tab.chew, 10 MG PO DAILY, (Reported) Cholecalciferol (Vitamin D3) (Vitamin D3) 1,000 Unit Tablet, 2,000 UNITS PO DAILY, (Reported) Diltiazem HCl (Cartia Xt) 180 Mg Cap.er.24h, 180 MG PO DAILY, (Reported) Levothyroxine Sodium (Synthroid) 88 Mcg Tablet, 88 MCG PO DAILY, (Reported) Lisinopril (Lisinopril) 2.5 Mg Tablet, 2.5 MG PO DAILY, (Reported) Montelukast Sodium (Montelukast Sodium) 10 Mg Tablet, 10 MG PO DAILY, (Reported) Mv-Mn/Folic Acid/Calcium/Vit K (Women's 50 Plus Multivit Tab) 1 Each Tablet, 1 TAB PO DAILY, (Reported) Pantoprazole Sodium (Pantoprazole Sodium) 40 Mg Tablet.dr, 40 MG PO DAILY, (Reported) Pravastatin Sodium (Pravastatin Sodium) 40 Mg Tablet, 40 MG PO QHS, (Reported) Sertraline HCl (Sertraline HCl) 25 Mg Tablet, 25 MG PO DAILY, (Reported) Allergies Coded Allergies: No Known Drug Allergies (Verified Allergy, Unknown, 02/01/21) Past Medical History Past Medical History Medical History A. fib on Eliquis, hypertension, hypothyroid, GERD, anxiety, allergy Social History * Smoker: current smoker Alcohol: rarely Drugs: denies A-FIB/CHADSVASC SCREEN A-FIB/CHADSVASC A-FIB History Current/History of A-Fib/PAF?: Yes Current PO Anticoag Therapy: Yes Review of Systems Review of Systems Constitutional: Denies: Chills, Fever, Night Sweats Eyes: Denies: Pain, Vision change ENT: Denies: Head Aches, Ear Pain, Dysphagia Skin: Denies: Rash, Lesions, Breakdown Pulmonary: Denies: Dyspnea, Cough Cardiovascular: Denies: Chest Pain, Palpitations, Orthopnea, Paroxysmal Noc. Dyspnea, Lt Headedness Gastrointestinal: Denies: Nausea, Vomiting, Abdominal Pain, Diarrhea Genitourinary: Denies: Dysuria, Frequency, Incontinence, Retention Hematologic: Denies: Bruising, Bleeding Excessively Musculoskeletal: Reports: Joint Pain, Spasms Psych: Reports: Anxiety PHYSICAL EXAMINATION: VITAL SIGNS: Please see below. GENERAL APPEARANCE: Lying in bed, NAD, A&O EXTREMITIES: left hip pain; shortened and externally rotated. NEUROLOGICAL/vascular: Grossly neurovascularly intact to left lower extremity. Palpable posterior tibial pulse left lower extremity X-ray: X-ray imaging was independently reviewed by myself today. This demonstrated a minimally displaced but angulated left hip subcapital oblique type cervical fracture. Incidental finding of the lumbosacral degenerative disc disease LABORATORY DATA: Please see below. ASSESSMENT/PLAN: 1. Patient will be admitted by the hospitalist service for medical optimization. Will evaluate patient's blood thinner status with Eliquis for timing of surgical intervention for left hip hemiarthroplasty. Signed consent for surgery after discussion of risks and benefits, documented in chart. Plan for Surgery Thursday AM. NPO at midnight on Thursday night ordered. Vital Signs/I&O Vital Signs Date Time Temp Pulse Resp B/P (MAP) Pulse Ox O2 Delivery O2 Flow Rate FiO2 02/01/21 11:49 16 02/01/21 11:00 94 159/76 (103) 96 Room Air 02/01/21 10:05 97.3 Laboratory Data Labs 24H Laboratory Tests 2 02/01/21 11:17: Immature Granulocyte % (Auto) 0.4, Neutrophils (%) (Auto) 81.8H, Lymphocytes (%) (Auto) 8.9L, Monocytes (%) (Auto) 8.3H, Eosinophils (%) (Auto) 0.2, Basophils (%) (Auto) 0.4, Neutrophils # (Auto) 11.0H, Lymphocytes # (Auto) 1.2L, Monocytes # (Auto) 1.1H, Eosinophils # (Auto) 0.0, Basophils # (Auto) 0.1, Nucleated Red Blood Cells % (auto) 0.0, Prothrombin Time 15.3H, Prothromb Time International Ratio 1.17, Anion Gap 5L, Glomerular Filtration Rate 49.8, Calcium Level 9.7, Total Bilirubin 0.6, Direct Bilirubin 0.2, Aspartate Amino Transf (AST/SGOT) 22, Alanine Aminotransferase (ALT/SGPT) 23, Alkaline Phosphatase 89, [id number]-Type Natriuretic Peptide 468H, Total Protein 6.8, Albumin 3.7, Albumin/Globulin Ratio 1.2, Thyroid Stimulating Hormone (TSH) 0.665 02/01/21 11:23: Coronavirus (COVID-19)(PCR) NEGATIVE, Influenza Type A (RT-PCR) NEGATIVE, Influenza Type B (RT-PCR) NEGATIVE, Respiratory Syncytial Virus (PCR) NEGATIVE CBC/BMP Laboratory Tests 02/01/21 11:17 Allergies Coded Allergies: No Known Drug Allergies (Verified Allergy, Unknown, 02/01/21) Home Medications Scheduled Apixaban (Eliquis) 5 Mg Tablet, 5 MG PO BID, (Reported) Calcium Citrate (Calcium Citrate) 250 Mg Tablet, 500 MG PO DAILY, (Reported) Cetirizine HCl (Cetirizine HCl) 10 Mg Tab.chew, 10 MG PO DAILY, (Reported) Cholecalciferol (Vitamin D3) (Vitamin D3) 1,000 Unit Tablet, 2,000 UNITS PO DAILY, (Reported) Diltiazem HCl (Cartia Xt) 180 Mg Cap.er.24h, 180 MG PO DAILY, (Reported) Levothyroxine Sodium (Synthroid) 88 Mcg Tablet, 88 MCG PO DAILY, (Reported) Lisinopril (Lisinopril) 2.5 Mg Tablet, 2.5 MG PO DAILY, (Reported) Montelukast Sodium (Montelukast Sodium) 10 Mg Tablet, 10 MG PO DAILY, (Reported) Mv-Mn/Folic Acid/Calcium/Vit K (Women's 50 Plus Multivit Tab) 1 Each Tablet, 1 TAB PO DAILY, (Reported) Pantoprazole Sodium (Pantoprazole Sodium) 40 Mg Tablet.dr, 40 MG PO DAILY, (Reported) Pravastatin Sodium (Pravastatin Sodium) 40 Mg Tablet, 40 MG PO QHS, (Reported) Sertraline HCl (Sertraline HCl) 25 Mg Tablet, 25 MG PO DAILY, (Reported) HUE BONILLA MD Feb 01, 2021 13:00
[2021-02-01] MEDS ORDERED: SYNT88TA2 PO (13:13)
[2021-02-01] MEDS ORDERED: PRAV40TA2 PO (13:13)
[2021-02-01] MEDS ORDERED: MONT10TA10 PO (13:13)
[2021-02-01] MEDS ORDERED: SERT25TA21 PO (13:13)
[2021-02-01] MEDS ORDERED: PANT-23 PO (13:13)
[2021-02-01] MEDS ORDERED: CALC250T PO (13:13)
[2021-02-01] MEDS ORDERED: CART180C3 PO (13:13)
[2021-02-01] MEDS ORDERED: ELIQ5TAB PO (13:13)
[2021-02-01] MEDS ORDERED: D31000TA2 PO (13:13)
[2021-02-01] MEDS ORDERED: LORA-674 PO (13:13)
[2021-02-01] MEDS ORDERED: MV-M1TAB13 PO (13:13)
[2021-02-01] MEDS ORDERED: LISI2.5T8 PO (13:13)
[2021-02-01] MEDS ORDERED: AZEL0.055 NARES (13:13)
[2021-02-01] MEDS ORDERED: CETI10CH PO (13:20)
[2021-02-01] MEDS ORDERED: HOME MED LIST COMPLETE! XX SCH (13:25)
[2021-02-01] MEDS ORDERED: ONDANSETRON 4MG/2ML VIAL IV PRN (13:45)
[2021-02-01] MEDS ORDERED: ACETAMINOPHEN 500 MG TAB PO PRN (13:45)
[2021-02-01] MEDS ORDERED: MORPHINE 2 MG/ML 1ML VIAL (J2270) IV PRN (13:45)
--- OUTSIDE RECORDS SUMMARY | 2021-02-01 14:00 | CCD ---
Author Author [facility] Organization [facility] Address Unknown Phone Unavailable Care Team Providers Care Studio Camera Operator Name Role Phone MCELHERAN, NUPUR PA Unavailable [...] Romeo DIAZ Unavailable Unavailable Rounds, M AUGUSTINE BUSINESS SERVICES ASSOCIATE Unavailable Unavailable Rounds, M AUGUSTINE BUSINESS SERVICES ASSOCIATE Unavailable Unavailable Rounds, M AUGUSTINE BUSINESS SERVICES ASSOCIATE Unavailable Unavailable Rounds, M AUGUSTINE BUSINESS SERVICES ASSOCIATE Unavailable Unavailable Rounds, M AUGUSTINE BUSINESS SERVICES ASSOCIATE Unavailable Unavailable Rounds, M AUGUSTINE BUSINESS SERVICES ASSOCIATE Unavailable Unavailable Rounds, M AUGUSTINE BUSINESS SERVICES ASSOCIATE Unavailable Unavailable Rounds, M AUGUSTINE BUSINESS SERVICES ASSOCIATE Unavailable Unavailable Rounds, M AUGUSTINE BUSINESS SERVICES ASSOCIATE Unavailable Unavailable Rounds, M AUGUSTINE BUSINESS SERVICES ASSOCIATE Unavailable Unavailable Rounds, M AUGUSTINE BUSINESS SERVICES ASSOCIATE Unavailable Unavailable Rounds, M AUGUSTINE BUSINESS SERVICES ASSOCIATE Unavailable Unavailable Rounds, M AUGUSTINE BUSINESS SERVICES ASSOCIATE Unavailable Unavailable Rounds, M AUGUSTINE BUSINESS SERVICES ASSOCIATE Unavailable Unavailable Rounds, M AUGUSTINE BUSINESS SERVICES ASSOCIATE Unavailable Unavailable Rounds, M AUGUSTINE BUSINESS SERVICES ASSOCIATE Unavailable Unavailable Rounds, M AUGUSTINE BUSINESS SERVICES ASSOCIATE Unavailable Unavailable Rounds, M AUGUSTINE BUSINESS SERVICES ASSOCIATE Unavailable Unavailable Rounds, M AUGUSTINE BUSINESS SERVICES ASSOCIATE Unavailable Unavailable Rounds, M AUGUSTINE BUSINESS SERVICES ASSOCIATE Unavailable Unavailable Rounds, M AUGUSTINE BUSINESS SERVICES ASSOCIATE Unavailable Unavailable Rounds, M AUGUSTINE BUSINESS SERVICES ASSOCIATE Unavailable Unavailable Rounds, M AUGUSTINE BUSINESS SERVICES ASSOCIATE Unavailable Unavailable Rounds, M AUGUSTINE BUSINESS SERVICES ASSOCIATE Unavailable Unavailable Rounds, M AUGUSTINE BUSINESS SERVICES ASSOCIATE Unavailable Unavailable Rounds, M AUGUSTINE BUSINESS SERVICES ASSOCIATE Unavailable Unavailable Rounds, M AUGUSTINE BUSINESS SERVICES ASSOCIATE Unavailable Unavailable Rounds, M AUGUSTINE BUSINESS SERVICES ASSOCIATE Unavailable Unavailable Rounds, M AUGUSTINE BUSINESS SERVICES ASSOCIATE Unavailable Unavailable Rounds, M AUGUSTINE BUSINESS SERVICES ASSOCIATE Unavailable Unavailable Rounds, M AUGUSTINE BUSINESS SERVICES ASSOCIATE Unavailable Unavailable Rounds, M AUGUSTINE BUSINESS SERVICES ASSOCIATE Unavailable Unavailable Rounds, M AUGUSTINE BUSINESS SERVICES ASSOCIATE Unavailable Unavailable Rounds, M AUGUSTINE BUSINESS SERVICES ASSOCIATE Unavailable Unavailable Rounds, M AUGUSTINE BUSINESS SERVICES ASSOCIATE Unavailable Unavailable Rounds, M AUGUSTINE BUSINESS SERVICES ASSOCIATE Unavailable Unavailable Rounds, M AUGUSTINE BUSINESS SERVICES ASSOCIATE Unavailable Unavailable Rounds, M AUGUSTINE BUSINESS SERVICES ASSOCIATE Unavailable Unavailable Rounds, M AUGUSTINE BUSINESS SERVICES ASSOCIATE Unavailable Unavailable Rounds, M AUGUSTINE BUSINESS SERVICES ASSOCIATE Unavailable Unavailable Rounds, M AUGUSTINE BUSINESS SERVICES ASSOCIATE Unavailable Unavailable Rounds, M AUGUSTINE BUSINESS SERVICES ASSOCIATE Unavailable Unavailable Rounds, M AUGUSTINE BUSINESS SERVICES ASSOCIATE Unavailable Unavailable Rounds, M AUGUSTINE BUSINESS SERVICES ASSOCIATE Unavailable Unavailable Rounds, M AUGUSTINE BUSINESS SERVICES ASSOCIATE Unavailable Unavailable Rounds, M AUGUSTINE BUSINESS SERVICES ASSOCIATE Unavailable Unavailable Rounds, M AUGUSTINE BUSINESS SERVICES ASSOCIATE Unavailable Unavailable Rounds, M AUGUSTINE BUSINESS SERVICES ASSOCIATE Unavailable Unavailable Rounds, M AUGUSTINE BUSINESS SERVICES ASSOCIATE Unavailable Unavailable Rounds, M AUGUSTINE BUSINESS SERVICES ASSOCIATE Unavailable Unavailable Rounds, M AUGUSTINE BUSINESS SERVICES ASSOCIATE Unavailable Unavailable Rounds, M AUGUSTINE BUSINESS SERVICES ASSOCIATE Unavailable Unavailable Rounds, M AUGUSTINE BUSINESS SERVICES ASSOCIATE Unavailable Unavailable Rounds, M AUGUSTINE BUSINESS SERVICES ASSOCIATE Unavailable Unavailable Rounds, M AUGUSTINE BUSINESS SERVICES ASSOCIATE Unavailable Unavailable Rounds, M AUGUSTINE BUSINESS SERVICES ASSOCIATE Unavailable Unavailable Rounds, M AUGUSTINE BUSINESS SERVICES ASSOCIATE Unavailable Unavailable Rounds, M AUGUSTINE BUSINESS SERVICES ASSOCIATE Unavailable Unavailable Rounds, M AUGUSTINE BUSINESS SERVICES ASSOCIATE Unavailable Unavailable Rounds, M AUGUSTINE BUSINESS SERVICES ASSOCIATE Unavailable Unavailable Rounds, M AUGUSTINE BUSINESS SERVICES ASSOCIATE Unavailable Unavailable Rounds, M AUGUSTINE BUSINESS SERVICES ASSOCIATE Unavailable Unavailable Rounds, M AUGUSTINE BUSINESS SERVICES ASSOCIATE Unavailable Unavailable TURRIN, CHAPINCITO Unavailable Unavailable TURRIN, [...] by Article 27-F of the [facility] Public Health law. If you continue you may have access to information: Regarding HIV / AIDS; Provided by facilities licensed or operated by the [facility] Office of Mental Health; or Provided by the [facility] Office for People With Developmental Disabilities. If such information is present, then the following [facility] mandated warning applies: This information has [...] law may result in a fine or mcc sentence or both. A general authorization for the release of medical or other information is NOT sufficient authorization for further disc losure. Allergies and Adverse Reactions Type Description Substance Reaction Status Data Source(s ) Drug allergy unknow antibiotic unknow antibiotic [facility] Encounters Encounter Providers Location Date Indications Data Source(s ) Emergency Attender: Romeo Huerta MDConsultant: Orlando Owen 11/27/2020 11:58:00 AM EDT - 11/27/2020 01:15:00 PM EDT [facility] Patient discharged. Outpatient Attender: NUPUR YANES Physical Therapy 11/26/2020 09:30:00 AM EDT [facility] Outpatient Attender: AUGUSTINE Jackson NP [facility] 11/09/2020 0 1:40:00 PM EDT [facility] ([facility] Outpatient Attender: Orlando Owen [facility] 10/22/2020 11:30:0 0 AM EDT [facility] ([facility] Outpatient Attender: Orlando Owen [facility] 09/03/2020 10:30:0 0 AM EDT [facility] ([facility] Outpatient Attender: Orlando [facility] 08/07/2020 01:15:0 0 PM EDT [facility] ([facility] Outpatient Attender: AUGUSTINE Jackson NP [facility] 07/30/2020 0 1:40:00 PM EDT [facility] ([facility] ) Outpatient Attender: Orlando Owen [facility] 07/09/2020 03:45:0 0 PM EDT [facility] ([facility] Emergency Attender: CHAPINCITO POLOConsultant: Orlando [facility] 06/25/2020 02:39:00 PM EDT - 06/25/2020 04:21:00 PM EDT [facility] Patient discharged. Outpatient Attender: AUGUSTINE Jackson NP [facility] 06/25/2020 0 1:30:00 PM EDT [facility] ([facility] ) Outpatient Attender: AUGUSTINE Jackson [facility] 06/01/2020 1 1:15:00 AM EST [facility] ([facility] ) Outpatient Attender: AUGUSTINE Jackson NP [facility] 05/18/2020 1 0:30:00 AM EST [facility] ([facility] ) Outpatient Attender: AUGUSTINE Jackson NP [facility] 05/17/2020 1 0:30:00 AM EST [facility] ([facility] ) Outpatient Attender: Orlando Owen [facility] 05/02/2020 12:15:0 0 PM EST [facility] ([facility] Outpatient Attender: AUGUSTINE Jackson NP [facility] 01/23/2020 0 4:00:00 PM EDT [facility] ([facility] ) Outpatient Attender: Orlando Owen [facility] 01/04/2020 01:15:0 0 PM EDT [facility] ([facility] Immunizations Vaccine Date Status Description Data Source(s) COVID-19 VACCINE Leslee 07/12/2020 12:00:00 AM EDT completed [place] Vaccine Series Complete: YESThis Data wa s Submitted to [facility] Via [employer]. New in 2012. IIV4 01/04/2020 01:41:00 PM [...] 11/26/2020 12:00:00 AM EDT ORAL completed [facility] ([facility]) Methylprednisolone 4 MG Oral Tablet [Medrol] Medrol 12:00:00 AM EDT active [facility] ( [facility]) Cyclobenzaprine hydrochloride 5 MG Oral Tablet Cyclobenzapri ne HCL 10/22/2020 12:00:00 AM EDT ORAL active M [facility] ([facility] Prednisone 20 MG Oral Tablet Prednisone 09/03/2020 12:00:00 AM EDT ORAL completed [facility] ([facility] Albuterol 0.83 MG/ML Inhalant Solution Albuterol Sulfate 0 09/03/2020 12:00:00 AM EDT active [facility] ([facility] Nebulizer Kit/Tubing/Mouthpiece 09/03/2020 12:00:00 AM EDT active [facility] ([facility] Nebulizer 09/03/2020 12:00:00 AM EDT active [facility] ([facility] Extension Tubing/Connector 09/03/2020 [...] Doxycycline Monohydrate 100 MG Oral Capsule Doxycycline Larimer hydrate 01/23/2020 12:00:00 AM EDT completed [facility] ([facility] Prednisone 20 MG Oral Tablet Prednisone 01/23/2020 12:00:00 AM EDT ORAL completed [facility] ([facility] Insurance Providers Payer name Policy type / Coverage type Policy ID Covered green party ID Covered green party's relationship to nunez Policy Nunez Plan Information MEDICARE [id number] MEDICARE A [id number] Self [id number] B AETNA H [id number] Spouse [id number] 1 AETNA U [id number] Self [id number] AETNA U [id number] Self [id number] CIGNA U [id number] Self [id number] AETNA -O/P [id number] 01 [id number] MEDICARE PART A -I/P [id number] 18 [id number] MEDICARE PART A -I/P [id number] 18 [id number] AETNA -O [id number] 01 [id number] AETNA US HEALTHCARE O [id number] P [id number] MEDICARE C [id number] S [id number] B MEDICARE -O/P [id number] 18 [id number] MEDICARE PART B-O/P [id number] 18 [id number] C[employer]NA HE[employer]CARE [id number] SP [id number] MEDICARE P [id number] S [id number] C[employer] HE[employer] -O/P [id number] 18 [id number] MEDICARE PART A -O/P [id number] 18 [id number] CIGNA O [id number] S [id number] MEDICARE C [id number] S [id number] [employer] -O/P [id number] Problems, Conditions, and Diagnoses Code Display Name Description Problem Type Effective Dates Data Source(s) D48652 Bathroom of unspecified non- institutional (private) residence as the place of occurrence of the external cause Bathroom of unspecified non- institutional (private) residence as the place of occurrence of the external cause Diagnosis 11/27/2020 11:58:00 AM [facility] [id number] Fall on same level from slip ping, tripping and stumbling with subsequent striking against other object, initial encounter Fall on same level from slipping, tripping and stumbling with subsequent striking against other object, initial encounter Diagnosis 11/27/2020 11:58:00 AM [facility] 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 (current) use of anticoagulants Diagnosis 11/27/2020 11:58:00 AM EDT [facility] E039 Hypothyroidism, unspecified Hypothyroidism, unspecifie d Diagnosis 11/27[facility] Chronic obstructive pulmonary disease, u nspecified Chronic obstructive pulmonary disease, unspecified Diagnosis 11/27/2020 11:58:00 AM EDT [facility] I10 Essential (primary) hypertension Essential (primary) h ypertension Diagnosis 11/27/2020 11:58:00 AM EDT [facility] [id number] Contusion of scalp, initial encounter Co ntusion of scalp, initial encounter Diagnosis 11/27/2020 [facility]:58[facility] [id number] Unspecified injury of head, initial enco unter Unspecified injury of head, initial encounter Diagnosis 11/27/2020 11:58:00 AM [facility] 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 Diagnosis 06/25/2020 02:39:00 PM [facility] K13241 Nicotine dependence, unspecified, uncomp licated Nicotine dependence, unspecified, uncomplicated Diagnosis [facility] Pure hypercholesterolemia, unspecified P ure hypercholesterolemia, unspecified Diagnosis 06/25/2020 02:39:00 PM [facility] J209 Acute bronchitis, unspecified Acute bronchitis, unspec ified Diagnosis 06/25/2020 02:39:00 PM [facility] J440 Chronic obstructive pulmonar y disease with (acute) lower respiratory infection Chronic obstructive pulmonary disease wi th (acute) lower respiratory infection Diagnosis 06/25/2020 02:39:00 PM [facility] I4820 Chronic atrial fibrillation, unspecified Chronic atrial fibrillation, unspecified Diagnosis 06/25/2020 02:39:00 PM [facility] R002 Palpitations Palpitations Diagnosis 06/25/2020 02:39:00 P M [facility] Surgeries/Procedures Procedure Description Date Indications Data Source(s) THERAPEUTIC PX 1/> AREAS EACH 15 MIN EXERCISES 12:00:00 AM EDT [facility] ([facility]) MANUAL THERAPY TQS 1/> REGIONS EACH 15 MINUTES 12:00:00 AM EDT [facility] ([facility]) THERAPEUTIC PX 1/> AREAS EACH 15 MIN EXERCISES 12:00:00 AM EDT [facility] ([facility] THERAPEUTIC PX 1/> AREAS EACH 15 MIN EXERCISES 12:00:00 AM EDT [facility] ([facility] Physical Therapy Eval - Low Complexity 12/05/2020 12:0 0:00 AM EDT [facility] ([facility] ) X-Ray Spine Lumbosacral Complete Inc Bending Views Min Of 6 11/26/2020 12:00:00 AM EDT [facility] ([facility]) OFFICE OUTPATIENT NEW 45 MINUTES 11/26/2020 12:00:00 A M EDT [facility] ([facility]) OFFICE OUTPATIENT VISIT 25 [...] [facility] Results ID Date Data Source [id number] 01/18/2021 11:21:00 AM EDT [facility] ([facility] SRC:<Blank> ID Date Data Source [id number] 01/18/2021 11:08:00 AM EDT [facility] Name Value Range Interpretation Code Description Data Susan rce(s) Supporting Document(s) Clarity Laboratory test result [facility] ([facility] Color Laboratory test result [facility] ([facility] Glucose-Ua Laboratory test result ME DENT ([facility] Bilirubin,Urine Laboratory test result [facility] ([facility] Ketone Laboratory test result [facility] ([facility] Creatine kinase [Enzymatic activity/volume] in Serum or Plas ma 1.025 # 1.000-1.030 [facility] Blood - Ua Laboratory test result Abnormal (applies to non -numeric results) [facility] ([facility] pH 6.5 # 5.0-8.0 [facility] Protein Laboratory test result [facility] ([facility] Urobilinogen 0.2 NA 0.2-1.0 [facility] ([facility] Nitrite Laboratory test result [...] [facility] ) ID Date Data Source [id number] 01/01/2021 02:06:00 PM EDT [facility] ([facility] Name Value Range [...] CSLI standards.</content>
<content></content> ID Date Data Source [id number] 11/27/2020 11:58:00 AM EDT [facility] 1 OrderSheet [facility] Emergency Department [address] [place] [address] Phone #: ext- [phone] 11/27/2020 11:58 Patient: KILO FUENTES Sex: F [...] rce(s) Supporting Document(s) ID Date Data Source [id number] 11/27/2020 11:58:00 AM EDT [facility] 1 Medication Reconciliation Report [facility] Emergency Department [address] [place] [address] Phone #: ext- [phone] 11/27/2020 11:58 [id number] Sex: [facility] : 1930 Age: 89yWeight: 75.6 [...] Ventolin HFA Inhalation 2 Medication Reconciliation Report [facility] Emergency Department [address] [place] [address] Phone #: ext- [phone] 11/27/2020 11:58 Patient: [...] rce(s) Supporting Document(s) ID Date Data Source [id number] 11/27/2020 11:58:00 AM EDT [place] [address] Medication Administration Record [facility] Emergency Department [address] [place] [address] Phone #: ext- [phone] 11/27/2020 11:58 Patient: KILO FUENTES Sex: F : 1930 Age: 89yWeight: 75.6 kgHeight/Length: 65 inBMI: 27.8ALLERGIES: Grass Mix Pollens Allergen ExtDate/Time Medication Administered Medication Ordered Name Value Range Interpretation Code Description Data Susan rce(s) Supporting Document(s) ID Date Data Source [id number] 11/27/2020 11:58:00 AM EDT [facility] 1 General Instructions [facility] Emergency Department [address] [place] [address] Phone #: ext- [phone] 11/27/2020 11:58 Patient: [...] patient.Follow-up with: Orlando Owen, , , [address] [place], [address] Follow up in three days as needed. Call for an appointment. ADDITIONAL INFORMATION 2 General Instructions [facility] Emergency Department [address] [place] [address] Phone #: ext- [phone] 11/27/2020 11:58 [id number] Sex: F : 1930 Age: 89yHead Injury [...] Personality changes Vision changes 3 General Instructions [facility] Emergency Department [address] [place] [address] Phone #: ext [phone] 11/27/2020 11:58 Patient: KILO FUENTES Sex: F [...] to seek medical advice 4 General Instructions [facility] Emergency Department [address] [place] [address] Phone #: ext- [phone] 11/27/2020 11:58 Patient: [id number] Sex: F : 1930 Age: 89yCall your [...] ears or bruising around the eyes [employer]. [address] [place] [address]. All rights reserved. This information is not intended as asubstitute for professional medical care. Always follow your healthcare professional's instructions. You have been given the following additional information: Head Injury (Adult)(Electronically signed by Romeo Huerta 11/27/2020 14:14) Name Value Range Interpretation Code Description Data Susan rce(s) Supporting Document(s) ID Date Data Source [id number] 11/27/2020 11:58:00 AM EDT [facility] 1 Clinical Report - Nurses [facility] Emergency Department [address] [place] [address] Phone #: ext- [phone] 11/27/2020 11:58 Patient: [...] notification of patient arrival was not received.Treatment COMMUNITY MARKETING COORDINATOR:None. --12:29 11/27/20 Sabiha Cota R.N.12:10 11/27/20. BP: 129/65. MAP: 86. HR: 92. R R: 18. O2 saturation: 97% on room air. Temp: 97.1 F.Pain level now: 0/10. --12:29 11/27/20 Sabiha Cota R.N.Weight: 75.6 kg. Height/Length: 65 inches. BMI: 27.8. --12:27 11/27/20 Sabiha Cota R.N.MedicationsEliquis Oral (Tablet 5 mg), 2x a [...] 11/27/20July, R.N. 2 Clinical Report - Nurses [facility] Emergency Department [address] [place] [address] Phone #: ext- [phone] 11/27/2020 11:58 Patient: [...] patient's family. --12:29 11/27/20 Sabiha Cota R.N.PHYSICAL [id number] 11/27/20. Ambulatory to room.GENERAL / NEURO / PSYCH: Alert. Oriented X 4. Appears in no acute distress.HEENT: Head non-tender. Pupils equal, round and reactive to light. Mouth within normal limits uponinspection. Voice within normal limits. No swelling of head.RESPIRATORY: Respirations not labored. 3 Clinical Report - Nurses [facility] Emergency Department [address] [place] [address] Phone #: ext- [phone] 11/27/2020 11:58 Patient: KLIO FUENTES Sex: F : 1930 Age: 89y [...] to CT by stretcher with mask and outboard technician. (1235). --12:35 11/27/20 Hardy Covarrubias RN Patient transported to CT by wheelchair with mask and outboard technician. (1235). --12:37 11/27/20 Hardy Covarrubias RN Correction --12:37 11/27/20 Hardy Covarrubias RN Patient transported to CT by stretcher with mask and outboard technician. (1235). --12:37 11/27/20 Hardy Covarrubias RN Patient returned from CT by stretcher with mask and outboard technician. (1250). --13:21 11/27/20 Hardy Covarrubias RN.DISPOSITION / DISCHARGE 13:11/27/20. Departure time: 13:11/27/2020. Condition at departure: unchanged. No learning barriers present. Discharge instructions provided and reviewed with the patient and family. Reviewed medication(s) (no changes). Reviewed rest instructions. Reviewed referrals. Provided to follow-up provider. Patient and family verbalized understanding. Written instructions provided in Angolan. The patient was discharged by the physician. [...] rce(s) Supporting Document(s) ID Date Data Source [id number] 11/27/2020 11:58:00 AM EDT [facility] 1 Clinical Report - Physicians/Mid Levels [facility] Emergency Department [address] [place] [address] Phone #: ext- [phone] 11/27/2020 11:58 Patient: KILO FUENTES Sex: F : 1930 Age: 89y Time Seen: 12:20 11/27/2020. Arrived- By private vehicle. Historian- patient.HISTORY OF PRESENT ILLNESS Chief Complaint: FALL: Location of injuries- head. The injury occurred just prior to arrival. Occurred at home. ( Slipped in shower on wet floor in [facility]. struck back of head). Fell: No fainting [...] Oral. 2 Clinical Report - Physicians/Mid Levels [facility] Emergency Department [address] [place] [address] Phone #: ext- [phone] 11/27/2020 11:58 ----- Patient: KILO FUENTES Sex: [...] 2+. 3 Clinical Report - Physicians/Mid Levels [facility] Emergency Department [address] [place] [address] Phone #: ext- [phone] 11/27/2020 11:58 Patient: KILO FUENTES Sex: F : 1930 Age: 89yLABS, X-RAYS, AND EKGCT Head: No hemorrhage and no intracranial mass. The study was independently viewed by me.Laboratory Tests: CT Head W/O Cont: (JOVI: 11/27/2020 12:24) ( MsgRcvd 11/27/2020 13:04) In Progress Exam [place] HEAD W/[place] [address] PHONE: [phone] FAX: [phone] Name .................. : GINA Mejia Acct Number.................. : [id number] ROOM. ................. : MR Number ................... : [id number] Stay type ............. : E/R Discharge Date......... ... : Admit Date ......... : 11/27/20 Admit Phys .................... : RENEA Joe Date of ....... : 1930 Family Phys ................... : MARY GILLESPIE Phone .................. : [phone] Age ................................ : 89 Film# .................. .:[id number] Sex ................................. : F Unsigned transcriptions are preliminary reports and do not represent a medical or legal document CT HEAD W/O CONTRAST [id number] COMPLETE:11/27/20 12:24 32070 Reason(s): Head Injury CT BRAIN WITHOUT IV CONTRAST INDICATION: Head injury COMPARISON: 01/06/2019 CONTRAST: None One or more of the [facility] dose reduction techniques were utilized in effectively [...] 2 4 Clinical Report - Physicians/Mid Levels [facility] Emergency Department [address] [place] [address] Phone #: ext- [phone] 11/27/2020 11:58 Patient: KILO FUENTES Sex: F : 1930 Age: 89[place] [address] PHONE: [phone] FAX: [phone] Name .................. : GINA Mejia Acct Number.................. : [id number] ROOM. ................. : MR Number ................... : [id number] Stay type ............. : E/R Discharge Date......... ... : Admit Date ......... : 11/27/20 Admit Phys .................... : RENEA Joe Date of ....... : 1930 Family Phys ................... : MARY GILLESPIE Phone .................. : [phone] Age ................................ : 89 Film# .................. .:[id number] Sex ................................. : F Unsigned tra nscriptions are preliminary reports and do not represent a medical or legal document CT HEAD W/O CONTRAST [id number] COMPLETE:11/27/20 12:24 35310 Reason(s): Head Injury DCTNAME , SIGNDATE, SCB Transcribe Initials: SSR, Transcribe Date: 11/27/20 13:01, Dictation Date: <<REPDIST>> Page2 of 2CT Spine Cervical W/O Cont: (JOVI: 11/27/2020 12:24) ( MsgRcvd 11/27/2020 13:07) In Progress Exam CT CERV SPINE W/O [facility] [address] [place] [address] PHONE: [phone] FAX: [phone] Name .................. : GINA BOATENG Roberto Acct Number.................. : [id number] ROOM. ................. : VT- 08 MR Number ................... : [id number] Stay type ............. : E/R Discharge Date......... ... : Admit Date ......... : 11/27/20 Admit Phys .................... : RENEA Joe Date of ....... : 1930 Family Phys ................... : MARY GILLESPIE Phone .................. : [phone] Age ................................ : 89 Film# .................. .:[id number] Sex ........... ...................... : F Unsigned transcriptions are preliminary reports and do not represent a medical or legal document CT CERV SPINE W/O GEMINI 10918 COMPLETE:11/27/20 12:24 97819 Reason(s): Trauma/Injury CT CERVICAL SPINE WITHOUT IV CONTRAST INDICATION: Trauma/injury COMPARISON: None. Correlation with CT neck 09/07/2015 CONTRAST: None PROCEDURE: The patient is scanned axially from C1 to the upper thoracic spine. 5 Clinical Report - Physicians/Mid Levels [facility] Emergency Department [address] [place] [address] Phone #: ext- [phone] 11/27/2020 11:58 Patient: [...] Slight progression at C3-4 otherwise similar. Multilevel cgho-ro-hhrdnnvx neural foraminal narrowing. Bilateral degenerative facet arthropathy more pronounced on the left than right particularly through the mid cervical spine. No acute fracture. IMPRESSION: The level degenerative change with some interval progression. No acute bony traumatic abnormality. Electronically Reviewed and Signed By Page 1 of [address] [place] [address] PHONE: [phone] FAX: [phone] Name .................. : GINA Mejia Acct Number.................. : [id number] ROOM. ................. : VT- MR Number ................... : [id number] Stay type ............. : E/R Discharge Date......... ... : Admit Date ......... : 11/27/20 Admit Phys .................... : RENEA Joe Date of ....... : 1930 Family Phys ................... : MARY GILLESPIE Phone .................. : [phone] Age ............. ................... : 89 Film# .................. .:[id number] Sex ................................. : F Unsigned transcriptions are preliminary reports and do not represent a medical or legal document CT CERV SPINE W/O CONTRAS 99776 COMPLETE:11/27/20 12:24 80604 Reason(s): Trauma/Injury DCTNAME , SIGNDATE, SCB Transcribe Initials: SSR, Transcribe Date: 11/27/20 13:06, Dictation Date: <<REPDIST>> Page 2 of 2. 6 Clinical Report - Physicians/Mid Levels [facility] Emergency Department [address] [place] [address] Phone #: ext- [phone] 11/27/2020 11:58 Patient: KILO FUENTES [facility]#: [id number] Sex: F : 1930 Age: 89yPROGRESS AND [...] Follow-up with: Orlando Owen, , , [address] [place], [address] 7 Clinical Report - Physicians/Mid Levels [facility] Emergency Department [address] [place] [address] Phone #: ext- [phone] 11/27/2020 11:58 Patient: KILO FUENTES Sex: F : 1930 Age: 89y Follow up in three days as needed. Call for an appointment.(Electronically signed by Romeo Huerta 11/27/2020 14:14) Name Value Range Interpretation Code Description Data Susan rce(s) Supporting Document(s) ID Date Data Source [id number] 11/27/2020 07:20:00 [place] [address] PHONE: [phone] FAX: [phone] Name .................. : GINA Mejia Acct Number.................. : [id number] ROOM. ................. : VT-08 MR Number ................... : [id number] Stay type ............. : E/R Discharge Date......... ... : Admit Date ......... : 11/11 10/31 Admit Phys .................... : RENEA Joe Date of ....... : 1930 Family Phys ................... : MARY GILLESPIE Phone .................. : [phone] Age ................................ : 89 Film# .................. .:[id number] Sex ................................. : F Unsigned transcriptions are preliminary reports and do not represent a medical or legal document CT CERV SPINE W/O GEMINI 73227 COMPLETE:11/27/20 12:24 06385 Reason(s): Trauma/Injury CT CERVICAL SPINE WITHOUT IV [...] Slight progression at C3-4 otherwise similar. Multilevel vfat-dx-contukny neural foraminal narrowing. Bilateral degenerative facet arthropathy more pronounced on the left than right particularly through the mid cervical spine. No acute fracture. IMPRESSION: Multi level degenerative change with some interval progression. No acute bony traumatic abnormality. Electronically Reviewed and Signed By Page [address] of 2 [place] [address] PHONE: [phone] FAX: [phone] Name .................. : GINA Mejia Acct Number.................. : [id number] ROOM. ................. : VT-08 Number ................... : [id number] Stay type ............. : E/R Discharge Date......... ... : Admit Date ......... : 11/27/20 Admit Phys .................... : RENEA Joe Date of ....... : 1930 Family Phys ................... : MARY GILLESPIE Phone .................. : [phone] Age ................................ : 89 Film# .................. .:[id number] Sex ................................. : F Unsigned transcriptions are preliminary reports and do not represent a medical or legal document CT CERV SPINE W/O CONTRAS 18582 COMPLETE:11/27/20 12:24 98842 Reason(s): Trauma/Injury Shadi Guzman MD , 11/27/20 19:20, SCB Transcribe Initials: SSR, Transcribe Date: 11/27/20 13:06, Dictation Date: Copy for: MARY DOWNEY via fax Copy for: EMERGENCY DEPT via modem Copy for: 710 MED REC DISCHARGED Page 2 of 2 Name Value Range Interpretation Code Description Data Susan rce(s) Supporting Document(s) ID Date Data Source [id number] 11/27/2020 07:17:00 PM EDT [facility] [address] [place] [address] PHONE: [phone] FAX: [phone] Name .................. : GINA Mejia Acct Number.................. : [id number] ROOM. ................. : VT-08 MR Number ................... : [id number] Stay type ............. : E/R Discharge Date......... ... : Admit Date ......... : 0 11/27/20 Admit Phys .................... : RENEA Joe Date of ....... : 1930 Family Phys ................... : MARY GILLESPIE Phone .................. : [phone] Age ................................ : 89 Film# .................. .:[id number] Sex ................................. : F Unsigned transcriptions are preliminary reports and do not represent a medical or legal document CT HEAD W/O CONTRAST 29588 COMPLETE:11/27/20 12:24 28767 Reason(s): Head Injury CT BRAIN WITHOUT IV [...] and Signed By Page 1 of 2 [facility] [address] [facility] [address] PHONE: [phone] FAX: [phone] Name .................. : GINA Meija Acct Number.................. : [id number] ROOM. ................. : VT-08 MR Number ................... : [id number] Stay type ............. : E/R Discharge Date......... ... : Admit Date ......... : 11/27/20 Adm it Phys .................... : RENEA Joe Date of ....... : 1930 Family Phys ................... : MARY VICKRADHA Phone .................. : [phone] Age ................................ : 89 Film# .................. .:[id number] Sex ................................. : F Unsigned transcriptions are preliminary reports and do not represent a medical or legal document CT HEAD W/O CONTRAST 10443 COMPLETE:11/27/20 12:24 56725 Reason(s): Head Injury Shadi moore MD , 11/27/20 19:17, SCB Transcribe Initials: SSR, Transcribe Date: 11/27/20 13:01, Dictation Date: Copy for: MARY DOWNEY via fax Copy for: EMERGENCY DEPT via modem Copy for: 710 MED REC DISCHARGED Page 2 of 2 Name Value Range Interpretation Code Description Data Susan rce(s) Supporting Document(s) ID Date Data Source [id number] 11/09/2020 02:21:00 PM EDT [facility] ([facility] Name Value Range Interpretation Code Description Data Susan rce(s) Supporting Document(s) Thyroxine (T4) free [Mass/volume] in Serum or Plasma 1.58 ng/dL 0.75-1.54 Above high normal [facility] ([facility] ) Thyrotropin [Units/volume] in Serum or Plasma 1.136 ulU/mL 0.60-4.8 [facility] ([facility] ID Date Data Source [id number] 11/09/2020 02:21:00 PM EDT [facility] ([facility] Name Value Range Interpretation Code Description Data Susan rce(s) Supporting Document(s) Creatine kinase [Enzymatic activity/volume] in Serum or Plasma 43 U /L 26-192 [facility] ([facility] NORMAL RANGES Age WBC [...] HCT IS 5% LESS SOURCE FOR DATA: Skribit 1800 OPERATION MANUAL( AUTOMATED BLOOD COUNTS AND [...] 2-19 YEARS EXCLUSIVE. ID Date Data Source [id number] 11/09/2020 02:21:00 PM EDT [facility] ([facility] Name Value Range Interpretation Code Description Data Susan rce(s) Supporting Document(s) Cholesterol in HDL [Mass/volume] in Serum or Plasma 62 mg/dL 45-65 [facility] ([facility] NORMAL RANGES Age [...] HCT IS 5% LESS SOURCE FOR DATA: Skribit 1800 OPERATION MANUAL( AUTOMATED BLOOD COUNTS AND [...] 2-19 YEARS EXCLUSIVE. Chol 198 mg/dL 0-200 [facility] ([facility] [...] HCT IS 5% LESS SOURCE FOR DATA: Dynamic Signal DYN 1800 OPERATION MANUAL( AUTOMATED BLOOD COUNTS [...] HCT IS 5% LESS SOURCE FOR DATA: Skribit 1800 OPERATION MANUAL( AUTOMATED BLOOD COUNTS AND [...] LDL_C 92 Calc 75-129 [facility] ([facility] NORMAL RANGES Age WBC [...] HCT IS 5% LESS SOURCE FOR DATA: Skribit 1800 OPERATION MANUAL( AUTOMATED BLOOD COUNTS AND [...] 2-19 YEARS EXCLUSIVE. Cho/HDL Ratio 3.2 CALC [facility] ([facility] NORMAL RANGES Age WBC RBC HGB [...] HCT IS 5% LESS SOURCE FOR DATA: Skribit 1800 OPERATION MANUAL( AUTOMATED BLOOD COUNTS AND [...] 2-19 YEARS EXCLUSIVE. ID Date Data Source [id number] 11/09/2020 02:21:00 PM EDT [facility] ([facility] Name Value Range [...] HCT IS 5% LESS SOURCE FOR DATA: Skribit 1800 OPERATION MANUAL( AUTOMATED BLOOD COUNTS AND [...] 2-19 YEARS EXCLUSIVE. Glu 91 mg/dL 70-110 [facility] NORMAL RANGES Age WBC [...] HCT IS 5% LESS SOURCE FOR DATA: Skribit 1800 OPERATION MANUAL( AUTOMATED BLOOD COUNTS AND [...] 2-19 YEARS EXCLUSIVE. Na 138 mmol/L 136-145 [facility] ([facility] [...] HCT IS 5% LESS SOURCE FOR DATA: Skribit 1800 OPERATION MANUAL( AUTOMATED BLOOD COUNTS AND [...] 2-19 YEARS EXCLUSIVE. BUN/Creatinine Ratio 20.5 CALC [facility] ([facility] NORMAL RANGES Age [...] HCT IS 5% LESS SOURCE FOR DATA: Skribit 1800 OPERATION MANUAL( AUTOMATED BLOOD COUNTS AND [...] HCT IS 5% LESS SOURCE FOR DATA: Skribit 1800 OPERATION MANUAL( AUTOMATED BLOOD COUNTS AND [...] 2-19 YEARS EXCLUSIVE. K 4.6 mmol/L 3.5-5.1 [facility] ([facility] [...] HCT IS 5% LESS SOURCE FOR DATA: Skribit 1800 OPERATION MANUAL( AUTOMATED BLOOD COUNTS AND [...] 2-19 YEARS EXCLUSIVE. CL 100.3 mmol/L 98.0-107.0 [facility] ([facility] NORMAL RANGES Age WBC RBC [...] HCT IS 5% LESS SOURCE FOR DATA: Skribit 1800 OPERATION MANUAL( AUTOMATED BLOOD COUNTS AND [...] 2-19 YEARS EXCLUSIVE. TP 6.6 g/dL 6.6-8.7 [facility] ([facility] [...] HCT IS 5% LESS SOURCE FOR DATA: Skribit 1800 OPERATION MANUAL( AUTOMATED BLOOD COUNTS AND [...] HCT IS 5% LESS SOURCE FOR DATA: Skribit 1800 OPERATION MANUAL( AUTOMATED BLOOD COUNTS AND [...] 2-19 YEARS EXCLUSIVE. Alb 4.4 g/dL 3.4-4.8 [facility] ([facility] [...] HCT IS 5% LESS SOURCE FOR DATA: Dynamic Signal DYN 1800 OPERATION MANUAL( AUTOMATED BLOOD COUNTS [...] HCT IS 5% LESS SOURCE FOR DATA: Skribit 1800 OPERATION MANUAL( AUTOMATED BLOOD COUNTS AND [...] HCT IS 5% LESS SOURCE FOR DATA: Skribit 1800 OPERATION MANUAL( AUTOMATED BLOOD COUNTS AND [...] YEARS EXCLUSIVE. Alt (SGPT) 16 U/L 0-41 [facility] ([facility] NORMAL RANGES Age WBC RBC [...] HCT IS 5% LESS SOURCE FOR DATA: Skribit 1800 OPERATION MANUAL( AUTOMATED BLOOD COUNTS AND [...] 2-19 YEARS EXCLUSIVE. Alp 75.8 U/L 35-129 [facility] ([facility] [...] HCT IS 5% LESS SOURCE FOR DATA: Skribit 1800 OPERATION MANUAL( AUTOMATED BLOOD COUNTS AND [...] YEARS EXCLUSIVE. Ast (Sgot) 17 U/L 0-40 [facility] ([facility] [...] HCT IS 5% LESS SOURCE FOR DATA: Skribit 1800 OPERATION MANUAL( AUTOMATED BLOOD COUNTS AND [...] 2-19 YEARS EXCLUSIVE. Anion Gap 21 mmol/L [facility] ([facility] [...] HCT IS 5% LESS SOURCE FOR DATA: Skribit 1800 OPERATION MANUAL( AUTOMATED BLOOD COUNTS AND [...] HCT IS 5% LESS SOURCE FOR DATA: Skribit 1800 OPERATION MANUAL( AUTOMATED BLOOD COUNTS AND [...] HCT IS 5% LESS SOURCE FOR DATA: Skribit 1800 OPERATION MANUAL( AUTOMATED BLOOD COUNTS AND [...] HCT IS 5% LESS SOURCE FOR DATA: Skribit 1800 OPERATION MANUAL( AUTOMATED BLOOD COUNTS AND [...] INDIVIDUALA AGED 2-19 YEARS EXCLUSIVE. eGFR Non-Afr. Tunisian 57 # [facility] ([facility] [...] HCT IS 5% LESS SOURCE FOR DATA: Dynamic Signal DYN 1800 OPERATION MANUAL( AUTOMATED BLOOD COUNTS [...] 2-19 YEARS EXCLUSIVE. ID Date Data Source [id number] 11/09/2020 02:21:00 PM EDT [facility] ([facility] Name Value Range Interpretation Code Description Data Susan rce(s) Supporting Document(s) WBC 11.4 10E3/uL 4.1-10.9 Above high normal KAYLA Castillo ([facility] NORMAL RANGES Age WBC RBC [...] HCT IS 5% LESS SOURCE FOR DATA: Skribit 1800 OPERATION MANUAL( AUTOMATED BLOOD COUNTS AND [...] 2-19 YEARS EXCLUSIVE. HGB 13.8 g/dL 12.0-18.0 [facility] ([facility] [...] HCT IS 5% LESS SOURCE FOR DATA: Skribit 1800 OPERATION MANUAL( AUTOMATED BLOOD COUNTS AND [...] EXCLUSIVE. RBC 4.27 10E6/uL 4.20-6.30 [facility] ([facility] NORMAL RANGES Age WBC [...] HCT IS 5% LESS SOURCE FOR DATA: Skribit 1800 OPERATION MANUAL( AUTOMATED BLOOD COUNTS AND [...] 2-19 YEARS EXCLUSIVE. HCT 40.9 % 37.0-51.0 [facility] ([facility] NORMAL [...] HCT IS 5% LESS SOURCE FOR DATA: Dynamic Signal DYN 1800 OPERATION MANUAL( AUTOMATED BLOOD COUNTS [...] HCT IS 5% LESS SOURCE FOR DATA: Skribit 1800 OPERATION MANUAL( AUTOMATED BLOOD COUNTS AND [...] HCT IS 5% LESS SOURCE FOR DATA: Skribit 1800 OPERATION MANUAL( AUTOMATED BLOOD COUNTS AND [...] MCH 32.3 pg 26.0-32.0 Above high normal [facility] ([facility] NORMAL [...] HCT IS 5% LESS SOURCE FOR DATA: Dynamic Signal DYN 1800 OPERATION MANUAL( AUTOMATED BLOOD COUNTS [...] 2-19 YEARS EXCLUSIVE. Lym% 18.3 % 10.0-58.5 [facility] ([facility] [...] HCT IS 5% LESS SOURCE FOR DATA: Skribit 1800 OPERATION MANUAL( AUTOMATED BLOOD COUNTS AND [...] 2-19 YEARS EXCLUSIVE. RDW-CV 14.3 % 11.5-14.5 [facility] ([facility] NORMAL RANGES Age WBC [...] HCT IS 5% LESS SOURCE FOR DATA: Skribit 1800 OPERATION MANUAL( AUTOMATED BLOOD COUNTS AND [...] 2-19 YEARS EXCLUSIVE. PLT 287 10E3/uL 140-440 [facility] ([facility] NORMAL RANGES Age WBC RBC HGB [...] HCT IS 5% LESS SOURCE FOR DATA: Skribit 1800 OPERATION MANUAL( AUTOMATED BLOOD COUNTS AND [...] 2-19 YEARS EXCLUSIVE. MXD% 8.4 % 0.1-24.0 [facility] ([facility] [...] HCT IS 5% LESS SOURCE FOR DATA: Skribit 1800 OPERATION MANUAL( AUTOMATED BLOOD COUNTS AND [...] 2-19 YEARS EXCLUSIVE. Neut% 73.3 % 37.0-92.0 [facility] ([facility] NORMAL [...] HCT IS 5% LESS SOURCE FOR DATA: Skribit 1800 OPERATION MANUAL( AUTOMATED BLOOD COUNTS AND [...] 2-19 YEARS EXCLUSIVE. Lym# 2.1 10E3/uL 0.6-4.1 [facility] ([facility] NORMAL RANGES Age WBC [...] HCT IS 5% LESS SOURCE FOR DATA: Skribit 1800 OPERATION MANUAL( AUTOMATED BLOOD COUNTS AND [...] HCT IS 5% LESS SOURCE FOR DATA: Skribit 1800 OPERATION MANUAL( AUTOMATED BLOOD COUNTS AND [...] 2-19 YEARS EXCLUSIVE. MXD# 1.0 10E3/uL 0.0-1.8 [facility] ([facility] NORMAL RANGES Age WBC RBC HGB [...] HCT IS 5% LESS SOURCE FOR DATA: Skribit 1800 OPERATION MANUAL( AUTOMATED BLOOD COUNTS AND [...] 2-19 YEARS EXCLUSIVE. MPV 9.4 fL 9.0-13.0 [facility] ([facility] NORMAL [...] HCT IS 5% LESS SOURCE FOR DATA: Skribit 1800 OPERATION MANUAL( AUTOMATED BLOOD COUNTS AND [...] 2-19 YEARS EXCLUSIVE. ID Date Data Source [id number] 09/03/2020 10:35:00 AM EDT [facility] ([facility] [...] HCT IS 5% LESS SOURCE FOR DATA: Skribit 1800 OPERATION MANUAL( AUTOMATED BLOOD COUNTS AND DIFF.) APPENDIX B-3 WBC 8.0 10E3/uL 4.1-10.9 [facility] ([facility] NORMAL RANGES Age WBC [...] DIFF.) APPENDIX B-3 HGB 13.7 g/dL 12.0-18.0 [facility] ([facility] NORMAL RANGES Age WBC RBC [...] HCT IS 5% LESS SOURCE FOR DATA: Skribit 1800 OPERATION MANUAL( AUTOMATED BLOOD COUNTS AND DIFF.) APPENDIX B-3 MCV 97.0 fL 80.0-97.0 [facility] ([facility] NORMAL RANGES Age WBC [...] HCT IS 5% LESS SOURCE FOR DATA: Skribit 1800 OPERATION MANUAL( AUTOMATED BLOOD COUNTS AND DIFF.) APPENDIX B-3 HCT 41.6 % 37.0-51.0 [facility] ([facility] NORMAL RANGES Age WBC [...] DIFF.) APPENDIX B-3 MCH 31.9 pg 26.0-32.0 [facility] ([facility] NORMAL RANGES Age WBC RBC HGB [...] DIFF.) APPENDIX B-3 PLT 418 10E3/uL 140-440 [facility] ([facility] NORMAL RANGES Age WBC RBC HGB [...] HCT IS 5% LESS SOURCE FOR DATA: Skribit 1800 OPERATION MANUAL( AUTOMATED BLOOD COUNTS AND DIFF.) APPENDIX B-3 MCHC 32.9 g/dL 31.0-36.0 [facility] ([facility] NORMAL RANGES Age WBC RBC [...] HCT IS 5% LESS SOURCE FOR DATA: Skribit 1800 OPERATION MANUAL( AUTOMATED BLOOD COUNTS AND DIFF.) APPENDIX B-3 RDW-CV 12.7 % 11.5-14.5 [facility] ([facility] NORMAL RANGES Age WBC [...] HCT IS 5% LESS SOURCE FOR DATA: Skribit 1800 OPERATION MANUAL( AUTOMATED BLOOD COUNTS AND DIFF.) APPENDIX B-3 Neut% 69.6 % 37.0-92.0 [facility] NORMAL RANGES Age [...] HCT IS 5% LESS SOURCE FOR DATA: Skribit 1800 OPERATION MANUAL( AUTOMATED BLOOD COUNTS AND DIFF.) APPENDIX B-3 Lym% 20.6 % 10.0-58.5 [facility] ([facility] NORMAL RANGES Age WBC [...] HCT IS 5% LESS SOURCE FOR DATA: Dynamic Signal DYN 1800 OPERATION MANUAL( AUTOMATED BLOOD COUNTS AND DIFF.) APPENDIX B-3 MXD% 9.8 % 0.1-24.0 [facility] ([facility] NORMAL RANGES Age WBC RBC [...] HCT IS 5% LESS SOURCE FOR DATA: Dynamic Signal DYN 1800 OPERATION MANUAL( AUTOMATED BLOOD COUNTS AND DIFF.) APPENDIX B-3 Lym# 1.6 10E3/uL 0.6-4.1 [facility] ([facility] NORMAL RANGES Age WBC [...] HCT IS 5% LESS SOURCE FOR DATA: Skribit 1800 OPERATION MANUAL( AUTOMATED BLOOD COUNTS AND DIFF.) APPENDIX B-3 MPV 9.1 fL 9.0-13.0 [facility] ([facility] NORMAL RANGES Age WBC RBC HGB [...] HCT IS 5% LESS SOURCE FOR DATA: Skribit 1800 OPERATION MANUAL( AUTOMATED BLOOD COUNTS AND DIFF.) APPENDIX B-3 Neut# 5.6 % 2.0-7.8 [facility] ([facility] NORMAL RANGES [...] HCT IS 5% LESS SOURCE FOR DATA: Skribit 1800 OPERATION MANUAL( AUTOMATED BLOOD COUNTS AND DIFF.) APPENDIX B-3 MXD# 0.8 10E3/uL 0.0-1.8 [facility] ([facility] NORMAL RANGES Age WBC [...] HCT IS 5% LESS SOURCE FOR DATA: Skribit 1800 OPERATION MANUAL( AUTOMATED BLOOD COUNTS AND DIFF.) APPENDIX B-3 ID Date Data Source [id number] 06/26/2020 10:02:00 [place] [address] RESPIRATORY CARE REPORT ==== ---------NAME------- NUMBER SEX AGE ADMIT DISC. XRAY# F/C TYPELACLAIR KILO J [id number] F 89 06/25/20 06/25/20 [id number] MB4 E/R DATE OF : 1930 M/R# [id number] #: [id number] TR-07 LOCATION: EKG [id number] COMPLETE:06/25/20 2 3:07 AJP [id number] PHYSICIAN: CHRIST JAY Name Value Range Interpretation Code Description Data Susan rce(s) Supporting Document(s) ID Date Data Source [id number] 06/26/2020 10:12:00 AM EDT [place] 1915019 PHONE: [phone] FAX: [phone] Name .................. : GINA Mejia Acct Number.................. : [id number] ROOM. ................. : TR-07 MR Number ................... : [id number] Stay type ............. : E/R Discharge Date......... ... : 06/25/20 Admit Date ......... : 06/25/20 Admit Phys .................... : CHRIST JAY Date of ....... : 1930 Family Phys ................... : [facility] Phone .................. : [phone] Age ................................ : 89 Film# .................. .:[id number] Sex ................................. : F Unsigned transcriptions are preliminary reports and do not represent a medical or legal document CHEST PORTABLE [id number] COMPLETE:06/25/20 15:06 [facility] 6296 Reason(s): palpitations, COPD, SOB PORTABLE CHEST [...] rce(s) Supporting Document(s) ID Date Data Source [id number] 06/25/2020 02:39:00 PM EDT [facility] 1 OrderSheet [facility] Emergency Department [address] [place] [address] Phone #: ext- [phone] 06/25/2020 14:24 Patient: KILO FUENTES Sex: F : 1930 Age: 89yWEIGHT:74.8 kg (M) HEIGHT:65 inches (S) BMI:27.5ALLERGIES: Cefidnir, FlagylCHIEF COMPLAINT: palpitationsDIAGNOSIS: Chronic obstructive lung disease, Bronchitis, Atrial fibrillationLAB ORDERSOrder Description Priority Entered Acknowledged InitialedCBC w Diff STAT 14:51 06/25/2020 14:54 Chapincito Sanchez RN, M.D.;CMP STAT 14:51 06/25/2020 14:54 Chapincito Sanchez RN, M.D.;Lipase STAT 14:51 06/25/2020 14:54 Chapincito Sanchez RN, M.D.;PT/PTT STAT 14:51 06/25/2020 14:54 Chapincito Sanchez RN, M.D.;Troponin-T STAT 14:51 06/25/2020 14:54 Chapincito Sanchez RN, M.D.;TSH STAT 14:51 06/25/2020 14:54 Chapincito Sanchez RN, M.D.;B BUSINESS SERVICES ASSOCIATE STAT 14:51 06/25/2020 14:54 Chapincito Sanchez RN, M.D.;DIAGNOSTIC STUDY ORDERSOrder Description Priority Entered Acknowledged InitialedChest Portable 1 STAT 14:51 06/25/2020 14:54 Chapincito Lucia RN(Oxygen?(No)) [place]; Reason for Study: pa lpitations, COPD, SOBMEDICATION/IV/DRIP/FLUID ORDERSOrder Description Priority Entered Acknowledged Initialed 2 OrderSheet [facility] Emergency Department [address] [place] [address] Phone #: ext- [phone] 06/25/2020 14:24 [id number] Sex: [facility] : 1930 Age: 89yTessalon Perles PO 14:51 06/25/2020 15:20 Shpcp387 mg Chapincito Polo RN, M.D.;Cardizem IVP 10 14:51 06/25/2020 15:21 Terrymg Chapincito Polo RN, M.D.;Atrovent Neb Tx 2.5 14:51 06/25/2020 15:21 IngeymL Chapincito Polo RN, M.D.;SOLU-Medrol 125 14:51 06/25/2020 15:20 Terrymg IV X1 Dose: 125 Chapincito Pool (X1) M.DAdeel;Zithromax PO 500 16:00 06/25/2020 16:08 Terrymg X1 Dose: 500 Chapincito Polo (NOW x1) MAdeelDAdeel;GENERAL ORDERSOrder Description Priority Entered Acknowledged InitialedBlood Pressure 14:51 06/25/2020 14:54 IngeyMonitor Chapincito Polo RN, M.D.;Film And Video Graphics Designer 14:51 06/25/2020 14:54 Hardy(continuous) Chapincito Polo RN, [...] Lock 14:51 06/25/2020 15:21 Hardy 3 OrderSheet [facility] Emergency Department [address] [place] [address] Phone #: ext- [phone] 06/25/2020 14:24 Patient: KILO FUENTES Sex: F : 1930 Age: 89y Chapincito Polo RN, M.D.;Vitals 14:51 06/25/2020 14:54 Chapincito Sanchez RN, M.D.;[Electronically signed by Chapincito Polo M.D. (17:37 06/25/2020)][Electronically signed by Hardy Covarrubias RN (17:40 )][Electronically locked by Hardy Covarrubias RN (17:40 06/25/2020)] Name Value Range Interpretation Code Description Data Susan rce(s) Supporting Document(s) ID Date Data Source [id number] 06/25/2020 02:39:00 PM EDT [facility] 1 Medication Reconciliation Report [facility] Emergency Department [address] [place] [address] Phone #: ext- [phone] 06/25/2020 14:24 Patient: KILO FUENTES Sex: F [...] Medication information:Not obtained. 2 Medication Reconciliation Report [facility] Emergency Department [address] [place] [address] Phone #: ext- [phone] 06/25/2020 14:24 Patient: KILO FUENTES Sex: F [...] ON PACKAGING. Dispense 21 tablet. Refills: 1. Substitutionpermitted.[place] [id number] ; [place] [address]. .Tessalon Perles 100 mg capsule Take 1 capsule three times a day for 5 days -- Dispense 15 capsule.Refills: 1. Substitution permitted.[place] [id number] ; [place] [address]. .Zithromax 250 mg tablet Take 1 tablet once a day for 4 days -- Dispense 4 tablet. Refills: 0.Substitution permitted. Note to Pharmacy - start tomorrow; 500 mg po given in ER today.[facility] [address] ; [place] [address]. FaxNumber: . -- Chapincito Polo M.D. Name Value Range Interpretation Code Description Data Susan rce(s) Supporting Document(s) ID Date Data Source [id number] 06/25/2020 02:39:00 PM EDT [facility] 1 Medication Administration Record [facility] Emergency Department [address] [place] [address] Phone #: ext- [phone] 06/25/2020 14:24 [facility]: [id number] Sex: F : 1930 Age: 89yWeight: 74.8 [...] rce(s) Supporting Document(s) ID Date Data Source [id number] 06/25/2020 02:39:00 PM EDT [facility] 1 General Instructions [facility] Emergency Department [address] [place] [address] Phone #: ext- [phone] 06/25/2020 14:24 Patient: KILO FUENTES [facility]#: [id number] Sex: F : 1930 Age: 89y Chronic [...] tablet. Refills: 1. Substitution permitted. Pharmacy - [facility] [phone] ; [place] [address]. . 2 General Instructions [facility] Emergency Department [address] [place] [address] Phone #: ext- [phone] 06/25/2020 14:24 [facility]: [id number] Sex: F : 1930 Age: 89yTessalon Perles 100 mg capsule Take 1 capsule three times a day for 5 days -- Dispense 15 capsule.Refills: 1. Substitution permitted.Pharmacy - [facility] [phone] ; [place] [address]. .Zithromax 250 mg tablet Take 1 tablet once a day for 4 days -- Dispense 4 tablet. Refills: 0.Substitution permitted. Note to Pharmacy - start tomorrow; 500 mg po given in ER today.Pharmacy - [facility] [id number] ; [place] [address]. .Follow-up:Return to the emergency department as needed. [...] care. ADDITIONAL INFORMATIONAtrial Fibrillation 3 General Instructions [facility] Emergency Department [address] [place] [address] Phone #: ext- [phone] 06/25/2020 14:24 Patient: [...] a couple ofdays. Or it may become shelter (chronic), lasting for months at a time [...] heart valves Enlarged heart 4 General Instructions [facility] Emergency Department [address] [place] [address] Phone #: ext- [phone] 06/25/2020 14:24 Patient: KILO FUENTES Sex: F [...] work as they should. 5 General Instructions [facility] Emergency Department [address] [place] [address] Phone #: ext- [phone] 06/25/2020 14:24 Patient: KILO FUENTES [facility]#: [id number] Sex: F : 1930 Age: 89y If [...] need regular testing.Follow-up careFollow up with your peoples hospital provider, or as advised.When to seek [...] vision Extreme drowsiness, confusion, dizziness, or fainting [phone] [employer] [place] [address]. All rights reserved. This information is not intended as asubstitute for professional medical care. Always follow your healthcare professional's instructions.Bronchitis, Antibiotic Treatment (Adult) 6 General Instructions [facility] Emergency Department [address] [place] [address] Phone #: ext- [phone] 06/25/2020 14:24 Patient: [...] away from secondhand smoke. 7 General Instructions [facility] Emergency De partment [address] [place] [address] Phone #: ext- [phone] 06/25/2020 14:24 Patient: KILO FUENTES Sex: F : 1930 Age: 89y You may use wjmz-fsi-tilpaba medicines to control fever or pain, unless [...] loosen mucus in your nose and lungs. Flfm-xmm-ikvqbyk cough, cold, and sore-throat medicines will not [...] or pain with breathing 8 General Instructions [facility] Emergency Department [address] [place] [address] Phone #: ext- [phone] 06/25/2020 14:24 Patient: KILO FUENTES Sex: F : 1930 Age: 89y [phone] [employer] [place] [address]. All rights reserved. This infor mation is [...] with an antibiotic.Home care 9 General Instructions [facility] Emergency Department [address] [place] [address] Phone #: ext- [phone] 06/25/2020 14:24 Patient: [id number] Sex: F : 1930 Age: 89yFollow these guidelines when caring for yourself at home: If your symptoms are severe, rest at home for the first 2 to 3 days. When you go back to your usual activities, don't let yourself get too tired. Don't smoke. Also stay away from secondhand smoke. You may use dnku-gvf-qkieppv medicines to control fever or pain, unless [...] loosen mucus in your nose and lungs. Cgct-oof-jfyhmpa cough, cold, and sore-throat medicines will not [...] a stiff neckCall 911 10 General Instructions [facility] Emergency Department [address] [place] [address] Phone #: ext- [phone] 06/25/2020 14:24 Patient: KILO FUENTES Sex: F : 1930 Age: 89yCall 911 if any of these occur. Coughing up blood Weakness, drowsiness, headache, or stiff neck that get worse Trouble breathing, wheezing, or pain with breathing [phone] [employer]. [address] [place] [address]. All rights reserved. This information is not intended as asubstitute for professional medical care. Always follow your healthcare professional's instructions. You have been given the following additional information: Atrial Fibrillation Bronchitis, Antibiotic Treatment (Adult) Bronchitis, Antibiotic Treatment (Adult)(Electronically signed by Chapincito Polo M.D. 06/25/2020 17:37) Name Value Range Interpretation Code Description Data Susan rce(s) Supporting Document(s) ID Date Data Source [id number] 06/25/2020 02:39:00 PM EDT [facility] 1 Clinical Report - Nurses [facility] Emergency Department [address] [place] [address] Phone #: ext- [phone] 06/25/2020 14:24 Patient: [...] cough for the past 4-5 days.). Treatment COMMUNITY MARKETING COORDINATOR: Seen within the last 24 hours in [...] Boucher R.N. 2 Clinical Report - Nurses [facility] Emergency Department [address] [place] [address] Phone #: ext- [phone] 06/25/2020 14:24 Patient: [...] Boucher R.N. 3 Clinical Report - Nurses [facility] Emergency Department [address] [place] [address] Phone #: ext- [phone] 06/25/2020 14:24 Patient: KILO FUENTES [facility]#: [id number] Sex: F : 1930 Age: 89y Interventions [...] Boucher R.N. Cardiac rhythm: atrial fibrillation; ([id number]). structural biologist, NIBP monitor and pulse oximeter placed on patient; blue split trimmer- Lead II; monitor alarms on; monitor strip [...] Hardy Covarrubias RN 15:20 06/25/2020 Atrovent (Ipratropium Nuevo) Neb TX Nebulizer 1 unit dose given. Given by the nurse. Allergies verified and confirmed 5 rights. Information reviewed with patient. --15:06/25/20 Hardy Covarrubias RN Checked patient name and birthdate. Blood samples drawn by tech. ([id number]). Portable chest x-ray 4 Clinical Report - Nurses [facility] Emergency Department [address] [place] [address] Phone #: ext- [phone] 06/25/2020 14:24 Patient: KILO FUENTES Sex: F : 1930 Age: 89y completed. Shown to the ED physician ([id number]). --15:06/25/20 Hardy Covarrubias RN 16:08 06/25/2020 Zithromax [...] 16. O2 saturation: 97%. --16:09 06/25/20 Stepan baffle mounterRose ER Tech1 16:13 06/25/20. Temp: 97.9 F. [...] Patient verbalized understanding. Written instructions provided in Angolan. The patient was discharged by the physician. She was discharged home and accompanied by family. She left in a wheelchair and via private vehicle. Family member driving. --16:30 06/25/20 Hardy Covarrubias RN 16:18 06/25/20. Pain level now: 0/10. --16:32 06/25/20 Hardy Covarrubias RN.Locked/Released at 06/25/2020 17:40 by Hardy Covarrubias RN 5 Clinical Report - Nurses [facility] Emergency Department [address] [place] [address] Phone #: ext- [phone] 06/25/2020 14:24 Patient: KILO FUENTES Sex : F : 1930 Age: 89y Name Value Range Interpretation Code Description Data Susan rce(s) Supporting Document(s) ID Date Data Source [id number] 06/25/2020 02:39:00 PM EDT [facility] 1 Clinical Report - Physicians/Mid Levels [facility] Emergency Department [address] [place] [address] Phone #: ext- [phone] 06/25/2020 14:24 Patient: [...] days w mild exertional SOB, [facility], was found to be in [...] day. 2 Clinical Report - Physicians/Mid Levels [facility] Emergency Department [address] [place] [address] Phone #: ext- [phone] 06/25/2020 14:24 Patient: [...] interpreted 3 Clinical Report - Physicians/Mid Levels [facility] Emergency Department [address] [place] [address] Phone #: ext- [phone] 06/25/2020 14:24 Patient: KILO FUENTES Sex: F [...] 40) 4 Clinical Report - Physicians/Mid Levels [facility] Emergency Department [address] [place] [address] Phone #: ext- [phone] 06/25/2020 14:24 [id number] Sex: F : 1930 Age: 89y SGPT/ALT [...] mL/min Normal Lipase: (JOVI: 06/25/2020 14:59) ( [facility] 06/25/2020 15:31) Final results Test Result Flag Uni ts (Reference) LIPASE 42 U/L (13 - 60) PT/PTT: (JOVI: 06/25/2020 14:59) ( [facility] 06/25/2020 15:22) Final results Test Result Flag Units (Reference) PROTIME 15.3 SECONDS (11.0 - 15.5) INR 1.15 (0.93 - 1.23) PTT 35.4 SECONDS (24.8 - 36.7) \\BLDo\\INR INTERPRETATION\\BLDx\\ Therapeutic range for Coumadin and related oral anticoagulants. -International Normalized Ratio (INR): 2.0 - 3.0 for Venous Thrombosis, Pulmonary Embolus, Tissue heart valves, Acute [place] Atrial Fibrillation, Valvular heart disease and recurrent Systemic Embolism. -International Normalized Ratio (INR): 2.5 - 3.5 for Mechanical Prosthetic valve. Troponin-T: (JOVI: 06/25/2020 14:59) ( [facility] 06/25/2020 15:34) Final results Test Result Flag Units (Reference) TROPONIN T <0.01 NG/ML (0.00 - 0.10) TROPONIN T0.1 ng/ml Recommended as the clinical threshold value forTroponin T. TSH: (JOVI: 06/25/2020 14:59) ( [facility] 06/25/2020 15:42) Final results Test Result Flag Units (Reference) TSH 1.63 uIU/mL (0.47 - 5.01) BNP: (JOVI: 06/25/2020 14:59) ( [facility]d 06/25/2020 15:57) Final results Test Result Flag Units (Reference) BNP 416 PG/ML (0 - 450) Chest Portable 1 View: (JOVI: 06/25/2020 14:52) ( AkgRcvd 06/25/2020 15:06) In Progress CHEST PORTABLE Reason(s): palpitations, COPD, SOB TRANSPORTATION: P IV? O2? Oxygen?(No) Room: ED.PROGRESS AND PROCEDURESCourse of Car e: 16:02 06/25/20. workup all in and reviewed and nml, incl. troponin, TSH, BNP, CXR; ptdoing much better, no cough, stable slow A. Fib., pt on Eliquis Diltiazem, pt wants to go home, will d/c w 5 Clinical Report - Physicians/Mid Levels [facility] Emergency Department [address] [place] [address] Phone #: ext- [phone] 06/25/2020 14:24 Patient: [id number] Sex: F : 1930 Age: 89y instructions [...] daily. 6 Clinical Report - Physicians/Mid Levels [facility] Emergency Department [address] [place] [address] Phone #: ext- [phone] 06/25/2020 14:24 Patient: [facility]UENTES [facility] [id number] Sex: F : 1930 Age: 89y Pravastatin Sodium Oral : Tablet 40 mg, daily. Sertraline HCl Oral : Tablet 25 mg, daily. Ventolin HFA Inhalation. Prescription Medications: Medrol (Manoj) 4 mg tablets in a dose pack Take 1 tablet once a day for 7 days -- PLEASE TAKE MEDROL DOSE PACK DIRECTED ON PACKAGING. Dispense 21 tablet. Refills: 1. Substitution permitted. [address] ; [place] [address]. . Tessalon Perles 100 mg capsule Take 1 capsule three times a day for 5 days -- Dispense 15 capsule. Refills: 1. Substitution permitted. [address] ; [place] [address]. . Zithromax 250 mg tablet Take 1 tablet once a day for 4 days -- Dispense 4 tablet. Refills: 0. Substitution permitted. Note to Pharmacy - start tomorrow; 500 mg po given in ER today. [address] ; [place] [address]. . Follow-up: Return to the emergency department [...] rce(s) Supporting Document(s) ID Date Data Source [id number] 06/25/2020 02:59:00 PM EDT [facility] ([facility] Name Value Range Interpretation Code Description Data Susan rce(s) Supporting Document(s) Thyrotropin [Units/volume] in Serum or Plasma 1.63 uIU/mL 0.47-5.01 [facility] ([facility] Natriuretic peptide.B prohormone N-Terminal [Mass/volu me] in Serum or Plasma 416 pg/mL 0-450 [facility] ([facility] ID Date Data Source [id number] 06/25/2020 02:59:00 PM EDT [facility] ([facility] Name Value Range Interpretation Code Description Data Susan rce(s) Supporting Document(s) Comprehensive Metabo Laboratory test result [facility] ([facility] COMPREHENSIVE METABOLIC PANEL Sodium 140 meq/L 134-153 [facility] ([facility] Potassium 4.4 meq/L 3.6-5.0 [facility] ([facility] Co2 30 meq/L 22-30 [facility] ([facility] Chloride 101 meq/L 98-107 [facility] ([facility] Glucose 97 mg/dL 70-99 [facility] BUN 19 mg/dL 7-21 [facility] Creatinine 1.0 mg/dL 0.7-1.5 [facility] BUN/Creat 19 8-27 [facility] ([facility] Total Protein 6.9 g/dL 6.3-8.2 [facility] Albumin 4.6 g/dL 3.9-5.0 [facility] ([facility] Globulin 2.3 GM/DL 2.4-3.2 Below low normal [facility] ( [facility] A/G Ratio 2.0 0.8-2.0 [facility] Calcium 10.0 mg/dL 8.4-10.2 [facility] Alkaline Phos 70 U/L 38-126 [facility] Total Bili Laboratory test result 0.2-1.3 [facility] ([facility] SGPT/Alt 12 U/L 7-56 [facility] ([facility] Sgot/Ast 19 U/L 5-40 [facility] ([facility] Anion Gap 9.0 mmol/L 8.0-16.0 [facility] Age 89 yrs [facility] ([facility] Non-Aa GFR 56 mL/min [facility] ([facility] Afr Amer GFR Laboratory test result [facility] ([facility] Male GFR Interprentation 20-49 yrs >60 [...] >32 mL/min Normal ID Date Data Source [id number] 06/25/2020 02:59:00 PM EDT [facility] Name Value Range Interpretation Code Description Data Susan rce(s) Supporting Document(s) Troponin T.cardiac [Mass/volume] in Serum or Plasma Laborato ry test result 0.00-0.10 [facility] ([facility] TROPONIN T 0.1 ng/ml Recommended as the clinical th reshold value for Troponin T. ID Date Data Source [id number] 06/25/2020 02:59:00 PM EDT [facility] ([facility] Name Value Range Interpretation Code Description Data Susan rce(s) Supporting Document(s) WBC 10.7 10^3/uL 4.2-11.0 [facility] ([facility] CBC W/Automated Diff Laboratory test result [facility] ([facility] COMPLETE BLOOD COUNT RBC 4.47 [...] 37.0-80.0 [facility] Larimer 9.4 % 3.0-8.0 Above high normal [facility] [...] 0.60-3.40 [facility] #Larimer 1.01 10^3/uL 0.00-0.90 Above high normal [facility] ([facility] #Baso 0.08 10^3/uL 0.00-0.20 [facility] #Eos 0.09 10^3/uL 0.00-0.70 [facility] #NRBC 0.00 10^3/uL 0.00-0.00 [facility] #Ig 0.03 10^3/uL 0.00-0.10 [facility] Manual Diff Laboratory test result M [facility] ([facility] Segs 61 % 37-80 [facility] ([facility] %Larimer 10 % 3-8 Above high normal [facility] ([facility] %Lymph 29 % 25-40 [facility] RBC Morph Laboratory test result [facility] ([facility] ID Date Data Source [id number] 06/25/2020 02:59:00 PM EDT [facility] ([facility] Name Value Range Interpretation Code Description Data Susan rce(s) Supporting Document(s) Lipoprotein lipase [Enzymatic activity/volume] in Serum or Plasm a 42 U/L 13-60 [facility] ([facility] ) ID Date Data Source [id number] 06/25/2020 02:59:00 PM EDT [facility] ([facility] Name Value Range Interpretation Code Description Data Susan rce(s) Supporting Document(s) Inr 1.15 0.93-1.23 [facility] Protime 15.3 s 11.0-15.5 [facility] ([facility] PTT 35.4 s 24.8-36.7 [facility] \\BLDo\\INR INTERPRETATION\\BLDx\\ Therapeutic range for Coumadin and related oral anticoagulants. -International Normalized Ratio (INR): 2 .0 - 3.0 for Venous Thrombosis, Pulmonary Embolus, Tissue heart valves, Acute [place] Atrial Fibrillation, Valvular heart disease and recurrent Systemic Embolism. -International Normalized Ratio (INR): 2 .5 - 3.5 for Mechanical Prosthetic valve. ID Date Data Source [id number] 06/25/2020 03:56:00 PM EDT [facility] Name Value Range Interpretation Code Description Data Susan rce(s) Supporting Document(s) BNP 416 PG/ML 0 - 450 [facility] ID Date Data Source [id number] 06/25/2020 03:42:00 PM EDT [facility] Name Value Range Interpretation Code Description Data Susan rce(s) Supporting Document(s) Thyrotropin [Units/volume] in Serum or Plasma by Detec tion limit <= 0.05 mIU/L 1.63 uIU/mL 0.47 - 5.01 [facility] ID Date Data Source [id number] 06/25/2020 03:34:00 PM EDT [facility] Name Value Range Interpretation Code Description Data Susan rce(s) Supporting Document(s) COMPREHENSIVE METABOLIC PANEL [facility] COMPREHENSIVE METABOLIC PANEL Sodium [Moles/volume] in Serum or Plasma 140 mEq/L 134 - 153 [facility] Potassium [Moles/volume] in Serum or Plasma 4.4 mEq/L 3.6 - 5.0 [facility] Chloride [Moles/volume] in Serum or Plasma 101 mEq/L 98 - 107 [facility] Carbon dioxide, total [Moles/volume] in Serum or Plasma 30 MEQ/L 22 - 30 [facility] Glucose [Mass/volume] in Serum or Plasma 97 MG/DL 70 - 99 [facility] BUN 19 MG/DL 7 - 21 [facility] Creatinine [Mass/volume] in Serum or Plasma 1.0 MG/DL 0.7 - 1.5 [facility] BUN/CREAT 19 8 - 27 [facility] Protein [Mass/volume] in Serum or Plasma 6.9 G/DL 6.3 - 8.2 [facility] Albumin [Mass/volume] in Serum or Plasma 4.6 G/DL 3.9 - 5.0 [facility] Globulin [Mass/volume] in Serum by calculation 2.3 GM/DL 2.4 - 3.2 L [facility] A/G RATIO 2.0 0.8 - 2.0 [facility] Calcium [Mass/volume] in Serum or Plasma 10.0 MG/DL 8.4 - 10.2 [facility] Bilirubin.total [Mass/volume] in Serum or Plasma <0.7 MG/DL 0.2 - 1.3 [facility] Alkaline phosphatase [Enzymatic activity/volume] in Serum or Plasma 70 U/L 38 - 126 [facility] Aspartate aminotransferase [Enzymatic activity/volume] in Serum or Plasma 19 U/L 5 - 40 [facility] Alanine aminotransferase [Enzymatic activity/volume] in Seru m or Plasma 12 U/L 7 - 56 [facility] Anion gap 3 in Serum or Plasma 9.0 mmol/L 8.0 - 16.0 [facility] AGE 89 yrs [facility] NON-AA GFR 56 mL[facility] A[facility] AMER GFR >60 [facility] Male GFR In terprentation [...] >32 mL/min Normal ID Date Data Source [id number] 06/25/2020 03:34:00 PM EDT [facility] Name Value Range Interpretation Code Description Data Susan rce(s) Supporting Document(s) TROPONIN T <0.01 NG/ML 0.00 - 0.10 [facility] TROPONIN T0.1 ng/ml Recommended as the c linical threshold value forTroponin T. ID Date Data Source [id number] 06/25/2020 03:31:00 PM EDT [facility] Name Value Range Interpretation Code Description Data Susan rce(s) Supporting Document(s) CBC W/AUTOMATED DIFF [facility] COMPLETE BLOOD COUNT Leukocytes [#/volume] in Blood by Automated count 10.7 10^3/uL 4.2 - 11.0 [facility] Erythrocytes [#/volume] in Blood by Automated count 4.47 10^6/uL 4. 20 - 5.40 [facility] Hemoglobin [Mass/volume] in Blood 14.6 g/dL 12.0 - 16.0 [facility] Hematocrit [Volume Fraction] of Blood by Automated count 43.6 % 3 7.0 - 47.0 [facility] Erythrocyte mean corpuscular volume [Entitic volume] by Auto mated count 97.5 fL 81.0 - 101 [facility] Erythrocyte mean corpuscular hemoglobin [Entitic mass] by Automated count 32.7 pg 27.0 - 34.0 [facility] Erythrocyte mean corpuscular hemoglobin concentration [Mass/volume] by Automated count 33.5 g/dL 31.0 - 36.0 [facility] Erythrocyte distribution width [Ratio] by Automated count 13.7 % 11.5 - 14.5 [facility] Platelets [#/volume] in Blood by Automated count 347 10^3/uL 150 - 45 0 [facility] Platelet mean volume [Entitic volume] in Blood by Automated count 10.2 fL 7.4 - 10.4 [facility] Neutrophils/100 leukocytes in Blood by Automated count 62.7 % 37. 0 - 80.0 [facility] Lymphocytes/100 leukocytes in Blood by Manual count 26.1 % 25.0 - 40.0 [facility] Monocytes/100 leukocytes in Blood by Automated count 9.4 % 3.0 - 8.0 H [facility] Eosinophils/100 leukocytes in Blood by Automated count 0.8 % 0.0 - 7.0 [facility] Basophils/100 leukocytes in Blood by Automated count 0.7 % 0.0 - 2.5 [facility] %IG 0.3 % 0.0 - [facility] % 0.0 - 0.0 [facility] al Neutrophils [#/volume] in Blood by Automated count 6.71 10^3/uL 2.00 - 6.90 [facility] Lymphocytes [#/volume] in Blood by Automated count 2.80 10^3/uL 0.60 - 3.40 [facility] Monocytes [#/volume] in Blood by Automated count 1.01 10^3/uL 0.00 - 0.90 [facility] Eosinophils [#/volume] in Blood by Automated count 0.09 10^3/uL 0.00 - 0.70 [facility] Basophils [#/volume] in Blood by Automated count 0.08 10^3/uL 0.00 - 0.20 [facility] #IG 0.03 10^3/uL 0.00 - 0.10 [facility] ospital #NRBC 0.00 10^3/uL 0.00 - 0.00 [facility] ospital MANUAL DIFF SEE BELOW [facility] Segmented neutrophils/100 leukocytes in Blood by Manual count 61 % 37 - 80 [facility] %LYMPH 29 % 25 - 40 [facility] %MONO 10 % 3 - 8 [facility] al RBC MORPH NOT INDICATED [facility] spital ID Date Data Source [id number] 06/25/2020 03:31:00 PM EDT [facility] Name Value Range Interpretation Code Description Data Ssuan rce(s) Supporting Document(s) Lipase [Enzymatic activity/volume] in Serum or Plasma 42 U/L 13 - 60 [facility] ID Date Data Source [id number] 06/25/2020 03:22:00 PM EDT [facility] Name Value Range Interpretation Code Description Data Susan rce(s) Supporting Document(s) Prothrombin time (PT) 15.3 SECONDS 11.0 - 15.5 [facility] INR in Platelet poor plasma by Coagulation assay 1.15 0.93 - 1. 23 [facility] aPTT in Blood by Coagulation assay 35.4 SECONDS 24.8 - 36.7 [facility] \\BLDo\\INR INTERPRETATION\\BLDx\\ Therapeutic range for Coumadin and related oral anticoagulants. - International Normalized Ratio (INR): 2.0 - 3.0 for Venous Thrombosis, Pulmonary Embolus, Tissue heart valves, Acute [place] Atrial Fibrillation, Valvular heart disease and recurrent Systemic Embolism. - International Normalized Ratio (INR): 2.5 - 3.5 for Mechanical Prosthetic valve. ID Date Data Source [id number] 05/17/2020 01:10:00 PM EST [facility] ([facility] Name Value Range Interpretation Code Description Data Susan rce(s) Supporting Document(s) Glu 110 mg/dL 70-110 [facility] ([facility] NORMAL RANGES Age WBC RBC [...] HCT IS 5% LESS SOURCE FOR DATA: Skribit 1800 OPERATION MANUAL( AUTOMATED BLOOD COUNTS AND [...] >32 mL/min Normal BUN 18 mg/dL 8- [facility] ([facility] NORMAL RANGES Age WBC [...] HCT IS 5% LESS SOURCE FOR DATA: Skribit 1800 OPERATION MANUAL( AUTOMATED BLOOD COUNTS AND [...] above >32 mL/min Normal BUN/Creatinine Ratio 16.9 [facility] ([facility] NORMAL RANGES Age [...] HCT IS 5% LESS SOURCE FOR DATA: Skribit 1800 OPERATION MANUAL( AUTOMATED BLOOD COUNTS AND [...] >32 mL/min Normal Na 137 mmol/L 136-145 [facility] ([facility] NORMAL RANGES Age WBC [...] HCT IS 5% LESS SOURCE FOR DATA: Skribit 1800 OPERATION MANUAL( AUTOMATED BLOOD COUNTS AND [...] >32 mL/min Normal K 4.7 mmol/L 3.5-5.1 [facility] ([facility] NORMAL RANGES [...] HCT IS 5% LESS SOURCE FOR DATA: Skribit 1800 OPERATION MANUAL( AUTOMATED BLOOD COUNTS AND [...] >32 mL/min Normal CL 99.9 mmol/L 98.0-107.0 [facility] ([facility] NORMAL RANGES Age WBC RBC [...] HCT IS 5% LESS SOURCE FOR DATA: Skribit 1800 OPERATION MANUAL( AUTOMATED BLOOD COUNTS AND [...] >32 mL/min Normal Co2 24.6 mmol/L 22.0-29.0 [facility] ([facility] NORMAL RANGES Age WBC [...] HCT IS 5% LESS SOURCE FOR DATA: Skribit 1800 OPERATION MANUAL( AUTOMATED BLOOD COUNTS AND [...] >32 mL/min Normal TP 6.7 g/dL 6.6-8.7 [facility] ([facility] [...] HCT IS 5% LESS SOURCE FOR DATA: Skribit 1800 OPERATION MANUAL( AUTOMATED BLOOD COUNTS AND [...] >32 mL/min Normal CA 9.5 mg/dL 8.6-10.2 [facility] ([facility] NORMAL RANGES Age WBC [...] HCT IS 5% LESS SOURCE FOR DATA: Skribit 1800 OPERATION MANUAL( AUTOMATED BLOOD COUNTS AND [...] >32 mL/min Normal A/G Ratio 2.1 Calc [facility] ([facility] NORMAL RANGES Age WBC [...] HCT IS 5% LESS SOURCE FOR DATA: Skribit 1800 OPERATION MANUAL( AUTOMATED BLOOD COUNTS AND [...] >32 mL/min Normal Globulin 2.2 Calc [facility] NORMAL RANGES Age [...] >32 mL/min Normal Alb 4.5 g/dL 3.4-4.8 [facility] ([facility] NORMAL RANGES Age WBC [...] HCT IS 5% LESS SOURCE FOR DATA: Skribit 1800 OPERATION MANUAL( AUTOMATED BLOOD COUNTS AND [...] mL/min Normal Alt (SGPT) 14 U/L 0-41 [facility] NORMAL RANGES Age WBC RBC [...] HCT IS 5% LESS SOURCE FOR DATA: Skribit 1800 OPERATION MANUAL( AUTOMATED BLOOD COUNTS AND [...] mL/min Normal Alp 70.3 U/L 35-129 [facility] ([facility] NORMAL RANGES Age [...] HCT IS 5% LESS SOURCE FOR DATA: Skribit 1800 OPERATION MANUAL( AUTOMATED BLOOD COUNTS AND [...] mL/min Normal Ast (Sgot) 18 U/L 0-40 [facility] ([facility] NORMAL RANGES [...] HCT IS 5% LESS SOURCE FOR DATA: Skribit 1800 OPERATION MANUAL( AUTOMATED BLOOD COUNTS AND [...] mL/min Normal Tbili 0.75 mg/dL 0.0-1.2 [facility] ([facility] NORMAL RANGES [...] HCT IS 5% LESS SOURCE FOR DATA: Skribit 1800 OPERATION MANUAL( AUTOMATED BLOOD COUNTS AND [...] HCT IS 5% LESS SOURCE FOR DATA: Skribit 1800 OPERATION MANUAL( AUTOMATED BLOOD COUNTS AND [...] >32 mL/min Normal Anion Gap 17 mmol/L [facility] ([facility] [...] HCT IS 5% LESS SOURCE FOR DATA: Skribit 1800 OPERATION MANUAL( AUTOMATED BLOOD COUNTS AND [...] and above >32 mL/min Normal eGFR Non-Afr. Tunisian 44 # [facility] ([facility] NORMAL RANGES Age [...] HCT IS 5% LESS SOURCE FOR DATA: Skribit 1800 OPERATION MANUAL( AUTOMATED BLOOD COUNTS AND [...] mL/min Normal eGFR 52 # [facility] ( [facility] NORMAL RANGES Age [...] HCT IS 5% LESS SOURCE FOR DATA: Skribit 1800 OPERATION MANUAL( AUTOMATED BLOOD COUNTS AND [...] >32 mL/min Normal ID Date Data Source [id number] 05/17/2020 01:10:00 PM EST [facility] ([facility] [...] HCT IS 5% LESS SOURCE FOR DATA: Skribit 1800 OPERATION MANUAL( AUTOMATED BLOOD COUNTS AND [...] >32 mL/min Normal RBC 4.44 10E6/uL 4.20-6.30 [facility] ([facility] NORMAL RANGES Age WBC [...] HCT IS 5% LESS SOURCE FOR DATA: Skribit 1800 OPERATION MANUAL( AUTOMATED BLOOD COUNTS AND [...] HCT IS 5% LESS SOURCE FOR DATA: Skribit 1800 OPERATION MANUAL( AUTOMATED BLOOD COUNTS AND [...] >32 mL/min Normal HGB 14.4 g/dL 12.0-18.0 [facility] ([facility] [...] HCT IS 5% LESS SOURCE FOR DATA: Skribit 1800 OPERATION MANUAL( AUTOMATED BLOOD COUNTS AND [...] HCT IS 5% LESS SOURCE FOR DATA: Skribit 1800 OPERATION MANUAL( AUTOMATED BLOOD COUNTS AND [...] >32 mL/min Normal MCV 96.6 fL 80.0-97.0 [facility] ([facility] NORMAL [...] HCT IS 5% LESS SOURCE FOR DATA: Skribit 1800 OPERATION MANUAL( AUTOMATED BLOOD COUNTS AND [...] >32 mL/min Normal PLT 279 10E3/uL 140-440 [facility] ([facility] NORMAL RANGES Age WBC [...] HCT IS 5% LESS SOURCE FOR DATA: Skribit 1800 OPERATION MANUAL( AUTOMATED BLOOD COUNTS AND [...] >32 mL/min Normal MCHC 33.6 g/dL 31.0-36.0 [facility] ([facility] NORMAL RANGES Age WBC RBC [...] HCT IS 5% LESS SOURCE FOR DATA: Skribit 1800 OPERATION MANUAL( AUTOMATED BLOOD COUNTS AND [...] >32 mL/min Normal RDW-CV 13.9 % 11.5-14.5 [facility] ([facility] NORMAL RANGES Age WBC [...] >32 mL/min Normal Lym% 22.8 % 10.0-58.5 [facility] ([facility] NORMAL RANGES [...] HCT IS 5% LESS SOURCE FOR DATA: Skribit 1800 OPERATION MANUAL( AUTOMATED BLOOD COUNTS AND [...] >32 mL/min Normal Neut% 69.7 % 37.0-92.0 [facility] ([facility] NORMAL [...] HCT IS 5% LESS SOURCE FOR DATA: Skribit 1800 OPERATION MANUAL( AUTOMATED BLOOD COUNTS AND [...] >32 mL/min Normal MXD% 7.5 % 0.1-24.0 [facility] ([facility] NORMAL RANGES [...] HCT IS 5% LESS SOURCE FOR DATA: Skribit 1800 OPERATION MANUAL( AUTOMATED BLOOD COUNTS AND [...] >32 mL/min Normal Lym# 2.4 10E3/uL 0.6-4.1 [facility] ([facility] NORMAL RANGES Age WBC [...] HCT IS 5% LESS SOURCE FOR DATA: Skribit 1800 OPERATION MANUAL( AUTOMATED BLOOD COUNTS AND [...] >32 mL/min Normal Neut# 7.4 % 2.0-7.8 [facility] ([facility] [...] HCT IS 5% LESS SOURCE FOR DATA: Skribit 1800 OPERATION MANUAL( AUTOMATED BLOOD COUNTS AND [...] mL/min Normal MXD# 0.8 10E3/uL 0.0-1.8 [facility] ([facility] NORMAL RANGES Age WBC [...] HCT IS 5% LESS SOURCE FOR DATA: Skribit 1800 OPERATION MANUAL( AUTOMATED BLOOD COUNTS AND [...] >32 mL/min Normal MPV 10.4 fL 9.0-13.0 [facility] NORMAL RANGES Age WBC [...] HCT IS 5% LESS SOURCE FOR DATA: Skribit 1800 OPERATION MANUAL( AUTOMATED BLOOD COUNTS AND [...] >32 mL/min Normal ID Date Data Source [id number] 05/17/2020 12:00:00 AM [facility] Patient Name: KILO FUENTES [facility] Date of : 1930[place] [address] Date of Exam: [place] [facility] [id number]#: Fax: [phone] EXAM: CHEST (2 VIEW) X-RAYCLINICAL [...] rce(s) Supporting Document(s) ID Date Data Source [id number] 05/02/2020 01:55:00 PM EST [facility] ([facility] Name Value Range Interpretation Code Description Data Susan rce(s) Supporting Document(s) Color Laboratory test result [facility] ([facility] Glucose-Ua Laboratory test result ME DENT ([facility] Clarity Laboratory test result [facility] ([facility] Ketone Laboratory test result [facility] ([facility] Bilirubin,Urine Laboratory test result [facility] ([facility] Blood - Ua Laboratory test result Abnormal (applies to non -numeric results) [facility] ([facility] Creatine kinase [Enzymatic activity/volume] in Serum or Plas ma 1.025 # 1.000-1.030 [facility] ([facility] pH 5.5 # 5.0-8.0 [facility] ([facility] Urobilinogen 0.2 NA 0.2-1.0 [facility] ([facility] Protein 30 mg/dL Abnormal (applies to non-numeric res ults) [facility] ([facility] Nitrite Laboratory test result [facility] ([facility] Leukocyte Laboratory test result Abnormal (applies to non -numeric results) [facility] ([facility] Comment Laboratory test result Above high normal [facility] ([facility] ID Date Data Source [id number] 05/02/2020 01:51:00 PM EST [facility] ([facility] [...] HCT IS 5% LESS SOURCE FOR DATA: Skribit 1800 OPERATION MANUAL( AUTOMATED BLOOD COUNTS AND [...] 2-19 YEARS EXCLUSIVE. Chol 190 mg/dL 0-200 [facility] ([facility] NORMAL RANGES [...] HCT IS 5% LESS SOURCE FOR DATA: Skribit 1800 OPERATION MANUAL( AUTOMATED BLOOD COUNTS AND [...] 2-19 YEARS EXCLUSIVE. Cho/HDL Ratio 2.8 Calc [facility] ([facility] NORMAL RANGES Age WBC RBC HGB [...] HCT IS 5% LESS SOURCE FOR DATA: Skribit 1800 OPERATION MANUAL( AUTOMATED BLOOD COUNTS AND [...] HCT IS 5% LESS SOURCE FOR DATA: Skribit 1800 OPERATION MANUAL( AUTOMATED BLOOD COUNTS AND [...] HCT IS 5% LESS SOURCE FOR DATA: Dynamic Signal DYN 1800 OPERATION MANUAL( AUTOMATED BLOOD COUNTS [...] 2-19 YEARS EXCLUSIVE. ID Date Data Source [id number] 05/02/2020 01:51:00 PM EST [facility] ([facility] [...] HCT IS 5% LESS SOURCE FOR DATA: Skribit 1800 OPERATION MANUAL( AUTOMATED BLOOD COUNTS AND [...] 25 mg/dL 8-23 Above high normal [facility] ([facility] NORMAL RANGES Age WBC [...] HCT IS 5% LESS SOURCE FOR DATA: Skribit 1800 OPERATION MANUAL( AUTOMATED BLOOD COUNTS AND [...] YEARS EXCLUSIVE. BUN/Creatinine Ratio 20.7 CALC [facility] ([facility] NORMAL RANGES Age [...] HCT IS 5% LESS SOURCE FOR DATA: Skribit 1800 OPERATION MANUAL( AUTOMATED BLOOD COUNTS AND [...] HCT IS 5% LESS SOURCE FOR DATA: Skribit 1800 OPERATION MANUAL( AUTOMATED BLOOD COUNTS AND [...] 2-19 YEARS EXCLUSIVE. Na 144 mmol/L 136-145 [facility] ([facility] NORMAL [...] HCT IS 5% LESS SOURCE FOR DATA: Skribit 1800 OPERATION MANUAL( AUTOMATED BLOOD COUNTS AND [...] 2-19 YEARS EXCLUSIVE. K 4.3 mmol/L 3.5-5.1 [facility] ([facility] NORMAL RANGES [...] HCT IS 5% LESS SOURCE FOR DATA: Skribit 1800 OPERATION MANUAL( AUTOMATED BLOOD COUNTS AND [...] HCT IS 5% LESS SOURCE FOR DATA: Skribit 1800 OPERATION MANUAL( AUTOMATED BLOOD COUNTS AND [...] 2-19 YEARS EXCLUSIVE. Co2 28.5 mmol/L 22.0-29.0 [facility] ([facility] NORMAL RANGES Age WBC RBC HGB [...] HCT IS 5% LESS SOURCE FOR DATA: Skribit 1800 OPERATION MANUAL( AUTOMATED BLOOD COUNTS AND [...] 2-19 YEARS EXCLUSIVE. CL 104.5 mmol/L 98.0-107.0 [facility] ([facility] NORMAL RANGES Age WBC RBC HGB [...] HCT IS 5% LESS SOURCE FOR DATA: Skribit 1800 OPERATION MANUAL( AUTOMATED BLOOD COUNTS AND [...] HCT IS 5% LESS SOURCE FOR DATA: Skribit 1800 OPERATION MANUAL( AUTOMATED BLOOD COUNTS AND [...] 2-19 YEARS EXCLUSIVE. Alb 4.4 g/dL 3.4-4.8 [facility] ([facility] NORMAL RANGES Age WBC [...] HCT IS 5% LESS SOURCE FOR DATA: Skribit 1800 OPERATION MANUAL( AUTOMATED BLOOD COUNTS AND [...] 2-19 YEARS EXCLUSIVE. A/G Ratio 2.0 CALC [facility] ([facility] NORMAL RANGES [...] HCT IS 5% LESS SOURCE FOR DATA: Skribit 1800 OPERATION MANUAL( AUTOMATED BLOOD COUNTS AND [...] HCT IS 5% LESS SOURCE FOR DATA: Skribit 1800 OPERATION MANUAL( AUTOMATED BLOOD COUNTS AND [...] 2-19 YEARS EXCLUSIVE. Alp 66.1 U/L 35-129 [facility] ([facility] [...] HCT IS 5% LESS SOURCE FOR DATA: Skribit 1800 OPERATION MANUAL( AUTOMATED BLOOD COUNTS AND [...] EXCLUSIVE. Ast (Sgot) 17 U/L 0-40 [facility] ([facility] NORMAL RANGES Age WBC RBC [...] HCT IS 5% LESS SOURCE FOR DATA: Skribit 1800 OPERATION MANUAL( AUTOMATED BLOOD COUNTS AND [...] 2-19 YEARS EXCLUSIVE. Tbili 0.36 mg/dL 0.0-1.2 [facility] ([facility] NORMAL RANGES Age WBC RBC [...] HCT IS 5% LESS SOURCE FOR DATA: Dynamic Signal DYN 1800 OPERATION MANUAL( AUTOMATED BLOOD COUNTS [...] HCT IS 5% LESS SOURCE FOR DATA: Skribit 1800 OPERATION MANUAL( AUTOMATED BLOOD COUNTS AND [...] HCT IS 5% LESS SOURCE FOR DATA: Skribit 1800 OPERATION MANUAL( AUTOMATED BLOOD COUNTS AND [...] 2-19 YEARS EXCLUSIVE. Anion Gap 15 mmol/L [facility] ([facility] [...] HCT IS 5% LESS SOURCE FOR DATA: Skribit 1800 OPERATION MANUAL( AUTOMATED BLOOD COUNTS AND [...] INDIVIDUALA AGED 2-19 YEARS EXCLUSIVE. eGFR Non-Afr. Tunisian 40 # [facility] ([facility] [...] HCT IS 5% LESS SOURCE FOR DATA: Skribit 1800 OPERATION MANUAL( AUTOMATED BLOOD COUNTS AND [...] 2-19 YEARS EXCLUSIVE. ID Date Data Source [id number] 05/02/2020 01:51:00 PM EST [facility] ([facility] Name Value Range Interpretation Code Description Data Susan rce(s) Supporting Document(s) Creatine kinase [Enzymatic activity/volume] in Serum or Plasma 60 U /L 26-192 [facility] NORMAL RANGES Age WBC [...] HCT IS 5% LESS SOURCE FOR DATA: Skribit 1800 OPERATION MANUAL( AUTOMATED BLOOD COUNTS AND [...] 2-19 YEARS EXCLUSIVE. ID Date Data Source [id number] 05/02/2020 01:51:00 PM EST [facility] ([facility] Name Value Range Interpretation Code Description Data Susan rce(s) Supporting Document(s) WBC 17.2 10E3/uL 4.1-10.9 Above high normal [facility] T ([facility] NORMAL RANGES Age [...] HCT IS 5% LESS SOURCE FOR DATA: Skribit 1800 OPERATION MANUAL( AUTOMATED BLOOD COUNTS AND [...] EXCLUSIVE. RBC 4.23 10E6/uL 4.20-6.30 [facility] ([facility] NORMAL RANGES Age WBC [...] HCT IS 5% LESS SOURCE FOR DATA: Skribit 1800 OPERATION MANUAL( AUTOMATED BLOOD COUNTS AND [...] 2-19 YEARS EXCLUSIVE. HCT 40.3 % 37.0-51.0 [facility] ([facility] NORMAL [...] HCT IS 5% LESS SOURCE FOR DATA: Dynamic Signal DYN 1800 OPERATION MANUAL( AUTOMATED BLOOD COUNTS [...] 2-19 YEARS EXCLUSIVE. HGB 13.6 g/dL 12.0-18.0 [facility] ([facility] [...] HCT IS 5% LESS SOURCE FOR DATA: Skribit 1800 OPERATION MANUAL( AUTOMATED BLOOD COUNTS AND [...] HCT IS 5% LESS SOURCE FOR DATA: Skribit 1800 OPERATION MANUAL( AUTOMATED BLOOD COUNTS AND [...] 2-19 YEARS EXCLUSIVE. MCV 95.3 fL 80.0-97.0 [facility] ([facility] NORMAL [...] HCT IS 5% LESS SOURCE FOR DATA: Dynamic Signal DYN 1800 OPERATION MANUAL( AUTOMATED BLOOD COUNTS [...] HCT IS 5% LESS SOURCE FOR DATA: Skribit 1800 OPERATION MANUAL( AUTOMATED BLOOD COUNTS AND [...] 2-19 YEARS EXCLUSIVE. RDW-CV 13.6 % 11.5-14.5 [facility] ([facility] NORMAL RANGES Age WBC [...] HCT IS 5% LESS SOURCE FOR DATA: Skribit 1800 OPERATION MANUAL( AUTOMATED BLOOD COUNTS AND [...] 2-19 YEARS EXCLUSIVE. PLT 326 10E3/uL 140-440 [facility] ([facility] NORMAL RANGES Age WBC RBC HGB [...] HCT IS 5% LESS SOURCE FOR DATA: Skribit 1800 OPERATION MANUAL( AUTOMATED BLOOD COUNTS AND [...] HCT IS 5% LESS SOURCE FOR DATA: Dynamic Signal DYN 1800 OPERATION MANUAL( AUTOMATED BLOOD COUNTS [...] 2-19 YEARS EXCLUSIVE. Neut% 68.5 % 37.0-92.0 [facility] ([facility] NORMAL [...] HCT IS 5% LESS SOURCE FOR DATA: Skribit 1800 OPERATION MANUAL( AUTOMATED BLOOD COUNTS AND [...] 2-19 YEARS EXCLUSIVE. MXD% 11.0 % 0.1-24.0 [facility] ([facility] [...] HCT IS 5% LESS SOURCE FOR DATA: Skribit 1800 OPERATION MANUAL( AUTOMATED BLOOD COUNTS AND [...] 2-19 YEARS EXCLUSIVE. Lym# 3.5 10E3/uL 0.6-4.1 [facility] ([facility] NORMAL RANGES Age WBC [...] HCT IS 5% LESS SOURCE FOR DATA: Skribit 1800 OPERATION MANUAL( AUTOMATED BLOOD COUNTS AND [...] Neut# 11.8 % 2.0-7.8 Above high normal [facility] ([facility] NORMAL RANGES Age [...] HCT IS 5% LESS SOURCE FOR DATA: Skribit 1800 OPERATION MANUAL( AUTOMATED BLOOD COUNTS AND [...] HCT IS 5% LESS SOURCE FOR DATA: Skribit 1800 OPERATION MANUAL( AUTOMATED BLOOD COUNTS AND [...] HCT IS 5% LESS SOURCE FOR DATA: Skribit 1800 OPERATION MANUAL( AUTOMATED BLOOD COUNTS AND [...] 2-19 YEARS EXCLUSIVE. ID Date Data Source [id number] 05/02/2020 01:50:00 PM EST [facility] ([facility] Name Value Range Interpretation Code Description Data Susan rce(s) Supporting Document(s) Thyrotropin [Units/volume] in Serum or Plasma 1.144 ulU/mL 0.60-4.8 [facility] ([facility] ID Date Data Source [id number] 04/29/2020 12:00:00 AM EST [facility] Name Value Range Interpretation Code Description Data Susan rce(s) Supporting Document(s) SARS coronavirus 2 RNA [Presence] in Res piratory specimen by ROGE with probe detection NEGATIVE [facility] lab was ordered by [facility] Anayeli Elizabeth and reported by [facility]. ID Date Data Source [id number] 04/29/2020 12:00:00 AM EST [facility] Name Value Range Interpretation Code Description Data Susan rce(s) Supporting Document(s) Carestart Rapid COVID Antigen Test Negative [facility] ID Date Data Source [id number] 01/04/2020 01:56:00 PM EDT [facility] ([facility] Name Value Range Interpretation Code Description Data Susan rce(s) Supporting Document(s) Creatine kinase [Enzymatic activity/volume] in Serum or Plasma 93 U /L 26-192 [facility] ([facility] NORMAL RANGES Age [...] HCT IS 5% LESS SOURCE FOR DATA: Skribit 1800 OPERATION MANUAL( AUTOMATED BLOOD COUNTS AND [...] 2-19 YEARS EXCLUSIVE. ID Date Data Source [id number] 01/04/2020 01:56:00 PM EDT [facility] ([facility] Name Value Range Interpretation Code Description Data Susan rce(s) Supporting Document(s) Trig 169 mg/dL 40-200 [facility] ([facility] NORMAL RANGES [...] HCT IS 5% LESS SOURCE FOR DATA: Dynamic Signal DYN 1800 OPERATION MANUAL( AUTOMATED BLOOD COUNTS [...] HCT IS 5% LESS SOURCE FOR DATA: Skribit 1800 OPERATION MANUAL( AUTOMATED BLOOD COUNTS AND [...] HCT IS 5% LESS SOURCE FOR DATA: Skribit 1800 OPERATION MANUAL( AUTOMATED BLOOD COUNTS AND [...] in Serum or Plasma 62 mg/dL 45-65 [facility] ([facility] NORMAL [...] HCT IS 5% LESS SOURCE FOR DATA: Skribit 1800 OPERATION MANUAL( AUTOMATED BLOOD COUNTS AND [...] 2-19 YEARS EXCLUSIVE. Cho/HDL Ratio 3.0 CALC [facility] ([facility] NORMAL RANGES Age WBC RBC HGB [...] HCT IS 5% LESS SOURCE FOR DATA: Skribit 1800 OPERATION MANUAL( AUTOMATED BLOOD COUNTS AND [...] 2-19 YEARS EXCLUSIVE. ID Date Data Source [id number] 01/04/2020 01:56:00 PM EDT MEDENT ([facility] Name Value Range Interpretation Code Description Data Susan rce(s) Supporting Document(s) Glu 92 mg/dL 70-110 MEDVIPUL ([facility] NORMAL RANGES Age WBC RBC [...] HCT IS 5% LESS SOURCE FOR DATA: [employer] 1800 OPERATION MANUAL( AUTOMATED BLOOD COUNTS AND [...] HCT IS 5% LESS SOURCE FOR DATA: [employer] 1800 OPERATION MANUAL( AUTOMATED BLOOD COUNTS AND [...] HCT IS 5% LESS SOURCE FOR DATA: [employer] 1800 OPERATION MANUAL( AUTOMATED BLOOD COUNTS AND [...] 2-19 YEARS EXCLUSIVE. Na 141 mmol/L 136-145 [facility] ([facility] NORMAL RANGES Age WBC [...] HCT IS 5% LESS SOURCE FOR DATA: [employer] 1800 OPERATION MANUAL( AUTOMATED BLOOD COUNTS AND [...] YEARS EXCLUSIVE. BUN/Creatinine Ratio 14.7 CALC MEDENT ([facility] NORMAL RANGES Age [...] HCT IS 5% LESS SOURCE FOR DATA: [employer] 1800 OPERATION MANUAL( AUTOMATED BLOOD COUNTS AND [...] HCT IS 5% LESS SOURCE FOR DATA: [employer] 1800 OPERATION MANUAL( AUTOMATED BLOOD COUNTS AND [...] 2-19 YEARS EXCLUSIVE. CL 103.3 mmol/L 98.0-107.0 [facility] ([facility] NORMAL RANGES Age WBC RBC HGB [...] HCT IS 5% LESS SOURCE FOR DATA: [employer] 1800 OPERATION MANUAL( AUTOMATED BLOOD COUNTS AND [...] 2-19 YEARS EXCLUSIVE. CA 9.6 mg/dL 8.6-10.2 [facility] ([facility] [...] HCT IS 5% LESS SOURCE FOR DATA: [employer] 1800 OPERATION MANUAL( AUTOMATED BLOOD COUNTS AND [...] HCT IS 5% LESS SOURCE FOR DATA: [employer] 1800 OPERATION MANUAL( AUTOMATED BLOOD COUNTS AND [...] 2-19 YEARS EXCLUSIVE. Alb 4.3 g/dL 3.4-4.8 [facility] ([facility] [...] HCT IS 5% LESS SOURCE FOR DATA: [employer] 1800 OPERATION MANUAL( AUTOMATED BLOOD COUNTS AND [...] HCT IS 5% LESS SOURCE FOR DATA: [employer] 1800 OPERATION MANUAL( AUTOMATED BLOOD COUNTS AND [...] HCT IS 5% LESS SOURCE FOR DATA: [employer] 1800 OPERATION MANUAL( AUTOMATED BLOOD COUNTS AND [...] EXCLUSIVE. Ast (Sgot) 18 U/L 0-40 [facility] ([facility] NORMAL RANGES Age WBC RBC [...] HCT IS 5% LESS SOURCE FOR DATA: [employer] 1800 OPERATION MANUAL( AUTOMATED BLOOD COUNTS AND [...] EXCLUSIVE. Alt (SGPT) 11 U/L 0-41 MEDENT ([facility] NORMAL RANGES [...] HCT IS 5% LESS SOURCE FOR DATA: [employer] 1800 OPERATION MANUAL( AUTOMATED BLOOD COUNTS AND [...] 2-19 YEARS EXCLUSIVE. Alp 62.6 U/L 35-129 [facility] ([facility] [...] HCT IS 5% LESS SOURCE FOR DATA: [employer] 1800 OPERATION MANUAL( AUTOMATED BLOOD COUNTS AND [...] 2-19 YEARS EXCLUSIVE. Tbili 0.51 mg/dL 0.0-1.2 [facility] ([facility] [...] HCT IS 5% LESS SOURCE FOR DATA: [employer] 1800 OPERATION MANUAL( AUTOMATED BLOOD COUNTS AND [...] YEARS EXCLUSIVE. Osmolality-Calculated 282.6 CALC MED ENT ([facility] NORMAL RANGES Age [...] HCT IS 5% LESS SOURCE FOR DATA: Dynamic Signal DYN 1800 OPERATION MANUAL( AUTOMATED BLOOD COUNTS [...] 2-19 YEARS EXCLUSIVE. Anion Gap 12 mmol/L [facility] ([facility] [...] HCT IS 5% LESS SOURCE FOR DATA: [employer] 1800 OPERATION MANUAL( AUTOMATED BLOOD COUNTS AND [...] [facility] CKD-EPI eGFR Non-Afr. Tunisian 40 # MEDENT ([facility] CKD-EPI ID Date Data Source [id number] 01/04/2020 01:56:00 PM EDT MEDENT ([facility] Name Value Range Interpretation Code Description Data Susan rce(s) Supporting Document(s) WBC 8.0 10E3/uL 4.1-10.9 MEDENT ([facility] NORMAL RANGES Age WBC [...] HCT IS 5% LESS SOURCE FOR DATA: [employer] 1800 OPERATION MANUAL( AUTOMATED BLOOD COUNTS AND [...] 2-19 YEARS EXCLUSIVE. HGB 12.8 g/dL 12.0-18.0 [facility] ([facility] [...] HCT IS 5% LESS SOURCE FOR DATA: Dynamic Signal DYN 1800 OPERATION MANUAL( AUTOMATED BLOOD COUNTS [...] RBC 4.04 10E6/uL 4.20-6.30 Below low normal [facility] ([facility] NORMAL RANGES [...] HCT IS 5% LESS SOURCE FOR DATA: [employer] 1800 OPERATION MANUAL( AUTOMATED BLOOD COUNTS AND [...] HCT IS 5% LESS SOURCE FOR DATA: [employer] 1800 OPERATION MANUAL( AUTOMATED BLOOD COUNTS AND [...] 2-19 YEARS EXCLUSIVE. HCT 39.2 % 37.0-51.0 [facility] ([facility] NORMAL [...] HCT IS 5% LESS SOURCE FOR DATA: Dynamic Signal DYN 1800 OPERATION MANUAL( AUTOMATED BLOOD COUNTS [...] HCT IS 5% LESS SOURCE FOR DATA: Sk[employer]it 1800 OPERATION MANUAL( AUTOMATED BLOOD COUNTS AND [...] YEARS EXCLUSIVE. MCHC 32.7 g/dL 31.0-36.0 EVELIN ([facility] NORMAL RANGES Age WBC [...] HCT IS 5% LESS SOURCE FOR DATA: [employer] 1800 OPERATION MANUAL( AUTOMATED BLOOD COUNTS AND [...] 2-19 YEARS EXCLUSIVE. PLT 274 10E3/uL 140-440 [facility] ([facility] NORMAL RANGES Age WBC [...] HCT IS 5% LESS SOURCE FOR DATA: [employer] 1800 OPERATION MANUAL( AUTOMATED BLOOD COUNTS AND [...] 2-19 YEARS EXCLUSIVE. RDW-CV 13.8 % 11.5-14.5 [facility] ([facility] [...] HCT IS 5% LESS SOURCE FOR DATA: [employer] 1800 OPERATION MANUAL( AUTOMATED BLOOD COUNTS AND [...] 2-19 YEARS EXCLUSIVE. Neut% 62.6 % 37.0-92.0 [facility] ([facility] NORMAL RANGES [...] HCT IS 5% LESS SOURCE FOR DATA: [employer] 1800 OPERATION MANUAL( AUTOMATED BLOOD COUNTS AND [...] 2-19 YEARS EXCLUSIVE. Lym% 28.1 % 10.0-58.5 [facility] ([facility] NORMAL [...] HCT IS 5% LESS SOURCE FOR DATA: Dynamic Signal DYN 1800 OPERATION MANUAL( AUTOMATED BLOOD COUNTS [...] HCT IS 5% LESS SOURCE FOR DATA: Sk[employer]it 1800 OPERATION MANUAL( AUTOMATED BLOOD COUNTS AND [...] 2-19 YEARS EXCLUSIVE. Lym# 2.2 10E3/uL 0.6-4.1 [facility] NORMAL RANGES Age WBC RBC HGB [...] HCT IS 5% LESS SOURCE FOR DATA: [employer] 1800 OPERATION MANUAL( AUTOMATED BLOOD COUNTS AND [...] 2-19 YEARS EXCLUSIVE. MXD% 9.3 % 0.1-24.0 [facility] ([facility] [...] HCT IS 5% LESS SOURCE FOR DATA: [employer] 1800 OPERATION MANUAL( AUTOMATED BLOOD COUNTS AND [...] HCT IS 5% LESS SOURCE FOR DATA: [employer] 1800 OPERATION MANUAL( AUTOMATED BLOOD COUNTS AND [...] 2-19 YEARS EXCLUSIVE. MXD# 0.7 10E3/uL 0.0-1.8 [facility] ([facility] NORMAL RANGES Age WBC [...] 2-19 YEARS EXCLUSIVE. ID Date Data Source [id number] 01/04/2020 01:56:00 PM EDT MEDENT ([facility] Name Value Range [...] [Ratio] 28.9 kg/m2 28.9 k g/m2 MEDENT ([facility] Body height 64.50 [in_i] 64.50 [in_i] MEDENT ([facility] 5'4.50" Body weight 171.00 [lb_av] 171.00 [lb_av] MEDEN T ([facility] [place] body weight 120 [lb_av] 120 [lb_av] MEDEN T ([facility] Oxygen saturation in Arterial blood by Pulse oximetry 96 % 96 % MEDVIPUL ([facility] Body temperature 97.2 [degF] 97.2 [degF] MEDENT ([facility] Heart rate 88 /min 88 /min MEDENT ([facility] Respiratory rate 16 /min 16 /min MEDENT ( [facility] Body weight 168.00 [lb_av] 168.00 [lb_av] MEDEN T ([facility] [place] body weight 120 [lb_av] 120 [lb_av] MEDEN T ([facility] Oxygen saturation in Arterial blood by Pulse oximetry 96 % 96 % EVELIN ([facility] Body mass index (BMI) [Ratio] 28.4 kg/m2 28.4 k g/m2 MEDENT ([facility] Body height 64.50 [in_i] 64.50 [in_i] MEDENT ([facility] 5'4.50" Systolic blood pressure 126 mm[Hg] 126 mm[Hg] M EDENT ([facility] Diastolic blood pressure 86 mm[Hg] 86 mm[Hg] MEDENT ([facility] Oxygen saturation in Arterial blood by Pulse oximetry 94 % 94 % EVELIN ([facility] Systolic blood pressure 130 mm[Hg] 130 mm[Hg] M EDENT ([facility] Diastolic blood pressure 74 mm[Hg] 74 mm[Hg] MED[facility] ([facility] Body temperature 97.5 [degF] 97.5 [degF] MEDENT ([facility] Heart rate 95 /min 95 /min MEDENT ([facility] Respiratory rate 20 /min 20 /min MEDENT ( [facility] Body height 64.50 [in_i] 64.50 [in_i] MEDENT ([facility] 5'4.50" Body weight 168.00 [lb_av] 168.00 [lb_av] MEDEN T ([facility] [place] body weight 120 [lb_av] 120 [lb_av] MEDEN T ([facility] Body mass index (BMI) [Ratio] 28.4 kg/m2 28.4 k g/m2 MEDENT ([facility] Systolic blood pressure 118 mm[Hg] 118 mm[Hg] M EDENT ([facility] Diastolic blood pressure 76 mm[Hg] 76 mm[Hg] MEDENT ([facility] Body weight 175.00 [lb_av] 175.00 [lb_av] MEDEN T ([facility] Body height 64.50 [in_i] 64.50 [in_i] MEDENT ([facility] 5'4.50" [place] body weight 120 [lb_av] 120 [lb_av] MEDEN T ([facility] Body temperature 97.6 [degF] 97.6 [degF] MEDENT ([facility] Heart rate 80 /min 80 /min MEDENT ([facility] Respiratory rate 16 /min 16 /min MEDENT ( [facility] Body mass index (BMI) [Ratio] 29.6 kg/m2 29.6 k g/m2 MEDENT ([facility] Oxygen saturation in Arterial blood by Pulse oximetry 97 % 97 % MEDENT ([facility] Systolic blood pressure 126 mm[Hg] 126 mm[Hg] M EDENT ([facility] Diastolic blood pressure 76 mm[Hg] 76 mm[Hg] MEDENT ([facility] Body temperature 97.5 [degF] 97.5 [degF] MEDENT ([facility] Heart rate 96 /min 96 /min MEDENT ([facility] Respiratory rate 18 /min 18 /min MEDENT ( [facility] Body height 64.50 [in_i] 64.50 [in_i] MEDENT ([facility] 5'4.50" Body weight 172.00 [lb_av] 172.00 [lb_av] MEDEN T ([facility] [place] body weight 120 [lb_av] 120 [lb_av] MEDEN T ([facility] Body mass index (BMI) [Ratio] 29.1 kg/m2 29.1 k g/m2 MEDENT ([facility] Oxygen saturation in Arterial blood by Pulse oximetry 93 % 93 % MEDENT ([facility] ([place]), (Room [employer]) Systolic blood pressure 130 mm[Hg] 130 mm[Hg] M EDENT ([facility] Diastolic blood pressure 70 mm[Hg] 70 mm[Hg] MEDENT ([facility] Body temperature 96.9 [degF] 96.9 [degF] MEDENT ([facility] Heart rate 92 /min 92 /min MEDENT ([facility] Respiratory rate 18 /min 18 /min MEDENT ( [facility] Body height 64.50 [in_i] 64.50 [in_i] MEDENT ([facility] 5'4.50" Body weight 175.00 [lb_av] 175.00 [lb_av] MEDEN T ([facility] [place] body weight 120 [lb_av] 120 [lb_av] MEDEN T ([facility] Body mass index (BMI) [Ratio] 29.6 kg/m2 29.6 k g/m2 MEDENT ([facility] Oxygen saturation in Arterial blood by Pulse oximetry 95 % 95 % MEDENT ([facility] Diastolic blood pressure 64 mm[Hg] 64 mm[Hg] MEDENT ([facility] Systolic blood pressure 126 mm[Hg] 126 mm[Hg] M EDENT ([facility] Body temperature 96.8 [degF] 96.8 [degF] MEDENT ([facility] Heart rate 120 /min 120 /min MEDENT ([facility] Respiratory rate 18 /min 18 /min MEDENT ( [facility] Body height 64.50 [in_i] 64.50 [in_i] MEDENT ([facility] 5'4.50" Body weight 170.00 [lb_av] 170.00 [lb_av] MEDEN T ([facility] [place] body weight 120 [lb_av] 120 [lb_av] MEDEN T ([facility] Body mass index (BMI) [Ratio] 28.7 kg/m2 28.7 k g/m2 MEDENT ([facility] Oxygen saturation in Arterial blood by Pulse oximetry 94 % 94 % MEDENT ([facility] Oxygen saturation in Arterial blood by Pulse oximetry 96 % 96 % MEDENT ([facility] Body temperature 97.1 [degF] 97.1 [degF] MEDENT ([facility] Heart rate 74 /min 74 /min MEDENT ([facility] Respiratory rate 18 /min 18 /min MEDENT ( [facility] Body height 64.50 [in_i] 64.50 [in_i] MEDENT ([facility] 5'4.50" Systolic blood pressure 116 mm[Hg] 116 mm[Hg] M EDENT ([facility] Diastolic blood pressure 84 mm[Hg] 84 mm[Hg] MEDENT ([facility] Body weight 174.00 [lb_av] 174.00 [lb_av] MEDEN T ([facility] [place] body weight 120 [lb_av] 120 [lb_av] MEDEN T ([facility] Body mass index (BMI) [Ratio] 29.4 kg/m2 29.4 k g/m2 MEDENT ([facility] Diastolic blood pressure 88 mm[Hg] 88 mm[Hg] MEDENT ([facility] Heart rate 92 /min 92 /min MEDENT ([facility] Respiratory rate 18 /min 18 /min MEDENT ( [facility] [place] body weight 120 [lb_av] 120 [lb_av] MEDEN T ([facility] Body mass index (BMI) [Ratio] 28.9 kg/m2 28.9 k g/m2 MEDENT ([facility] Body temperature 97.5 [degF] 97.5 [degF] MEDENT ([facility] Oxygen saturation in Arterial blood by Pulse oximetry 94 % 94 % MEDENT ([facility] Systolic blood pressure 140 mm[Hg] 140 mm[Hg] M EDENT ([facility] Body height 64.50 [in_i] 64.50 [in_i] MEDENT ([facility] 5'4.50" Body weight 171.00 [lb_av] 171.00 [lb_av] MEDEN T ([facility] Heart rate 100 /min 100 /min MEDENT ([facility] Respiratory rate 18 /min 18 /min MEDENT ( [facility] Body mass index (BMI) [Ratio] 28.9 kg/m2 28.9 k g/m2 MEDENT ([facility] Body temperature 97.5 [degF] 97.5 [degF] MEDENT ([facility] Body height 64.50 [in_i] 64.50 [in_i] MED[facility] ([facility] 5'4.50" Systolic blood pressure 106 mm[Hg] 106 mm[Hg] M EDENT ([facility] Diastolic blood pressure 68 mm[Hg] 68 mm[Hg] MEDENT ([facility] Body weight 171.00 [lb_av] 171.00 [lb_av] MEDEN T ([facility] [place] body weight 120 [lb_av] 120 [lb_av] MEDEN T ([facility] Oxygen saturation in Arterial blood by Pulse oximetry 95 % 95 % MEDENT ([facility] Systolic blood pressure 140 mm[Hg] 140 mm[Hg] M EDENT ([facility] Diastolic blood pressure 70 mm[Hg] 70 mm[Hg] MEDENT ([facility] Body temperature 97.3 [degF] 97.3 [degF] MEDENT ([facility] Heart rate 82 /min 82 /min MEDENT ([facility] Respiratory rate 18 /min 18 /min MEDENT ( [facility] Body height 64.50 [in_i] 64.50 [in_i] MEDENT ([facility] 5'4.50" Body weight 177.00 [lb_av] 177.00 [lb_av] MEDEN T ([facility] [place] body weight 120 [lb_av] 120 [lb_av] MEDEN T ([facility] Body mass index (BMI) [Ratio] 29.9 kg/m2 29.9 k g/m2 MEDENT ([facility] Oxygen saturation in Arterial blood by Pulse oximetry 95 % 95 % MEDENT ([facility] Diastolic blood pressure 78 mm[Hg] 78 mm[Hg] MEDENT ([facility] Body temperature 97.5 [degF] 97.5 [degF] MEDENT ([facility] Body height 64.50 [in_i] 64.50 [in_i] MEDENT ([facility] 5'4.50" Body weight 172.00 [lb_av] 172.00 [lb_av] MEDEN T ([facility] [place] body weight 120 [lb_av] 120 [lb_av] MEDEN T ([facility] Body mass index (BMI) [Ratio] 29.1 kg/m2 29.1 k g/m2 MEDENT ([facility] Systolic blood pressure 132 mm[Hg] 132 mm[Hg] M EDENT ([facility] Heart rate 98 /min 98 /min MEDENT ([facility] Respiratory rate 18 /min 18 /min MEDENT ( [facility] Oxygen saturation in Arterial blood by Pulse oximetry 94 % 94 % MEDENT ([facility] Oxygen saturation in Arterial blood by Pulse oximetry 96 % 96 % MEDENT ([facility] Systolic blood pressure 124 mm[Hg] 124 mm[Hg] M EDENT ([facility] Diastolic blood pressure 78 mm[Hg] 78 mm[Hg] MEDENT ([facility] Body temperature 97.8 [degF] 97.8 [degF] MEDENT ([facility] Heart rate 90 /min 90 /min MEDENT ([facility] Respiratory rate 16 /min 16 /min MEDENT ( [facility] Body height 64.50 [in_i] 64.50 [in_i] MEDENT ([facility] 5'4.50" Body weight 172.00 [lb_av] 172.00 [lb_av] MEDEN T ([facility] [place] body weight 120 [lb_av] 120 [lb_av] MEDEN T ([facility] Body mass index (BMI) [Ratio] 29.1 kg/m2 29.1 k g/m2 MEDENT ([facility]
--- NOTE | 2021-02-01 16:17 | HPEPDOC ---
General Date of Admission 02/01/21 Date of Service: Feb 01, 2021 Chief Complaint The patient is a 89-year-old female admitted with a reason for visit of Fall,Groin Pain. History of Present Illness 89-year-old female with past medical history of A. stephanie on Eliquis, hypertension, hypothyroid, GERD, anxiety, allergy had a mechanical fall on the night of 01/31/2021 after she tripped over a stone in her garden and since then has been having severe left groin pain. She was carried into her home by neighbors but she continued to have pain all night and this morning could not get out of bed so was brought to the emergency room. Patient complains of 6 /10 dull aching pain at the left groin which worsens to 10 x 10 with minimal movement and associated with muscle spasm spasms. She was found to have left hip fracture. Home Medications Scheduled Apixaban (Eliquis) 5 Mg Tablet, 5 MG PO BID, (Reported) Calcium Citrate (Calcium Citrate) 250 Mg Tablet, 500 MG PO DAILY, (Reported) Cetirizine HCl (Cetirizine HCl) 10 Mg Tab.chew, 10 MG PO DAILY, (Reported) Cholecalciferol (Vitamin D3) (Vitamin D3) 1,000 Unit Tablet, 2,000 UNITS PO DAILY, (Reported) Diltiazem HCl (Cartia Xt) 180 Mg Cap.er.24h, 180 MG PO DAILY, (Reported) Levothyroxine Sodium (Synthroid) 88 Mcg Tablet, 88 MCG PO DAILY, (Reported) Lisinopril (Lisinopril) 2.5 Mg Tablet, 2.5 MG PO DAILY, (Reported) Montelukast Sodium (Montelukast Sodium) 10 Mg Tablet, 10 MG PO DAILY, (Reported) Mv-Mn/Folic Acid/Calcium/Vit K (Women's 50 Plus Multivit Tab) 1 Each Tablet, 1 TAB PO DAILY, (Reported) Pantoprazole Sodium (Pantoprazole Sodium) 40 Mg Tablet.dr, 40 MG PO DAILY, (Reported) Pravastatin Sodium (Pravastatin Sodium) 40 Mg Tablet, 40 MG PO QHS, (Reported) Sertraline HCl (Sertraline HCl) 25 Mg Tablet, 25 MG PO DAILY, (Reported) Allergies Coded Allergies: No Known Drug Allergies (Verified Allergy, Unknown, 02/01/21) Past Medical History Medical History A. fib on Eliquis, hypertension, hypothyroid, GERD, anxiety, allergy Surgical History total thyroidectomy, Bladder suspension Family History Significant Family History: No pertinent family hx (Discussed with patient) Social History * Smoker: current smoker Alcohol: rarely Drugs: denies A-FIB/CHADSVASC A-FIB History Current/History of A-Fib/PAF?: Yes Current PO Anticoag Therapy: Yes Review of Systems Constitutional: Denies: Chills, Fever, Night Sweats Eyes: Denies: Pain, Vision change ENT: Denies: Head Aches, Ear Pain, Dysphagia Skin: Denies: Rash, Lesions, Breakdown Pulmonary: Denies: Dyspnea, Cough Cardiovascular: Denies: Chest Pain, Palpitations, Orthopnea, Paroxysmal Noc. Dyspnea, Lt Headedness Gastrointestinal: Denies: Nausea, Vomiting, Abdominal Pain, Diarrhea Genitourinary: Denies: Dysuria, Frequency, Incontinence, Retention Hematologic: Denies: Bruising, Bleeding Excessively Musculoskeletal: Reports: Joint Pain, Spasms Psych: Reports: Anxiety Physical Examination General Exam: Positive: Alert, Cooperative, No Acute Distress Eye Exam: Positive: PERRLA, Conjunctiva & lids normal, EOMI; Negative: Sclera icteric ENT Exam: Positive: Atraumatic, Mucous membr. moist/pink, Pharynx Normal Neck Exam: Positive: Supple; Negative: JVD, thyromegaly Chest Exam: Positive: Clear to auscultation, Normal air movement Heart Exam: Positive: Rate Normal, Regular Rhythm, Normal S1, Normal S2; Negative: Murmurs, Rubs Abdomen Exam: Positive: Normal bowel sounds, Soft; Negative: Tenderness, Hepatospenomegaly Extremity Exam: Negative: Clubbing, Cyanosis, Edema Skin Exam: Positive: Nl turgor and temperature; Negative: Breakdown, Lesion Neuro Exam: Positive: Normal Speech, Normal Tone Psych Exam: Positive: Memory Intact, Oriented x 3 Vital Signs Vital Signs Date Time Temp Pulse Resp B/P (MAP) Pulse Ox O2 Delivery O2 Flow Rate FiO2 02/01/21 13:49 16 02/01/21 11:00 94 159/76 (103) 96 Room Air 02/01/21 10:05 97.3 Laboratory Data Labs 24H Laboratory Tests 2 02/01/21 11:17: Immature Granulocyte % (Auto) 0.4, Neutrophils (%) (Auto) 81.8H, Lymphocytes (%) (Auto) 8.9L, Monocytes (%) (Auto) 8.3H, Eosinophils (%) (Auto) 0.2, Basophils (%) (Auto) 0.4, Neutrophils # (Auto) 11.0H, Lymphocytes # (Auto) 1.2L, Monocytes # (Auto) 1.1H, Eosinophils # (Auto) 0.0, Basophils # (Auto) 0.1, Nucleated Red Blood Cells % (auto) 0.0, Prothrombin Time 15.3H, Prothromb Time International Ratio 1.17, Anion Gap 5L, Glomerular Filtration Rate 49.8, Calcium Level 9.7, Total Bilirubin 0.6, Direct Bilirubin 0.2, Aspartate Amino Transf (AST/SGOT) 22, Alanine Aminotransferase (ALT/SGPT) 23, Alkaline Phosphatase 89, DO-Wrh-R-Type Natriuretic Peptide 468H, Total Protein 6.8, Albumin 3.7, Albumin/Globulin Ratio 1.2, Thyroid Stimulating Hormone (TSH) 0.665 02/01/21 11:23: Coronavirus (COVID-19)(PCR) NEGATIVE, Influenza Type A (RT-PCR) NEGATIVE, Influenza Type B (RT-PCR) NEGATIVE, Respiratory Syncytial Virus (PCR) NEGATIVE CBC/BMP Laboratory Tests 02/01/21 11:17 Assessment/Plan 89-year-old female with past medical history of A. fib on Eliquis, hypertension, hypothyroid, GERD, anxiety, allergy was admitted of after a mechanical fall where she sustained a left hip fracture. Medical optimization We will hold Eliquis, and lisinopril No h/o CHF or CKD or DM or CVA/TIA or CAD. No current chest pain or SOB. Patient medically optimized for the proposed procedure. Eliquis should be held for at least 48 to 72 hours before the procedure can be done. Left hip fracture Plan for or by Dr. Castle on February 03, 2021 Pain control with morphine and oxycodone Bedrest and Aquino catheter Hypothyroid h/o total thyroidectomy in the remote past. Continue Synthroid Hyperlipidemia Continue pravastatin Chronic A. fib Rate controlled with diltiazem Hold Eliquis Hypertension Continue diltiazem Hold lisinopril If more is needed for blood pressure control will give hydralazine. Plan / VTE VTE Prophylaxis Ordered?: Yes Lorenza Heck MD Feb 01, 2021 13:58
[2021-02-01 16:20] VITALS: BP 150/85
[2021-02-01] MEDS: oxyCODONE 5MG TAB PO PRN (17:58)
[2021-02-01] MEDS: MONTELUKAST 10 MG TAB PO SCH (18:31)
[2021-02-01] MEDS: SERTRALINE HCL 25 MG TABLET PO SCH (18:31)
[2021-02-01] MEDS: PANTOPRAZOLE 40MG TAB (PROTONIX) PO SCH (18:31)
[2021-02-01] MEDS: diltiaZEM **CD** 180 MG CAP PO SCH (18:34)
[2021-02-01] MEDS: PRAVASTATIN 20 MG TAB PO SCH (21:12)
[2021-02-01 22:00] VITALS: BP 145/83
[2021-02-02 06:00] VITALS: BP 151/85
--- NOTE | 2021-02-02 06:36 | ECGEPIP ---
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
[2021-02-02] MEDS: oxyCODONE 5MG TAB PO PRN ×3 (07:16→23:16)
[2021-02-02] MEDS: SERTRALINE HCL 25 MG TABLET PO SCH (08:56)
[2021-02-02] MEDS: LEVOTHYROXINE 88MCG TABLET (0.088 MG) PO SCH (08:56)
[2021-02-02] MEDS: MONTELUKAST 10 MG TAB PO SCH (08:57)
[2021-02-02] MEDS: diltiaZEM **CD** 180 MG CAP PO SCH (08:57)
[2021-02-02] MEDS: PANTOPRAZOLE 40MG TAB (PROTONIX) PO SCH (08:57)
[2021-02-02] MEDS ORDERED: ENOXAPARIN 40MG/0.4ML SYRINGE (J1650 PER 10MG) SC SCH (09:00)
[2021-02-02 10:14] LABS: BASO # 0.1 10^3/uL (0.0-0.2); BASO % 0.6 % (0.0-1.0); EOS # 0.1 10^3/uL (0.0-0.5); HEMOGLOBIN 13.4 g/dl (12.0-15.5); LYMPH # 1.4 10^3/uL (1.5-5.0); LYMPH % 10.4 % (24.0-44.0); MEAN CORPUSCULAR HEMOGLOBIN 31.6 pg (27.0-33.0); MEAN CORPUSCULAR HGB CONC 32.7 g/dl (32.0-36.5); MEAN CORPUSCULAR VOLUME 96.7 fl (80.0-96.0); MONO # 1.2 10^3/uL (0.0-0.8); MONO % 8.5 % (2.0-8.0); NEUTROPHILS # 10.9 10^3/uL (1.5-8.5); PLATELET COUNT, AUTOMATED 386 10^3/uL (150-450); RED BLOOD COUNT 4.24 10^6/uL (4.00-5.40); WHITE BLOOD COUNT 13.8 10^3/uL (4.0-10.0)
[2021-02-02 10:40] LABS: CALCIUM LEVEL 8.9 MG/DL (8.8-10.2); CREATININE FOR GFR 1.15 MG/DL (0.55-1.30); GLOMERULAR FILTRATION RATE 47.3 (>32); POTASSIUM SERUM 4.4 MEQ/L (3.5-5.1)
--- NOTE | 2021-02-02 12:25 | IPNPDOC ---
Subjective Date Seen The patient was seen on 02/02/21. Subjective Chief Complaint/HPI No complaints overnight. Patient reports that her pain is controlled as long as she does not move her leg. Plan for surgery on February 03, 2021. Objective Physical Examination General Exam: Positive: Alert, Cooperative, No Acute Distress Eye Exam: Positive: PERRLA, Conjunctiva & lids normal, EOMI; Negative: Sclera icteric ENT Exam: Positive: Atraumatic, Mucous membr. moist/pink, Pharynx Normal Neck Exam: Positive: Supple; Negative: JVD, thyromegaly Chest Exam: Positive: Clear to auscultation, Normal air movement Heart Exam: Positive: Rate Normal, Regular Rhythm, Normal S1, Normal S2; Negative: Murmurs, Rubs Abdomen Exam: Positive: Normal bowel sounds, Soft; Negative: Tenderness, Hepatospenomegaly Extremity Exam: Negative: Clubbing, Cyanosis, Edema Skin Exam: Positive: Nl turgor and temperature; Negative: Breakdown, Lesion Neuro Exam: Positive: Normal Speech, Normal Tone Psych Exam: Positive: Memory Intact, Oriented x 3 Assessment /Plan Assessment 89-year-old female with past medical history of A. fib on Eliquis, hypertension, hypothyroid, GERD, anxiety, allergy was admitted of after a mechanical fall where she sustained a left hip fracture. Medical optimization We will hold Eliquis, and lisinopril No h/o CHF or CKD or DM or CVA/TIA or CAD. No current chest pain or SOB. EKG sinus rhythm with nonspecific ST-T wave changes and a QTC of 487 Patient medically optimized for the proposed procedure. Eliquis should be held for at least 48 to 72 hours before the procedure can be done. Left hip fracture Plan for or by Dr. Castle on February 03, 2021 Pain control with morphine and oxycodone Bedrest and Aquino catheter Hypothyroid h/o total thyroidectomy in the remote past. Continue Synthroid Hyperlipidemia Continue pravastatin Chronic A. fib Rate controlled with diltiazem Hold Eliquis Hypertension Continue diltiazem Hold lisinopril If more is needed for blood pressure control will give hydralazine. Plan/VTE VTE Prophylaxis Ordered?: Yes VS, I&O, 24H, Fishbone Vital Signs/I&O Vital Signs Date Time Temp Pulse Resp B/P (MAP) Pulse Ox O2 Delivery O2 Flow Rate FiO2 10/23/21 08:57 74 151/85 02/02/21 08:00 16 02/02/21 06:00 99.2 92 Room Air I&O- Last 24 Hours up to 6 AM 02/02/21 05:59 Intake Total 150 ml Balance 150 ml Laboratory Data 24H LABS Laboratory Tests 2 02/02/21 09:44: Immature Granulocyte % (Auto) 0.5, Neutrophils (%) (Auto) 79.0H, Lymphocytes (%) (Auto) 10.4L, Monocytes (%) (Auto) 8.5H, Eosinophils (%) (Auto) 1.0, Basophils (%) (Auto) 0.6, Neutrophils # (Auto) 10.9H, Lymphocytes # (Auto) 1.4L, Monocytes # (Auto) 1.2H, Eosinophils # (Auto) 0.1, Basophils # (Auto) 0.1, Nucleated Red Blood Cells % (auto) 0.0, Anion Gap 7L, Glomerular Filtration Rate 47.3, Calcium Level 8.9 CBC/BMP Laboratory Tests 02/02/21 09:44 Lorenza Heck MD Feb 02, 2021 12:25
[2021-02-02 14:00] VITALS: BP 161/66
[2021-02-02] MEDS ORDERED: MIRALAX *UNIT DOSE* 17GM PACKET PO PRN (14:15)
[2021-02-02] MEDS ORDERED: SENOKOT S TAB PO SCH (21:00)
[2021-02-02] MEDS: PRAVASTATIN 20 MG TAB PO SCH (21:25)
[2021-02-02 22:00] VITALS: BP 158/69
[2021-02-03] VITALS (8 sets, daily range): BP systolic 130–162; BP diastolic 53–78
[2021-02-03] MEDS: oxyCODONE 5MG TAB PO PRN (06:03)
[2021-02-03 06:38] LABS: BASO # 0.1 10^3/uL (0.0-0.2); BASO % 0.7 % (0.0-1.0); EOS # 0.2 10^3/uL (0.0-0.5); HEMATOCRIT 38.6 % (36.0-47.0); HEMOGLOBIN 12.6 g/dl (12.0-15.5); LYMPH # 1.7 10^3/uL (1.5-5.0); LYMPH % 14.1 % (24.0-44.0); MEAN CORPUSCULAR HEMOGLOBIN 31.6 pg (27.0-33.0); MEAN CORPUSCULAR HGB CONC 32.6 g/dl (32.0-36.5); MEAN CORPUSCULAR VOLUME 96.7 fl (80.0-96.0); MONO # 1.4 10^3/uL (0.0-0.8); MONO % 11.1 % (2.0-8.0); NEUTROPHILS # 8.8 10^3/uL (1.5-8.5); NEUTROPHILS % 71.6 % (36.0-66.0); PLATELET COUNT, AUTOMATED 377 10^3/uL (150-450); RED BLOOD COUNT 3.99 10^6/uL (4.00-5.40); WHITE BLOOD COUNT 12.2 10^3/uL (4.0-10.0)
[2021-02-03 07:02] LABS: CALCIUM LEVEL 9.3 MG/DL (8.8-10.2); CREATININE FOR GFR 1.04 MG/DL (0.55-1.30); GLOMERULAR FILTRATION RATE 53.1 (>32); POTASSIUM SERUM 4.5 MEQ/L (3.5-5.1)
[2021-02-03] MEDS ORDERED: TRANEXAMIC ACID 100 MG/ML 10ML VIAL As Ordered ONE (07:34)
[2021-02-03] MEDS: diltiaZEM **CD** 180 MG CAP PO SCH (07:47)
[2021-02-03] MEDS ORDERED: ceFAZolin 2 GM/D5W 50 ML IV BAG (J0690 PER 500MG) As Ordered ONE (08:22)
--- NOTE | 2021-02-03 08:22 | IPNPDOC ---
Subjective Date Seen The patient was seen on 02/03/21. Subjective Chief Complaint/HPI No complaints this morning. Pain is controlled. Objective Physical Examination General Exam: Positive: Alert, Cooperative, No Acute Distress Eye Exam: Positive: PERRLA, Conjunctiva & lids normal, EOMI; Negative: Sclera icteric ENT Exam: Positive: Atraumatic, Mucous membr. moist/pink, Pharynx Normal Neck Exam: Positive: Supple; Negative: JVD, thyromegaly Chest Exam: Positive: Clear to auscultation, Normal air movement Heart Exam: Positive: Rate Normal, Regular Rhythm, Normal S1, Normal S2; Negative: Murmurs, Rubs Abdomen Exam: Positive: Normal bowel sounds, Soft; Negative: Tenderness, Hepatospenomegaly Extremity Exam: Negative: Clubbing, Cyanosis, Edema Skin Exam: Positive: Nl turgor and temperature; Negative: Breakdown, Lesion Neuro Exam: Positive: Normal Speech, Normal Tone Psych Exam: Positive: Memory Intact, Oriented x 3 Assessment /Plan Assessment 89-year-old female with past medical history of A. fib on Eliquis, hypertension, hypothyroid, GERD, anxiety, allergy was admitted of after a mechanical fall where she sustained a left hip fracture. Medical optimization We will hold Eliquis, and lisinopril No h/o CHF or CKD or DM or CVA/TIA or CAD. No current chest pain or SOB. EKG sinus rhythm with nonspecific ST-T wave changes and a QTC of 487 Patient medically optimized for the proposed procedure. Left hip fracture OR with Dr. Castle on February 03, 2021 Pain control with morphine and oxycodone Bedrest and Aquino catheter Hypothyroid h/o total thyroidectomy in the remote past. Continue Synthroid Hyperlipidemia Continue pravastatin Chronic A. fib Rate controlled with diltiazem Hold Eliquis Hypertension Continue diltiazem Hold lisinopril If more is needed for blood pressure control will give hydralazine. Plan/VTE VTE Prophylaxis Ordered?: Yes VS, I&O, 24H, Fishbone Vital Signs/I&O Vital Signs Date Time Temp Pulse Resp B/P (MAP) Pulse Ox O2 Delivery O2 Flow Rate FiO2 02/03/21 07:47 60 120/79 02/03/21 06:33 17 02/03/21 06:00 98.8 92 Room Air I&O- Last 24 Hours up to 6 AM 02/03/21 05:59 Intake Total 1710 ml Output Total 1150 ml Balance 560 ml Laboratory Data 24H LABS Laboratory Tests 2 02/02/21 09:44: Immature Granulocyte % (Auto) 0.5, Neutrophils (%) (Auto) 79.0H, Lymphocytes (%) (Auto) 10.4L, Monocytes (%) (Auto) 8.5H, Eosinophils (%) (Auto) 1.0, Basophils (%) (Auto) 0.6, Neutrophils # (Auto) 10.9H, Lymphocytes # (Auto) 1.4L, Monocytes # (Auto) 1.2H, Eosinophils # (Auto) 0.1, Basophils # (Auto) 0.1, Nucleated Red Blood Cells % (auto) 0.0, Anion Gap 7L, Glomerular Filtration Rate 47.3, Calcium Level 8.9 02/03/21 05:59: Immature Granulocyte % (Auto) 0.5, Neutrophils (%) (Auto) 71.6H, Lymphocytes (%) (Auto) 14.1L, Monocytes (%) (Auto) 11.1H, Eosinophils (%) (Auto) 2.0, Basophils (%) (Auto) 0.7, Neutrophils # (Auto) 8.8H, Lymphocytes # (Auto) 1.7, Monocytes # (Auto) 1.4H, Eosinophils # (Auto) 0.2, Basophils # (Auto) 0.1, Nucleated Red Blood Cells % (auto) 0.0, Anion Gap 7L, Glomerular Filtration Rate 53.1, Calcium Level 9.3 CBC/BMP Laboratory Tests 02/02/21 09:44 02/03/21 05:59 Lorenza Heck MD Feb 03, 2021 08:22
[2021-02-03] MEDS ORDERED: ROPIVA 125MG/EPINEPH 0.25MG/CLONID 40MCG/KETOR 15MG IN NS 50ML SYRINGE PA ONE (09:00)
[2021-02-03] MEDS ORDERED: METOPROLOL 5 MG/5 ML VIAL As Ordered ONE (09:05)
[2021-02-03] MEDS ORDERED: MIDAZOLAM INJ 2MG/2ML VIAL (J2250 PER 1MG) As Ordered ONE (09:39)
[2021-02-03] MEDS ORDERED: SUGAMMADEX SODIUM 500 MG/5 ML VIAL (BRIDION) As Ordered ONE (09:39)
[2021-02-03] MEDS ORDERED: propofoL 200 MG/20 ML VIAL As Ordered ONE (09:39)
[2021-02-03] MEDS ORDERED: ROCURONIUM BROMIDE 50 MG/5 ML VIAL As Ordered ONE (09:39)
[2021-02-03] MEDS ORDERED: fentaNYL 100 MCG/2 ML INJECTION (J3010) As Ordered ONE (09:39)
[2021-02-03] MEDS ORDERED: dexameTHASONE 4 MG/ML 1ML VIAL (J1100 PER 1MG) As Ordered ONE (09:39)
[2021-02-03] MEDS ORDERED: ONDANSETRON 4MG/2ML VIAL As Ordered ONE (09:39)
[2021-02-03] MEDS ORDERED: ETOMIDATE INJ 20MG/10ML VIAL As Ordered ONE (09:39)
[2021-02-03] MEDS ORDERED: SUCCINYLCHOLINE 100 MG/5 ML SYRINGE (J0330) As Ordered ONE (09:39)
[2021-02-03] MEDS ORDERED: ACETAMINOPHEN 1000MG 100ML IV BTL (OFIRMEV) (J0131 PER 10MG) As Ordered ONE (09:39)
[2021-02-03] MEDS ORDERED: LR 1,000 ML IV SCH ×2 (10:50→10:55)
[2021-02-03] MEDS ORDERED: ONDANSETRON 4MG/2ML VIAL IV PRN (10:55)
[2021-02-03] MEDS ORDERED: fentaNYL 100 MCG/2 ML INJECTION (J3010) IV PRN (10:55)
[2021-02-03] MEDS ORDERED: PERCOCET 5MG/325MG TAB PO PRN (10:55)
--- NOTE | 2021-02-03 10:56 | ROOPDOC ---
[facility] Report Of Operation Report of Operation DATE OF PROCEDURE: 02/03/21 PREPROCEDURE DIAGNOSES: Left hip fracture POSTPROCEDURE DIAGNOSES: Left hip fracture PROCEDURE PERFORMED: Left hip hemiarthroplasty SURGEON: Myles Bonilla MD OUTSIDE PHYSICAL DAMAGE APPRAISER: Katy Brennan PA-C ANESTHESIA: General anesthetic ESTIMATED BLOOD LOSS: Approximately 50 mL. COMPLICATIONS: No known REMARKS: Patient was seen in the preoperative area and the left lower extremity was checked and signed. FINDINGS: Right hip cervical neck fracture SPECIMENS REMOVED: None PROCEDURE NOTE: Components: [place] Standard offset neck sleeve for Unitrax Accolade 2 size #5 femoral stem 50 mm Unitrax endoprosthetic monopolar head DESCRIPTION OF PROCEDURE: The patient was brought to the operating room and a surgical pause was carried out. The patient was then positioned for an which was carried out. The patient was then positioned in the right lateral decubitus position for the left hip hemiarthroplasty. Appropriate padding was carried out including an axillary roll. Patient was secured with the Stulberg positioning system. The patient and underwent a chlorhexidine wash of the right lower extremity followed by 2 times alcohol wash and then 1 hydrogen peroxide wash. 2 standard sterile chlorhexidine preps were carried out utilizing the ones. The patient was then prepped and draped in the standard fashion. A surgical pause was carried out and a surgical safety checklist was completed. The modified Wong approach was utilized for the lateral skin incision. Skin and subcutaneous tissues were incised down to the fascia. The fascia was split. This was retracted to expose the abductors. The abductors and capsule were elevated using electrocautery in a single layer. Hohmann retractors were placed to help with visualization. Once the proximal femur had been skeletonized the soft tissue the fracture was dislocated and the femoral neck adjustment cut was performed. A rongeur was used to remove any loose fragments of bone. A Whiteside was placed to secure and stabilize the femoral head while a T-handle corkscrew was used to remove it. This was sized. 49 mm and 50 mm head sizes were trialed within the cup. The 50 mm appeared to be the most stable and appropriate. The patient then had the leg placed in the bag with a femoral elevator and a Christy elevating the proximal femur. Electrocautery was used to free up soft tissue at the posterior lateral aspect of the femur. A rongeur and then a box osteotome were used to open up the femoral canal followed by the canal finder. Broaching then occurred up to a size 6. But this was dropped down to a size 5 which appeared to be the most appropriate. This was trialed with the standard head and neck and found to have appropriate tensioning, leg length and offset as well as a good stable range of motion. The hip was then irrigated. Final components were opened. The final components were assembled. The stem was inserted. The trunnion was cleansed with normal sterile saline and dried and then the neck and head portion were impacted. This was then reduced and taken through a full stable range of motion. Leg lengths appeared to be appropriate. The wound was irrigated and tranexamic acid was allowed to sit for 3 minutes. The wound also had Betadine soaking in it. The layered closure then occurred with #1 Vicryl closure deep followed by #1 Vicryl and strata fix for the abductors and then #1 Vicryl and strata fix for the fascia. The subcutaneous layer was closed with interrupted #1 Vicryl followed by running 2.0 Vicryl followed by three-point 0 Monocryl. Normal sterile saline and Betadine washes were carried out in between layers. The wound was sealed with Steri- Strips followed by Telfa and Tegaderm for the iliac crest dressing and a Mepilex dressing for the Wong incision. The patient was taken to the recovery room stable with no known complications The patient will be admitted to the hospitalist service. Anticipate rehab placement. Physical therapy to mobilize. MYLES BONILLA MD Feb 03, 2021 10:56
[2021-02-03] MEDS ORDERED: METOCLOPRAMIDE INJ 10MG/2ML VIAL (J2765 PER 1) As Ordered ONE (11:10)
--- NOTE | 2021-02-03 11:13 | REP ---
INDICATION: Low-set pelvis to include all hardware s/p arthroplasty. COMPARISON: None. TECHNIQUE: Portable AP view of the pelvis was obtained. FINDINGS: There is a left total hip arthroplasty. On this single image, the prosthetic femoral head appears located in the prostatic acetabula. The distal end of the femoral component is well demonstrated. There is no evidence of complication. There is soft tissue swelling and subcutaneous emphysema lateral to the hip consistent with recent surgery. There is mild arthritis of the right hip and the left SI joint. IMPRESSION: Normal appearing left total hip arthroplasty. Other findings as noted. <Electronically signed by Toni Haines > 02/03/21 [id number]
[2021-02-03] MEDS ORDERED: METOCLOPRAMIDE INJ 10MG/2ML VIAL (J2765 PER 1) IV PRN (11:20)
[2021-02-03] MEDS ORDERED: PROMETHAZINE INJ 25 MG/ML VIAL (J2550) IV ONE (11:40)
[2021-02-03] MEDS: ACETAMINOPHEN TAB 650MG DOSE (2X325MG) PO SCH ×2 (12:00→17:16)
[2021-02-03] MEDS ORDERED: oxyCODONE 5MG TAB PO PRN (12:40)
[2021-02-03] MEDS ORDERED: traMADol 50 MG TAB PO PRN (12:40)
[2021-02-03] MEDS ORDERED: SENNA 8.6 MG TAB (SENOKOT) PO PRN (12:45)
[2021-02-03] MEDS: MONTELUKAST 10 MG TAB PO SCH (16:10)
[2021-02-03] MEDS: SERTRALINE HCL 25 MG TABLET PO SCH ×3 (16:10→20:33)
[2021-02-03] MEDS: LEVOTHYROXINE 88MCG TABLET (0.088 MG) PO SCH (16:11)
[2021-02-03] MEDS: PANTOPRAZOLE 40MG TAB (PROTONIX) PO SCH (16:11)
[2021-02-03] MEDS: NAPROXEN 250 MG TAB PO SCH (17:15)
[2021-02-03] MEDS: ASCORBIC ACID 500 MG TAB PO SCH (17:15)
[2021-02-03] MEDS: FERROUS SULFATE 325MG TAB PO SCH (17:15)
[2021-02-03] MEDS: ceFAZolin SOD 2 GM in IV 1 EA IV SCH (17:16)
[2021-02-03] MEDS: PRAVASTATIN 20 MG TAB PO SCH (20:33)
[2021-02-03] MEDS: DOCUSATE SODIUM 100MG CAPSULE PO SCH (21:00)
[2021-02-04] MEDS: ACETAMINOPHEN TAB 650MG DOSE (2X325MG) PO SCH ×4 (00:59→18:23)
[2021-02-04] MEDS: ceFAZolin SOD 2 GM in IV 1 EA IV SCH (00:59)
[2021-02-04 01:15] VITALS: BP 153/81
[2021-02-04] MEDS: NAPROXEN 250 MG TAB PO SCH ×2 (05:21→18:24)
[2021-02-04] MEDS: LEVOTHYROXINE 88MCG TABLET (0.088 MG) PO SCH (05:21)
[2021-02-04 06:00] VITALS: BP 132/64
[2021-02-04 06:41] LABS: BASO % 0.2 % (0.0-1.0); HEMATOCRIT 36.9 % (36.0-47.0); HEMOGLOBIN 11.8 g/dl (12.0-15.5); LYMPH # 1.1 10^3/uL (1.5-5.0); LYMPH % 6.3 % (24.0-44.0); MEAN CORPUSCULAR HEMOGLOBIN 31.4 pg (27.0-33.0); MEAN CORPUSCULAR VOLUME 98.1 fl (80.0-96.0); MONO # 1.3 10^3/uL (0.0-0.8); MONO % 7.3 % (2.0-8.0); NEUTROPHILS # 15.1 10^3/uL (1.5-8.5); NEUTROPHILS % 85.5 % (36.0-66.0); PLATELET COUNT, AUTOMATED 358 10^3/uL (150-450); RED BLOOD COUNT 3.76 10^6/uL (4.00-5.40); WHITE BLOOD COUNT 17.6 10^3/uL (4.0-10.0)
[2021-02-04 06:59] LABS: CALCIUM LEVEL 8.9 MG/DL (8.8-10.2); CREATININE FOR GFR 1.14 MG/DL (0.55-1.30); GLOMERULAR FILTRATION RATE 47.8 (>32); POTASSIUM SERUM 4.7 MEQ/L (3.5-5.1)
[2021-02-04] MEDS: PANTOPRAZOLE 40MG TAB (PROTONIX) PO SCH (08:16)
[2021-02-04] MEDS: ASCORBIC ACID 500 MG TAB PO SCH (08:16)
[2021-02-04] MEDS: MONTELUKAST 10 MG TAB PO SCH (08:16)
[2021-02-04] MEDS: DOCUSATE SODIUM 100MG CAPSULE PO SCH ×2 (08:16→20:07)
[2021-02-04] MEDS: FERROUS SULFATE 325MG TAB PO SCH (08:17)
[2021-02-04] MEDS: diltiaZEM **CD** 180 MG CAP PO SCH (08:17)
[2021-02-04] MEDS: oxyCODONE 5MG TAB PO PRN ×3 (08:18→20:08)
--- NOTE | 2021-02-04 09:19 | IPNPDOC ---
Text Note Date of Service The patient was seen on 02/04/21. NOTE POD 1 Left hip david-arthroplasty Patient states that she is doing well. Denies any chest pain or shortness of breath. Denies any cough. She has been up and moving with assistance and utilizing the walker. Left hip dressing clean, dry and intact. Grossly NVI to light touch to the left foot. Moving toes foot and ankle and has palpable PT and DP pulses. X-ray imaging demonstrates left hip prosthesis in good position without any obvious signs of complications, subsidence or periprosthetic fracture. The patient inquired about the hematoma of her right elbow. I have advised her that this is already reduced in size and will continue to slowly reabsorb and that it could take 6-8 weeks or more. Denies any increased pain, numbness or tingling of right hand. Patient moving right hand, arm and all fingers. Overall the patient is doing quite well. Plan for DC when able after Hospitalist and PT eval. Follow-up in 2 weeks in the clinic Dyllan REYES, I+O VSDyllan I+O Laboratory Tests 02/04/21 06:09 Vital Signs Date Time Temp Pulse Resp B/P (MAP) Pulse Ox O2 Delivery O2 Flow Rate FiO2 02/04/21 06:00 97.9 85 20 132/64 (86) 92 Room Air 02/03/21 16:00 2.0 I&O- Last 24 Hours up to 6 AM 02/04/21 06:00 Intake Total 2410 ml Output Total 600 ml Balance 1810 ml RICK HARRIS Feb 04, 2021 08:18
--- NOTE | 2021-02-04 12:46 | IPNPDOC ---
Subjective Date Seen The patient was seen on 02/04/21. Subjective Chief Complaint/HPI No complaints this morning has been mobilizing with a walker. Pain is controlled with current pain regimen Objective Physical Examination General Exam: Positive: Alert, Cooperative, No Acute Distress Eye Exam: Positive: PERRLA, Conjunctiva & lids normal, EOMI; Negative: Sclera icteric ENT Exam: Positive: Atraumatic, Mucous membr. moist/pink, Pharynx Normal Neck Exam: Positive: Supple; Negative: JVD, thyromegaly Chest Exam: Positive: Clear to auscultation, Normal air movement Heart Exam: Positive: Rate Normal, Regular Rhythm, Normal S1, Normal S2; Negative: Murmurs, Rubs Abdomen Exam: Positive: Normal bowel sounds, Soft; Negative: Tenderness Extremity Exam: Positive: Tenderness (Left hip surgical site), Other (Surgical dressing clean and dry at the left hip); Negative: Clubbing, Cyanosis, Edema Skin Exam: Positive: Nl turgor and temperature; Negative: Breakdown, Lesion Neuro Exam: Positive: Normal Speech, Normal Tone Psych Exam: Positive: Memory Intact, Oriented x 3 Assessment /Plan Assessment 89-year-old female with past medical history of A. fib on Eliquis, hypertension, hypothyroid, GERD, anxiety, allergy was admitted of after a mechanical fall where she sustained a left hip fracture. Left hip fracture s/p Left hip david-arthroplasty with Dr. Castle on February 03, 2021 Pain control with Tylenol, tramadol, oxycodone PT OT Hypothyroid h/o total thyroidectomy in the remote past. Continue Synthroid Hyperlipidemia Continue pravastatin Chronic A. fib Rate controlled with diltiazem Restart Eliquis Hypertension Continue diltiazem, will restart lisinopril as needed for blood pressure control Plan/VTE VTE Prophylaxis Ordered?: Yes VS, I&O, 24H, Fishbone Vital Signs/I&O Vital Signs Date Time Temp Pulse Resp B/P (MAP) Pulse Ox O2 Delivery O2 Flow Rate FiO2 02/04/21 08:48 18 02/04/21 08:17 85 132/64 02/04/21 06:00 97.9 92 Room Air 02/03/21 16:00 2.0 I&O- Last 24 Hours up to 6 AM 02/04/21 05:59 Intake Total 2310 ml Output Total 650 ml Balance 1660 ml Laboratory Data 24H LABS Laboratory Tests 2 02/04/21 06:09: Immature Granulocyte % (Auto) 0.7, Neutrophils (%) (Auto) 85.5H, Lymphocytes (%) (Auto) 6.3L, Monocytes (%) (Auto) 7.3, Eosinophils (%) (Auto) 0.0, Basophils (%) (Auto) 0.2, Neutrophils # (Auto) 15.1H, Lymphocytes # (Auto) 1.1L, Monocytes # (Auto) 1.3H, Eosinophils # (Auto) 0.0, Basophils # (Auto) 0.0, Nucleated Red Blood Cells % (auto) 0.0, Anion Gap 8, Glomerular Filtration Rate 47.8, Calcium Level 8.9 CBC/BMP Laboratory Tests 02/04/21 06:09 Lorenza Heck MD Feb 04, 2021 12:46
[2021-02-04] MEDS: SERTRALINE HCL 25 MG TABLET PO SCH (20:07)
[2021-02-04] MEDS: PRAVASTATIN 20 MG TAB PO SCH (20:07)
[2021-02-04] MEDS: APIXABAN 5 MG TAB (ELIQUIS) PO SCH (20:07)
[2021-02-04 22:00] VITALS: BP 129/60
[2021-02-05] MEDS: LEVOTHYROXINE 88MCG TABLET (0.088 MG) PO SCH (05:37)
[2021-02-05] MEDS: NAPROXEN 250 MG TAB PO SCH (05:37)
[2021-02-05] MEDS: ACETAMINOPHEN TAB 650MG DOSE (2X325MG) PO SCH ×2 (05:37)
[2021-02-05 06:00] VITALS: BP 126/59
[2021-02-05 08:27] VITALS: BP 126/64
[2021-02-05] MEDS: MONTELUKAST 10 MG TAB PO SCH (08:27)
[2021-02-05] MEDS: APIXABAN 5 MG TAB (ELIQUIS) PO SCH (08:27)
[2021-02-05] MEDS: ASCORBIC ACID 500 MG TAB PO SCH (08:27)
[2021-02-05] MEDS: DOCUSATE SODIUM 100MG CAPSULE PO SCH (08:27)
[2021-02-05] MEDS: diltiaZEM **CD** 180 MG CAP PO SCH (08:27)
[2021-02-05] MEDS: PANTOPRAZOLE 40MG TAB (PROTONIX) PO SCH (08:27)
[2021-02-05] MEDS: oxyCODONE 5MG TAB PO PRN (08:28)
[2021-02-05] MEDS: FERROUS SULFATE 325MG TAB PO SCH (08:28)
[2021-02-05] MEDS ORDERED: SENNA 8.6 MG TAB (SENOKOT) PO SCH (09:00)
[2021-02-05 09:36] LABS: BASO # 0.1 10^3/uL (0.0-0.2); BASO % 0.5 % (0.0-1.0); EOS # 0.2 10^3/uL (0.0-0.5); EOS % 1.5 % (0.0-3.0); HEMATOCRIT 38.8 % (36.0-47.0); HEMOGLOBIN 12.4 g/dl (12.0-15.5); LYMPH # 1.5 10^3/uL (1.5-5.0); LYMPH % 13.4 % (24.0-44.0); MEAN CORPUSCULAR HEMOGLOBIN 31.2 pg (27.0-33.0); MEAN CORPUSCULAR VOLUME 97.7 fl (80.0-96.0); MONO # 0.6 10^3/uL (0.0-0.8); MONO % 5.4 % (2.0-8.0); NEUTROPHILS # 8.6 10^3/uL (1.5-8.5); NEUTROPHILS % 78.7 % (36.0-66.0); PLATELET COUNT, AUTOMATED 383 10^3/uL (150-450); RED BLOOD COUNT 3.97 10^6/uL (4.00-5.40); WHITE BLOOD COUNT 10.9 10^3/uL (4.0-10.0)
[2021-02-05] MEDS ORDERED: OXYC-517 PO (09:37)
[2021-02-05] MEDS ORDERED: NAPR-849 PO (09:37)
--- NOTE | 2021-02-05 09:54 | IPNPDOC ---
Text Note Date of Service The patient was seen on 02/05/21. NOTE POD 2 Left hip david-arthroplasty Patient is in the process of being discharged, reports a pulling type pain at the proximal end of her incision. This is likely due to suture tension on involved tissue and is to be expected. States she has been up and moving several times since yesterday. Left hip dressing clean, dry and intact. Patient was informed of the plan for follow-up in 2 weeks in the clinic. VS,Fishbone, I+O VS, Fishbone, I+O Laboratory Tests 02/05/21 08:42 Vital Signs Date Time Temp Pulse Resp B/P (MAP) Pulse Ox O2 Delivery O2 Flow Rate FiO2 02/05/21 08:28 18 02/05/21 08:27 80 126/64 02/05/21 06:00 97.1 97 Room Air 02/03/21 16:00 2.0 I&O- Last 24 Hours up to 6 AM 02/05/21 06:00 Intake Total 1820 ml Output Total 1050 ml Balance 770 ml RICK HARRIS Feb 05, 2021 09:54
[2021-02-05 10:48] LABS: BLOOD UREA NITROGEN 30 MG/DL (7-18); CALCIUM LEVEL 9.2 MG/DL (8.8-10.2); CARBON DIOXIDE LEVEL 26 MEQ/L (21-32); CHLORIDE LEVEL 109 MEQ/L (98-107); CREATININE FOR GFR 0.92 MG/DL (0.55-1.30); GLOMERULAR FILTRATION RATE > 60.0 (>32); GLUCOSE, FASTING 89 MG/DL (70-100); POTASSIUM SERUM 3.9 MEQ/L (3.5-5.1); SODIUM LEVEL 142 MEQ/L (136-145)
--- NOTE | 2021-02-05 18:20 | DS.PDOC ---
Discharge Summary General Date of Admission Feb 01, 2021 at 13:42 Date of Discharge 02/05/2021 Primary Care Physician: Orlando Owen MD Attending Physician: KYRA GOOD DO Specialist/Consultants Involve: HUE BONILLA MD Discharge Summary PROCEDURES PERFORMED DURING STAY: Open reduction internal fixation left hip. ADMITTING DIAGNOSES: 1. Left hip fracture. 2. Medical optimization 3. Hypothyroidism 4. Hyperlipidemia 5. Chronic atrial fibrillation 6. Hypertension DISCHARGE DIAGNOSES: 1. Left hip fracture status post open reduction internal fixation 2. Hypothyroidism 3. Hyperlipidemia 4. Chronic atrial fibrillation 5. Hypertension COMPLICATIONS/CHIEF COMPLAINT: Hip Fracture, Left. HISTORY OF PRESENT ILLNESS: Patient is an 89-year-old female who presented to the hospital after a mechanical fall in the night of 01/31/2021 after she tripped over a stone in her garden and has been having severe left groin pain since then. Patient was carried into her home by neighbors but she continued to have pain all night and this morning, 02/01/2021, patient presented the emergency room. Patient complains of a 6/10 dull aching pain in her left groin which worsens with tenderness/10 with minimal movement associated muscle spasm. Patient was found to have a left hip fracture.. HOSPITAL COURSE: Dr. Bonilla of orthopedic surgery was consulted and performed an open reduction internal fixation of the left hip on 02/03/2021. Patient did well after the surgery and continue to work with physical therapy. Patient was deemed ready for discharge on 02/05/2021 the plan was to discharge the patient to her daughter's house who would take care of her for the next month or so in order to get the patient. Patient did have an elevated white blood cell count which may have been reactionary to the patient's surgery. On the date of discharge, patient is white blood cell count had decreased to 10.9. Patient appeared clinically well and was discharged home with home health services on 02/05/2021. Patient was sent home with a 5-day supply of oxycodone. Prescription monitoring program was queried and did not show any controlled substances dispensed to the patient. Reference number: [id number] DISCHARGE MEDICATIONS: Please see below. ALLERGIES: Please see below. PHYSICAL EXAMINATION ON DISCHARGE: VITAL SIGNS: Please see below. General: Alert and oriented female patient who was sitting up in bed when I walked in. Patient did not appear to be in any acute distress. HEENT: Normocephalic, atraumatic, moist mucous membranes. Neck: No lymphadenopathy or thyromegaly Cardiac: Regular rate and rhythm, no murmurs, normal S1, normal S2 Pulm: Clear to auscultation bilaterally. No wheezes, rhonchi, rales Abd: Nondistended, nontender to palpation, normal bowel sounds Ext: No edema bilateral lower extremities. Dressing on the left lateral hip was clean dry and intact. LABORATORY DATA: Please see below. IMAGING: Hip pelvis x-ray of the left hip performed on 02/01/2021 was reported to show mildly displaced fracture left femoral neck. Chest x-ray performed on 02/01/2021 was reported to show persistent right middle lobe nodules described above concerning for neoplasm. Contrast-enhanced CT examination of the chest is recommended. Possible right hilar adenopathy. Right elbow x-ray performed on 02/01/2021 was reported to show no fracture or dislocation. Significant soft tissue swelling over the olecranon. Left femur fracture performed on 02/01/2021 is reported to show mildly displaced left femoral neck fracture. Pelvis x-ray performed on 02/03/2021 was reported to show normal-appearing left total hip arthroplasty. Other findings as noted. PROGNOSIS: Good ACTIVITY: As tolerated. DIET: Regular DISCHARGE PLAN: Discharge to patient's daughter's house with home health services DISPOSITION: 06 Home Health Service. DISCHARGE INSTRUCTIONS: 1. Follow-up with primary care provider in 3 to 5 days discharge. 2. Continue to work with physical therapy as instructed. 3. Follow-up with Dr. Bonilla as scheduled 4. Return to the emergency department if symptoms worsen ITEMS TO FOLLOWUP ON ON OUTPATIENT: 1. Follow-up 1 cm size nodule in the right upper lobe which is status quo compared to prior comparison on 05/17/2020. DISCHARGE CONDITION: Stable. TIME SPENT ON DISCHARGE: 35 minutes. Vital Signs/I&Os Vital Signs Date Time Temp Pulse Resp B/P (MAP) Pulse Ox O2 Delivery O2 Flow Rate FiO2 02/05/21 08:58 18 02/05/21 08:27 80 126/64 02/05/21 06:00 97.1 97 Room Air 02/03/21 16:00 2.0 I&O- Last 24 Hours up to 6 AM 02/05/21 06:00 Intake Total 1820 ml Output Total 1050 ml Balance 770 ml Laboratory Data Labs 24H Laboratory Tests 2 02/05/21 08:42: Immature Granulocyte % (Auto) 0.5, Neutrophils (%) (Auto) 78.7H, Lymphocytes (%) (Auto) 13.4L, Monocytes (%) (Auto) 5.4, Eosinophils (%) (Auto) 1.5, Basophils (%) (Auto) 0.5, Neutrophils # (Auto) 8.6H, Lymphocytes # (Auto) 1.5, Monocytes # (Auto) 0.6, Eosinophils # (Auto) 0.2, Basophils # (Auto) 0.1, Nucleated Red Blood Cells % (auto) 0.0 02/05/21 10:02: Anion Gap 7L, Glomerular Filtration Rate > 60.0, Calcium Level 9.2 CBC/BMP Laboratory Tests 02/05/21 08:42 02/05/21 10:02 Discharge Medications Scheduled Apixaban (Eliquis) 5 Mg Tablet, 5 MG PO BID, (Reported) Calcium Citrate (Calcium Citrate) 250 Mg Tablet, 500 MG PO DAILY, (Reported) Cetirizine HCl (Cetirizine HCl) 10 Mg Tab.chew, 10 MG PO DAILY, (Reported) Cholecalciferol (Vitamin D3) (Vitamin D3) 1,000 Unit Tablet, 2,000 UNITS PO DAILY, (Reported) Diltiazem HCl (Cartia Xt) 180 Mg Cap.er.24h, 180 MG PO DAILY, (Reported) Levothyroxine Sodium (Synthroid) 88 Mcg Tablet, 88 MCG PO DAILY, (Reported) Lisinopril (Lisinopril) 2.5 Mg Tablet, 2.5 MG PO DAILY, (Reported) Montelukast Sodium (Montelukast Sodium) 10 Mg Tablet, 10 MG PO DAILY, (Reported) Mv-Mn/Folic Acid/Calcium/Vit K (Women's 50 Plus Multivit Tab) 1 Each Tablet, 1 TAB PO DAILY, (Reported) Naproxen (Naproxen) 250 Mg Tablet, 250 MG PO Q12H Pantoprazole Sodium (Pantoprazole Sodium) 40 Mg Tablet.dr, 40 MG PO DAILY, (Reported) Pravastatin Sodium (Pravastatin Sodium) 40 Mg Tablet, 40 MG PO QHS, (Reported) Sertraline HCl (Sertraline HCl) 25 Mg Tablet, 25 MG PO QHS, (Reported) Scheduled PRN Oxycodone HCl (Oxycodone HCl) 5 Mg Tablet, 5 MG PO Q6HP PRN for PAIN LEVEL 5-10 Allergies Coded Allergies: No Known Drug Allergies (Verified Allergy, Unknown, 02/01/21) KYRA GOOD DO Feb 05, 2021 18:20
== END 2021-02-05 11:35 | disposition home health service (06) | DRG 522 ==
LOC: M ED 09:44 → M ED INP 13:42 → ENRESERV 14:02 → M MS5PR 16:25
PROVIDERS: ADMIT Internal Medicine Nephrology; ATTEND Internal Medicine Nephrology
PROC: 0SQB0ZZ Repair Left Hip Joint, Open Approach (ICD-10-PCS; 2021-02-03)
PROC: 0SRS0JA Replacement of Left Hip Joint, Femoral Surface with Synthetic Substitute, Uncemented, Open Approach (ICD-10-PCS; principal; 2021-02-03 08:30)
DX: S72.012A Unspecified intracapsular fracture of left femur, initial encounter for closed fracture (principal); W01.0XXA Fall on same level from slipping, tripping and stumbling without subsequent striking against object, initial encounter; Y92.009 Unspecified place in unspecified non-institutional (private) residence as the place of occurrence of the external cause; Y93.H2 Activity, gardening and landscaping; F17.210 Nicotine dependence, cigarettes, uncomplicated; Z20.822 Contact with and (suspected) exposure to COVID-19; Z79.01 Long term (current) use of anticoagulants; Z79.899 Other long term (current) drug therapy; I48.91 Unspecified atrial fibrillation; I10 Essential (primary) hypertension; E03.9 Hypothyroidism, unspecified; K21.9 Gastro-esophageal reflux disease without esophagitis; F41.9 Anxiety disorder, unspecified; E78.5 Hyperlipidemia, unspecified

== ENCOUNTER → 2021-02-19 | Outpatient (CLI) | payer MEDICARE, OTHER ==
[~2021-02-19] MED LIST: AZEL0.055 NARES; CALC250T PO; CART180C3 PO; CETI10CH PO; D31000TA2 PO; ELIQ5TAB PO; LISI2.5T8 PO; LORA-674 PO; MONT10TA10 PO; MV-M1TAB13 PO; NAPR-849 PO; OXYC-517 PO; PANT-23 PO; PRAV40TA2 PO; SERT25TA21 PO; SYNT88TA2 PO
--- NOTE | 2021-02-19 17:01 | REP ---
INDICATION: SURGICAL AFTERCARE. COMPARISON: AP pelvis of 02/03/2021 TECHNIQUE: AP pelvis two views left hip FINDINGS: The previously described left hip prosthesis is unchanged in alignment and position. There is no acute fracture, dislocation, or subluxation. There are moderate degenerative changes seen involving the right hip status quo. IMPRESSION: Stable exam <Electronically signed by Jeff Alexandra > 02/19/21 [id number]
== END ==
LOC: M SOG 15:54
PROVIDERS: ATTEND Orthopaedic Surgery Adult Reconstructive Orthopaedic Surgery
DX: Z48.89 Encounter for other specified surgical aftercare (principal)

== ENCOUNTER → 2021-05-06 | Outpatient (REF) | payer MEDICARE, OTHER ==
[~2021-05-06] MED LIST changes: -MONT10TA10 PO; +MONT10TA97 PO
[2021-05-06 13:48] LABS: APPEARANCE, URINE HAZY (CLEAR); BACTERIA, URINE AUTO 3+ (NEGATIVE); BILIRUBIN, URINE AUTO NEGATIVE (NEGATIVE); BLOOD, URINE BLOOD NEGATIVE (NEGATIVE); CALCIUM OXALATE CRYSTALS SMALL; COLOR, URINE YELLOW (YELLOW); GLUCOSE, URINE (UA) AUTO NEGATIVE (NEGATIVE); KETONE, URINE AUTO TRACE mg/dL (NEGATIVE); LEUKOCYTE ESTERASE, URINE AUTO 1+ (NEGATIVE); MUCUS, URINE SMALL (NEGATIVE); NITRITE, URINE AUTO POSITIVE (NEGATIVE); PROTEIN, URINE AUTO NEGATIVE (NEGATIVE); RBC, URINE AUTO 1 /HPF (0-3); SPECIFIC GRAVITY URINE AUTO 1.026 (1.002-1.035); SQUAMOUS EPITHELIAL CELL UR AU 6 /HPF (0-6); UROBILINOGEN, URINE AUTO 0.2 mg/dL (0.0-2.0); WBC, URINE AUTO 23 /HPF (0-3)
== END ==
LOC: M SHH 13:09
PROVIDERS: ATTEND Family Medicine
DX: R35.0 Frequency of micturition (principal)